=== PATIENT | female | born 1990 | race Caucasian/White ===

== ENCOUNTER 2018-08-16 23:05 | Emergency (ER) | payer SELFPAY ==
[~2018-08-16] VITALS: Ht 157.5 cm; Wt 68.0 kg
[~2018-08-16 23:05] MED LIST: PRENATAL 19 CH1 EACH PO
--- OUTSIDE RECORDS SUMMARY | 2018-08-17 01:32 | XMS | Clinical Summary ---
Demographics + + + | Address | [address] | | | [place] [address] | + + + | Home Phone | | + + + | Preferred Language | Unknown | + + + | Marital Status | Single | + + + | Amish Affiliation | Unknown | + + + | Race | Unknown | + + + | Ethnic Group | Unknown | + + + Author + + + | Author | [facility] | | | and [facility] | + + + | Organization | [facility] | | | and [facility] | + + + | Address | Unknown | + + + | Phone | Unavailable | + + + Care Team Providers + +------+ + | Care Metal Drill Press Operator Name | Role | Phone | + +------+ + PP | Unavailable | + +------+ + Allergies Not on File Current Medications Not on file Active Problems Not on file Social History + +-------+ +--------+------+ | Tobacco Use | Types | Packs/Day | Years | Date | | | | | Used | | + +-------+ +--------+------+ | Never Assessed | | | | | + +-------+ +--------+------+ + + + | Sex Assigned at | Date Recorded | | | | + + + | Not on file | | + + + Plan of Treatment + + + + + | Health Maintenance | Due Date | Last Done | Comments | + + + + + | Vaccine: | | | | | Dtap/Tdap/Td (1 - | 9 | | | | Tdap) | | | | + + + + + | Cervical Cancer | | | | | Screening (Pap) | 1 | | | + + + + + | Vaccine: Influenza | | | | | (#1) | 8 | | | + + + + + Results Not on filefrom Last 3 Months"
--- OUTSIDE RECORDS SUMMARY | 2018-08-17 01:32 | XMS | Clinical Summary ---
Demographics + + + | Address | [address] | | | [place] [address] | + + + | Home Phone | | + + + | Preferred Language | Unknown | + + + | Marital Status | | + + + | Restoration Affiliation | Unknown | + + + | Race | Unknown | + + + | Ethnic Group | Unknown | + + + Author + + + | Author | [facility] | + + + | Organization | [facility] | + + + | Address | Unknown | + + + | Phone | Unavailable | + + + Support + + +---------+ + | Name | Relationship | Address | Phone | + + +---------+ + | Uli Hernandez | ECON | Unknown | | + + +---------+ + Care Team Providers + +------+ + | Care It Application Support Analyst Name | Role | Phone | + +------+ + | Campbell Garcia | PP | | + +------+ + Allergies + + + + + + | Active Allergy | Reactions | Severity | Noted | Comments | | | | | Date | | + + + + + + | Latex | Swelling | Medium | 01/10/20 | | | | | | 14 | | + + + + + + | Sulfamethoxazole-Tri | Anaphylaxis | High | 01/10/20 | | | methoprim | | | 14 | | + + + + + + Current Medications + + +---------+---------+------+------+-------+ | Prescription | Sig. | Disp. | Refills | Star | End | Statu | | | | | | t | Date | s | | | | | | Date | | | + + +---------+---------+------+------+-------+ | | Take 15 mg by mouth. | | | | | Activ | | amphetamine-dextroam | | | | | | e | | phetamine (ADDERALL) | | | | | | | | 5 MG tablet | | | | | | | + + +---------+---------+------+------+-------+ | tamsulosin | Take 1 capsule by | 30 | 0 | 01/0 | | Activ | | (FLOMAX) 0.4 MG | mouth After dinner | capsule | | 9/20 | | e | | capsule | for 30 days. | | | 18 | | | | | Discontinue if feel | | | | | | | | dizziness or drop in | | | | | | | | Blood Pressure. | | | | | | + + +---------+---------+------+------+-------+ Active Problems + + + | Problem | Noted Date | + + + | Nephrolithiasis | 10/07/2017 | + + + | Flank pain | 10/07/2017 | + + + | Tobacco abuse | 10/07/2017 | + + + Family History + + +------+ + | Medical History | Relation | Name | Comments | + + +------+ + | Diabetes type II | Father | | | + + +------+ + | Kidney disease | Father | | | + + +------+ + | Malig hypertherm | Neg Hx | | | + + +------+ + + +------+--------+ + | Relation | Name | Status | Comments | + +------+--------+ + | Father | | | | + +------+--------+ + Social History + +-------+ +--------+------+ | Tobacco Use | Types | Packs/Day | Years | Date | | | | | Used | | + +-------+ +--------+------+ | Current Every Day | | 0.5 | 10 | | | Smoker | | | | | + +-------+ +--------+------+ + +---+---+---+ | Smokeless Tobacco: | | | | | Never Used | | | | + +---+---+---+ + + +---------+ + | Alcohol Use | Drinks/We | oz/Week | Comments | | | ek | | | + + +---------+ + | Yes | | | rarely | + + +---------+ + + + + | Sex Assigned at | Date Recorded | | | | + + + | Not on file | | + + + Last Filed Vital Signs + + + + | Vital Sign | Reading | Time Taken | + + + + | Blood Pressure | 118/64 | 11/25/2017 3:11 PM PST | + + + + | Pulse | 144 | 11/25/2017 3:11 PM PST | + + + + | Temperature | 36.8 C (98.3 F) | 10/19/2017 10:00 AM PST | + + + + | Respiratory Rate | 29 | 10/19/2017 9:15 AM PST | + + + + | Oxygen Saturation | 99% | 11/25/2017 3:11 PM PST | + + + + | Inhaled Oxygen | - | - | | Concentration | | | + + + + | Weight | 70.8 kg (156 lb) | 11/25/2017 3:11 PM PST | + + + + | Height | 157.5 cm (5' 2") | 11/25/2017 3:11 PM PST | + + + + | Body Mass Index | 28.53 | 11/25/2017 3:11 PM PST | + + + + Plan of Treatment + + + + + | Health Maintenance | Due Date | Last Done | Comments | + + + + + | Vaccine: | | | | | Dtap/Tdap/Td (1 - | 9 | | | | Tdap) | | | | + + + + + | Vaccine: | | | | | Pneumococcal 19-64 | 9 | | | | (PPSV23 only) Medium | | | | | Risk (1 of 1 - | | | | | PPSV23) | | | | + + + + + | Cervical Cancer | | | | | Screening (Pap) | 1 | | | + + + + + | Vaccine: Influenza | | | | | (#1) | 8 | | | + + + + + Results Not on filefrom Last 3 Months Insurance +---------+--------+ +------+-------+ + | Payer | Benefi | Subscriber | Type | Phone | Address | | | t Plan | ID | | | | | | / | | | | | | | Group | | | | | +---------+--------+ +------+-------+ + | PREMERA | PREMER | [id number] | | | [address] [address] | | | A BLUE | 6 | | | [place], [place] | | | CARD | | | | [phone] | +---------+--------+ +------+-------+ + + +--------+ +--------+ + + | Guarantor Name | Accoun | Relation to | Date | Phone | Billing Address | | | t Type | Patient | of | | | | | | | | | | + +--------+ +--------+ + + | KAREN HERNANDEZ | Person | Self | [birth year] | Home: | [place], | | | [place] | | 1989 | [phone] | [place] [address] | | | kimmy | | | [phone] | | + +--------+ +--------+ + +
--- OUTSIDE RECORDS SUMMARY | 2018-08-17 01:32 | XMS | Clinical Summary ---
Demographics + + + | Address | [address] | | | [place] [address] | + + + | Home Phone | | + + + | Preferred Language | Unknown | + + + | Marital Status | Single | + + + | Episcopal Affiliation | Unknown | + + + | Race | Unknown | + + + | Ethnic Group | Unknown | + + + Author + + + | Author | [facility] | | | and [facility] | + + + | Organization | [facility] | | | and [facility] | + + + | Address | Unknown | + + + | Phone | Unavailable | + + + Care Team Providers + +------+ + | Care Coo & Co Founder Name | Role | Phone | + [...]
--- OUTSIDE RECORDS SUMMARY | 2018-08-17 01:32 | XMS | Clinical Summary ---
Demographics + + + | Address | [address] | | | [place] [address] | + + + | Home Phone | | + + + | Preferred Language | Unknown | + + + | Marital Status | | + + + | Mu-Ism Affiliation | Unknown | + + + | Race | Unknown | + + + | Ethnic Group | Unknown | + + + Author + + + | Author | [facility] | + + + | Organization | [facility] | + + + | Address | Unknown | + + + | Phone | Unavailable | + + + Support + + +---------+ + | Name | Relationship | Address | Phone | + + +---------+ + | Uli Hernandez | ECON | Unknown | | + + +---------+ + Care Team Providers + +------+ + | Care Blocker And Cutter Contact Lens Name | Role | Phone | + [...] +------+-------+ + | PREMERA | PREMER | [id number] | | | [address] [address] | | | A BLUE | 6 | | | [place], [place] | | | CARD | | | | [phone] | +---------+--------+ +------+-------+ + + +--------+ +--------+ [...] | | al/[place] | | 1989 | [phone] | [place] [address] | | | kimmy | | | [phone] | | + +--------+ +--------+ + +
--- OUTSIDE RECORDS SUMMARY | 2018-08-17 01:33 | XMS ---
PreManage Notification: LULÚ HERNANDEZ Security Offset Printer Events No recent Security Events currently on file CRITERIA MET - [facility] - 2 Visits in 30 Days [facility] PHONE: Unknown Radha has no Care Guidelines for this patient. E.DDanny VISIT COUNT (12 MO.) 2 [facility] TOTAL 2 NOTE: Visits indicate total known visits. ED/UCC VISIT TRACKING (12 MO.) 08/16/2018 23:07 [facility] TYPE: Emergency COMPLAINT: - 7-8 WEEKS , BLEEDING 07/27/2018 12:42 [facility] [place] TYPE: Emergency COMPLAINT: - EXTREMITY INJURY DIAGNOSES: - Pain in right elbow INPATIENT VISIT TRACKING (12 MO.) No inpatient visits to display in this time frame [id number]
== END 2018-08-17 03:13 | disposition home or self-care (01) ==
LOC: ED 23:05
DX: O20.9 Hemorrhage in early pregnancy, unspecified (principal); O99.331 Smoking (tobacco) complicating pregnancy, first trimester; F17.200 Nicotine dependence, unspecified, uncomplicated; Z3A.01 Less than 8 weeks gestation of pregnancy; Z88.2 Allergy status to sulfonamides; Z88.1 Allergy status to other antibiotic agents; Z91.040 Latex allergy status
CPT/HCPCS: 76801; 76817; 84702; 85025; 99284

== ENCOUNTER 2018-12-20 12:48 | Emergency (ER) | payer OTHER ==
[~2018-12-20] VITALS: Ht 154.9 cm; Wt 71.2 kg
[~2018-12-20 12:48] MED LIST changes: +ADDERALL 15 MG15 MG PO; +CEPHALEXIN500 MG PO; +NORCO 5-325 TA1 EACH PO; +REGLAN10 MG PO; +WELLBUTRIN SR100 MG PO
--- OUTSIDE RECORDS SUMMARY | 2018-12-20 12:50 | XMS ---
PreManage Notification: LULÚ HERNANDEZ Security Senior Tax Manager Events No recent Security Events currently on file CRITERIA MET - PDM CARE PROVIDERS [facility] PHONE: Unknown Radha has no Care Guidelines for this patient. E.DDanny VISIT COUNT (12 MO.) 1 [facility] [place] 4 [facility] TOTAL 5 NOTE: Visits indicate total known visits. ED/UCC VISIT TRACKING (12 MO.) 12/20/2018 12:48 [facility] TYPE: Emergency COMPLAINT: - FINGER LAC/OJI 10/03/2018 13:00 [facility] TYPE: Emergency COMPLAINT: - ABD PAIN;POSS KIDNEY STONE DIAGNOSES: - Latex allergy status - Allergy status to other antibiotic agents status - Other watcher automat long goods (current) drug therapy - Allergy status to sulfonamides status - Nicotine dependence, unspecified, uncomplicated - Unspecified abdominal pain - Personal history of urinary calculi 08/23/2018 17:05 [facility] TYPE: Emergency DIAGNOSES: 92723. Abnormal lab results [id number]. Unspecified ectopic without intrauterine 08/16/2018 23:07 [facility] TYPE: Emergency COMPLAINT: - 7-8 WEEKS , BLEEDING DIAGNOSES: - Smoking (tobacco) complicating , first trimester - Less than 8 weeks gestation of - Allergy status to sulfonamides status - Hemorrhage in early , unspecified - Nicotine dependence, unspecified, uncomplicated - Latex allergy status - Hemorrhage in early , unspecified - Allergy status to other antibiotic agents status 07/27/2018 12:42 [facility] TYPE: Emergency COMPLAINT: - EXTREMITY INJURY DIAGNOSES: - Pain in right elbow INPATIENT VISIT TRACKING (12 MO.) 08/23/2018 17:05 [facility] TYPE: Obstetrics DIAGNOSES: 20674. Unspecified ectopic without intrauterine [email or web address]
[2018-12-20] MEDS ORDERED: AUGMENTIN 875-1 EACH PO (15:08)
[2018-12-20] MEDS ORDERED: NORCO 5-325 TA1 EACH PO (15:08)
== END 2018-12-20 13:54 | disposition home or self-care (01) ==
LOC: ED 12:48
DX: S61.210A Laceration without foreign body of right index finger without damage to nail, initial encounter (principal); W29.8XXA Contact with other powered hand tools and household machinery, initial encounter

== ENCOUNTER 2018-12-20 14:07 | Emergency (ER) | payer OTHER ==
[~2018-12-20] VITALS: Ht 157.5 cm; Wt 73.9 kg
--- OUTSIDE RECORDS SUMMARY | 2018-12-20 14:10 | XMS ---
PreManage Notification: LULÚ HERNANDEZ Security Geriatric Care Manager Events No recent Security Events currently on file CRITERIA MET - 6 ED Visits in 6 Months - [facility] - 2 Visits in 30 Days CARE PROVIDERS [facility] of Primary Care [place] PHONE: Unknown Radha has no Care Guidelines for this patient. E.D. VISIT COUNT (12 MO.) 1 [facility] and [address] TOTAL 6 NOTE: Visits indicate total known visits. ED/UCC VISIT TRACKING (12 MO.) 12/20/2018 14:07 [facility] TYPE: Emergency COMPLAINT: - FINGER LAC 12/20/2018 12:48 [facility] TYPE: Emergency COMPLAINT: - FINGER LAC/OJI 10/03/2018 13:00 [facility] [place] TYPE: Emergency COMPLAINT: - ABD PAIN;POSS KIDNEY STONE DIAGNOSES: - Latex allergy status - Allergy status to other antibiotic agents status - Other long-term (current) drug therapy - Allergy status to sulfonamides status - Nicotine dependence, unspecified, uncomplicated - Unspecified abdominal pain - Personal history of urinary calculi 08/23/2018 17:05 [facility] TYPE: Emergency DIAGNOSES: 23065. Abnormal lab results [id number]. Unspecified ectopic without intrauterine 08/16/2018 23:07 [facility] [place] TYPE: Emergency [...] other antibiotic agents status 07/27/2018 12:42 [facility] TYPE: Emergency COMPLAINT: - EXTREMITY INJURY DIAGNOSES: - Pain in right elbow INPATIENT VISIT TRACKING (12 MO.) 08/23/2018 17:05 [facility] TYPE: Obstetrics DIAGNOSES: 96626. Unspecified ectopic without intrauterine [email or web address]
[2018-12-20] MEDS ORDERED: AUGMENTIN 875-1 EACH PO (15:08)
[2018-12-20] MEDS ORDERED: NORCO 5-325 TA1 EACH PO (15:08)
== END 2018-12-20 15:23 | disposition home or self-care (01) ==
LOC: ED 14:07
DX: S61.231A Puncture wound without foreign body of left index finger without damage to nail, initial encounter (principal); Z87.442 Personal history of urinary calculi; F17.200 Nicotine dependence, unspecified, uncomplicated; Z91.040 Latex allergy status; Z88.2 Allergy status to sulfonamides; Z88.1 Allergy status to other antibiotic agents; Z79.899 Other long term (current) drug therapy; W31.0XXA Contact with mining and earth-drilling machinery, initial encounter
CPT/HCPCS: 73140; 99283

== ENCOUNTER 2018-12-23 09:57 | Emergency (ER) | payer OTHER ==
[~2018-12-23] VITALS: Ht 157.5 cm; Wt 70.3 kg
--- OUTSIDE RECORDS SUMMARY | ~2018-12-23 | XMS | Clinical Summary ---
Demographics + + + | Address | [address] | | | [place] [address] | + + + | Home Phone | | + + + | Preferred Language | Unknown | + + + | Marital Status | | + + + | Restorationist Affiliation | NOD | + + + [...] Phone | + + +---------+ + | KERRY ALVARADO | ECON | Unknown | | + + +---------+ + | DAMI ALVARADO | ECON | Unknown | | + + +---------+ + Care Team Providers + +------+ + | Care Dry Sand Molder Name | Role | Phone | + +------+ + | No Pcp Per Patient | PP | Unavailable | + +------+ + Source Comments SHERYL is fully live on both [facility] Allergies + + + + [...] + | Sulfamethoxazole-Tri | Hives | | 08/23/20 | | | methoprim | | | 18 | | + + + + + + Current Medications + + +---------+---------+------+------+-------+ | Prescription | Sig. | Disp. | Refills | Star | End | Statu | | | | | | t | Date | s | | | | | | Date | | | + + +---------+---------+------+------+-------+ | vitamins | Take 1 tablet by | | | | | Activ | | (with calcium) | mouth once daily. | | | | | e | | iron-folic acid 27 | | | | | | | | mg iron- 1 mg oral | | | | | | | | tablet | | | | | | | + + +---------+---------+------+------+-------+ | ascorbic acid | Take 250 mg by mouth | | | | | Activ | | (vitamin C) 250 mg | two times daily. | | | | | e | | oral tablet | | | | | | | + + +---------+---------+------+------+-------+ | | Take 1 tablet by | 168 | 0 | 11/1 | | Activ | | norgestimate-ethinyl | mouth once daily. | tablet | | 4/20 | | e | | estradiol 0.25-35 | | | | 18 | | | | mg-mcg oral tablet | | | | | | | + + +---------+---------+------+------+-------+ | ibuprofen 600 mg | Take 1 tablet by | 90 | 0 | 11/1 | | Activ | | oral tablet | mouth every six | tablet | | 4/20 | | e | | | hours as needed. | | | 18 | | | + + +---------+---------+------+------+-------+ | docusate sodium | Take 1 capsule by | 60 | 0 | 11/1 | | Activ | | (COLACE) 100 mg oral | mouth two times | capsule | | 4/20 | | e | | capsule | daily. 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 Referred to [facility] for | | management. Patient 8wks [...] | | + + +---------+ + | No [...] Pressure | 106/57 | 08/25/2018 4:09 AM PST | + + + + | Pulse | 91 | 08/25/2018 4:09 AM PST | + + + + | Temperature | 36.8 C (98.2 F) | 08/25/2018 4:09 AM PST | + + + + | Respiratory Rate | 14 | 08/25/2018 4:09 AM PST | + + + + | Oxygen Saturation | 96% | 08/25/2018 4:09 AM PST | + + + + | Inhaled Oxygen | - | - | | Concentration | | | + + + + | Weight | 70.8 kg (156 lb) | 08/23/2018 4:16 PM PST | + + + + | Height | 157.5 cm (5' 2") | 08/23/2018 4:16 PM PST | + + + + | Body Mass Index | 28.53 | 08/23/2018 4:16 PM PST | + + + + Plan of Treatment Not on file Results Not on filefrom Last 3 Months Insurance + +--------+ +--------+ + + | Payer | Benefi | Subscriber | Type | Phone | Address | | | t Plan | ID | | | | | | / | | | | | | | Group | | | | | + +--------+ +--------+ + + | [place] | OHP | xxxxxxxx | Medica | [phone] [address] [address] | | | PLUS | | id | [id number] | [place] [address] | | | OPEN | | | | | | | CARD | | | | | + +--------+ +--------+ + + + +--------+ +--------+ + + | Guarantor Name | Accoun | Relation to | Date | Phone | Billing Address | | | t Type | Patient | of | | | | | | | | | | + +--------+ +--------+ + + | KAREN MIRAMONTES | Person | Self | [birth year] | Home: | [address] [place] [address] | | | [place] | | 1989 | [phone] | [place] [address] | | | kimmy | | | [phone] | | + +--------+ +--------+ + +
--- OUTSIDE RECORDS SUMMARY | ~2018-12-23 | XMS | Clinical Summary ---
Demographics + + + | Address | [address] | | | [place] [address] | + + + | Home Phone | | + + + | Preferred Language | Unknown | + + + | Marital Status | | + + + | Restorationism Affiliation | NOD | + + + [...] Team Providers + +------+ + | Care Box Maker Wood Name | Role | Phone | + +------+ + | No Pcp Per Patient | PP | Unavailable | + +------+ + Source Comments SHERYL is fully live on both [facility] and [facility] Allergies + + + + + [...] diagnosed by | | Rolando BRADEN) at [facility]. Referred to [facility] for | | management. [...] | OHP | [phone] | Medica | [phone] | [address] [address] | | | PLUS | | id | [phone] | [place] [address] | | | OPEN | | | [...] | Self | [birth year] | Home: | [address] [place] [address] | | | al/[place] | | 1989 | [phone] | [place] [address] | | | kimmy | | | [phone] | | + +--------+ +--------+ + +
[~2018-12-23 09:57] MED LIST changes: +AUGMENTIN 875-1 EACH PO
--- OUTSIDE RECORDS SUMMARY | 2018-12-23 10:00 | XMS ---
PreManage Notification: LULÚ HERNANDEZ Security Weight Control Engineer Events No recent Security Events currently on file CRITERIA MET - 6 ED Visits in 6 Months - [facility] - 2 Visits in 30 Days [facility] [place] PHONE: Unknown Radha has no Care Guidelines for this patient. E.Erna. VISIT COUNT (12 MO.) 1 [facility] and [address] TOTAL 7 NOTE: Visits indicate total known visits. ED/UCC VISIT TRACKING (12 MO.) 12/23/2018 09:58 [facility] TYPE: Emergency COMPLAINT: - L ANKLE INJURY/WC 12/20/2018 14:07 [facility] TYPE: Emergency COMPLAINT: - FINGER LAC DIAGNOSES: - Contact with mining and earth-drilling machinery, initial encounter - Nicotine dependence, unspecified, uncomplicated - Allergy status to other antibiotic agents status - Allergy status to sulfonamides status - Latex allergy status - Laceration without foreign body of left index finger without damage to nail, initial encounter - Puncture wound without foreign body of left index finger without damage to nail, initial encounter - Other silver service waiter (current) drug therapy - Personal history of urinary calculi 12/20/2018 12:48 [facility] [place] TYPE: Emergency COMPLAINT: - FINGER LAC/OJI DIAGNOSES: - Laceration without foreign body of right index finger without damage to nail, initial encounter - Contact with powered woodworking and forming machines, initial encounter - Contact with other powered hand tools and household machinery, initial encounter 10/03/2018 13:00 [facility] TYPE: Emergency COMPLAINT: - ABD PAIN;POSS KIDNEY STONE DIAGNOSES: - Latex allergy status - Allergy status to other antibiotic agents status - Other silver service waiter (current) drug therapy - Allergy status to sulfonamides status - Nicotine dependence, unspecified, uncomplicated - Unspecified abdominal pain - Personal history of urinary calculi 08/23/2018 17:05 [facility] TYPE: Emergency DIAGNOSES: 03906. Abnormal lab results [id number]. Unspecified ectopic without intrauterine 08/16/2018 23:07 [facility] [...] INPATIENT VISIT TRACKING (12 MO.) 08/23/2018 17:05 [facility] TYPE: Obstetrics DIAGNOSES: 75328. Unspecified ectopic without intrauterine [id number]
== END 2018-12-23 10:15 | disposition home or self-care (01) ==
LOC: ED 09:57
DX: S99.912A Unspecified injury of left ankle, initial encounter (principal); X50.9XXA Other and unspecified overexertion or strenuous movements or postures, initial encounter

== ENCOUNTER 2019-07-03 09:19 | Emergency (ER) | payer OTHER ==
[~2019-07-03] VITALS: Ht 157.5 cm; Wt 67.1 kg
[~2019-07-03 09:19] MED LIST changes: +CYCLOBENZAPRINE10 MG PO; +DICLOFENAC SODI75 MG PO; +LORAZEPAM1 MG PO
--- OUTSIDE RECORDS SUMMARY | 2019-07-03 09:22 | XMS ---
PreManage Notification: LULÚ HERNANDEZ Security Bluing Oven Tender Events No recent Security Events currently on file CRITERIA MET - PDM CARE PROVIDERS ALE LENNON Physician Hot Wire Glass Tube Cutter 12/26/2018-Current PHONE: [phone] [facility] [place] PHONE: Unknown Radha has no Care Guidelines for this patient. E.Ruth VISIT COUNT (12 MO.) 1 [facility] and [facility] 8 [facility] TOTAL 9 NOTE: Visits indicate total known visits. ED/UCC VISIT TRACKING (12 MO.) 07/03/2019 09:20 [facility] TYPE: Emergency COMPLAINT: - CHEST PAIN, SOB 04/21/2019 22:36 [facility] TYPE: Emergency COMPLAINT: - NECK PAIN DIAGNOSES: - Cervicalgia - Latex allergy status - Personal history of urinary calculi - Other fdc (current) drug therapy - Allergy status to penicillin - Acquired absence of other specified parts of digestive tract - Allergy status to other antibiotic agents status - Allergy status to sulfonamides status - Nicotine dependence, unspecified, uncomplicated 12/23/2018 09:58 [facility] TYPE: Emergency COMPLAINT: - L ANKLE INJURY/WC DIAGNOSES: - Other and unspecified overexertion or strenuous movements or postures, initial encounter - Unspecified injury of left ankle, initial encounter 12/20/2018 14:07 [facility] [place] TYPE: Emergency [...] damage to nail, initial encounter - Other fdc (current) drug therapy - Personal history of [...] to other antibiotic agents status - Other remote computer terminal operator (current) drug therapy - Allergy status to sulfonamides status - Nicotine dependence, unspecified, uncomplicated - Unspecified abdominal pain - Personal history of urinary calculi 08/23/2018 17:05 [facility] TYPE: Emergency DIAGNOSES: 57830. Abnormal lab results 10611. Unspecified ectopic without intrauterine 08/16/2018 23:07 [facility] [...] to other antibiotic agents status 07/27/2018 12:42 [facility] [place] TYPE: Emergency COMPLAINT: - EXTREMITY INJURY DIAGNOSES: - Pain in right elbow INPATIENT VISIT TRACKING (12 MO.) 08/23/2018 17:05 [facility] TYPE: Obstetrics DIAGNOSES: 76885. Unspecified ectopic without intrauterine [email or web address]
--- NOTE | 2019-07-03 18:16 | EKG ---
[facility] [address] [facility] [place], [place] [address] Signed Sinus tachycardia Incomplete right bundle branch block Nonspecific ST and T wave abnormality Abnormal ECG No previous ECGs available Confirmed by BROOKLYNN ROMAN MD ([id number]) on 07/03/2019 6:16:39 PM Electronically Signed By: BROOKLYNN ROMAN MD 07/03/19 1816 PATIENT NAME: DAVIDLULÚKIMBERLY GUALLPA Electrocardiogram DATE OF : 89 PHYSICIAN: BROOKLYNN ROMAN MD REPORT #: [id number] REPORT IS CONFIDENTIAL AND NOT TO BE RELEASED WITHOUT AUTHORIZATION
== END 2019-07-03 10:45 | disposition home or self-care (01) ==
LOC: ED 09:19
DX: J98.01 Acute bronchospasm (principal); F17.200 Nicotine dependence, unspecified, uncomplicated; Z87.442 Personal history of urinary calculi; Z88.0 Allergy status to penicillin; Z88.1 Allergy status to other antibiotic agents; Z88.2 Allergy status to sulfonamides; Z91.040 Latex allergy status; Z79.899 Other long term (current) drug therapy
CPT/HCPCS: 71045; 93005; 93010; 94640; 94664; 99285-25

== ENCOUNTER 2019-07-17 20:48 | Emergency (ER) | payer OTHER ==
[~2019-07-17] VITALS: Ht 157.5 cm; Wt 67.1 kg
--- OUTSIDE RECORDS SUMMARY | ~2019-07-17 | XMS | Encounter Summary ---
Demographics + + + | Address | [address] | | | [place] [address] | + + + | Home Phone | | + + + | Preferred Language | Unknown | + + + | Marital Status | | + + + | Scientologist Affiliation | NOD | + + + | Race | White | + + + | Ethnic Group | Not or | + + + Author + + + | Author | [facility] | + + + | Organization | [facility] | + + + | Address | [...] Team Providers + +------+ + | Care Language Arts Teacher Name | Role | Phone | + [...] + + | 08/23/ | Emergency | [address] | Tommy Maier MD | | | 2018 - | | Aline Atkins | [address] | | | | | [facility] | [place], | | | 08/25/ | | [place], [place] | [place] [address] | | | 2018 | | [address] | [phone] | | | | | [phone] | | | | | | | Lavern Montana MD | | | | | | [address] | | | | | | [place], | | | | | | [place] [address] | | | | | | [phone] | | | | | | | [...] a 28 y.o. who was referred to [facility] for management of a cesa rean scar ectopic diagnosed at an outside facility. Her medical history was notab le for history of one prior CS and tobacco use. The patient was asymtomatic and hemodynamic ally stable with a benign exam upon presentation to [facility]. The patient was counseled [...] as surgical optimization given her distance from [facility] and complex case. On [...] To contact your provider, please call the [facility] Center [facility] clinic at [phone] during daytime hours. During evening or weekend hours, please call the [facility] paging crozer operator at [phone] and ask for the Pipeline Superintendent resident on-call. Reasons to call the doctor: [...] regular periods it can be heavier or childcare center director, longer or shorter than normal. This will [...] the procedure During regular business hours, call [phone] to speak to a nurse or physician. For emergencies after hours or on the weekend, call [phone] ([facility] crozer operator) and ask to speak to the physician bail bond agent for General Obstetrics and Gynecology. Patient Education Materials: oxycodone and ethinyl estradiol and norgestimate Additional Instructions: monitor for bleeding review of AVS, oxycodone and ethinyl estradio l and norgestimate Discharge Nurse: TAYLER CURIEL RN Date: 08/24/2018 Discharge Time: 9:37 PM AttachmentsThe following attachments cannot be sent through Care Everywhere.oxycodone (Engl priscila)ethinyl estradiol and norgestimate (Lao)documented in this encounter Medications at Time of [...] Resident Physician, Obstetrics and Gynecology, PGY4 Pager [phone] Agustina Faulkner MD - 08/24/2018 7:24 AM [...] on case scheduled in [facility]. Dr. English Pipeline Superintendent 1 aware and will be the attending [...] Agustina Raygoza MD Obstetrics and Gynecology PGY-1 [phone] Associated attestation - Dale English MD - [...] [facility] | [address] | [place], [place] | | | MARGARITA STEINER OF CARE | [address] | [address] | | | TESTS | | | [...] | curettage: Chorionic | | OF | Meg Sequeira | | | villi and decidua, [...] PathologistPathology, | | | | | | [facility] | | | | | | [place] My electronic | | | | | [...] specimen. | | | | | | Security Installer sections | | | | | | [...] | | | | | determined by [facility] | | | | [...] + + | Performing | Address | City/State/[facility] | Phone Number | | Organization | | | | + + + + + | [facility] | [address] | [place] [address] | | | PATHOLOGY | [address] | | | + + + + + DILATION AND CURETTAGE (08/24/2018 1:11 PM PST) + + + | Narrative | Performed At | + + + | Dale English MD 08/30/2018 3:03 PM OPERATIVE REPORT | | | Procedure Date: 08/24/2018 Surgeon: Dale English MD Fellow: Lavern | | | MD Rubén Culinary Instructor: YANNI GARCIA MD,MPH R4 Prior to the [...] Surgical team, anesthesia | | | team, orthodontic technician, circulating nurse. Preoperative Diagnosis: 1) | [...] by LMP who was admitted to the SCOURING MACHINE OPERATOR service | | | for management of a scar ectopic . Her medical | | | history was otherwise notable for tobacco use. She was stable and | | | asymptomatic on admission, and after extensive counseling on her | | | options including intra-sac methotrexate injection, balloon | | | tamponade, or dilation and curettage she elected for suction | | | D&C. A full PARQ was previously held with the patient and a | | | consent form was signed. She was also consented for blood | | | transfusion as well as hysterectomy in the setting of refractory | | | life-threatening bleeding. Procedure: The patient was met in | | | the preoperative area and the consent was reviewed. She was | | | taken to the operating room with the IV running. Anesthesia was | | | induced without difficulty. She was placed in lithotomy position | | | using Cy stirrups in what was felt to be a neurologically safe | | | position. She was prepped and draped in the usual sterile | | | fashion. Prior to the beginning of the procedure the team paused | | | to verify the patient's identity, as well as the procedure to be | | | performed and the correct side/site. All equipment required was | | | ready and available. Bimanual exam was performed and the uterus | | | was anteverted and 8 weeks size. The speculum was placed. The | | | cervix was grasped with a tenaculum placed on the anterior cervical | | | lip. A two-point paracervical block was placed using a solution of | | | dilute vasopressin (20u vasopressin in 60ml saline). Under | | | ultrasound guidance, the cervix was sequentially dilated to 21 mms | | | without difficulty. A 7 mm straight and flexible cannula was | | | used with electric suction to remove the products of conception from | | | the uterus until a gritty texture was appreciated. All | | | instruments were removed from the vagina and hemostasis ensured at | | | the tenaculum sites. Transabdominal ultrasound was used during | | | the procedure for guidance and to confirm a thin endometrial stripe | | | at the conclusion of the procedure The products of conception | | | were examined and the procedure was found to be complete. The | | | tissue retrieved was sent to pathology for evaluation. The | | | patient tolerated the procedure well and general anesthesia was | | | ended without complications. She was taken to the recovery room | | | awake and in stable condition. YANNI GARCIA MD,MPH | | [...] | Specimen | + + | Blood | + + + + + | Narrative | Performed At | + + + | HCG Reference ranges | [facility] | | Males: <2 mIU/mL Non- Females: <3 mIU/mL | LABORATORY | | Females: >5 mIU/mL HCG Ranges | SERVICES, CORE | | During Normal : Weeks Post Last Menstrual Period: | | | Approximate hCG Range, mIU/mL 3-4 | | | weeks 9 - | | | 130 4-5 | | | weeks 75 - | | | 2600 5-6 | | | weeks 850 - | | | 71759 6-7 | | | weeks 4000 - | | | 395366 7-12 | | | weeks 69664 - | | | 748704 12-16 | | | weeks 85637 - | | | 223858 16-29 | | | weeks 1400 - 70450 | | | 29-41 | | | weeks 940 - | | | 23280 This test has not been approved for use as a tumor | | | marker in males or females. | | + + + + + + + + | Performing | Address | City/State/Zipcode | Phone Number | | Organization | | | | + + + + + | [facility] | [address] | [place] [address] | | | SERVICES, HORACIO | ARASH [...] + + + + | PRODUCT | [id number] | | [facility] | | | UNIT [...] + + + + | EXPIRATION | [id number] | | [facility] | | | DATE [...] + + + + | BLOOD | [id number] | | [facility] | | | PRODUCT [...] [facility] | [address] | [place] [address] | | | SERVICES, | [address] [...] + + + + | PRODUCT | [id number] | | [facility] | | | UNIT [...] + + + + | EXPIRATION | [id number] | | [facility] | | | DATE [...] + + + + | BLOOD | [id number] | | [facility] | | | PRODUCT [...] [facility] | [address] | [place] [address] | | | SERVICES, | [address] [...] | Specimen | + + | Blood | + + + + + + + | Performing | Address | City/State/Zipcode | Phone Number | | Organization | | | | + + + + + | [facility] | [address] | [place] [address] | | | SERVICES, | [address] [...] | Specimen | + + | Blood | + + + + + + + | Performing | Address | City/State/Zipcode | Phone Number | | Organization | | | | + + + + + | [facility] | [address] | [place] [address] | | | SERVICES, | [address] | | | | TRANSFUSION MEDICINE | | | | + + + + + RAINBOW HOLD TUBE - RED TOP (08/23/2018 4:13 PM PST) + + | Specimen | + + | Blood | + + + + + + + | Performing | Address | City/State/Zipcode | Phone Number | | Organization | | | | + + + + + | [facility] | [address] | [place] [address] | | | SERVICES, CORE | [address] | | | + + + + + RAINBOW HOLD TUBE - PURPLE TOP (08/23/2018 4:13 PM PST) + + | Specimen | + + | Blood | + + + + + + + | Performing | Address | City/State/Zipcode | Phone Number | | Organization | | | | + + + + + | [facility] | [address] | [place] [address] | | | HORAC[address] | [address] | | | + + + + + RAINBOW HOLD TUBE - BLUE TOP (08/23/2018 4:13 PM PST) + + | Specimen | + + | Blood | + + + + + + + | Performing | Address | City/State/Zipcode | Phone Number | | Organization | | | | + + + + + | [facility] | [address] | [place] [address] | | | [address]AC[address] | [address] | | | + [...] | Specimen | + + | Blood | + + + + + + + | Performing | Address | City/State/Zipcode | Phone Number | | Organization | | | | + + + + + | [facility] | [address] | [place] [address] | | | SERVICES, | [address] [...] | Specimen | + + | Blood | + + + + + + + | Performing | Address | City/State/Zipcode | Phone Number | | Organization | | | | + + + + + | [facility] | [address] | [place] [address] | | | SERVICES, | [address] | | | | TRANSFUSION MEDICINE [...] | Specimen | + + | Blood | + + + + + | Narrative | Performed At | + + + | HCG Reference ranges | [facility] | | Males: <2 mIU/mL Non- Females: <3 mIU/mL | LABORATORY | | Females: >5 mIU/mL HCG Ranges | SERVICES, CORE | | During Normal : Weeks Post Last Menstrual Period: | | | Approximate hCG Range, mIU/mL 3-4 | | | weeks 9 - | | | 130 4-5 | | | weeks 75 - | | | 2600 5-6 | | | weeks 850 - | | | 85965 6-7 | | | weeks 4000 - | | | 096216 7-12 | | | weeks 75781 - | | | 529361 12-16 | | | weeks 45359 - | | | 412554 16-29 | | | weeks 1400 - 68061 | | | 29-41 | | | weeks 940 - | | | 86244 This test has not been approved for use as a tumor | | | marker in males or females. | | + + + + + + + + | Performing | Address | City/State/Zipcode | Phone Number | | Organization | | | | + + + + + | [facility] | [address] | [place] [address] | | | SERVICES, CORE | [address] [...] | Specimen | + + | Blood | + + + + + + + | Performing | Address | City/State/Zipcode | Phone Number | | Organization | | | | + + + + + | [facility] | [address] | [place] [address] | | | SERVICES, | [address] [...] | Specimen | + + | Blood | + + + + + + + | Performing | Address | City/State/Zipcode | Phone Number | | Organization | | | | + + + + + | [facility] | [address] | [place] [address] | | | SERVICES, | [address] [...] | Specimen | + + | Blood | + + + + + + + | Performing | Address | City/State/Zipcode | Phone Number | | Organization | | | | + + + + + | [facility] | [address] | [place] [address] | | | SERVICES, CORE | [address] [...] | | | LABORATORY | | | [place] | | | SERVICES, | | | [...] | Specimen | + + | Blood | + + + + + | [...] | Information: <60 mL/min/1.73 sq m Chronic | | | Kidney Disease <15 mL/min/1.73 sq m | | | Kidney Failure Estimated GFR greater that 60 mL/min/1.73 sq m is of | | | limited clinical value. The MDRD equation is not valid in the | | | following situations: - Patients under 18 years of age - Severe | | | malnutrition or obesity - Vegetarian diet - Rapidly changing kidney | | | function - Amputees, paraplegics, or other muscle-wasting diseses | | + + + + + + + + | Performing | Address | City/State/Zipcode | Phone Number | | Organization | | | | + + + + + | [facility] | [address] | [place] [address] | | | SERVICES, CORE | [address] [...] | acetaminophen (TYLENOL) tablet | Given | 08/25/20 | 650 mg | | | | [...] 5 %-lactated ringers | New Bag | 08/24/20 | 75 mL/hr | 75 [...] | | | | NEEDED, Starting 08/24/18 | | AM PST | | | [...] | | | | | 1543, Until 08/24/18 at 1900, | | | | | [...] PST | | | | | at 2015, Until Discontinued | | | | | [...] | | | | NEEDED, Starting Wed08/24/18 at | | | | | | [...]
--- OUTSIDE RECORDS SUMMARY | ~2019-07-17 | XMS | Encounter Summary ---
Demographics + + + | Address | [address] | | | [place] [address] | + + + | Home Phone | | + + + | Preferred Language | Unknown | + + + | Marital Status | | + + + | Mormon Affiliation | NOD | + + + | Race | White | + + + | Ethnic Group | Not or | + + + Author + + + | Author | [facility] | + + + | Organization | [facility] | + + + | Address | [...] Team Providers + +------+ + | Care Boss Miner Name | Role | Phone | + +------+ + | No Pcp Per Patient | PCP | Unavailable | + +------+ + Encounter Details +--------+ + + + + | Date | Type | Department | Care Team | Description | +--------+ + + + + | 08/24/ | Pharmacy | Outpatient Retail | | | | 2018 | Visit | [facility] | | | | | | [address] | | | | | | [place], | | | | | | [place] [address] | | | +--------+ + + + [...]
--- OUTSIDE RECORDS SUMMARY | ~2019-07-17 | XMS | Encounter Summary ---
Demographics + + + | Address | [address] | | | [place] [address] | + + + | Home Phone | | + + + | Preferred Language | Unknown | + + + | Marital Status | | + + + | Judaism Affiliation | NOD | + + + | Race | White | + + + | Ethnic Group | Not or | + + + Author + + + | Author | [facility] | + + + | Organization | [facility] | + + + | Address | [...] Team Providers + +------+ + | Care Energy Manager Name | Role | Phone | [...] 08/24/ | Surgery | 6A Intra Op [facility] | Dale English MD [address] | ULTRASOUND GUIDED | | 2017 | | [facility] | [address] | DILATION AND | | | | Admitting Desk | [facility] [place] | [address] | | | | Located on the | [address] | | | | | floor [address] | [phone] | | | | | [address] | | | | | | [place], [place] | | | | | | [address] | | | +--------+---------+ + + + [...] documented in this encounter Discharge Summaries Yanni Rivera MD,MPH - 08/23/2018 10:09 PM PST INPATIENT PHYSICIAN DISCHARGE SUMMARY Author: YANNI RIVERA MD,MPH Attending Physician: Dale English MD PCP: No Pcp Per PATIENT Admission Date: 08/23/2018 Discharge Date: 08/25/2018 Principal Final Diagnoses: scar ectopic Additional Diagnoses: History of one prior Tobacco use Principal Procedure: (08/24): Dilation and curettage Hospital Course: Karen Miramontes is a 28 y.o. who was referred to [facility] for management of a cesa rean scar ectopic diagnosed at an outside facility. Her medical history was notab le for history of one prior CS and tobacco use. The patient was asymtomatic and hemodynamic ally stable with a benign exam upon presentation to [facility]. The patient was counseled on aurea gement [...] as surgical optimization given her distance from [facility] and complex case. On 08/23/2018, she underwent [...] To contact your provider, please call the [facility] clinic at [phone] during daytime hours. During evening or weekend hours, please call the [facility] paging mechanical press operator at [phone] and ask for the Tile Mechanic Helper resident on-call. Reasons to call the doctor: [...] in this encounter Discharge Instructions Instructions Tayler Valentino RN - 08/23/2018AFTERCARE INSTRUCTIONS 1. It is [...] regular periods it can be heavier or assistant women's rowing coach, longer or shorter than normal. This will [...] the procedure During regular business hours, call [phone] to speak to a nurse or physician. For emergencies after hours or on the weekend, call [phone] ([facility] mechanical press operator) and ask to speak to the physician urban design consultant for General Obstetrics and Gynecology. Patient Education Materials: oxycodone and ethinyl estradiol and norgestimate Additional Instructions: monitor for bleeding review of AVS, oxycodone and ethinyl estradio l and norgestimate Discharge Nurse: TAYLER VALENTINO RN Date: 08/24/2018 Discharge Time: 9:37 PM AttachmentsThe following attachments cannot be sent through Care Everywhere.oxycodone ([facility])ethinyl estradiol and norgestimate (Polish)documented in this encounter Medications at Time of [...] Resident Physician, Obstetrics and Gynecology, PGY4 Pager [phone] gustina Raygoza MD - 08/24/2018 7:24 AM [...] O2 Delivery Device: None (room air) (08/23/18 5869) 24 Hour Vital Min/Max: Systolic (24hrs), Av [...] on case scheduled in [facility]. Dr. English Tile Mechanic Helper 1 aware and will be the attending [...] Agustina Raygoza MD Obstetrics and Gynecology PGY-1 [id number] Associated attestation - Dale English MD - [...] [facility] | [address] | [place], [place] | | | MARGARITA STEINER OF [address] | [address] | [address] | | | TESTS | | | [...] | | 1:22 PM | | | by:yMron Zamora MD | | | | | | | | | | | | Pathology | | | | | | Naty Claudio | | | | | | - | | | | | | PathologistPathology, | | | | | | [facility] | | | | | | [facility] electronic | | | | | | [...] specimen. | | | | | | School Admissions Representative sections | | | | | | [...] + + | Performing | Address | City/State/Unm Hospitalcode | Phone Number | | Organization | | | | + + + + + | [facility] | [address] | [place] [address] | | | PATHOLOGY | [address] | | | + + + + + DILATION AND CURETTAGE (08/24/2018 1:11 PM PST) + + + | Narrative | Performed At | + + + | Dale English MD 08/30/2018 3:03 PM OPERATIVE REPORT | | | Procedure Date: 08/24/2018 Surgeon: Dale English MD Fellow: Lavern | | | MD Rubén Rotary Veneer Machine Operator: YANNI RIVERA MD,MPH R4 Prior to the | | [...] by LMP who was admitted to the MANAGER MUSIC service | | | for management of [...] | awake and in stable condition. YANNI RIVERA MD,MPH | | + + + HCG [...] | weeks 850 - | | | 13365 6-7 | | | weeks 4000 - | | | 269533 7-12 | | | weeks 95715 - | | | 154082 12-16 | | | weeks 26749 - | | | 891869 16-29 | | | weeks 1400 - 84588 | | | 29-41 | | | weeks 940 - | | | 92730 This test has not been approved for use as a tumor | | | marker in males or females. | | + + + + + + + + | Performing | Address | City/State/Zipcode | Phone Number | | Organization | | | | + + + + + | [facility] | [address] | [place] [address] | | | SERVICES, CORE | [address] [...] + + + + | PRODUCT | [id number] | | [facility] | | | UNIT [...] + + + + | EXPIRATION | [id number] | | [facility] | | | DATE [...] + + + + | BLOOD | [id number] | | [facility] | | | PRODUCT [...] [facility] | [address] | [place] [address] | | | SERVICES, | [address] [...] + + + + | PRODUCT | [id number] | | [facility] | | | UNIT [...] + + + + | EXPIRATION | [id number] | | [facility] | | | DATE [...] + + + + | BLOOD | [id number] | | [facility] | | | PRODUCT [...] [facility] | [address] | [place] [address] | | | SERVICES, | [address] [...] [facility] | [address] | [place] [address] | | | SERVICES, | [address] [...] | + + + + + | [facility] | [address] | [place] [address] | | | SERVICES, | [address] [...] | + + + + + | [facility] | [address] | [place] [address] | | | SERVICES, CORE | ARASH [...] | + + + + + | [facility] | [address] | [place] [address] | | | HORACIO ESTRADA | ARASH [...] | + + + + + | [facility] | [address] | [place] [address] | | | HORACIO ESTRADA | ARASH [...] [facility] | [address] | [place] [address] | | | SERVICES, | [address] [...] | + + + + + | [facility] | [address] | [place] [address] | | | SERVICES, | [address] [...] | weeks 850 - | | | 72805 6-7 | | | weeks 4000 - | | | 088313 7-12 | | | weeks 34112 - | | | 429534 12-16 | | | weeks 60267 - | | | 019672 16-29 | | | weeks 1400 - 47743 | | | 29-41 | | | weeks 940 - | | | 23457 This test has not been approved for use as a tumor | | | marker in males or females. | | + + + + + + + + | Performing | Address | City/State/Zipcode | Phone Number | | Organization | | | | + + + + + | [facility] | [address] | [place] [address] | | | HORAC[address] ESTR[address] | [address] [...] [facility] | [address] | [place] [address] | | | SERVICES, | [address] [...] | + + + + + | [facility] | [address] | [place] [address] | | | SERVICES, | [address] [...] [facility] | [address] | [place] [address] | | | SERVICES, CORE | [address] [...] | | | LABORATORY | | | [facility] | | | SERVICES, | | | [...] | + + + + + | [facility] | [address] | [place] [address] | | | SERVICES, [facility] | [address] | | | + [...] | | | | | 1607, Until [facility] 08/25/18 at 1313, | | | | [...]
--- OUTSIDE RECORDS SUMMARY | ~2019-07-17 | XMS | Encounter Summary ---
Demographics + + + | Address | [address] | | | [place] [address] | + + + | Home Phone [...] + + + | Author | [facility] | + + + | Organization | [facility] | + + + | Address [...] Team Providers + +------+ + | Care Certified Medical Aide Name | Role | Phone | + [...] 08/24/ | Anesthesia | 6A Intra Op [facility] | Karishma Murguia | | | 2018 | Event | [facility] | MD Jeremy [address] | | | | | Admitting Desk | [address] | | | | | Located on the | [place], [place] | | | | | [place] [address] [facility] | [address] | | | | | [address] | [phone] | | | | | [place], [place] | | | | | | [address] | | | +--------+ + + + [...]
--- OUTSIDE RECORDS SUMMARY | ~2019-07-17 | XMS | Encounter Summary ---
Demographics + + + | Address | [address] | | | [place] [address] | + + + | Home Phone | | + + + | Preferred Language | Unknown | + + + | Marital Status | | + + + | Voodoo Affiliation | NOD | + + + | Race | White | + + + | Ethnic Group | Not or | + + + Author + + + | Author | [facility] | + + + | Organization | [facility] | + + + | Address [...] Team Providers + +------+ + | Care Metallic Yarn Slitting Machine Operator Name | Role | Phone | + +------+ + | No Pcp Per Patient | PCP | Unavailable | + +------+ + Encounter Details +--------+ + + + + | Date | Type | Department | Care Team | Description | +--------+ + + + + | 08/24/ | Procedure | 6A Intra Op [facility] | | | | 2018 | Pass | [facility] | | | | | | Admitting Desk | | | | | | Located on the 9th | | | | | | floor [address] | | | | | | [address] | | | | | | [place], [place] | | | | | | [address] | | | +--------+ + + + [...]
--- OUTSIDE RECORDS SUMMARY | ~2019-07-17 | XMS | Encounter Summary ---
Demographics + + + | Address | [address] | | | [place] [address] | + + + | Home Phone | | + + + | Preferred Language | Unknown | + + + | Marital Status | | + + + | Baptism Affiliation | NOD | + + + [...] Team Providers + +------+ + | Care Food Counter Attendant Name | Role | Phone [...] | | | | | [place], | | | | | | [place] [address] | | | +--------+ + + + [...]
--- OUTSIDE RECORDS SUMMARY | ~2019-07-17 | XMS | Clinical Summary ---
Demographics + + + | Address | [address] | | | [place] [address] | + + + | Home Phone | | + + + | Preferred Language | Unknown | + + + | Marital Status | | + + + | Yarsani Affiliation | NOD | + + + [...] Team Providers + +------+ + | Care Gear Grinder Name | Role | Phone | + +------+ + | No Pcp Per Patient | PCP | Unavailable | + +------+ + Source Comments SHERYL is fully live on both [facility] Amb[facility] and [facility] InPatient.[facility] Allergies + + + + + [...] [facility]. Referred to [facility] for | | management. Patient 8wks by [...] [place] | [facility] | xxxxxxxx | | [phone] | [address] | | | PLUS | | [address] | [address] | [phone] | id | | | OPEN | | esent | | [place], [place] | | | | CARD | | | | [address] | | + +--------+ +--------+ + +--------+ + +--------+ +--------+ + + | Guarantor Name | Accoun | Relation to | Date | Phone | Billing Address | | | t Type | Patient | of | | | | | | | | | | + +--------+ +--------+ + + | Karen Miramontes | Person | Self | [birth year] | [address] | | | al/Fam | | 1990 | [phone] | [place] [address] | | | kimmy | | | [...]
--- OUTSIDE RECORDS SUMMARY | ~2019-07-17 | XMS | Encounter Summary ---
Demographics + + + | Address | [address] | | | [place] [address] | + + + | Home Phone [...] | Author | [facility] | + + + | Organization | [facility] | + + + | Address | [...] Team Providers + +------+ + | Care Upholsterer Inside Name | Role | Phone | + [...] | | | 2018 | Event | [facility] | MD Jeremy [address] | | | | | Admitting Desk | [address] | | | | | Located on the | [place], [place] | | | | | [place] [id number] [facility] | [address] | | | | | [address] | [phone] | | | | | [place], [place] | | | | | | [address] | | | +--------+ + + + [...]
--- OUTSIDE RECORDS SUMMARY | ~2019-07-17 | XMS | Encounter Summary ---
Demographics + + + | Address | [address] | | | [place] [address] | + + + | Home Phone | | + + + | Preferred Language | Unknown | + + + | Marital Status | | + + + | Sikhism Affiliation | NOD | + + + | Race | White | + + + | Ethnic Group | Not or | + + + Author + + + | Author | [facility] | + + + | Organization | [facility] | + + + | Address [...] Team Providers + +------+ + | Care Branch Examiner Name | Role | Phone | + [...] | | | | | [place], | | | | | | [place] [address] | | | +--------+ + + + [...]
--- OUTSIDE RECORDS SUMMARY | ~2019-07-17 | XMS | Encounter Summary ---
Demographics + + + | Address | [address] | | | [place] [address] | + + + | Home Phone | | + + + | Preferred Language | Unknown | + + + | Marital Status | | + + + | Spiritism Affiliation | NOD | + + + [...] Team Providers + +------+ + | Care Vest Presser Name | Role | Phone | + +------+ + | No Pcp Per Patient | PCP | Unavailable | + +------+ + Encounter Details +--------+ + + + + | Date | Type | Department | Care Team | Description | +--------+ + + + + | 08/24/ | Procedure | 6A Intra Op [facility] | | | | 2018 | Pass | [facility] | | | | | | Admitting Desk | | | | | | Located on the 9th | | | | | | floor [address] | | | | | | [address] | | | | | | [place], [place] | | | | | | [address] | | | +--------+ + + + [...]
--- OUTSIDE RECORDS SUMMARY | ~2019-07-17 | XMS | Clinical Summary ---
Demographics + + + | Address | [address] | | | [place] [address] | + + + | Home Phone | | + + + | Preferred Language | Unknown | + + + | Marital Status | | + + + | Baptist Affiliation | NOD | + + + [...] Team Providers + +------+ + | Care Heating Element Winder Name | Role | Phone | + +------+ + | No Pcp Per Patient | PCP | Unavailable | + +------+ + Source Comments SHERYL is fully live on both [facility] Amb[facility] and [facility] InPatient.[facility] & [facility] Allergies + + + + + [...] [facility] | | [facility]. Referred to [facility] for | | management. Patient 8wks by [...] [place] | [facility] | xxxxxxxx | | [phone] | [address] | [address] | | | PLUS | | [address] | [phone] | id | | | OPEN | | esent | | [place], [place] | | | | CARD | | | | [address] | | + +--------+ +--------+ + +--------+ + +--------+ +--------+ + + | Guarantor Name | Accoun | Relation to | Date | Phone | Billing Address | | | t Type | Patient | of | | | | | | | | | | + +--------+ +--------+ + + | Karen Miramontes | Person | Self | [birth year] | [address] | | | al/Fam | | 1990 | [phone] | [place] [address] | | | kimmy | | | [...]
--- OUTSIDE RECORDS SUMMARY | ~2019-07-17 | XMS | Encounter Summary ---
Demographics + + + | Address | [address] | | | [place] [address] | + + + | Home Phone | | + + + | Preferred Language | Unknown | + + + | Marital Status | | + + + | Oriental Orthodox Affiliation | NOD | + + [...] Team Providers + +------+ + | Care Roadway Technician Name | Role | Phone | [...] ULTRASOUND GUIDED | | 2017 | | [facility] | [address] | DILATION AND | | | | Admitting Desk | [facility] [place] | [address] | | | | Located on the | [address] | | | | | floor [address] | [phone] | | | | | [address] | | | | | | [place], [place] | | | | | | [address] | | | +--------+---------+ + + + [...] a 28 y.o. who was referred to 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 Her medical history was notab le for history of one prior CS and tobacco use. The patient was asymtomatic and hemodynamic ally stable with a benign exam upon presentation to [facility]. The patient was counseled on aurea gement [...] as surgical optimization given her distance from [facility] and complex case. On 08/23/2018, she underwent [...] To contact your provider, please call the [facility] clinic at [phone] during daytime hours. During evening or weekend hours, please call the [facility] paging tablet machine operator at [phone] and ask for the Rn Admit resident on-call. Reasons to call the doctor: [...] regular periods it can be heavier or chemical plant operator supervisor, longer or shorter than normal. This will [...] the procedure During regular business hours, call [phone] to speak to a nurse or physician. For emergencies after hours or on the weekend, call [phone] ([facility] tablet machine operator) and ask to speak to the physician ceiling insulation blower for General Obstetrics and Gynecology. Patient Education Materials: oxycodone and ethinyl estradiol and norgestimate Additional Instructions: monitor for bleeding review of AVS, oxycodone and ethinyl estradio l and norgestimate Discharge Nurse: TAYLER VALENTINO RN Date: 08/24/2018 Discharge Time: 9:37 PM AttachmentsThe following attachments cannot be sent through Care Everywhere.oxycodone ([facility])ethinyl estradiol and norgestimate ([place])documented in this [...] Resident Physician, Obstetrics and Gynecology, PGY4 Pager [phone] gustina Raygoza MD - 08/24/2018 7:24 AM [...] O2 Delivery Device: None (room air) (08/23/18 9719) 24 Hour Vital Min/Max: Systolic (24hrs), Av [...] on case scheduled in [facility]. Dr. English Rn Admit 1 aware and will be the attending [...] Agustina Raygoza MD Obstetrics and Gynecology PGY-1 [id number] Associated attestation - Dale English MD - [...] [facility] | [address] | [place], [place] | | | MARGARITA STEINER OF [address] | [address] | [address] | | | TESTS | | | [...] | | | | | [facility] | | | | | | [facility] electronic | | | | | | [...] specimen. | | | | | | Log Peeler sections | | | | | | [...] + + + + + | [facility] | [address] | [place] [address] | | | PATHOLOGY | [address] | | | + + + + + DILATION AND CURETTAGE (08/24/2018 1:11 PM PST) + + + | Narrative | Performed At | + + + | Dale English MD 08/30/2018 3:03 PM OPERATIVE REPORT | | | Procedure Date: 08/24/2018 Surgeon: Dale English MD Fellow: Lavern | | | MD Rubén Debone Processing Supervisor: YANNI RIVERA MD,MPH R4 Prior to the [...] Surgical team, anesthesia | | | team, nursing techn, circulating nurse. Preoperative Diagnosis: 1) | | [...] by LMP who was admitted to the [facility] service | | | for management of [...] | weeks 850 - | | | 70282 6-7 | | | weeks 4000 - | | | 216132 7-12 | | | weeks 90912 - | | | 775890 12-16 | | | weeks 80964 - | | | 138106 16-29 | | | weeks 1400 - 07196 | | | 29-41 | | | weeks 940 - | | | 24726 This test has not been approved for use as a tumor | | | marker in males or females. | | + + + + + + + + | Performing | Address | City/State/Zipcode | Phone Number | | Organization | | | | + + + + + | [facility] | [address] | [place] [address] | | | SERVICES, CORE | [address] [...] + + + + | PRODUCT | [id number] | | [facility] | | | UNIT [...] + + + + | EXPIRATION | [id number] | | [facility] | | | DATE [...] + + + + | BLOOD | [id number] | | [facility] | | | PRODUCT [...] [facility] | [address] | [place] [address] | | | SERVICES, | [address] [...] + + + + | PRODUCT | [id number] | | [facility] | | | UNIT [...] + + + + | EXPIRATION | [id number] | | [facility] | | | DATE [...] + + + + | BLOOD | [id number] | | [facility] | | | PRODUCT [...] + | [facility] | [address] | [place] [address] | | | SERVICES, | [address] [...] [facility] | [address] | [place] [address] | | | SERVICES, | [address] [...] | + + + + + | [facility] | [address] | [place] [address] | | | SERVICES, | [address] [...] | + + + + + | [facility] | [address] | [place] [address] | | | SERVICES, CORE | [address] [...] | + + + + + | [facility] | [address] | [place] [address] | | | HORACIO ESTR[address] | [address] [...] | + + + + + | [facility] | [address] | [place] [address] | | | HORACIO ESTRADA | [address] [...] [facility] | [address] | [place] [address] | | | SERVICES, | [address] [...] | + + + + + | [facility] | [address] | [place] [address] | | | SERVICES, | [address] [...] | weeks 850 - | | | 37756 6-7 | | | weeks 4000 - | | | 093105 7-12 | | | weeks 30762 - | | | 676443 12-16 | | | weeks 94057 - | | | 159060 16-29 | | | weeks 1400 - 53167 | | | 29-41 | | | weeks 940 - | | | 48108 This test has not been approved for use as a tumor | | | marker in males or females. | | + + + + + + + + | Performing | Address | City/State/Zipcode | Phone Number | | Organization | | | | + + + + + | [facility] | [address] | [place] [address] | | | [address] | [address] [...] [facility] | [address] | [place] [address] | | | SERVICES, | [address] [...] | + + + + + | [facility] | [address] | [place] [address] | | | SERVICES, | [address] [...] [facility] | [address] | [place] [address] | | | SERVICES, CORE | [address] [...] | | | LABORATORY | | | [address] | | | SERVICES, | | | [...] | + + + + + | [facility] | [address] | [place] [address] | | | SERVICES, [facility] | [address] | | | + [...] | | | | | 1607, Until [facility] 08/25/18 at 1313, | | | [...]
--- OUTSIDE RECORDS SUMMARY | ~2019-07-17 | XMS | Encounter Summary ---
Demographics + + + | Address | [address] | | | [place] [address] | + + + | Home Phone | | + + + | Preferred Language | Unknown | + + + | Marital Status | | + + + | Hinduism Affiliation | NOD | + + + | Race | White | + + + | Ethnic Group | Not or | + + + Author + + + | Author | [facility] | + + + | Organization | [facility] | + + + | [...] Team Providers + +------+ + | Care Manager Software Name | Role | Phone | + [...] + + | 08/23/ | Emergency | [address] | Tommy Maier MD | | | 2018 - | | Aline Atkins | [address] | | | | | [facility] | Arash Owen [place], | | | 08/25/ | | [place], [place] | [place] [address] | | | 2018 | | [address] | [phone] | | | | | [phone] | | | | | | | Lavern Montana MD | | | | | | [address] | | | | | | Arash Owen [place], | | | | | | [place] [address] | | | | | | [phone] | | | | | | | [...] a 28 y.o. 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 Her medical history was notab le for history of one prior CS and tobacco use. The patient was asymtomatic and hemodynamic ally stable with a benign exam upon presentation to [facility]. The patient was counseled on aurea gement [...] as surgical optimization given her distance from [facility] and complex case. On 08/23/2018, she underwent [...] To contact your provider, please call the [facility] clinic at [phone] during daytime hours. During evening or weekend hours, please call the [facility] paging getter operator at [phone] and ask for the Email Producer resident on-call. Reasons to call the doctor: [...] regular periods it can be heavier or justowriter operator, longer or shorter than normal. This will [...] the procedure During regular business hours, call [phone] to speak to a nurse or physician. For emergencies after hours or on the weekend, call [phone] ([facility] getter operator) and ask to speak to the physician demolition hammer operator for General Obstetrics and Gynecology. Patient Education Materials: oxycodone and ethinyl estradiol and norgestimate Additional Instructions: monitor for bleeding review of AVS, oxycodone and ethinyl estradio l and norgestimate Discharge Nurse: TAYLER CURIEL RN Date: 08/24/2018 Discharge Time: 9:37 PM AttachmentsThe following attachments cannot be sent through Care Everywhere.oxycodone (Engl priscila)ethinyl estradiol and norgestimate (Austrian)documented in this encounter Medications at Time of [...] Resident Physician, Obstetrics and Gynecology, PGY4 Pager [phone] Agustina Faulkner MD - 08/24/2018 7:24 AM [...] on case scheduled in SOR. Dr. English Email Producer 1 aware and will be the attending [...] Agustina Raygoza MD Obstetrics and Gynecology PGY-1 [id number] Associated attestation - Dale English MD - [...] [facility] | [address] | [place], [place] | | | [facility]ARE | [address] | [address] | | | TESTS | | | [...] | | | | [facility] | | | | | | [place] My electronic | | | | | [...] specimen. | | | | | | Tooth Polisher sections | | | | | | [...] | | | | | determined by [facility] | | | | | | laboratories. [...] + + | Performing | Address | City/State/[facility] | Phone Number | | Organization | | | | + + + + + | [facility] | [address] | [place] [address] | | | PATHOLOGY | [address] | | | + + + + + DILATION AND CURETTAGE (08/24/2018 1:11 PM PST) + + + | Narrative | Performed At | + + + | Dale English MD 08/30/2018 3:03 PM OPERATIVE REPORT | | | Procedure Date: 08/24/2018 Surgeon: Dale English MD Fellow: Lavern | | | MD Rubén Wind Energy Project Manager: YANNI GARCIA MD,MPH R4 Prior to the [...] Surgical team, anesthesia | | | team, surgical scrub tech, circulating nurse. Preoperative Diagnosis: 1) | | [...] by LMP who was admitted to the PLACER MINER service | | | for management of [...] | weeks 850 - | | | 80352 6-7 | | | weeks 4000 - | | | 492459 7-12 | | | weeks 88084 - | | | 751600 12-16 | | | weeks 78749 - | | | 123833 16-29 | | | weeks 1400 - 79249 | | | 29-41 | | | weeks 940 - | | | 03341 This test has not been approved for use as a tumor | | | marker in males or females. | | + + + + + + + + | Performing | Address | City/State/Zipcode | Phone Number | | Organization | | | | + + + + + | [facility] | [address] | [place] [address] | | | SERVICES, HORACIO | ARASH [...] + + + + | PRODUCT | [id number] | | [facility] | | | UNIT [...] + + + + | EXPIRATION | [id number] | | [facility] | | | DATE [...] + + + + | BLOOD | [id number] | | [facility] | | | PRODUCT [...] [facility] | [address] | [place] [address] | | | SERVICES, | [address] [...] + + + + | PRODUCT | [id number] | | [facility] | | | UNIT [...] + + + + | EXPIRATION | [id number] | | [facility] | | | DATE [...] + + + + | BLOOD | [id number] | | [facility] | | | PRODUCT [...] [facility] | [address] | [place] [address] | | | SERVICES, | [address] [...] [facility] | [address] | [place] [address] | | | SERVICES, | [address] [...] [facility] | [address] | [place] [address] | | | SERVICES, | [address] [...] | + + + + + | [facility] | [address] | [place] [address] | | | SERVICES, CORE | ARASH [...] | + + + + + | [facility] | [address] | [place] [address] | | | HORACIO ESTRADA | ARASH [...] | + + + + + | [facility] | [address] | [place] [address] | | | HORACIO ESTRADA | ARASH [...] [facility] | [address] | [place] [address] | | | SERVICES, | [address] [...] | + + + + + | [facility] | [address] | [place] [address] | | | SERVICES, | [address] [...] | weeks 850 - | | | 29400 6-7 | | | weeks 4000 - | | | 508845 7-12 | | | weeks 56936 - | | | 232151 12-16 | | | weeks 76295 - | | | 596360 16-29 | | | weeks 1400 - 01541 | | | 29-41 | | | weeks 940 - | | | 48097 This test has not been approved for use as a tumor | | | marker in males or females. | | + + + + + + + + | Performing | Address | City/State/Zipcode | Phone Number | | Organization | | | | + + + + + | [facility] | [address] | [place] [address] | | | SERVICES, CORE | ARASH [...] [facility] | [address] | [place] [address] | | | SERVICES, | [address] [...] | + + + + + | [facility] | [address] | [place] [address] | | | SERVICES, | [address] [...] [facility] | [address] | [place] [address] | | | SERVICES, CORE | [address] [...] | | | LABORATORY | | | [facility] | | | SERVICES, | | | [...] | + + + + + | [facility] | [address] | [place] [address] | | | SERVICES, CORE | ARASH [...]
--- OUTSIDE RECORDS SUMMARY | ~2019-07-17 | XMS | Encounter Summary ---
Demographics + + + | Address | [address] | | | [place] [address] | + + + | Home Phone | | + + + | Preferred Language | Unknown | + + + | Marital Status | | + + + | Quaker Affiliation | NOD | + + + | Race | White | + + + | Ethnic Group | Not or | + + + Author + + + | Author | [facility] | + + + | Organization | [facility] | + + + | Address | Unknown | + + + | Phone | Unavailable | + + + Support + + +---------+ + | Name | Relationship | Address | Phone | + + +---------+ + | Hakeem Bergeron | ECON | Unknown | | + + +---------+ + | Iyv Bergeron | ECON | Unknown | | + + +---------+ + Care Team Providers + +------+ + | Care Edi Consultant Name | Role | Phone | [...] | | | | | [place], | | | | | | [place] [address] | | | +--------+ + + + [...]
[~2019-07-17 20:48] MED LIST changes: +VENTOLIN HFA18 GM INH
--- OUTSIDE RECORDS SUMMARY | 2019-07-17 20:52 | XMS ---
PreManage Notification: LULÚ HERNANDEZ Security Roofing Laborer Events No recent Security Events currently on file CRITERIA MET - [facility] - [facility] - 2 Visits in 30 Days CARE PROVIDERS ALE LENNON Physician Printing Press Machine Operator 12/26/2018-Current PHONE: [phone] [facility] PHONE: Unknown Radha has no Care Guidelines for this patient. E.DDanny VISIT COUNT (12 MO.) 1 [facility] [address] TOTAL 10 NOTE: Visits indicate total known visits. ED/UCC VISIT TRACKING (12 MO.) 07/17/2019 20:49 [facility] [place] TYPE: Emergency COMPLAINT: - POST OP D C,FEVER,JESSICA CRAMPING,BLEEDING 07/03/2019 09:20 [facility] [place] TYPE: Emergency COMPLAINT: - CHEST PAIN, SOB DIAGNOSES: - Personal history of urinary calculi - Other chest pain - Latex allergy status - Acute bronchospasm - Allergy status to penicillin - Other half-way (current) drug therapy - Allergy status to sulfonamides status - Allergy status to other antibiotic agents status - Nicotine dependence, unspecified, uncomplicated 04/21/2019 22:36 [facility] [place] TYPE: Emergency COMPLAINT: - NECK PAIN DIAGNOSES: - Cervicalgia - Latex allergy status - Personal history of urinary calculi - Other half-way (current) drug therapy - Allergy status to [...] damage to nail, initial encounter - Other half-way (current) drug therapy - Personal history of urinary calculi 12/20/2018 12:48 [facility] TYPE: Emergency COMPLAINT: - FINGER LAC/OJI DIAGNOSES: - Laceration without foreign body of right index finger without damage to nail, initial encounter - Contact with powered woodworking and forming machines, initial encounter - Contact with other powered hand tools and household machinery, initial encounter 10/03/2018 13:00 [facility] TYPE: Emergency COMPLAINT: - ABD PAIN;POSS KIDNEY STONE DIAGNOSES: - Latex allergy status - Allergy status to other antibiotic agents status - Other half-way (current) drug therapy - Allergy status to sulfonamides status - Nicotine dependence, unspecified, uncomplicated - Unspecified abdominal pain - Personal history of urinary calculi 08/23/2018 17:05 [facility] TYPE: Emergency DIAGNOSES: 55339. Abnormal lab results 43689. Unspecified ectopic without intrauterine 08/16/2018 23:07 [facility] [...] INPATIENT VISIT TRACKING (12 MO.) 08/23/2018 17:05 [facility] TYPE: Obstetrics DIAGNOSES: 09228. Unspecified ectopic without intrauterine [id number]
== END 2019-07-17 23:45 | disposition home or self-care (01) ==
LOC: ED 20:48
DX: N99.820 Postprocedural hemorrhage of a genitourinary system organ or structure following a genitourinary system procedure (principal); N93.9 Abnormal uterine and vaginal bleeding, unspecified; Z87.442 Personal history of urinary calculi; F17.200 Nicotine dependence, unspecified, uncomplicated; Z88.2 Allergy status to sulfonamides; Z88.0 Allergy status to penicillin; Z88.1 Allergy status to other antibiotic agents; Z91.040 Latex allergy status; Z79.899 Other long term (current) drug therapy
CPT/HCPCS: 76830; 76856; 80053; 81001; 83605; 84702; 84703; 85025; 87210; 96374; 96375; 99284-25; J1885; J2270; J2405; J7030

== ENCOUNTER 2019-10-18 05:28 | Emergency (ER) | payer OTHER ==
[~2019-10-18] VITALS: Ht 157.5 cm; Wt 62.6 kg
--- OUTSIDE RECORDS SUMMARY | ~2019-10-18 | XMS | Encounter Summary ---
Demographics + + + | Address | [address] | | | [place] [address] | + + + | Home Phone | | + + + | Preferred Language | Unknown | + + + | Marital Status | | + + + | Episcopal Affiliation | NOD | + + + [...] Team Providers + +------+ + | Care Traffic Engineer Name | Role | Phone | + +------+ + | No Pcp Per Patient | PCP | Unavailable | + +------+ + Encounter Details +--------+ + + + + | Date | Type | Department | Care Team | Description | +--------+ + + + + | 08/24/ | Procedure | 6A Intra Op [address] | | | | 2018 | Pass | [address] | | | | | | [facility] | | | | | | Hospital Admitting | | | | | | Desk Located on the | | | | | | 9th floor | | | | | | [place], [place] | | | | | | [address] | | | +--------+ + + + [...]
--- OUTSIDE RECORDS SUMMARY | ~2019-10-18 | XMS | Clinical Summary ---
Demographics + + + | Address | [address] | | | [place] [address] | + + + | Home Phone | | + + + | Preferred Language | Unknown | + + + | Marital Status | | + + + | Congregation Affiliation | NOD | + + + [...] Team Providers + +------+ + | Care Director Of Cardiac Rehabilitation Name | Role | Phone | + +------+ + | No Pcp Per Patient | PCP | Unavailable | + +------+ + Source Comments SHERYL is fully live on both [facility] and [facility] InPatient.[facility] Allergies + + + + + [...] [facility] | [facility] Referred to [facility] for | | management. Patient 8wks by [...] [place] | [facility] | xxxxxxxx | | [phone] | [address] | [address] | | | PLUS | | [phone] | [phone] | id | | | OPEN | | esent | | [place], [place] | | | | CARD | | | | [phone] | | + +--------+ +--------+ + +--------+ [...] | | al/Fam | | 1990 | [phone] | [place] [address] | | | kimmy | | | [...]
--- OUTSIDE RECORDS SUMMARY | ~2019-10-18 | XMS | Encounter Summary ---
Demographics + + + | Address | [address] | | | [place] [address] | + + + | Home Phone | | + + + | Preferred Language | Unknown | + + + | Marital Status | | + + + | Confucianism Affiliation | NOD | + + + | Race | White | + + + | Ethnic Group | Not or | + + + Author + + + | Author | [facility] | + + + | Organization | [facility] | + + + | [...] Team Providers + +------+ + | Care Flume Worker Name | Role | Phone | + [...] + + | 08/23/ | Emergency | [address] | Tommy Maier MD | | | 2018 - | | Aline Atkins | [address] | | | | | [facility] | Arash Luis [place], | | | 08/25/ | | [place], [place] | [place] [address] | | | 2018 | | [address] | [phone] | | | | | [phone] | | | | | | | Lavern Montana MD | | | | | | [address] | | | | | | Arash Luis [place], | | | | | | [place] [address] | | | | | | [phone] | | | | | | | [...] a 28 y.o. 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 Her medical history was notab le for history of one prior CS and tobacco use. The patient was asymtomatic and hemodynamic ally stable with a benign exam upon presentation to [facility]. The patient was counseled on aurea gement [...] as surgical optimization given her distance from [facility] and complex case. On 08/23/2018, she underwent [...] To contact your provider, please call the [facility] clinic at [phone] during daytime hours. During evening or weekend hours, please call the [facility] paging drivematic machine operator at [phone] and ask for the Barrel Cap Setter resident on-call. Reasons to call the doctor: [...] regular periods it can be heavier or rigging up man, longer or shorter than normal. This will [...] the procedure During regular business hours, call [phone] to speak to a nurse or physician. For emergencies after hours or on the weekend, call [phone] ([facility] drivematic machine operator) and ask to speak to the physician environmental monitoring technician for General Obstetrics and Gynecology. Patient Education Materials: oxycodone and ethinyl estradiol and norgestimate Additional Instructions: monitor for bleeding review of AVS, oxycodone and ethinyl estradio l and norgestimate Discharge Nurse: TAYLER CURIEL RN Date: 08/24/2018 Discharge Time: 9:37 PM AttachmentsThe following attachments cannot be sent through Care Everywhere.oxycodone (Engl priscila)ethinyl estradiol and norgestimate (Tajik)documented in this encounter Medications at Time of [...] Resident Physician, Obstetrics and Gynecology, PGY4 Pager [phone] Agustina Faulkner MD - 08/24/2018 7:24 AM [...] on case scheduled in SOR. Dr. English Barrel Cap Setter 1 aware and will be the attending [...] Agustina Raygoza MD Obstetrics and Gynecology PGY-1 [id number] Associated attestation - Dale English MD - [...] [facility] | [address] | [place], [place] | | | MARG[facility]ITA STE[facility]ER [facility] CARE | [address] | [address] | | | TESTS | | | [...] PathologistPathology, | | | | | | [facility] | | | | | | [place] My electronic | | | | | [...] specimen. | | | | | | Financial Reporting Specialist sections | | | | | | [...] | | | | | determined by [facility] | | | | | | laboratories. [...] + + | Performing | Address | City/State/[facility] Services[facility] | Phone Number | | Organization | | | | + + + + + | [facility] | [address] | [place] [address] | | | PATHOLOGY | [address] | | | + + + + + DILATION AND CURETTAGE (08/24/2018 1:11 PM PST) + + + | Narrative | Performed At | + + + | Dale English MD 08/30/2018 3:03 PM OPERATIVE REPORT | | | Procedure Date: 08/24/2018 Surgeon: Dale English MD Fellow: Lavern | | | MD Rubén Production Support Specialist: YANNI GARCIA MD,MPH R4 Prior to the [...] Surgical team, anesthesia | | | team, helicopter technician, circulating nurse. Preoperative Diagnosis: 1) | [...] by LMP who was admitted to the FUEL HOUSE ATTENDANT service | | | for management of [...] 5-6 weeks | | | 850 - 05650 6-7 weeks | | | 4000 - 072905 7-12 weeks | | | 34212 - 488998 12-16 weeks | | | 34473 - 431939 16-29 | | | weeks 1400 - 73430 | | | 29-41 weeks 940 - 50628 | | | This test has not been approved for use as a tumor marker in | | | males or females. | | + + + + + + + + | Performing | Address | City/State/Zipcode | Phone Number | | Organization | | | | + + + + + | [facility] | [address] | [place] [address] | | | SERVICES, CORE | ARASH [...] + + + + | PRODUCT | [id number] | | [facility] | | | UNIT [...] + + + + | EXPIRATION | [id number] | | [facility] | | | DATE [...] + + + + | BLOOD | [id number] | | [facility] | | | PRODUCT [...] [facility] | [address] | [place] [address] | | | SERVICES, | [address] [...] + + + + | PRODUCT | [id number] | | [facility] | | | UNIT [...] + + + + | EXPIRATION | [id number] | | [facility] | | | DATE [...] + + + + | BLOOD | [id number] | | [facility] | | | PRODUCT [...] [facility] | [address] | [place] [address] | | | SERVICES, | [address] [...] + + | [facility] | [address] | [place] [address] | | | SERVICES, | [address] [...] [facility] | [address] | [place] [address] | | | SERVICES, | [address] [...] | + + + + + | [facility] | [address] | [place] [address] | | | SERVICES, HORACIO | ARASH [...] | + + + + + | [facility] | [address] | [place] [address] | | | SERVICES, CORE | ARASH [...] | + + + + + | [facility] | [address] | [place] [address] | | | SERVICES, CORE | [address] [...] | + + + + + | [facility] | [address] | [place] [address] | | | SERVICES, | [address] [...] [facility] | [address] | [place] [address] | | | SERVICES, | [address] [...] 5-6 weeks | | | 850 - 13216 6-7 weeks | | | 4000 - 082608 7-12 weeks | | | 75391 - 074439 12-16 weeks | | | 11741 - 786406 16-29 | | | weeks 1400 - 73822 | | | 29-41 weeks 940 - 21351 | | | This test has not been approved for use as a tumor marker in | | | males or females. | | + + + + + + + + | Performing | Address | City/State/Zipcode | Phone Number | | Organization | | | | + + + + + | [facility] | [address] | [place] [address] | | | SERVICES, CORE | [address] [...] [facility] | [address] | [place] [address] | | | SERVICES, | [address] [...] [facility] | [address] | [place] [address] | | | SERVICES, | [address] [...] | + + + + + | [facility] | [address] | [place] [address] | | | SERVICES, HORACIO | ARASH [...] | | | LABORATORY | | | [facility] | | | SERVICES, | | | [...] | + + + + + | [facility] | [address] | [place] [address] | | | SERVICES, CORE | ARASH [...] 7:17 | | | | | dose, 08/24/18 at 1815 | | PM PST | [...] | | | | | dose, Starting Wed08/24/18 at | | PM PST | | [...] | | | | | 1607, Until Wed08/25/18 at 1313, | | | | | [...]
--- OUTSIDE RECORDS SUMMARY | ~2019-10-18 | XMS | Encounter Summary ---
Demographics + + + | Address | [address] | | | [place] [address] | + + + | Home Phone | | + + + | Preferred Language | Unknown | + + + | Marital Status | | + + + | Mandaen Affiliation | NOD | + + + | Race | White | + + + | Ethnic Group | Not or | + + + Author + + + | Author | [facility] | + + + | Organization | [facility] | + + + | Address [...] Team Providers + +------+ + | Care Business Analyst Manager Name | Role | Phone | + [...] + + | 08/23/ | Emergency | [address] | Tommy Maier MD | | | 2018 - | | Aline Atkins | [address] | | | | [facility] | Arash Luis [place], | | | 08/25/ | | [place], [place] | [place] [address] | | | 2018 | | [address] | [phone] | | | | | [phone] | | | | | | | Lavern Montana MD | | | | | | [address] | | | | | | Arash [place], | | | | | | [place] [address] | | | | | | [phone] | | | | | | | [...] 28 y.o. 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 Her medical history was notab le for history of one prior CS and tobacco use. The patient was asymtomatic and hemodynamic ally stable with a benign exam upon presentation to [facility]. The patient was counseled on aurea [...] surgical optimization given her distance from [facility] and complex case. On 08/23/2018, she [...] contact your provider, please call the [facility] clinic at [phone] during daytime hours. During evening or weekend hours, please call the [facility] paging tub operator at [phone] and ask for the Geriatric Assistant resident on-call. Reasons to call the doctor: [...] regular periods it can be heavier or director educational radio, longer or shorter than normal. This will [...] the procedure During regular business hours, call [phone] to speak to a nurse or physician. For emergencies after hours or on the weekend, call [phone] ([facility] tub operator) and ask to speak to the physician saxophone teacher for General Obstetrics and Gynecology. Patient Education Materials: oxycodone and ethinyl estradiol and norgestimate Additional Instructions: monitor for bleeding review of AVS, oxycodone and ethinyl estradio l and norgestimate Discharge Nurse: TAYLER CURIEL RN Date: 08/24/2018 Discharge Time: 9:37 PM AttachmentsThe following attachments cannot be sent through Care Everywhere.oxycodone (Engl priscila)ethinyl estradiol and norgestimate (Togolese)documented in this encounter Medications at Time of [...] Resident Physician, Obstetrics and Gynecology, PGY4 Pager [phone] Agustina Faulkner MD - 08/24/2018 7:24 AM [...] on case scheduled in SOR. Dr. English Geriatric Assistant 1 aware and will be the attending [...] Agustina Raygoza MD Obstetrics and Gynecology PGY-1 [id number] Associated attestation - Dale English MD - [...] [facility] | [address] | [place], [place] | | | MARGARITA STEINER OF CARE | [address] | [address] | | | TESTS | | | [...] PathologistPathology, | | | | | | [facility] | | | | | | [place] My electronic | | | | | [...] specimen. | | | | | | Fiber Machine Tender sections | | | | | | [...] | | | | determined by [facility] | | | | | | [...] | + + + + + | [facility] | [address] | [place] [address] | | | PATHOLOGY | [address] | | | + + + + + DILATION AND CURETTAGE (08/24/2018 1:11 PM PST) + + + | Narrative | Performed At | + + + | Dale English MD 08/30/2018 3:03 PM OPERATIVE REPORT | | | Procedure Date: 08/24/2018 Surgeon: Dale English MD Fellow: Lavern | | | MD Rubén Air Chipper: YANNI GARCIA MD,MPH R4 Prior to the [...] Surgical team, anesthesia | | | team, automation technician, circulating nurse. Preoperative Diagnosis: 1) | [...] by LMP who was admitted to the [facility] HAND service | | | for management of [...] 5-6 weeks | | | 850 - 21362 6-7 weeks | | | 4000 - 041154 7-12 weeks | | | 03269 - 280891 12-16 weeks | | | 99131 - 832846 16-29 | | | weeks 1400 - 72867 | | | 29-41 weeks 940 - 96585 | | | This test has not been approved for use as a tumor marker in | | | males or females. | | + + + + + + + + | Performing | Address | City/State/Zipcode | Phone Number | | Organization | | | | + + + + + | [facility] | [address] | [place] [address] | | | SERVICES, CORE | ARASH [...] + + + + | PRODUCT | [id number] | | [facility] | | | UNIT [...] + + + + | EXPIRATION | [id number] | | [facility] | | | DATE [...] + + + + | BLOOD | [id number] | | [facility] | | | PRODUCT [...] [facility] | [address] | [place] [address] | | | SERVICES, | [address] [...] + + + + | PRODUCT | [id number] | | [facility] | | | UNIT [...] + + + + | EXPIRATION | [id number] | | [facility] | | | DATE [...] + + + + | BLOOD | [id number] | | [facility] | | | PRODUCT [...] [facility] | [address] | [place] [address] | | | SERVICES, | [address] [...] + + | [facility] | [address] | [place] [address] | | | SERVICES, | [address] [...] [facility] | [address] | [place] [address] | | | SERVICES, | [address] [...] + + + + + | [facility] | [address] | [place] [address] | | | SERVICES, HORACIO | ARASH [...] + + + + + | [facility] | [address] | [place] [address] | | | SERVICES, CORE | ARASH [...] + + + + + | [facility] | [address] | [place] [address] | | | SERVICES, CORE | [address] [...] | + + + + + | [facility] | [address] | [place] [address] | | | SERVICES, | [address] [...] [facility] | [address] | [place] [address] | | | SERVICES, | [address] [...] 5-6 weeks | | | 850 - 49907 6-7 weeks | | | 4000 - 952076 7-12 weeks | | | 84138 - 205967 12-16 weeks | | | 95452 - 656977 16-29 | | | weeks 1400 - 84040 | | | 29-41 weeks 940 - 86450 | | | This test has not been approved for use as a tumor marker in | | | males or females. | | + + + + + + + + | Performing | Address | City/State/Zipcode | Phone Number | | Organization | | | | + + + + + | [facility] | [address] | [place] [address] | | | SERVICES, CORE | [address] [...] [facility] | [address] | [place] [address] | | | SERVICES, | [address] [...] [facility] | [address] | [place] [address] | | | SERVICES, | [address] [...] + + + + + | [facility] | [address] | [place] [address] | | | SERVICES, HORACIO | ARASH [...] | | | LABORATORY | | | [facility] | | | SERVICES, | | | [...] [facility] | [address] | [place] [address] | | | SERVICES, CORE | [address]ASH [...]
--- OUTSIDE RECORDS SUMMARY | ~2019-10-18 | XMS | Encounter Summary ---
Demographics + + + | Address | [address] | | | [place] [address] | + + + | Home Phone [...] Team Providers + +------+ + | Care Pyrotechnician Name | Role | Phone | + [...] Pharmacy | | | | | | [address] | | | | | | [place], [place] | | | | | | [address] | | | | | | [phone] | | | +--------+ + + + [...]
--- OUTSIDE RECORDS SUMMARY | ~2019-10-18 | XMS | Encounter Summary ---
Demographics + + + | Address | [address] | | | [place] [address] | + + + | Home Phone | | + + + | Preferred Language | Unknown | + + + | Marital Status | | + + + | Christian Affiliation | NOD | + + + | Race | White | + + + | Ethnic Group | Not or | + + + Author + + + | Author | [facility] | + + + | Organization | [facility] | + + + | Address [...] Team Providers + +------+ + | Care Clothes Ironer Name | Role | Phone | + [...] | | | Toby Lyman | [place], [place] | [place] | | | | Hospital Admitting | [address] | | | | | Desk Located on the | [phone] | | | | | 9th floor | | | | | | [place], [place] | | | | | | [address] | | | +--------+---------+ + + + [...] y.o. 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 Her medical history was notab le for history of one prior CS and tobacco use. The patient was asymtomatic and hemodynamic ally stable with a benign exam upon presentation to [facility]. The patient was counseled on aurea gement [...] optimization given her distance from [facility] and complex case. On 08/23/2018, she underwent [...] your provider, please call the [facility] Center for Women's [facility] clinic at [phone] during daytime hours. During evening or weekend hours, please call the [facility] paging moulder operator at [phone] and ask for the Content Strategy Lead resident on-call. Reasons to call the doctor: [...] regular periods it can be heavier or lead python developer, longer or shorter than normal. This will [...] the procedure During regular business hours, call [phone] to speak to a nurse or physician. For emergencies after hours or on the weekend, call [phone] ([facility] moulder operator) and ask to speak to the physician family and consumer education teacher for General Obstetrics and Gynecology. Patient Education Materials: oxycodone and ethinyl estradiol and norgestimate Additional Instructions: monitor for bleeding review of AVS, oxycodone and ethinyl estradio l and norgestimate Discharge Nurse: TAYLER CURIEL RN Date: 08/24/2018 Discharge Time: 9:37 PM AttachmentsThe following attachments cannot be sent through Care Everywhere.oxycodone ([facility])ethinyl estradiol and norgestimate ([place])documented in this encounter Medications at Time of [...] Resident Physician, Obstetrics and Gynecology, PGY4 Pager [phone] gustina Raygoza MD - 08/24/2018 7:24 AM [...] O2 Delivery Device: None (room air) (08/23/18 1529) 24 Hour Vital Min/Max: Systolic (24hrs), Av [...] on case scheduled in SOR. Dr. English Content Strategy Lead 1 aware and will be the attending [...] Agustina Raygoza MD Obstetrics and Gynecology PGY-1 [id number] Associated attestation - Dale English MD - [...] SUKHWINDER | [address] | [place], [place] | | | MARGARITA STEINER OF [place] | [address] | [address] | | | TESTS | | | [...] | | | | | | [facility] | | | | | | [facility] electronic | | | | | | [...] specimen. | | | | | | Fleet Driver sections | | | | | | [...] + + | Performing | Address | City/State/[facility] Hospitalcode | Phone Number | | Organization | | | | + + + + + | [facility] | [address] [facility] | [place] [address] | | | PATHOLOGY | [address] | | | + + + + + DILATION AND CURETTAGE (08/24/2018 1:11 PM PST) + + + | Narrative | Performed At | + + + | Dale English MD 08/30/2018 3:03 PM OPERATIVE REPORT | | | Procedure Date: 08/24/2018 Surgeon: Dale English MD Fellow: Lavern | | | MD Rubén Foundry Laborer Coreroom: YANNI GARCIA MD,MPH R4 Prior to the [...] Surgical team, anesthesia | | | team, truck engine technician, circulating nurse. Preoperative Diagnosis: 1) | [...] by LMP who was admitted to the SOCIAL MEDIA MARKETER service | | | for management of [...] 5-6 weeks | | | 850 - 00830 6-7 weeks | | | 4000 - 325595 7-12 weeks | | | 19351 - 237562 12-16 weeks | | | 04641 - 639145 16-29 | | | weeks 1400 - 16637 | | | 29-41 weeks 940 - 50390 | | | This test has not been approved for use as a tumor marker in | | | males or females. | | + + + + + + + + | Performing | Address | City/State/Zipcode | Phone Number | | Organization | | | | + + + + + | [facility] | [address] | [place] [address] | | | NATALIE, [place] | [address]EN | | | + [...] + + + + | PRODUCT | [id number] | | [facility] | | | UNIT [...] + + + + | EXPIRATION | [id number] | | [facility] | | | DATE [...] + + + + | BLOOD | [id number] | | [facility] | | | PRODUCT [...] [facility] | [address] | [place] [address] | | | SERVICES, | [address] [...] + + + + | PRODUCT | [id number] | | [facility] | | | UNIT [...] + + + + | EXPIRATION | [id number] | | [facility] | | | DATE [...] + + + + | BLOOD | [id number] | | [facility] | | | PRODUCT [...] [facility] | [address] | [place] [address] | | | SERVICES, | [address] [...] [facility] | [address] | [place] [address] | | | SERVICES, | [address] [...] [facility] | [address] | [place] [address] | | | SERVICES, | [address] [...] | + + + + + | [facility] | [address] | [place] [address] | | | SERVICES, CORE | ARASH [...] | + + + + + | [facility] | [address] | [place] [address] | | | SERVICES, CORE | [address] [...] [facility] | [address] | [place] [address] | | | SERVICES, CORE | ARASH [...] | + + + + + | [facility] | [address] | [place] [address] | | | SERVICES, | [address] [...] [facility] | [address] | [place] [address] | | | SERVICES, | [address] [...] 5-6 weeks | | | 850 - 26463 6-7 weeks | | | 4000 - 000911 7-12 weeks | | | 89421 - 850219 12-16 weeks | | | 39381 - 143812 16-29 | | | weeks 1400 - 52314 | | | 29-41 weeks 940 - 16518 | | | This test has not been approved for use as a tumor marker in | | | males or females. | | + + + + + + + + | Performing | Address | City/State/Zipcode | Phone Number | | Organization | | | | + + + + + | [facility] | [address] | [place] [address] | | | SERVICES, CORE | ARASH [...] | + + + + + | [facility] | [address] | [place] [address] | | | SERVICES, | [address] [...] [facility] | [address] | [place] [address] | | | SERVICES, | [address] [...] | + + + + + | [facility] | [address] | [place] [address] | | | SERVICES, CORE | ARASH [...] | | | LABORATORY | | | ZAMBIAN | | | SERVICES, | | | [...] | + + + + + | [facility] | [address] | [place] [address] | | | SERVICES, CORE | ARASH [...] PST | | | | | Starting 08/24/18 at 1543, | | | | | [...]
--- OUTSIDE RECORDS SUMMARY | ~2019-10-18 | XMS | Clinical Summary ---
Demographics + + + | Address | [address] | | | [place] [address] | + + + | Home Phone [...] Team Providers + +------+ + | Care Bowling Alley Floors Installer Name | Role | Phone | + +------+ + | No Pcp Per Patient | PCP | Unavailable | + +------+ + Source Comments SHERYL is fully live on both [facility] Amb[facility] and [facility] InPatient.[facility] Allergies + + + + [...] [facility] | [facility]. Referred to [facility] for | | management. Patient 8wks [...] [place] | [facility] | xxxxxxxx | | [phone] | [address] | [address] | | | PLUS | | [address] | 6 | [phone] | id | | | OPEN | | esent | | [place], [place] | | | | CARD | | | | [address] | | + +--------+ +--------+ + +--------+ [...] | | al/Fam | | 1990 | [phone] | [place] [address] | | | kimmy | | | [...]
--- OUTSIDE RECORDS SUMMARY | ~2019-10-18 | XMS | Encounter Summary ---
Demographics + + + | Address | [address] | | | [place] [address] | + + + | Home Phone | | + + + | Preferred Language | Unknown | + + + | Marital Status | | + + + | Gnosticism Affiliation | NOD | + + + | Race | White | + + + | Ethnic Group | Not or | + + + Author + + + | Author | [facility] | + + + | Organization | [facility] | + + + | Address [...] Team Providers + +------+ + | Care Chemical Weigher Name | Role | Phone | + [...] Pharmacy | | | | | | [address] | | | | | | [place], [place] | | | | | | [address] | | | | | | [phone] | | | +--------+ + + + [...]
--- OUTSIDE RECORDS SUMMARY | ~2019-10-18 | XMS | Encounter Summary ---
Demographics + + + | Address | [address] | | | [place] [address] | + + + | Home Phone [...] + + + | Author | [facility] | + + + | Organization | [facility] | + + + [...] Team Providers + +------+ + | Care Portfolio Analyst Name | Role | Phone | [...] Pharmacy | | | | | | [address] | | | | | | [address] [place], [place] | | | | | | [address] | | | | | | [phone] | | | +--------+ + + + [...]
--- OUTSIDE RECORDS SUMMARY | ~2019-10-18 | XMS | Encounter Summary ---
Demographics + + + | Address | [address] | | | [place] [address] | + + + | Home Phone | | + + + | Preferred Language | Unknown | + + + | Marital Status | | + + + | Muslim Affiliation | NOD | + + + | Race | White | + + + | Ethnic Group | Not or | + + + Author + + + | Author | [facility] | + + + | Organization | [facility] | + + + | Address | [...] Team Providers + +------+ + | Care Client Experience Administrator Name | Role | Phone | + [...] [address] | | | | | [address] [facility] | [facility] | | | | | Hospital Admitting | [place], [place] | | | | | Desk Located on the | [address] | | | | | 9th floor | [phone] | | | | | [place], [place] | | | | | | [address] | | | +--------+ + + + [...]
--- OUTSIDE RECORDS SUMMARY | ~2019-10-18 | XMS | Encounter Summary ---
Demographics + + + | Address | [address] | | | [place] [address] | + + + | Home Phone | | + + + | Preferred Language | Unknown | + + + | Marital Status | | + + + | Anabaptist Affiliation | NOD | + + + | Race | White | + + + | Ethnic Group | Not or | + + + Author + + + | Author | [facility] | + + + | Organization | [facility] | + + + | Address [...] Team Providers + +------+ + | Care Occupational Therapy Technician Name | Role | Phone | [...] [address] | | | | | [address] [facility] | [facility] | | | | | Hospital Admitting | [place], [place] | | | | | Desk Located on the | [address] | | | | | 9th floor | [phone] | | | | | [place], [place] | | | | | | [address] | | | +--------+ + + + [...]
--- OUTSIDE RECORDS SUMMARY | ~2019-10-18 | XMS | Encounter Summary ---
Demographics + + + | Address | [address] | | | [place] [address] | + + + | Home Phone | | + + + | Preferred Language | Unknown | + + + | Marital Status | | + + + | Adventism Affiliation | NOD | + + + | Race | White | + + + | Ethnic Group | Not or | + + + Author + + + | Author | [facility] | + + + | Organization | [facility] | + + + | [...] Team Providers + +------+ + | Care Chaplain Resident Name | Role | Phone | + [...] Pharmacy | | | | | | [address] | | | | | | [place], [place] | | | | | | [address] | | | | | | [phone] | | | +--------+ + + + [...]
--- OUTSIDE RECORDS SUMMARY | ~2019-10-18 | XMS | Encounter Summary ---
Demographics + + + | Address | [address] | | | [place] [address] | + + + | Home Phone [...] Team Providers + +------+ + | Care Stone Setter Name | Role | Phone | + [...] | | | Toby Lyman | [place], [place] | [place] | | | | Hospital Admitting | [address] | | | | | Desk Located on the | [phone] | | | | | 9th floor | | | | | | [place], [place] | | | | | | [address] | | | +--------+---------+ + + + [...] a 28 y.o. 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 Her medical history was notab le for history of one prior CS and tobacco use. The patient was asymtomatic and hemodynamic ally stable with a benign exam upon presentation to [facility]. The patient was counseled [...] as surgical optimization given her distance from [facility] and complex case. On [...] To contact your provider, please call the [facility] Center for Women's Health clinic at [phone] during daytime hours. During evening or weekend hours, please call the [facility] paging dishtank operator at [phone] and ask for the Front Desk Officer resident on-call. Reasons to call the doctor: [...] regular periods it can be heavier or ballistician, longer or shorter than normal. This will [...] the procedure During regular business hours, call [phone] to speak to a nurse or physician. For emergencies after hours or on the weekend, call [phone] ([facility] dishtank operator) and ask to speak to the physician production cell leader for General Obstetrics and Gynecology. Patient Education Materials: oxycodone and ethinyl estradiol and norgestimate Additional Instructions: monitor for bleeding review of AVS, oxycodone and ethinyl estradio l and norgestimate Discharge Nurse: TAYLER CURIEL RN Date: 08/24/2018 Discharge Time: 9:37 PM AttachmentsThe following attachments cannot be sent through Care Everywhere.oxycodone ([facility])ethinyl estradiol and norgestimate ([place])documented in this encounter Medications at Time of [...] Resident Physician, Obstetrics and Gynecology, PGY4 Pager [phone] gustina Raygoza MD - 08/24/2018 7:24 AM [...] O2 Delivery Device: None (room air) (08/23/18 5739) 24 Hour Vital Min/Max: Systolic (24hrs), Av [...] on case scheduled in SOR. Dr. English Front Desk Officer 1 aware and will be the attending [...] patient was seen and discussed with Dr. Engilsh who agrees with the assessment and plan. Agustina Raygoza MD Obstetrics and Gynecology PGY-1 [id number] Associated attestation - Dale English MD - [...] SUKHWINDER | [address] | [place], [place] | | | MARGARITA STEINER OF [place] | [address] | [address] | | | TESTS | | | [...] PathologistPathology, | | | | | | Replaced By [facility] | | | | | | [facility] electronic | | | | [...] specimen. | | | | | | Veterinary Meat Inspector sections | | | | | | [...] [facility] | [address] [facility] | [place] [address] | | | PATHOLOGY | [address] | | | + + + + + DILATION AND CURETTAGE (08/24/2018 1:11 PM PST) + + + | Narrative | Performed At | + + + | Dale English MD 08/30/2018 3:03 PM OPERATIVE REPORT | | | Procedure Date: 08/24/2018 Surgeon: Dale English MD Fellow: Lavern | | | MD Rubén Training Developer: YANNI GARCIA MD,MPH R4 Prior to the [...] Surgical team, anesthesia | | | team, news gathering technician, circulating nurse. Preoperative Diagnosis: 1) | [...] by LMP who was admitted to the CELERY WRAPPER service | | | for management of [...] 5-6 weeks | | | 850 - 86523 6-7 weeks | | | 4000 - 294723 7-12 weeks | | | 46245 - 600114 12-16 weeks | | | 67145 - 433039 16-29 | | | weeks 1400 - 68280 | | | 29-41 weeks 940 - 43863 | | | This test has not been approved for use as a tumor marker in | | | males or females. | | + + + + + + + + | Performing | Address | City/State/Zipcode | Phone Number | | Organization | | | | + + + + + | [facility] | [address] | [place] [address] | | | NATALIE, HORACIO | ARASH [...] + + + + | PRODUCT | [id number] | | [facility] | | | UNIT [...] + + + + | EXPIRATION | [id number] | | [facility] | | | DATE [...] + + + + | BLOOD | [id number] | | [facility] | | | PRODUCT [...] [facility] | [address] | [place] [address] | | | SERVICES, | [address] [...] + + + + | PRODUCT | [id number] | | [facility] | | | UNIT [...] + + + + | EXPIRATION | [id number] | | [facility] | | | DATE [...] + + + + | BLOOD | [id number] | | [facility] | | | PRODUCT [...] [facility] | [address] | [place] [address] | | | SERVICES, | [address] [...] [facility] | [address] | [place] [address] | | | SERVICES, | [address] [...] [facility] | [address] | [place] [address] | | | SERVICES, | [address] [...] + + + + + | [facility] | [address] | [place] [address] | | | SERVICES, CORE | ARASH [...] + + + + + | [facility] | [address] | [place] [address] | | | SERVICES, CORE | [address] [...] [facility] | [address] | [place] [address] | | | SERVICES, CORE | ARASH [...] | + + + + + | [facility] | [address] | [place] [address] | | | SERVICES, | [address] [...] [facility] | [address] | [place] [address] | | | SERVICES, | [address] [...] 5-6 weeks | | | 850 - 57699 6-7 weeks | | | 4000 - 421273 7-12 weeks | | | 08481 - 547011 12-16 weeks | | | 72714 - 069610 16-29 | | | weeks 1400 - 02485 | | | 29-41 weeks 940 - 84078 | | | This test has not been approved for use as a tumor marker in | | | males or females. | | + + + + + + + + | Performing | Address | City/State/Zipcode | Phone Number | | Organization | | | | + + + + + | [facility] | [address] | [place] [address] | | | SERVICES, CORE | ARASH [...] + + + + + | [facility] | [address] | [place] [address] | | | SERVICES, | [address] [...] [facility] | [address] | [place] [address] | | | SERVICES, | [address] [...] + + + + + | [facility] | [address] | [place] [address] | | | SERVICES, CORE | ARASH [...] | | | LABORATORY | | | [place] | | | SERVICES, | | | [...] + + + + + | [facility] | [address] | [place] [address] | | | SERVICES, CORE | ARASH [...]
--- OUTSIDE RECORDS SUMMARY | ~2019-10-18 | XMS | Encounter Summary ---
Demographics + + + | Address | [address] | | | [place] [address] | + + + | Home Phone [...] Team Providers + +------+ + | Care Airplane Pilot Chief Name | Role | Phone | + [...] | | | | | | [facility] | | | | | | Hospital Admitting | | | | | | Desk Located on the | | | | | | 9th floor | | | | | | [place], [place] | | | | | | [address] | | | +--------+ + + + [...]
== END 2019-10-18 07:10 | disposition home or self-care (01) ==
LOC: ED 05:28
DX: O20.0 Threatened abortion (principal); Z3A.01 Less than 8 weeks gestation of pregnancy; F17.200 Nicotine dependence, unspecified, uncomplicated; Z88.1 Allergy status to other antibiotic agents; Z91.040 Latex allergy status; Z88.2 Allergy status to sulfonamides; Z79.899 Other long term (current) drug therapy
CPT/HCPCS: 80053; 81001; 84703; 85025; 96360; 99284-25; J7030

== ENCOUNTER 2019-10-30 15:28 | Emergency (ER) | payer OTHER ==
[~2019-10-30] VITALS: Ht 157.5 cm; Wt 62.6 kg
--- OUTSIDE RECORDS SUMMARY | 2019-10-30 15:30 | XMS ---
PreManage Notification: LULÚ HERNANDEZ Security Merchandise Examiner Events No recent Security Events currently on file CRITERIA MET - [facility] - 2 Visits in 30 Days CARE PROVIDERS ALE LENNON Physician Operations Vice President 12/26/2018-Current PHONE: [phone] [facility] Primary Care Amy Flores PHONE: Unknown Radha has no Care Guidelines for this patient. E.Ruth VISIT COUNT (12 MO.) [address] [place] [address] TOTAL 8 NOTE: Visits indicate total known visits. ED/UCC VISIT TRACKING (12 MO.) 10/30/2019 15:29 [facility] [place] TYPE: Emergency COMPLAINT: - R SHOULDER PAIN 10/18/2019 05:29 [facility] [place] TYPE: Emergency COMPLAINT: - VISION ISSUES DIAGNOSES: - Allergy status to other antibiotic agents status - 1 Less than 8 weeks gestation of - Other senior care (current) drug therapy - Nicotine dependence, unspecified, uncomplicated - Allergy status to sulfonamides status - Threatened - Latex allergy status 07/17/2019 20:49 [facility] [place] TYPE: Emergency COMPLAINT: - POST OP D C,FEVER,ABD CRAMPING,BLEEDING DIAGNOSES: - Personal history of urinary calculi - Postproc hemor of a sys org following a sys procedure - Latex allergy status - Allergy status to penicillin - Pelvic and perineal pain - Nicotine dependence, unspecified, uncomplicated - Allergy status to other antibiotic agents status - Allergy status to sulfonamides status - Abnormal uterine and vaginal bleeding, unspecified - Other senior care (current) drug therapy 07/03/2019 09:20 [facility] [place] TYPE: Emergency COMPLAINT: - CHEST PAIN, SOB DIAGNOSES: - Personal history of urinary calculi - Other chest pain - Latex allergy status - Acute bronchospasm - Allergy status to penicillin - Other senior care (current) drug therapy - Allergy status to sulfonamides status - Allergy status to other antibiotic agents status - Nicotine dependence, unspecified, uncomplicated 04/21/2019 22:36 [facility] [place] TYPE: Emergency COMPLAINT: - NECK PAIN DIAGNOSES: - Cervicalgia - Latex allergy status - Personal history of urinary calculi - Other fuse cup expander (current) drug therapy - Allergy status to penicillin - Acquired absence of other specified parts of digestive tract - Allergy status to other antibiotic agents status - Allergy status to sulfonamides status - Nicotine dependence, unspecified, uncomplicated 12/23/2018 09:58 [facility] [place] TYPE: Emergency COMPLAINT: - L ANKLE INJURY/WC DIAGNOSES: - Other and unspecified ovrexrtn or strnous move/pstr, init - Unspecified injury of left ankle, initial encounter 12/20/2018 14:07 [facility] [place] TYPE: Emergency COMPLAINT: - FINGER LAC DIAGNOSES: - Contact w mining and earth-drilling machinery, init encntr - Nicotine dependence, unspecified, uncomplicated - Allergy status to other antibiotic agents status - Allergy status to sulfonamides status - Latex allergy status - Laceration w/o fb of l idx fngr w/o damage to nail, init - Pnctr w/o fb of l idx fngr w/o damage to nail, init - Other fuse cup expander (current) drug therapy - Personal history of urinary calculi 12/20/2018 12:48 [facility] [place] TYPE: Emergency COMPLAINT: - FINGER LAC/OJI DIAGNOSES: - Laceration w/o fb of r idx fngr w/o damage to nail, init - Contact w powered woodworking and forming machines, init - Cntct with other powered hand tools and household mach, init INPATIENT VISIT TRACKING (12 MO.) No inpatient visits to display in this time frame [email or web address]
[2019-11-01] MEDS ORDERED: PRENATAL FORMU1 EAC3 PO (11:08)
[2019-11-01] MEDS ORDERED: K-TAB ER20 MEQ PO (11:08)
[2019-11-01] MEDS ORDERED: BUSPIRONE HCL7.5 MG PO (11:08)
[2019-11-01] MEDS ORDERED: NICOTINE PATCH1 EAC4 TD (11:09)
[2019-11-01] MEDS ORDERED: MOTRIN IB200 MG PO (15:10)
[2019-11-01] MEDS ORDERED: NORCO 5-325 TA1 EACH PO (15:10)
== END 2019-10-30 19:17 | disposition home or self-care (01) ==
LOC: ED 15:28
DX: O99.89 Other specified diseases and conditions complicating pregnancy, childbirth and the puerperium (principal); M25.511 Pain in right shoulder; Z91.040 Latex allergy status; Z88.2 Allergy status to sulfonamides; Z88.1 Allergy status to other antibiotic agents; Z88.0 Allergy status to penicillin; Z79.899 Other long term (current) drug therapy
CPT/HCPCS: 76801; 76817; 84702; 99284-25

== ENCOUNTER 2019-12-08 09:05 | Day surgery (SDC) | payer OTHER ==
[~2019-12-08] VITALS: Ht 154.9 cm; Wt 61.2 kg
[~2019-12-08 09:05] MED LIST changes: +BUSPIRONE HCL7.5 MG PO; +K-TAB ER20 MEQ PO; +MOTRIN IB200 MG PO; +NICOTINE PATCH1 EAC4 TD; +PRENATAL FORMU1 EAC3 PO
[2019-12-08] MEDS ORDERED: HYDROCODON-ACE1 EA10 PO (10:34)
--- NOTE | 2019-12-08 10:43 | NUR ---
12/08/19 [facility] Isabela Tellez 1032- PT ARRIVES TO PACU EASILY AROUSABLE TO VOICE, INSTANTLY FALLS TO SLEEP WHEN NOT BEING TALKED TO. RESP EVEN AND UNLABORED. OXYGEN SAT HIGH 90'S TO 100% ON 6L VIA MASK.
--- NOTE | 2019-12-11 07:14 | OR ---
[facility] [address], [place] [address] Signed DATE OF OPERATION: 12/08/2019 SURGEON: Ketan Rodriguez MD PREOPERATIVE DIAGNOSIS: Right carpal tunnel syndrome. POSTOPERATIVE DIAGNOSIS: Right carpal tunnel syndrome. PROCEDURE PERFORMED: Right carpal tunnel release. FLAT LOCK OPERATOR: None. ANESTHESIA: [place] block. TOURNIQUET TIME: 20 minutes. BRIEF HISTORY: Karen is a 29-year-old female who suffers from pain and numbness in her hand. She had nerve conduction studies consistent with significant carpal tunnel. Risks and benefits of operative treatment were discussed with her once nonoperative treatment was unsuccessful. DESCRIPTION OF PROCEDURE: Once consent was obtained, she was taken to the operating room. After adequate anesthesia, she was placed on operating room table. All downside pressure points well padded. The right wrist was prepped and draped in a standard sterile fashion. A 1.5 cm incision was made in the wrist crease, carried through skin and subcutaneous tissue. Palmaris longus was not identified. The transverse carpal ligament was dissected free of overlying soft tissue. Under loupe magnification, it was released approximately a centimeter distally to the distal extent. This was again done under direct visualization. The carpal tunnel was then palpated using the [place] elevator, found to be completely released. The wound was copiously irrigated, closed with 3-0 nylon and injected with 4 mL of 0.25% plain Marcaine. The wound was then dressed with Adaptic, ABD, and Carlos wrap. She tolerated the procedure well. All sponge, needle, and Electronically Signed By: KETAN RODRIGUEZ MD 12/11/19 0714 PATIENT NAME: KAREN HERNANDEZ OPERATIVE REPORT DATE OF : [birth year] REPORT #: [id number] PHYSICIAN: KETAN RODRIGUEZ MD PCP: ALE LENNON PA-C REPORT IS CONFIDENTIAL AND NOT TO BE RELEASED WITHOUT AUTHORIZATION [address], [place] [address] Signed instrument counts were correct. Ketan Rodriguez MD BA/CHARISL /[id number] Copies: ~ Electronically Signed By: KETAN RODRIGUEZ MD 12/11/19 0714 PATIENT NAME: KAREN HERNANDEZ OPERATIVE REPORT DATE OF : [birth year] REPORT #: [id number] PHYSICIAN: KETAN RODRIGUEZ MD PCP: ALE LENNON PA-C REPORT IS CONFIDENTIAL AND NOT TO BE RELEASED WITHOUT AUTHORIZATION
== END 2019-12-08 11:32 | disposition home or self-care (01) ==
LOC: OPS 09:05 → DS 09:05 → OPS 10:30 → DS 12-15 06:45 → OPS 12-15 06:45 → DS 12-15 12:00
PROVIDERS: Specialist
PROC: 01N50ZZ Release Median Nerve, Open Approach (ICD-10-PCS; principal; 2019-12-08 10:30)
DX: G56.01 Carpal tunnel syndrome, right upper limb (principal); Z79.899 Other long term (current) drug therapy
CPT/HCPCS: 01810; J0690; J1100; J1885; J2250; J2405; J2765; J3010; J7121

== ENCOUNTER 2020-03-13 22:16 | Emergency (ER) | payer OTHER ==
[~2020-03-13] VITALS: Ht 154.9 cm; Wt 61.2 kg
--- OUTSIDE RECORDS SUMMARY | ~2020-03-13 | XMS | Encounter Summary ---
Demographics + + + | Address | [address] | | | [place] [address] | + + + | Home Phone | | + + + | Preferred Language | Unknown | + + + | Marital Status | Single | + + + | Worship Affiliation | Unknown | + + + | Race | Unknown | + + + | Ethnic Group | Unknown | + + + Author + + + | Author | [facility] | | | and [place] | + + + | Organization | [facility] | | | and [place] | + + + | Address | Unknown | + + + | Phone | Unavailable | + + + Care Team Providers + +------+ + | Care Senior Linux Systems Engineer Name | Role | Phone | + +------+ + | Brandy Barreto PCP | | + +------+ + Encounter Details +--------+ + + + + | Date | Type | Department | Care Team | Description | +--------+ + + + + | 03/08/ | Imaging | [facility] | Provider, | | | 2020 | Exam | [facility] | MD [address] | | | | | IMAGING [address] | | | | | [address] | [place] [address] | | | | | [place] [address] | | | | | | [phone] | | | +--------+ + + + + Social History + +-------+ +--------+------+ | Tobacco Use | Types | Packs/Day | Years | Date | | | | | Used | | + +-------+ +--------+------+ | Current Every Day | | 0.5 | | | | Smoker | | | | | + +-------+ +--------+------+ + + + | Sex Assigned at | Date Recorded | | | | + + + | Not on file | | + + + + + + + | Job Start Date | Occupation | Industry | + + + + | Not on file | Not on file | Not on file | + + + + + + + + | Travel History | Travel Start | Travel End | + + + + + + | No recent travel history available. | + + documented as of this encounter Plan of Treatment Not on filedocumented as of this encounter Procedures + +--------+ + + + | Procedure Name | Priori | Date/Time | Associated Diagnosis | Comments | | | ty | | | | + +--------+ + + + | XR LUMBAR SPINE 2 OR | Routin | 01/31/2020 | | Results for this | | 3 VW | e | 12:00 AM | | procedure are in the | | | | PDT | | results section. | + +--------+ + + + documented in this encounter Results XR Lumbar Spine 2 or 3 Vw (01/31/2020 12:00 AM PDT) + + | Specimen | + + | | + + + + + | Narrative | Performed At | + + + | External films for comparison only | [facility] | | | | | No results will be in the chart. | | + + + + +---------+ + + | Performing | Address | City/State/Zipcode | Phone Number | | Organization | | | | + +---------+ + + | [facility] | | | | + +---------+ + + documented in this encounter Visit Diagnoses Not on filedocumented in this encounter"
--- OUTSIDE RECORDS SUMMARY | ~2020-03-13 | XMS | Encounter Summary ---
Demographics + + + | Address | [address] | | | [place] [address] | + + + | Home Phone | | + + + | Preferred Language | Unknown | + + + | Marital Status | | + + + | Voodoo Affiliation | NOD | + + + | Race | White | + + + | Ethnic Group | Not or | + + + Author + + + | Author | [facility] | + + + | Organization | [facility] | + + + | Address | [...] Team Providers + +------+ + | Care Special Event Assistant Name | Role | Phone | + +------+ + | No Pcp Per Patient | PCP | Unavailable | + +------+ + Encounter Details +--------+ + + + + | Date | Type | Department | Care Team | Description | +--------+ + + + + | 08/24/ | Pharmacy | [facility]patient [facility] | | | | 2017 | Visit | [facility] | | | | | | [address] | | | | | | [address] [place], [place] | | | | | | [address] | | | | | | [phone] | | | +--------+ + + + [...]
--- OUTSIDE RECORDS SUMMARY | ~2020-03-13 | XMS | Encounter Summary ---
Demographics + + + | Address | [address] | | | [place] [address] | + + + | Home Phone | | + + + | Preferred Language | Unknown | + + + | Marital Status | | + + + | Mormonism Affiliation | NOD | + + + | Race | White | + + + | Ethnic Group | Not or | + + + Author + + + | Author | [facility] | + + + | Organization | [facility] | + + + | Address [...] Team Providers + +------+ + | Care Clothespin Drier Operator Name | Role | Phone | + +------+ + | No Pcp Per Patient | PCP | Unavailable | + +------+ + Reason for Visit + + + | Reason | Comments | + + + | Referral To | "cesearean " | | Obstetrics & | | | Gynecology | | + + + AUTH/CERT +--------+--------+ + + + + | Status | Reason | Specialty | Diagnoses / | Referred By | Referred To | | | | | Procedures | Contact | Contact | +--------+--------+ + + + + | | | | | | | +--------+--------+ + + + + Encounter Details +--------+ + + + + | Date | Type | Department | Care Team | Description | +--------+ + + + + | 08/23/ | Emergency | [address] | Tommy Maier MD | | | 2018 - | | [facility] | [address] | | | | | [facility] | [place], | | | 08/25/ | | [place], [place] | [place] [address] | | | 2018 | | [address] | [phone] | | | | | [phone] | | | | | | | Lavern Montana MD | | | | | | [address] | | | | | | Arash [place], | | | | | | [place] [address] | | | | | | [phone] | | | | | | | [...] + + documented as of this encounter Last Filed Vital Signs + + + [...] | | + + + + + documented in this encounter Discharge Summaries Yanni Garcia MD,MPH - 08/23/2018 10:09 PM PST INPATIENT PHYSICIAN DISCHARGE SUMMARY Author: YANNI GARCIA MD,MPH Attending Physician: Dale English MD PCP: No Pcp Per PATIENT Admission Date: 08/23/2018 Discharge Date: 08/25/2018 Principal Final Diagnoses: scar ectopic Additional Diagnoses: History of one prior Tobacco use Principal Procedure: (08/24): Dilation and curettage Hospital Course: Karen Miramontes is a 28 y.o. who was referred to [facility] for management of a cesa rean scar ectopic diagnosed at an outside facility. Her medical history was notab le for history of one prior CS and tobacco use. The patient was asymtomatic and hemodynamic ally stable with a benign exam upon presentation to [facility]. The patient was counseled on aurea gement options including systemic or intra-gestational sac methotrexate, D&C, or balloon com pression; after full discussion on each of these strategies the patient elected to undergo a D&C. PARQ was held and consents signed prior to the procedure. She was added on to the OR schedule and kept in house overnight for close monitoring as well as surgical optimization given her distance from [facility] and complex case. On 08/23/2018, she underwent an uncomplicated D&C, with EBL ~20ml. See operative note for full details. Following the surgery, the patient did well and stayed overnight for pain man agement. By postoperative day 1, she was meeting post-operative milestones. The patient was discharged to home in stable condition. Although this was a planned and desired , the patient was counseled to avoid for 6 months and plans to use OCPs for contrace ption. Pathology was pending at the time of discharge. Medications: Medication List START taking these medications docusate sodium 100 mg Cap Commonly known as: COLACE Take 1 capsule by mouth two times daily. ibuprofen 600 mg Tab Commonly known as: MOTRIN Take 1 tablet by mouth every six hours as needed. Mononessa 0.25-35 mg-mcg Tab Generic drug: norgestimate-ethinyl estradiol Take 1 tablet by mouth once daily. CONTINUE taking these medications ascorbic acid (vitamin C) 250 mg Tab Take 250 mg by mouth two times daily. vitamins (with calcium) iron-folic acid 27 mg iron- 1 mg Tab Commonly known as: PLUS Take 1 tablet by mouth once daily. Outstanding labs/studies: Pathology from surgery (products of conception) Diet: regular, no restrictions Activity: 1. Walking and going up and down stairs is ok. No strenuous physical activity for 24 hours 2. No driving for the next 2 weeks and/or as long as you are on narcotics like oxycodone Follow Up: To contact your provider, please call the [facility] clinic at [phone] during daytime hours. During evening or weekend hours, please call the [facility] paging extruder operator multiple at [phone] and ask for the Dynamite Shooter resident on-call. Reasons to call the doctor: 1. Difficulty breathing or unusual shortness of breath 2. Redness around or drainage from the incision site(s) 3. Temperature above 100.4 F 4. Increasing abdominal pain that is not relieved by pain medications 5. Persistent nausea or vomiting 6. Vaginal bleeding requiring > 1 pad per hour Associated attestation - Dale English MD - 08/29/2018 8:48 AM PSTI saw and evaluated the pelon ent on 08/25/18. I agree with the findings and the plan of care as documented in the residen t s note. Dale English M.D. documented in this encounter Discharge Instructions Instructions Tayler Curiel RN - 08/23/2018AFTERCARE INSTRUCTIONS 1. It is best to rest for the first 24 hours. Avoid heavy lifting (>20 lbs) and strenuous e xercise. 2. Do not drive if you are using narcotic pain medications. 3. Resume normal activity (including bathing and sex) when you are ready. Using maxi pads m akes it easier to tell how much you are bleeding. You can use tampons when the heavy bleedin g lets up. We recommend preventing for at least 6 months. Bleeding It is normal to have bleeding after your procedure. The bleeding may be light and last only a few days, or it may be somewhat heavy (like a heavy menstrual period) and last up to 2-3 weeks. Some women also pass blood clots. Some women will continue to have light bleeding for 4-8 weeks until your next menstrual period. You may notice heavier bleeding if you exercise or have a lot of activity; this is not dangerous. Please call us if your bleeding is so hea vy that you soak through more than 2 maxi pads per hour. Cramping Most women experience cramping after the procedure, but the intensity and duration depend o n the individual. Measures that can help include using a heating pad or hot water bottle on your abdomen, taking pain medicine (ibuprofen, acetaminophen/Tylenol, prescription pain medi cine), or uterine massage. Ibuprofen (Motrin/Advil) and heating pad usually help the most wi th cramping. If you are table to take ibuprofen, suggested options include (take with food/m ilk): Ibuprofen 600mg tablet or three 200mg tabs every 6 hours as needed for pain. Do not take more than four doses (2400 mg total) in 24 hours. Ibuprofen 800mg tablet or four 200mg tabs every 8 hours as needed for pain. Do not take more than three doses (2400 mg total) in 24 hours. If you cannot take ibuprofen, you can take acetaminophen (Tylenol): Acetaminophen 650-1000mg every 8 hours as needed for pain. Do not exceed 3250mg of aceta minophen from all products in a 24 hour time period. However, if your cramping does not get better after trying these measures please call us. Preventing Infection Take the antibiotic medication that you were given, according to the instructions. Menstrual Period If you do not start control right away, your next menstrual period should come within 4-8 weeks after your procedure. Sometimes the first period is not like your regular periods it can be heavier or threading machine tender, longer or shorter than normal. This will regulate itself within a month or two. You can get at any time if you are not using control, even if you aren t having regular periods. Start your control as instructed by your doctor. Breast Changes Breast tenderness should go away in a few days. You may leak a milky discharge. Wearing a s upportive bra and using ice packs can help. This should stop within 1 to 2 days. Call us if you experience any of the following symptoms: 1. You have fever higher than 100.4 F (38.0 C) 2. You bleed or soak through 2 maxi pads per hour 3. You pass two or more blood clots larger than the size of an egg, accompanied by strong cramping or heavy bleeding. 4. Severe cramping or persistent abdominal pain that is not controlled with pain medicatio n (prescription pain medication you were given, ibuprofen or Tylenol) 5. You have yellow, green or bad smelling vaginal discharge 6. Your symptoms do not go away within 7 days (e.g. nausea, breast tenderness, e tc) 7. You are experiencing significant emotional distress, or you have any other concerns or questions regarding the procedure During regular business hours, call [phone] to speak to a nurse or physician. For emergencies after hours or on the weekend, call [phone] ([facility] extruder operator multiple) and ask to speak to the physician chemical radiation technician for General Obstetrics and Gynecology. Patient Education Materials: oxycodone and ethinyl estradiol and norgestimate Additional Instructions: monitor for bleeding review of AVS, oxycodone and ethinyl estradio l and norgestimate Discharge Nurse: TAYLER CURIEL RN Date: 08/24/2018 Discharge Time: 9:37 PM AttachmentsThe following attachments cannot be sent through Care Everywhere.oxycodone (Engl priscila)ethinyl estradiol and norgestimate (Samoan)documented in this encounter Medications at Time of Discharge + + + +---------+ + + | Medication | Sig | Dispensed | Refills | Start | End Date | | | | | | Date | | + + + +---------+ + + | ascorbic acid | Take 250 mg by mouth | | 0 | | | | (vitamin C) 250 mg | two times daily. | | | | | | oral tablet | | | | | | + + + +---------+ + + | docusate sodium | Take 1 capsule by | 60 | 0 | 08/24/20 | | | (COLACE) 100 mg oral | mouth two times | capsule | | 18 | | | capsule | daily. | | | | | + + + +---------+ + + | ibuprofen 600 mg | Take 1 tablet by | 90 | 0 | 08/24/20 | | | oral tablet | mouth every six | tablet | | 18 | | | | hours as needed. | | | | | + + + +---------+ + + | | Take 1 tablet by | 168 | 0 | 08/24/20 | | | norgestimate-ethinyl | mouth once daily. | tablet | | 18 | | | estradiol 0.25-35 | | | | | | | mg-mcg oral tablet | | | | | | + + + +---------+ + + | vitamins | Take 1 tablet by | | 0 | | | | (with calcium) | mouth once daily. | | | | | | iron-folic acid 27 | | | | | | | mg iron- 1 mg oral | | | | | | | tablet | | | | | | + + + +---------+ + + documented as of this encounter Progress Notes Corinne Alexander MD - 08/24/2018 8:13 PM PSTPt staying overnight for pain management. Corinne Alexander MD Resident Physician, Obstetrics and Gynecology, PGY4 Pager [phone] Agustina Faulkner MD - 08/24/2018 7:24 AM PST GYNECOLOGY INPATIENT PROGRESS NOTE Hospital Day: 1 ID: Karen Miramontes is a 28 yo at 8w1d by LMP who presents with a sc ar ectopic . Interval Hx: - No events overnight, HDS - On add-on schedule for D&C today in [facility] Subjective: - No cramping or VB overnight - Remains NPO Objective Physical Exam: Last Vitals: BP 114/60 | Pulse 77 | Temp 36.5 C (97.7 F) | RR 18 | Ht 1.575 m (5' 2") | Wt 70.8 kg (156 lb) | SpO2 99% | BMI 28.53 kg/(m^2) O2 Delivery Device: None (room air) (08/23/18 2259) 24 Hour Vital Min/Max: Systolic (24hrs), Av , Min:110 , Max:127 Diastolic (24hrs), Av, Min:54, Max:66 Pulse Av.7 Min: 77 Max: 92 Temp Av.7 C (98.1 F) Min: 36.5 C (97.7 F) Max: 36.9 C (98.4 F) Resp Av.7 Min: 18 Max: 20 SpO2 Av.7 % Min: 99 % Max: 100 % on RA Intake/Output Summary (Last 24 hours) at 08/24/18 0724 Last data filed at 08/23/18 2300 Gross per 24 hour Intake 1205 ml Output 0 ml Net 1205 ml General Appearance: Well appearing, NAD Chest: non labored breathing Abdomen: soft, non distended, nontender Extremities: Warm and well perfused, no LE edema Neurologic: Grossly intact, moving all extremities well, conversant, and responds appropria tely to commands Labs Recent Labs 08/23/18 1613 WBC 8.16 HB 14.1 HCT 41.5 PLT 296 Recent Labs 08/23/18 1613 NA 139 K 3.9 CL 109* BICARB 23 BUN 7 EGFRAFRICAN >60 CR 0.50* GLU 85 CA 8.4* [facility] (08/23) --> 10,975 (08/24) Assessment 28 y.o. with scar ectopic , confirmed by MFM today, a t approximately 5 weeks gestation. Patient currently hemodynamically stable. Plan: # scar ectopic: -Consent for D&C, including possible hysterectomy, signed. OHP hysterectomy consent signed. -Add on case scheduled in [facility]. Dr. English Dynamite Shooter 1 aware and will be the attending for this case. Formal US guidance ordered for intra-procedure imaging. -T&C for 2 units for surgery. -NPO -IR to be made aware of patient/case when case time known. -Social work consult ordered to review eligibility for OHP and provide additional resources . Dispo: Continue inpatient management, plan for D&C as add on case today The patient was seen and discussed with Dr. English who agrees with the assessment and plan. Agustina Raygoza MD Obstetrics and Gynecology PGY-1 [id number] Associated attestation - Dale English MD - 08/24/2018 7:34 AM PSTI saw and evaluated the pelon ent on 08/24/2018. I agree with the findings and the plan of care as documented in the resid ent s note. Plan D&C today as a add. Extensively counseled on other options: balloon tamp onade, intrasac injection. Prefers D&C and understands risks of bleeding/hysterectomy/trans fusion. Dale English M.D. documented in this encounter Plan of Treatment Not on filedocumented as of this encounter Procedures + +--------+ + + + | Procedure Name | Priori | Date/Time | Associated Diagnosis | Comments | | | ty | | | | + +--------+ + + + | CAPILLARY BLOOD | Routin | 08/24/2018 | Ectopic , | Results for this | | GLUCOSE (NO CHG), | e | 4:04 PM | unspecified | procedure are in the | | POC | | PST | location, | results section. | | | | | unspecified whether | | | | | | intrauterine | | | | | | present | | + +--------+ + + + | SURG PATH - PRODUCTS | Urgent | 08/24/2018 | | Results for this | | OF CONCEPTION | | 3:31 PM | | procedure are in the | | | | PST | | results section. | + +--------+ + + + | DILATION AND | Electi | 08/24/2018 | SCAR | | | CURRETAGE | ve | 3:02 PM | ECTOPIC | | | | Surgic | PST | | | | | al | | | | + +--------+ + + + +---+--------+ | | | | | Specia | | | l | | | Needs | | | | | | ADMITT | | | ING | | | 08/23; | | | PLAN | | | IS TO | | | DISCHA | | | RGE | | | POST-P | | | ROCEDU | | | RE | +---+--------+ + +--------+ +---+ + | DILATION AND | Routin | 08/24/2018 | | Results for this | | CURETTAGE | e | 1:11 PM | | procedure are in the | | | | PST | | results section. | + +--------+ +---+ + | HCG BETA QUANT, | Urgent | 08/24/2018 | | Results for this | | PLASMA | | 6:32 AM | | procedure are in the | | | | PST | | results section. | + +--------+ +---+ + | PRODUCT - RED CELLS | Routin | 08/23/2018 | | Results for this | | LEUKOREDUCED | e | 7:25 PM | | procedure are in the | | | | PST | | results section. | + +--------+ +---+ + | PRODUCT - RED CELLS | Urgent | 08/23/2018 | | Results for this | | LEUKOREDUCED | | 7:25 PM | | procedure are in the | | | | PST | | results section. | + +--------+ +---+ + | ANTIBODY SCREEN | Urgent | 08/23/2018 | | Results for this | | | | 5:06 PM | | procedure are in the | | | | PST | | results section. | + +--------+ +---+ + | TYPE AND SCREEN | Urgent | 08/23/2018 | | Results for this | | | | 5:06 PM | | procedure are in the | | | | PST | | results section. | + +--------+ +---+ + | ABO & RH TYPE | Urgent | 08/23/2018 | | Results for this | | | | 5:06 PM | | procedure are in the | | | | PST | | results section. | + +--------+ +---+ + | RAINBOW HOLD TUBE - | Urgent | 08/23/2018 | | | | RED TOP | | 4:13 PM | | | | | | PST | | | + +--------+ +---+ + | RAINBOW HOLD TUBE - | Urgent | 08/23/2018 | | | | PURPLE TOP | | 4:13 PM | | | | | | PST | | | + +--------+ +---+ + | RAINBOW HOLD TUBE - | Urgent | 08/23/2018 | | | | BLUE TOP | | 4:13 PM | | | | | | PST | | | + +--------+ +---+ + | RAINBOW HOLD, CORE | Urgent | 08/23/2018 | | Results for this | | PANEL | | 4:13 PM | | procedure are in the | | | | PST | | results section. | + +--------+ +---+ + | RH IMMUNE GLOBULIN | Urgent | 08/23/2018 | | Results for this | | WORKUP | | 4:13 PM | | procedure are in the | | | | PST | | results section. | + +--------+ +---+ + | BLOOD BANK HOLD TUBE | Urgent | 08/23/2018 | | Results for this | | - DON | | 4:13 PM | | procedure are in the | | | | PST | | results section. | | T PROCESS | | | | | + +--------+ +---+ + | CBC (HEMOGRAM) ONLY | Urgent | 08/23/2018 | | Results for this | | | | 4:13 PM | | procedure are in the | | | | PST | | results section. | + +--------+ +---+ + | BASIC METABOLIC SET | Urgent | 08/23/2018 | | Results for this | | (NA, K, CL, TCO2, | | 4:13 PM | | procedure are in the | | BUN, CR, GLU, CA) | | PST | | results section. | + +--------+ +---+ + | CBC ONLY | Urgent | 08/23/2018 | | Results for this | | | | 4:13 PM | | procedure are in the | | | | PST | | results section. | + +--------+ +---+ + | ANTIBODY SCREEN | Routin | 08/23/2018 | | Results for this | | | e | 4:13 PM | | procedure are in the | | | | PST | | results section. | + +--------+ +---+ + | ABO & RH TYPE | Routin | 08/23/2018 | | Results for this | | | e | 4:13 PM | | procedure are in the | | | | PST | | results section. | + +--------+ +---+ + | HCG BETA QUANT, | Urgent | 08/23/2018 | | Results for this | | PLASMA | | 4:13 PM | | procedure are in the | | | | PST | | results section. | + +--------+ +---+ + documented in this encounter Results CAPILLARY BLOOD GLUCOSE (NO CHG), POC (08/24/2018 4:04 PM PST) + +-------+ + + + | Component | Value | Ref Range | Performed | Pathologist | | | | | At | Signature | + +-------+ + + + | BLOOD | 81 | 60 - 99 mg/dL | [facility] - | | | GLUCOSE, | | | [facility] | | | POC | | | [facility] | | | | | | OF CARE | | | | | | TESTS | | + +-------+ + + + + + | Specimen | + + | | + + + + + + + | Performing | Address | City/State/Zipcode | Phone Number | | Organization | | | | + + + + + | [facility] | [address] | [place], [place] | | | [facility] | [address] | [address] | | | TESTS | | | | + + + + + SURG PATH - PRODUCTS OF CONCEPTION (08/24/2018 3:31 PM PST) + + + + + + | Component | Value | Ref Range | Performed | Pathologist | | | | | At | Signature | + + + + + + | Clinical | Cesarian Scar Ectopic | | [facility] | | | History | | | DEPARTMENT | | | | | | OF | | | | | | PATHOLOGY | | + + + + + + | Final | Products of conception, | | [facility] | Electronically | | Pathologic | dilation and | | DEPARTMENT | signed by | | Diagnosis | curettage: Chorionic | | OF | eMg Sequeira | | | villi and decidua, | | PATHOLOGY | MD González on | | | compatible with products | | | 08/26/2018 at | | | of conceptionCase seen | | | 1:22 PM | | | by:Myron Zamora MD | | | | | | | | | | | | Pathology | | | | | | Naty Claudio, | | | | | | - | | | | | | PathologistPathology, | | | | | | [facility] | | | | | | [place] My electronic | | | | | | signature indicates | | | | | | that I have personally | | | | | | reviewed all diagnostic | | | | | | slides, the gross and/or | | | | | | microscopic portion of | | | | | | this report and | | | | | | formulated the final | | | | | | diagnosis. | | | | + + + + + + | Gross | Received fresh is a | | [facility] | | | Description | single specimen labeled | | DEPARTMENT | | | | with the patient's first | | OF | | | | last name and MRN.A. | | PATHOLOGY | | | | Products of | | | | | | conceptionReceived are | | | | | | multiple red pink soft | | | | | | tissue fragments with an | | | | | | aggregate measurement | | | | | | of 2.5 x 2 x 0.8 cm. | | | | | | Chorionic villi and | | | | | | decidua are identified | | | | | | within the specimen. | | | | | | Slope Hoist Operator sections | | | | | | are submitted into | | | | | | cassette A1.(SH) | | | | + + + + + + | Ancillary | Analyte specific | | [facility] | | | Information | reagents are used in | | DEPARTMENT | | | | many laboratory tests | | OF | | | | necessary for standard | | PATHOLOGY | | | | medical care. This test | | | | | | was developed and its | | | | | | performance | | | | | | characteristics | | | | | | determined by [facility] | | | | | | laboratories. It has | | | | | | not been cleared or | | | | | | approved by the US Food | | | | | | and Drug Administration | | | | | | (FDA). FDA does not | | | | | | require this test to go | | | | | | through premarket FDA | | | | | | review. This test is | | | | | | used for clinical | | | | | | purposes. It should not | | | | | | be regarded as | | | | | | investigational or for | | | | | | research. This | | | | | | laboratory is certified | | | | | | under the Clinical | | | | | | Laboratory Improvement | | | | | | Amendments (CLIA) as | | | | | | qualified to perform | | | | | | high complexity clinical | | | | | | laboratory testing. | | | | + + + + + + + + | Specimen | + + | Products of | | Conception - | | Products of | | Conception | + + + + + + + | Performing | Address | City/State/[facility] | Phone Number | | Organization | | | | + + + + + | [facility] | [address] | [place] [address] | | | PATHOLOGY | [address] | | | + + + + + DILATION AND CURETTAGE (08/24/2018 1:11 PM PST) + + + | Narrative | Performed At | + + + | Dale English MD 08/30/2018 3:03 PM OPERATIVE REPORT | | | Procedure Date: 08/24/2018 Surgeon: Dale English MD Fellow: Lavern | | | MD Rubén Consumer Loan Processor: YANNI GARCIA MD,MPH R4 Prior to the | | | beginning of the procedure the team paused to verify the patient's | | | identity, as well as the procedure to be performed and the correct | | | side/site. All equipment required was ready and available. The | | | patient was positioned appropriately. The following team members | | | were present during the team pause: Surgical team, anesthesia | | | team, model technician, circulating nurse. Preoperative Diagnosis: 1) | | | scar ectopic 2) Tobacco use Postoperative | | | Diagnosis: 1) Same Procedure Performed: 1) Suction Dilation | | | and Evacuation 2) Ultrasound guidance Anesthesia: General | | | anesthesia Estimated Blood Loss: <20 mL Urine Output: Straight | | | cath for ~200ml urine at completion of procedure Fluids: 600 mL | | | crystalloid Drains: none Findings: 1) Normal external | | | genitalia. Uterus anteverted, consistent with 8 weeks gestational | | | age. No palpable adnexal masses. 2) Ultrasound findings: | | | scar ectopic sac well-visualized in the lower uterine | | | segment. No evidence of uterine injury or perforation. Thin | | | endometrial stripe at end of procedure. Specimens: 1) Products | | | of conception to pathology Antibiotic Prophylaxis: Azithromycin | | | 500mg DVT Prophylaxis: SCDs Complications: None Disposition: | | | Stable to PACU Indication: Karen Miramontes is a 28 y.o. | | | female at 8w1d by LMP who was admitted to the [facility] service | | | for management of a scar ectopic . Her medical | | | history was otherwise notable for tobacco use. She was stable and | | | asymptomatic on admission, and after extensive counseling on her | | | options including intra-sac methotrexate injection, balloon | | | tamponade, or dilation and curettage she elected for suction D&C. | | | A full PARQ was previously held with the patient and a consent | | | form was signed. She was also consented for blood transfusion as | | | well as hysterectomy in the setting of refractory life-threatening | | | bleeding. Procedure: The patient was met in the preoperative | | | area and the consent was reviewed. She was taken to the operating | | | room with the IV running. Anesthesia was induced without difficulty. | | | She was placed in lithotomy position using Cy stirrups in what | | | was felt to be a neurologically safe position. She was prepped and | | | draped in the usual sterile fashion. Prior to the beginning of | | | the procedure the team paused to verify the patient's identity, as | | | well as the procedure to be performed and the correct side/site. All | | | equipment required was ready and available. Bimanual exam was | | | performed and the uterus was anteverted and 8 weeks size. The | | | speculum was placed. The cervix was grasped with a tenaculum | | | placed on the anterior cervical lip. A two-point paracervical | | | block was placed using a solution of dilute vasopressin (20u | | | vasopressin in 60ml saline). Under ultrasound guidance, the cervix | | | was sequentially dilated to 21 mms without difficulty. A 7 mm | | | straight and flexible cannula was used with electric suction to | | | remove the products of conception from the uterus until a gritty | | | texture was appreciated. All instruments were removed from the | | | vagina and hemostasis ensured at the tenaculum sites. | | | Transabdominal ultrasound was used during the procedure for guidance | | | and to confirm a thin endometrial stripe at the conclusion of the | | | procedure The products of conception were examined and the | | | procedure was found to be complete. The tissue retrieved was sent | | | to pathology for evaluation. The patient tolerated the | | | procedure well and general anesthesia was ended without | | | complications. She was taken to the recovery room awake and in | | | stable condition. YANNI GARCIA MD,MPH | | + + + HCG BETA QUANT, PLASMA (08/24/2018 6:32 AM PST) + + + + + + | Component | Value | Ref Range | Performed | Pathologist | | | | | At | Signature | + + + + + + | HCG BETA, | 10,975 (H) | <3 mIU/mL | [facility] | | | PLASMA | | | LABORATORY | | | | | | SERVICES, | | | | | | CORE | | + + + + + + + + | Specimen | + + | Blood - Blood | | (substance) | + + + + + | Narrative | Performed At | + + + | HCG Reference ranges Males: <2 | [facility] | | mIU/mL Non- Females: <3 mIU/mL | LABORATORY | | Females: >5 mIU/mL HCG Ranges During Normal | SERVICES, CORE | | : Weeks Post Last Menstrual Period: Approximate hCG | | | Range, mIU/mL 3-4 weeks | | | 9 - 130 4-5 weeks | | | 75 - 2600 5-6 weeks | | | 850 - 75070 6-7 weeks | | | 4000 - 193321 7-12 weeks | | | 77933 - 709869 12-16 weeks | | | 09858 - 361954 16-29 | | | weeks 1400 - 39831 | | | 29-41 weeks 940 - 46792 | | | This test has not been approved for use as a tumor marker in | | | males or females. | | + + + + + + + + | Performing | Address | City/State/Zipcode | Phone Number | | Organization | | | | + + + + + | [facility] | [address] | [place] [address] | | | SERVICES, [facility] | [address] | | | + + + + + PRODUCT - RED CELLS LEUKOREDUCED (08/23/2018 7:25 PM PST) + + + + + + | Component | Value | Ref Range | Performed | Pathologist | | | | | At | Signature | + + + + + + | PRODUCT | -1 RED BLOOD CELL | | [facility] | | | DESCRIPTION | ADENINE-SALINE ADDED | | LABORATORY | | | | LEUKOCYTE | | SERVICES, | | | | | | TRANSFUSION | | | | | | MEDICINE | | + + + + + + | PRODUCT | [id number] | | [facility] | | | UNIT # | | | LABORATORY | | | | | | SERVICES, | | | | | | TRANSFUSION | | | | | | MEDICINE | | + + + + + + | UNIT ABO | A | | [facility] | | | | | | LABORATORY | | | | | | SERVICES, | | | | | | TRANSFUSION | | | | | | MEDICINE | | + + + + + + | UNIT RH | POS | | [facility] | | | | | | LABORATORY | | | | | | SERVICES, | | | | | | TRANSFUSION | | | | | | MEDICINE | | + + + + + + | STATUS OF | Returned to Blood Bank | | [facility] | | | UNIT | | | LABORATORY | | | | | | SERVICES, | | | | | | TRANSFUSION | | | | | | MEDICINE | | + + + + + + | EXPIRATION | [id number] | | [facility] | | | DATE | | | LABORATORY | | | | | | SERVICES, | | | | | | TRANSFUSION | | | | | | MEDICINE | | + + + + + + | BLOOD TYPE | [id number] | | [facility] | | | BARCODE | | | LABORATORY | | | | | | SERVICES, | | | | | | TRANSFUSION | | | | | | MEDICINE | | + + + + + + | BLOOD | [id number] | | [facility] | | | PRODUCT | | | LABORATORY | | | CODE | | | SERVICES, | | | | | | TRANSFUSION | | | | | | MEDICINE | | + + + + + + + + | Specimen | + + | | + + + + + + + | Performing | Address | City/State/Zipcode | Phone Number | | Organization | | | | + + + + + | [facility] | [address] | [place] [address] | | | SERVICES, | [address] | | | | TRANSFUSION MEDICINE | | | | + + + + + PRODUCT - RED CELLS LEUKOREDUCED (08/23/2018 7:25 PM PST) + + + + + + | Component | Value | Ref Range | Performed | Pathologist | | | | | At | Signature | + + + + + + | PRODUCT | -1 RED BLOOD CELL | | [facility] | | | DESCRIPTION | ADENINE-SALINE ADDED | | LABORATORY | | | | LEUKOCYTE | | SERVICES, | | | | | | TRANSFUSION | | | | | | MEDICINE | | + + + + + + | PRODUCT | [id number] | | [facility] | | | UNIT # | | | LABORATORY | | | | | | SERVICES, | | | | | | TRANSFUSION | | | | | | MEDICINE | | + + + + + + | UNIT ABO | A | | [facility] | | | | | | LABORATORY | | | | | | SERVICES, | | | | | | TRANSFUSION | | | | | | MEDICINE | | + + + + + + | UNIT RH | POS | | [facility] | | | | | | LABORATORY | | | | | | SERVICES, | | | | | | TRANSFUSION | | | | | | MEDICINE | | + + + + + + | STATUS OF | Returned to Blood Bank | | [facility] | | | UNIT | | | LABORATORY | | | | | | SERVICES, | | | | | | TRANSFUSION | | | | | | MEDICINE | | + + + + + + | EXPIRATION | [id number] | | [facility] | | | DATE | | | LABORATORY | | | | | | SERVICES, | | | | | | TRANSFUSION | | | | | | MEDICINE | | + + + + + + | BLOOD TYPE | 6200 | | [facility] | | | BARCODE | | | LABORATORY | | | | | | SERVICES, | | | | | | TRANSFUSION | | | | | | MEDICINE | | + + + + + + | BLOOD | [id number] | | [facility] | | | PRODUCT | | | LABORATORY | | | CODE | | | SERVICES, | | | | | | TRANSFUSION | | | | | | MEDICINE | | + + + + + + + + | Specimen | + + | | + + + + + + + | Performing | Address | City/State/Zipcode | Phone Number | | Organization | | | | + + + + + | [facility] | [address] | [place] [address] | | | SERVICES, | [address] | | | | TRANSFUSION MEDICINE | | | | + + + + + ANTIBODY SCREEN (08/23/2018 5:06 PM PST) + + + + + + | Component | Value | Ref Range | Performed | Pathologist | | | | | At | Signature | + + + + + + | Antibody | Negative | | [facility] | | | Screen | | | LABORATORY | | | | | | SERVICES, | | | | | | TRANSFUSION | | | | | | MEDICINE | | + + + + + + + + | Specimen | + + | Blood - Blood | | (substance) | + + + + + + + | Performing | Address | City/State/Zipcode | Phone Number | | Organization | | | | + + + + + | [facility] | [address] | [place] [address] | | | SERVICES, | [address] | | | | TRANSFUSION MEDICINE | | | | + + + + + ABO & RH TYPE (08/23/2018 5:06 PM PST) + + + + + + | Component | Value | Ref Range | Performed | Pathologist | | | | | At | Signature | + + + + + + | ABO Group | A | | [facility] | | | | | | LABORATORY | | | | | | SERVICES, | | | | | | TRANSFUSION | | | | | | MEDICINE | | + + + + + + | Rh Type | Positive | | [facility] | | | | | | LABORATORY | | | | | | SERVICES, | | | | | | TRANSFUSION | | | | | | MEDICINE | | + + + + + + + + | Specimen | + + | Blood - Blood | | (substance) | + + + + + + + | Performing | Address | City/State/Zipcode | Phone Number | | Organization | | | | + + + + + | [facility] | [address] | [place] [address] | | | SERVICES, | [address] | | | | TRANSFUSION MEDICINE | | | | + + + + + RAINBOW HOLD TUBE - RED TOP (08/23/2018 4:13 PM PST) + + | Specimen | + + | Blood - Blood | | (substance) | + + + + + + + | Performing | Address | City/State/Zipcode | Phone Number | | Organization | | | | + + + + + | [facility] | [address] | [place] [address] | | | SERVICES, CORE | [address] | | | + + + + + RAINBOW HOLD TUBE - PURPLE TOP (08/23/2018 4:13 PM PST) + + | Specimen | + + | Blood - Blood | | (substance) | + + + + + + + | Performing | Address | City/State/Zipcode | Phone Number | | Organization | | | | + + + + + | [facility] | [address] | [place] [address] | | | SERVICES, CORE | [address] | | | + + + + + RAINBOW HOLD TUBE - BLUE TOP (08/23/2018 4:13 PM PST) + + | Specimen | + + | Blood - Blood | | (substance) | + + + + + + + | Performing | Address | City/State/Zipcode | Phone Number | | Organization | | | | + + + + + | [facility] | [address] | [place] [address] | | | SERVICES, CORE | [address] | | | + + + + + BLOOD BANK HOLD TUBE - DON T PROCESS (08/23/2018 4:13 PM PST) + + + + + + | Component | Value | Ref Range | Performed | Pathologist | | | | | At | Signature | + + + + + + | SPECIMEN | Sample received with | | [facility] | | | COLLECTED, | adeq label/volume to | | LABORATORY | | | HELD | process | | SERVICES, | | | | | | TRANSFUSION | | | | | | MEDICINE | | + + + + + + + + | Specimen | + + | Blood - Blood | | (substance) | + + + + + + + | Performing | Address | City/State/Zipcode | Phone Number | | Organization | | | | + + + + + | [facility] | [address] | [place] [address] | | | SERVICES, | [address] | | | | TRANSFUSION MEDICINE | | | | + + + + + RH IMMUNE GLOBULIN WORKUP (08/23/2018 4:13 PM PST) + + + + + + | Component | Value | Ref Range | Performed | Pathologist | | | | | At | Signature | + + + + + + | RH IMMUNE | Patient is not a | | [facility] | | | GLOBULIN | candidate for [facility] | | LABORATORY | | | WORKUP | | | SERVICES, | | | | | | TRANSFUSION | | | | | | MEDICINE | | + + + + + + + + | Specimen | + + | Blood - Blood | | (substance) | + + + + + + + | Performing | Address | City/State/Zipcode | Phone Number | | Organization | | | | + + + + + | [facility] | [address] | [place] [address] | | | SERVICES, | [address] | | | | TRANSFUSION MEDICINE | | | | + + + + + HCG BETA QUANT, PLASMA (08/23/2018 4:13 PM PST) + + + + + + | Component | Value | Ref Range | Performed | Pathologist | | | | | At | Signature | + + + + + + | HCG BETA, | 13,012 (H) | <3 mIU/mL | [facility] | | | PLASMA | | | LABORATORY | | | | | | SERVICES, | | | | | | CORE | | + + + + + + + + | Specimen | + + | Blood - Blood | | (substance) | + + + + + | Narrative | Performed At | + + + | HCG Reference ranges Males: <2 | [facility] | | mIU/mL Non- Females: <3 mIU/mL | LABORATORY | | Females: >5 mIU/mL HCG Ranges During Normal | SERVICES, CORE | | : Weeks Post Last Menstrual Period: Approximate hCG | | | Range, mIU/mL 3-4 weeks | | | 9 - 130 4-5 weeks | | | 75 - 2600 5-6 weeks | | | 850 - 34189 6-7 weeks | | | 4000 - 649983 7-12 weeks | | | 64865 - 483551 12-16 weeks | | | 20019 - 394095 16-29 | | | weeks 1400 - 58406 | | | 29-41 weeks 940 - 85209 | | | This test has not been approved for use as a tumor marker in | | | males or females. | | + + + + + + + + | Performing | Address | City/State/Zipcode | Phone Number | | Organization | | | | + + + + + | [facility] | [address] | [place] [address] | | | SERVICES, CORE | [address] | | | + + + + + ABO & RH TYPE (08/23/2018 4:13 PM PST) + + + + + + | Component | Value | Ref Range | Performed | Pathologist | | | | | At | Signature | + + + + + + | ABO Group | A | | [facility] | | | | | | LABORATORY | | | | | | SERVICES, | | | | | | TRANSFUSION | | | | | | MEDICINE | | + + + + + + | Rh Type | Positive | | [facility] | | | | | | LABORATORY | | | | | | SERVICES, | | | | | | TRANSFUSION | | | | | | MEDICINE | | + + + + + + + + | Specimen | + + | Blood - Blood | | (substance) | + + + + + + + | Performing | Address | City/State/Zipcode | Phone Number | | Organization | | | | + + + + + | [facility] | [address] | [place] [address] | | | SERVICES, | [address] | | | | TRANSFUSION MEDICINE | | | | + + + + + ANTIBODY SCREEN (08/23/2018 4:13 PM PST) + + + + + + | Component | Value | Ref Range | Performed | Pathologist | | | | | At | Signature | + + + + + + | Antibody | Negative | | [facility] | | | Screen | | | LABORATORY | | | | | | SERVICES, | | | | | | TRANSFUSION | | | | | | MEDICINE | | + + + + + + + + | Specimen | + + | Blood - Blood | | (substance) | + + + + + + + | Performing | Address | City/State/Zipcode | Phone Number | | Organization | | | | + + + + + | [facility] | [address] | [place] [address] | | | SERVICES, | [address] | | | | TRANSFUSION MEDICINE | | | | + + + + + CBC (HEMOGRAM) ONLY (08/23/2018 4:13 PM PST) + +-------+ + + + | Component | Value | Ref Range | Performed | Pathologist | | | | | At | Signature | + +-------+ + + + | WHITE CELL | 8.16 | 3.50 - 10.80 | [facility] | | | COUNT | | K/cu mm | LABORATORY | | | | | | SERVICES, | | | | | | CORE | | + +-------+ + + + | RED CELL | 4.45 | 4.00 - 5.20 | [facility] | | | COUNT | | M/cu mm | LABORATORY | | | | | | SERVICES, | | | | | | CORE | | + +-------+ + + + | HEMOGLOBIN | 14.1 | 12.0 - 16.0 | [facility] | | | | | g/dL | LABORATORY | | | | | | SERVICES, | | | | | | CORE | | + +-------+ + + + | HEMATOCRIT | 41.5 | 36.0 - 46.0 % | [facility] | | | | | | LABORATORY | | | | | | SERVICES, | | | | | | CORE | | + +-------+ + + + | MCV | 93.3 | 80.0 - 100.0 fL | [facility] | | | | | | LABORATORY | | | | | | SERVICES, | | | | | | CORE | | + +-------+ + + + | MCHC | 34.0 | 32.0 - 36.0 | [facility] | | | | | g/dL | LABORATORY | | | | | | SERVICES, | | | | | | CORE | | + +-------+ + + + | RDW SD | 40.6 | 35.1 - 46.3 fL | [facility] | | | | | | LABORATORY | | | | | | SERVICES, | | | | | | CORE | | + +-------+ + + + | PLATELET | 296 | 150 - 400 K/cu | [facility] | | | COUNT | | mm | LABORATORY | | | | | | SERVICES, | | | | | | CORE | | + +-------+ + + + | MPV | 10.2 | 9.7 - 12.3 fL | [facility] | | | | | | LABORATORY | | | | | | SERVICES, | | | | | | CORE | | + +-------+ + + + | NRBC% | 0.0 | 0.0 - 0.3 % | [facility] | | | | | | LABORATORY | | | | | | SERVICES, | | | | | | CORE | | + +-------+ + + + | NRBC# | 0.00 | 0.00 - 0.02 | [facility] | | | | | K/cu mm | LABORATORY | | | | | | SERVICES, | | | | | | CORE | | + +-------+ + + + + + | Specimen | + + | Blood - Blood | | (substance) | + + + + + + + | Performing | Address | City/State/Zipcode | Phone Number | | Organization | | | | + + + + + | [facility] | [address] | [place] [address] | | | SERVICES, CORE | [address] | | | + + + + + BASIC METABOLIC SET (NA, K, CL, TCO2, BUN, CR, GLU, CA) (08/23/2018 4:13 PM PST) + + + + + + | Component | Value | Ref Range | Performed | Pathologist | | | | | At | Signature | + + + + + + | GLUCOSE, | 85 | 70 - 99 mg/dL | [facility] | | | PLASMA | | | LABORATORY | | | (LAB) | | | SERVICES, | | | | | | CORE | | + + + + + + | BUN, PLASMA | 7 | 6 - 20 mg/dL | [facility] | | | (LAB) | | | LABORATORY | | | | | | SERVICES, | | | | | | CORE | | + + + + + + | CREATININE | 0.50 (L) | 0.60 - 1.10 | [facility] | | | PLASMA | | mg/dL | LABORATORY | | | (LAB) | | | SERVICES, | | | | | | CORE | | + + + + + + | EGFR | >60 | >60 mL/min | [facility] | | | - | | | LABORATORY | | | URUGUAYAN | | | SERVICES, | | | | | | CORE | | + + + + + + | EGFR NON | >60 | >60 mL/min | [facility] | | | -DAMI | | | LABORATORY | | | RICAN | | | SERVICES, | | | | | | CORE | | + + + + + + | SODIUM, | 139 | 136 - 145 | [facility] | | | PLASMA | | mmol/L | LABORATORY | | | (LAB) | | | SERVICES, | | | | | | CORE | | + + + + + + | POTASSIUM, | 3.9 | 3.4 - 5.0 | [facility] | | | PLASMA | | mmol/L | LABORATORY | | | (LAB) | | | SERVICES, | | | | | | CORE | | + + + + + + | CHLORIDE, | 109 (H) | 97 - 108 mmol/L | [facility] | | | PLASMA | | | LABORATORY | | | (LAB) | | | SERVICES, | | | | | | CORE | | + + + + + + | TOTAL CO2, | 23 | 21 - 32 mmol/L | [facility] | | | PLASMA | | | LABORATORY | | | (LAB) | | | SERVICES, | | | | | | CORE | | + + + + + + | CALCIUM, | 8.4 (L) | 8.6 - 10.2 | [facility] | | | PLASMA | | mg/dL | LABORATORY | | | (LAB) | | | SERVICES, | | | | | | CORE | | + + + + + + | ANION GAP | 7 | 4 - 11 mmol/L | [facility] | | | | | | LABORATORY | | | | | | SERVICES, | | | | | | CORE | | + + + + + + | POTASSIUM | Sl Hemo | | [facility] | | | CMNT | | | LABORATORY | | | | | | SERVICES, | | | | | | CORE | | + + + + + + + + | Specimen | + + | Blood - Blood | | (substance) | + + + + + | Narrative | Performed At | + + + | Sample hemolyzed. Results for K, Total Bili, Direct Bili, AST, | [facility] | | LDH, or HDL may be inaccurate. Refer to comment under test result. | LABORATORY | | GFR is estimated using the MDRD equation recommended by the National | SERVICES, CORE | | Kidney Disease Education Program. Estimated GFR Interpretive | | | Information: <60 mL/min/1.73 sq m Chronic Kidney | | | Disease <15 mL/min/1.73 sq m Kidney Failure | | | Estimated GFR greater that 60 mL/min/1.73 sq m is of limited clinical | | | value. The MDRD equation is not valid in the following situations: | | | - Patients under 18 years of age - Severe malnutrition or obesity | | | - Vegetarian diet - Rapidly changing kidney function - Amputees, | | | paraplegics, or other muscle-wasting diseses | | + + + + + + + + | Performing | Address | City/State/Zipcode | Phone Number | | Organization | | | | + + + + + | [facility] | [address] | [place] [address] | | | SERVICES, HORACIO | [address] | | | + + + + + documented in this encounter Visit Diagnoses + + | Diagnosis | + + | Ectopic , unspecified location, unspecified whether intrauterine | | present - Primary | + + documented in this encounter Administered Medications + +--------+ +--------+------+------+ | Medication Order | MAR | Action | Dose | Rate | Site | | | Action | Date | | | | + +--------+ +--------+------+------+ | acetaminophen (TYLENOL) tablet | Given | 08/25/ | 650 mg | | | | 650 mg 650 mg, oral, EVERY 6 | | 18 7:04 | | | | | HOURS NEEDED, Starting Wed | | AM PST | | | | | 08/24/18 at 1832, Until Rosa | | | | | | | 08/25/18 at 1313, mild pain | | | | | | + +--------+ +--------+------+------+ +---+---+ | | | +---+---+ + +-------+ +--------+---+---+ | azithromycin (ZITHROMAX) tablet | Given | 08/24/20 | 500 mg | | | | 500 mg 500 mg, oral, ONCE, 1 | | 18 7:17 | | | | | dose, Wed08/24/18 at 1815 | | PM PST | | | | + +-------+ +--------+---+---+ +---+---+ | | | +---+---+ + +---------+ + + +---+ | dextrose 5 %-lactated ringers | New Bag | 11/14/20 | 75 mL/hr | 75 mL/hr | | | IV infusion 75 mL/hr, | | 18 12:54 | | | | | intravenous, CONTINUOUS, Starting | | PM PST | | | | | 08/24/18 at 0000, Until Wed | | | | | | | 08/24/18 at 1808 | | | | | | + +---------+ + + +---+ + + + + +---+ | Rate/Dose Verify | 08/24/20 | 75 mL/hr | 75 mL/hr | | | | 18 7:15 | | | | | | AM PST | | | | + + + + +---+ | Rate/Dose Verify | 08/24/20 | 75 mL/hr | 75 mL/hr | | | | 18 4:00 | | | | | | AM PST | | | | + + + + +---+ +---+---+ | | | +---+---+ + +-------+ +--------+---+---+ | fentaNYL (SUBLIMAZE) injection | Given | 08/24/20 | 25 mcg | | | | 25 mcg 25 mcg, intravenous, | | 18 4:30 | | | | | POSTPROCEDURE PRN, 8 doses, | | PM PST | | | | | Starting Wed08/24/18 at 1543, | | | | | | | Until Wed08/24/18 at 1746, | | | | | | | severe pain while in Phase I | | | | | | | Recovery | | | | | | + +-------+ +--------+---+---+ +-------+ +--------+---+---+ | Given | 08/24/20 | 25 mcg | | | | | 18 4:26 | | | | | | PM PST | | | | +-------+ +--------+---+---+ | Given | 08/24/20 | 25 mcg | | | | | 18 4:20 | | | | | | PM PST | | | | +-------+ +--------+---+---+ +---+---+ | | | +---+---+ + +-------+ +--------+---+---+ | HYDROmorphone (DILAUDID) | Given | 08/24/20 | 0.5 mg | | | | injection 0.2-0.5 mg 0.2-0.5 mg, | | 18 5:04 | | | | | intravenous, POSTPROCEDURE PRN, | | PM PST | | | | | Starting Wed08/24/18 at 1543, | | | | | | | Until Wed08/24/18 at 1746, | | | | | | | moderate pain while in Phase I | | | | | | | Recovery | | | | | | + +-------+ +--------+---+---+ +-------+ +--------+---+---+ | Given | 08/24/20 | 0.3 mg | | | | | 18 4:54 | | | | | | PM PST | | | | +-------+ +--------+---+---+ | Given | 08/24/20 | 0.2 mg | | | | | 18 4:44 | | | | | | PM PST | | | | +-------+ +--------+---+---+ +---+---+ | | | +---+---+ + +-------+ +--------+---+---+ | ibuprofen (MOTRIN) tablet 600 | Given | 08/25/20 | 600 mg | | | | mg 600 mg, oral, EVERY 6 HOURS | | 18 7:04 | | | | | NEEDED, Starting Wed08/24/18 | | AM PST | | | | | at 1832, Until Rosa 08/25/18 at | | | | | | | 1313, moderate pain, multimodal | | | | | | | pain control | | | | | | + +-------+ +--------+---+---+ +-------+ +--------+---+---+ | Given | 08/24/20 | 600 mg | | | | | 18 10:50 | | | | | | PM PST | | | | +-------+ +--------+---+---+ +---+---+ | | | +---+---+ + +---------+ +--------+---+---+ | lactated Ringers IV 500 mL, | New Bag | 08/24/20 | 500 mL | | | | intravenous, POSTPROCEDURE PRN, 1 | | 18 4:30 | | | | | dose, Starting 08/24/18 at | | PM PST | | | | | 1543, Until Wed08/24/18 at 1900, | | | | | | | nausea/vomiting due to | | | | | | | dehydration | | | | | | + +---------+ +--------+---+---+ +---+---+ | | | +---+---+ + + + +---------+---+--------+ | nicotine (NICOTROL) 7 mg/24 hr | Applied | 08/24/20 | 1 patch | | Right | | 1 patch 1 patch, transdermal, | Patch | 18 9:18 | | | Arm | | DAILY, First dose on Wed08/23/18 | | AM PST | | | | | at 2014, Until Discontinued | | | | | | + + + +---------+---+--------+ + + +---------+---+ + | Applied Patch | 08/23/20 | 1 patch | | Left | | | 18 9:00 | | | Shoulder | | | PM PST | | | | + + +---------+---+ + +---+---+ | | | +---+---+ + +-------+ +------+---+---+ | oxyCODONE (immediate release) | Given | 08/24/20 | 5 mg | | | | (ROXICODONE) tablet 5-10 mg 5-10 | | 18 10:51 | | | | | mg, oral, EVERY 4 HOURS | | PM PST | | | | | NEEDED, Starting 08/24/18 at | | | | | | | 1607, Until Rosa 08/25/18 at 1313, | | | | | | | severe pain | | | | | | + +-------+ +------+---+---+ +-------+ +------+---+---+ | Given | 08/24/20 | 5 mg | | | | | 18 7:16 | | | | | | PM PST | | | | +-------+ +------+---+---+ +---+---+ | | | +---+---+ + +-------+ +---------+---+---+ | promethazine (PHENERGAN) | Given | 08/24/20 | 6.25 mg | | | | injection 6.25-12.5 mg 6.25-12.5 | | 18 4:33 | | | | | mg, intravenous, POSTPROCEDURE | | PM PST | | | | | PRN, 1 dose, Starting Wed | | | | | | | 08/24/18 at 1543, Until Wed | | | | | | | 08/24/18 at 1633, | | | | | | | nausea/vomiting, 1st line | | | | | | + +-------+ +---------+---+---+ +---+---+ | | | +---+---+ documented in this encounter
--- OUTSIDE RECORDS SUMMARY | ~2020-03-13 | XMS | Encounter Summary ---
Demographics + + + | Address | [address] | | | [place] [address] | + + + | Home Phone | | + + + | Preferred Language | Unknown | + + + | Marital Status | Single | + + + | Cheondoism Affiliation | Unknown | + + + | Race | Unknown | + + + | Ethnic Group | Unknown | + + + Author + + + | Author | [facility] | | | and [place] | + + + | Organization | [facility] | | | and [place] | + + + | Address | Unknown | + + + | Phone | Unavailable | + + + Care Team Providers + +------+ + | Care Respiratory Director Name | Role | Phone | + +------+ + | Brandy Barreto PCP | | + +------+ + Encounter Details +--------+ + + + + | Date | Type | Department | Care Team | Description | +--------+ + + + + | 10/19/ | Orders Only | [facility] | Roni Gomez, | | | 2017 | | UROLOGY [address] | DO [address] | | | | | [address] | [place] [address] | | | | | [place], [place] | [phone] | | | | | [address] | | | | | | [phone] | | | +--------+ + + + [...]
--- OUTSIDE RECORDS SUMMARY | ~2020-03-13 | XMS | Clinical Summary ---
Demographics + + + | Address | [address] | | | [place] [address] | + + + | Home Phone | | + + + | Preferred Language | Unknown | + + + | Marital Status | | + + + | Protestant Affiliation | NOD | + + + [...] Team Providers + +------+ + | Care Rv Body Mechanic Name | Role | Phone | + +------+ + | No Pcp Per Patient | PCP | Unavailable | + +------+ + Source Comments SHERYL is fully live on both [facility] and [facility] Allergies + + + + [...] [facility]. Referred to [facility] for | | management. Patient 8wks [...] [place] | [facility] | [phone] | | [phone] | [address] | | | PL[address] | | [phone] | id | | | OPEN | | esent | | [place], [place] | | | | CARD | | | | [phone] | | + +--------+ +--------+ + +--------+ [...] | | al/Fam | | 1990 | [phone] | [place] [address] | | | kimmy | | | [...]
--- OUTSIDE RECORDS SUMMARY | ~2020-03-13 | XMS | Clinical Summary ---
Demographics + + + | Address | [address] | | | [place] [address] | + + + | Home Phone | | + + + | Preferred Language | Unknown | + + + | Marital Status | | + + + | Sabianist Affiliation | NOD | + + + [...] Team Providers + +------+ + | Care Bottle Blower Name | Role | Phone | + +------+ + | No Pcp Per Patient | PCP | Unavailable | + +------+ + Source Comments SHERYL is fully live on both [facility] and [facility] In[facility] Allergies + + + + + [...] scar ectopic diagnosed [facility] | | [facility] Referred to [facility] for | | management. Patient 8wks [...] [place] | [facility] | xxxxxxxx | | [phone] | [address] | Medica | | | PLUS | | [phone] | [phone] | [phone] | id | | | OPEN | | esent | | [place], [place] | | | | CARD | | | | [address] | | + +--------+ +--------+ + +--------+ [...] | | al/Fam | | 1990 | [phone] | [place] [address] | | | kimmy | | | [...]
--- OUTSIDE RECORDS SUMMARY | ~2020-03-13 | XMS | Encounter Summary ---
Demographics + + + | Address | [address] | | | [place] [address] | + + + | Home Phone | | + + + | Preferred Language | Unknown | + + + | Marital Status | | + + + | Voodoo Affiliation | NOD | + + + | Race | White | + + + | Ethnic Group | Not or | + + + Author + + + | Author | [facility] | + + + | Organization | [facility] | + + + | Address | [...] Team Providers + +------+ + | Care Drill Instructor Name | Role | Phone | + [...] Pharmacy | | | | | | [address] | | | | | | [place], [place] | | | | | | [address] | | | | | | [phone] | | | +--------+ + + + [...]
--- OUTSIDE RECORDS SUMMARY | ~2020-03-13 | XMS | Encounter Summary ---
Demographics + + + | Address | [address] | | | [place] [address] | + + + | Home Phone | | + + + | Preferred Language | Unknown | + + + | Marital Status | Single | + + + | Spiritism Affiliation | Unknown | + + + | Race | Unknown | + + + | Ethnic Group | Unknown | + + + Author + + + | Author | [facility] | | | and [place]uf[place] | + + + | Organization | [facility] | | | and [place] | + + + | Address | Unknown | + + + | Phone | Unavailable | + + + Care Team Providers + +------+ + | Care Market Research Intern Name | Role | Phone | + +------+ + | Brandy Barreto PCP | | + +------+ + Encounter Details +--------+ + + + + | Date | Type | Department | Care Team | Description | +--------+ + + + + | 10/19/ | Orders Only | [facility] | Roni Gomez, | | | 2017 | | UROLOGY [address] | DO [address] | | | | | [address] | [place] [address] | | | | | [place], [place] | [phone] | | | | | [address] | | | | | | [phone] | | | +--------+ + + + [...]
--- OUTSIDE RECORDS SUMMARY | ~2020-03-13 | XMS | Encounter Summary ---
Demographics + + + | Address | [address] | | | [place] [address] | + + + | Home Phone | | + + + | Preferred Language | Unknown | + + + | Marital Status | | + + + | Pentecostal Affiliation | NOD | + + + [...] | + + +---------+ + | Ivy Bergeorn | ECON | Unknown | | + + +---------+ + Care Team Providers + +------+ + | Care Rail Grinder Name | Role | Phone | + +------+ + | No Pcp Per Patient | PCP | Unavailable | + +------+ + Encounter Details +--------+ + + + + | Date | Type | Department | Care Team | Description | +--------+ + + + + | 08/25/ | Pharmacy | Outpatient Retail | | | | 2017 | Visit | [facility] | | | | | | [address] | | | | | | [address] [place], [place] | | | | | | [address] | | | | | | [phone] | | | +--------+ + + + [...]
--- OUTSIDE RECORDS SUMMARY | ~2020-03-13 | XMS | Encounter Summary ---
Demographics + + + | Address | [address] | | | [place] [address] | + + + | Home Phone | | + + + | Preferred Language | Unknown | + + + | Marital Status | Single | + + + | Orthodoxy Affiliation | Unknown | + + + | Race | Unknown | + + + | Ethnic Group | Unknown | + + + Author + + + | Author | [facility] | | | and [place]ufino[place] | + + + | Organization | [facility] | | | and [place]uf[place] | + + + | Address | Unknown | + + + | Phone | Unavailable | + + + Care Team Providers + +------+ + | Care Pantry Chef Name | Role | Phone | + +------+ + PCP | Unavailable | + +------+ + Encounter Details +--------+ + + + + | Date | Type | Department | Care Team | Description | +--------+ + + + + | 06/02/ | Orders Only | [facility] | Conversion | | | 2016 | | [address] | Transaction, | | | | | [address] | Provider Unknown | | | | | [address] | [phone] | | | | | [phone] | | | +--------+ + + + [...] | + +--------+ + + + | URINALYSIS | Routin | 06/02/2016 | | Results for this | | | e | 12:00 AM | | procedure are in the | | | | PDT | | results section. | + +--------+ + + + documented in this encounter Results Urinalysis (06/02/2016 12:00 AM PDT) + +-------+ + + + | Component | Value | Ref Range | Performed | Pathologist | | | | | At | Signature | + +-------+ + + + | Blood, | TRACE | | EXTERNAL | | | Urine | | | LAB | | + +-------+ + + + | Glucose, | NEG | | EXTERNAL | | | Urine | | | LAB | | + +-------+ + + + | Leukocyte | NEG | | EXTERNAL | | | Esterase, | | | LAB | | | Urine | | | | | + +-------+ + + + | Nitrite, | NEG | | EXTERNAL | | | Urine | | | LAB | | + +-------+ + + + | pH, Urine | 5.0 | | EXTERNAL | | | | | | LAB | | + +-------+ + + + | Protein, | NEG | | EXTERNAL | | | Urine | | | LAB | | + +-------+ + + + + + | Specimen | + + | | + + + +---------+ + + | Performing | Address | City/State/Zipcode | Phone Number | | Organization | | | | + +---------+ + + | EXTERNAL LAB | | | | + +---------+ + + documented in this encounter Visit Diagnoses Not on filedocumented in this encounter"
--- OUTSIDE RECORDS SUMMARY | ~2020-03-13 | XMS | Encounter Summary ---
Demographics + + + | Address | [address] | | | [place] [address] | + + + | Home Phone | | + + + | Preferred Language | Unknown | + + + | Marital Status | Single | + + + | Restorationist Affiliation | Unknown | + + + | Race | Unknown | + + + | Ethnic Group | Unknown | + + + Author + + + | Author | [facility] | | | and [place]ufino[place] | + + + | Organization | [facility] | | | and [place] | + + + | Address | Unknown | + + + | Phone | Unavailable | + + + Care Team Providers + +------+ + | Care Diesel Retrofit Designer Name | Role | Phone | + +------+ + | Brandy Barreto PCP | | + +------+ + Encounter Details +--------+ + + + + | Date | Type | Department | Care Team | Description | +--------+ + + + + | 10/07/ | Orders Only | [facility] | Conversion | | | 2016 | | CONVERSION [address] | Transaction, | | | | | [address] | Provider Unknown | | | | | [place], [place] | [phone] | | | | | [address] | | | | | | [phone] | | | +--------+ + + + [...]
--- OUTSIDE RECORDS SUMMARY | ~2020-03-13 | XMS | Encounter Summary ---
Demographics + + + | Address | [address] | | | [place] [address] | + + + | Home Phone | | + + + | Preferred Language | Unknown | + + + | Marital Status | Single | + + + | Mormon Affiliation | Unknown | + + + | Race | Unknown | + + + | Ethnic Group | Unknown | + + + Author + + + | Author | [facility] | | | and [place]ufino[place] | + + + | Organization | [facility] | | | and Ruf[place] | + + + | Address | Unknown | + + + | Phone | Unavailable | + + + Care Team Providers + +------+ + | Care Mobile Developer Name | Role | Phone | + +------+ + PCP | Unavailable | + +------+ + Encounter Details +--------+ + + + + | Date | Type | Department | Care Team | Description | +--------+ + + + + | 10/07/ | Hospital | [facility] | Conversion | Nephrolithiasis | | 2017 | Encounter | [facility] | Transaction, | | | | | [address] | Provider Unknown | | | | | [address] [place], [place] | [phone] | | | | | [address] | | | | | | [phone] | Roni Gomez, | | | | | | [address] | | | | | | [place] [address] | | | | | | [phone] | | | | | | | [...] amphetamine-dextroam | | | | 17 | | | phetamine (ADDERALL) | | | [...] Note | + + | Hunter Hernández - 05/25/2019 10:54 AM PDT KAREN LOMAXS1990XR ABDOMEN | | 1 VIEW10/07/2017 9:13 AM [...]
--- OUTSIDE RECORDS SUMMARY | ~2020-03-13 | XMS | Encounter Summary ---
Demographics + + + | Address | [address] | | | [place] [address] | + + + | Home Phone | | + + + | Preferred Language | Unknown | + + + | Marital Status | Single | + + + | Yazidism Affiliation | Unknown | + + + | Race | Unknown | + + + | Ethnic Group | Unknown | + + + Author + + + | Author | [facility] | | | and [place] | + + + | Organization | [facility] | | | and [place] | + + + | Address | Unknown | + + + | Phone | Unavailable | + + + Care Team Providers + +------+ + | Care Salad Counter Attendant Name | Role | Phone | + +------+ + PCP | Unavailable | + +------+ + Encounter Details +--------+ + + + + | Date | Type | Department | Care Team | Description | +--------+ + + + + | 11/15/ | Hospital | [facility] | Josh, | Mild or unspecified | | 2010 - | Encounter | [facility] | Abdelrahman Sequeira MD [address] | pre-eclampsia, with | | | | AND DELIVERY [address] | [facility], | delivery | | 11/23/ | | [address] | [place] [address] | | | 2010 | | [place], [place] | [phone] | | | | | [address] | | | | | | [phone] | | | +--------+ + + + [...] + +--------+ + + + | US OB LIMITED 1 OR | Routin | 11/15/2010 | | Results for this | | MORE FETUS | e | 3:34 PM | | procedure are in the | | | | PST | | results section. | + +--------+ + + + documented in this encounter Results US OB Limited 1 or More Fetus (11/15/2010 3:34 PM PST) + + | Specimen | + + | | + + + + + | Narrative | Performed At | + + + | [facility] [address] Ph: | | | Patient Name: KAREN ALVARADO Date of : | | | 1990 Medical Record: [id number] Account: [id number] | | | Exam Date/Time: 11/15/2010 13:55 Ordering | | | Physician: ABDELRAHMAN GUTIERREZ Order Detail: [id number] Exam | | | Description: US OBSTETRICAL LIMITED | | | OB | | | ULTRASOUND INDICATION: Estimated weight assessment. Twin | | | gestation. COMPARISON STUDY: None currently available. | | | TECHNIQUE: Transabdominal pelvic ultrasound performed for global | | | evaluation. Transvaginal pelvic ultrasound performed for detailed | | | evaluation. Multiple realtime scans were performed with | | | direct marketing representative static images obtained. FINDINGS: Twin gestation | | | is seen. Twin A/fetus A: Vertex presentation. Anterior placenta | | | to maternal. No previa. Amniotic fluid volume: Normal in | | | appearance. Single largest pocket 8.7 cm. Qualitatively fluid volume | | | appears normal. heart rate: 127 beats per minute. | | | measurements: BPD corresponds to 32 weeks, 4 day. Head | | | circumference: 31 weeks, 3 day. Abdominal circumference: 34 weeks, 1 | | | day. Femur length: 33 weeks, 0 days. Estimated weight: 2181 | | | grams + / - 327 grams. Estimated gestational age based on today's | | | measurements: 32 weeks, 6 days. Twin B/fetus B: Transverse lie | | | with head to maternal left. Placenta: Anterior with no | | | previa. Amniotic fluid volume: Single largest pocket 5.8 cm in | | | depth. Qualitatively normal. heart rate: 134 beats per | | | minute. measurements: Biparietal diameter: 31 weeks, 5 | | | days. Head circumference: 34 weeks, 4 days. Abdominal circumference: | | | 33 weeks, 2 days. Femur length: 32 weeks, 1 day. Estimated | | | weight based on these measurements: 2089 grams + / - 313 grams. | | | Estimated age based on today's measurements: 33 weeks, 0 days with | | | corresponding 01/03/2011 due date. Free fluid in maternal pelvis: | | | None seen. IMPRESSION: 1. Twin gestation ultrasound assessment | | | for weight. No prior study currently available for comparison. | | | 2. Twin A measures at 32 weeks, 6 days compared to predicted 34 | | | weeks, 2 days, based on LMP. Estimated weight 2181 grams + / - | | | 327 grams. head was difficult to acquire due to vertex | | | presentation and low lying position of head. This may account for the | | | slightly small head circumference measurement of 31 weeks, 3 days | | | compared to abdominal circumference measurements predicting 34 weeks, | | | 1 day. 3. Twin B estimated weight, 2089 grams + / - 313 grams. | | | Estimated age 33 weeks, 0 days compared to predicted 34 weeks, 2 day | | | age based on LMP. 4. Anterior placenta with no previa. Overall | | | amniotic fluid volume for both twin A and twin B appears normal. | | | Read by Taz Grace MD on 11/15/2010 1631 Electronically | | | signed by Taz Grace MD on 11/21/2010 5:31 PM | | + + + + + | Procedure Note | + + | Hunter Hernández Conversion - 06/03/2019 5:06 PM PDT | | [facility] | | [facility] [address] | | | | | | Patient Name: KAREN ALVARADO | | Date of : 1990 | | Medical Record: [id number] | | Account: [id number] | | | | | | Exam Date/Time: 11/15/2010 13:55 | | Ordering Physician: ABDELRAHMAN GUTIERREZ | | Order Detail: [id number] | | Exam Description: US OBSTETRICAL LIMITED | | | | OB ULTRASOUND | | | | INDICATION: Estimated weight assessment. Twin gestation. | | | | COMPARISON STUDY: None currently available. | | | | TECHNIQUE: Transabdominal pelvic ultrasound performed for global | | evaluation. Transvaginal pelvic ultrasound performed for detailed | | evaluation. Multiple realtime scans were performed with direct marketing representative | | static images obtained. | | | | FINDINGS: Twin gestation is seen. | | | | Twin A/fetus A: Vertex presentation. Anterior placenta to maternal. No | | previa. | | | | Amniotic fluid volume: Normal in appearance. Single largest pocket 8.7 cm. | | Qualitatively fluid volume appears normal. | | | | heart rate: 127 beats per minute. | | | | measurements: | | BPD corresponds to 32 weeks, 4 day. | | Head circumference: 31 weeks, 3 day. | | Abdominal circumference: 34 weeks, 1 day. | | Femur length: 33 weeks, 0 days. | | Estimated weight: 2181 grams + / - 327 grams. | | Estimated gestational age based on today's measurements: 32 weeks, 6 days. | | | | Twin B/fetus B: Transverse lie with head to maternal left. | | | | Placenta: Anterior with no previa. | | | | Amniotic fluid volume: Single largest pocket 5.8 cm in depth. Qualitatively | | normal. | | | | heart rate: 134 beats per minute. | | | | measurements: | | Biparietal diameter: 31 weeks, 5 days. | | Head circumference: 34 weeks, 4 days. | | Abdominal circumference: 33 weeks, 2 days. | | Femur length: 32 weeks, 1 day. | | Estimated weight based on these measurements: 2089 grams + / - 313 | | grams. Estimated age based on today's measurements: 33 weeks, 0 days with | | corresponding 01/03/2011 due date. | | | | Free fluid in maternal pelvis: None seen. | | | | IMPRESSION: | | 1. Twin gestation ultrasound assessment for weight. No prior study | | currently available for comparison. | | 2. Twin A measures at 32 weeks, 6 days compared to predicted 34 weeks, 2 | | days, based on LMP. Estimated weight 2181 grams + / - 327 grams. | | head was difficult to acquire due to vertex presentation and low lying | | position of head. This may account for the slightly small head | | circumference measurement of 31 weeks, 3 days compared to abdominal | | circumference measurements predicting 34 weeks, 1 day. | | 3. Twin B estimated weight, 2089 grams + / - 313 grams. Estimated age | | 33 weeks, 0 days compared to predicted 34 weeks, 2 day age based on LMP. | | 4. Anterior placenta with no previa. Overall amniotic fluid volume for both | | twin A and twin B appears normal. | | | | Read by Taz Grace MD on 11/15/2010 1631 | | | | | + + documented in this encounter Visit Diagnoses + + | Diagnosis | + + | Mild or unspecified pre-eclampsia, with delivery | + + documented in this encounter"
--- OUTSIDE RECORDS SUMMARY | ~2020-03-13 | XMS | Encounter Summary ---
Demographics + + + | Address | [address] | | | [place] [address] | + + + | Home Phone | | + + + | Preferred Language | Unknown | + + + | Marital Status | Single | + + + | Mandaen Affiliation | Unknown | + + + | Race | Unknown | + + + | Ethnic Group | Unknown | + + + Author + + + | Author | [facility] | | | and [place]ufino[place] | + + + | Organization | [facility] | | | and [place] | + + + | Address | Unknown | + + + | Phone | Unavailable | + + + Care Team Providers + +------+ + | Care Keno Writer/Runner Name | Role | Phone | + +------+ + PCP | Unavailable | + +------+ + Encounter Details +--------+ + + + + | Date | Type | Department | Care Team | Description | +--------+ + + + + | 10/13/ | Hospital | [facility] | Conversion | | | 2018 | Encounter | [facility] | Transaction, | | | | | CLINIC [address] | Provider Unknown | | | | | [address] [place], [place] | [phone] | | | | | [address] | | | | | | [phone] | | | +--------+ + + + [...] + + + | Blood Pressure | 127/65 | 10/13/2017 6:04 PM | | | | | PST | | + + + + + | Pulse | 117 | 10/13/2017 6:04 PM | | | | | PST | | + + + + + | Temperature | - | - | | + + + + + | Respiratory Rate | - | - | | + + + + + | Oxygen Saturation | - | - | | + + + + + | Inhaled Oxygen | - | - | | | Concentration | | | | + + + + + | Weight | 73 kg (160 lb 15 oz) | 10/13/2017 6:04 PM | | | | | PST | | + + + + + | Height | 157.5 cm (5' 2") | 10/13/2017 6:04 PM | | | | | PST | | + + + + + | Body Mass Index | 29.44 | 10/13/2017 6:04 PM | | | | | PST | | + + + + + documented in this encounter Medications at Time of [...]
--- OUTSIDE RECORDS SUMMARY | ~2020-03-13 | XMS | Encounter Summary ---
Demographics + + + | Address | [address] | | | [place] [address] | + + + | Home Phone | | + + + | Preferred Language | Unknown | + + + | Marital Status | Single | + + + | Zoroastrianism Affiliation | Unknown | + + + | Race | Unknown | + + + | Ethnic Group | Unknown | + + + Author + + + | Author | [facility] | | | and [place]uf[place] | + + + | Organization | [facility] | | | and [place] | + + + | Address | Unknown | + + + | Phone | Unavailable | + + + Care Team Providers + +------+ + | Care Hothouse Worker Name | Role | Phone | [...] Provider Unknown | | | | | [place], [place] | [phone] | | | | | [address] | | | | | | [phone] | | | +--------+ + + + [...]
--- OUTSIDE RECORDS SUMMARY | ~2020-03-13 | XMS | Encounter Summary ---
Demographics + + + | Address | [address] | | | [place] [address] | + + + | Home Phone | | + + + | Preferred Language | Unknown | + + + | Marital Status | Single | + + + | Uatsdin Affiliation | Unknown | + + + | Race | Unknown | + + + | Ethnic Group | Unknown | + + + Author + + + | Author | [facility] | | | and [place]ufino[place] | + + + | Organization | [facility] | | | and [place] | + + + | Address | Unknown | + + + | Phone | Unavailable | + + + Care Team Providers + +------+ + | Care Software Validation Engineer Name | Role | Phone | + +------+ + PCP | Unavailable | + +------+ + Encounter Details +--------+ + + + + | Date | Type | Department | Care Team | Description | +--------+ + + + + | 10/06/ | Hospital | [facility] | Conversion | Hydronephrosis, | | 2016 | Encounter | [facility] | Transaction, | unspecified | | | | ULTRASOUND [address] | Provider Unknown | hydronephrosis type | | | | [address] | [phone] | | | | | [place], [place] | | | | | | [address] | Campbell Garcia | | | | | [phone] | ERICK Benjamin [address] | | | | | | [facility] | | | | | | [place] [address] | | | | | | [phone] | | | | | | | [...] Conversion - 05/25/2019 10:54 AM PDT KAREN Sanchez DAVID1990US KIDNEYS | | AND [id number]/06/2017 4:20 PM HISTORY: Right flank pain COMPARISON: [...]
--- OUTSIDE RECORDS SUMMARY | ~2020-03-13 | XMS | Encounter Summary ---
Demographics + + + | Address | [address] | | | [place] [address] | + + + | Home Phone | | + + + | Preferred Language | Unknown | + + + | Marital Status | | + + + | Yazidi Affiliation | NOD | + + + [...] Team Providers + +------+ + | Care Payroll Accounting Specialist Name | Role | Phone | + [...] | [address] | MD Jeremy [address] | | | | | [address] [facility] | [facility] | | | | | Hospital Admitting | [place], [place] | | | | | Desk Located on the | [address] | | | | | 9th floor | [phone] | | | | | [place], [place] | | | | | | [address] | | | +--------+ + + + [...]
--- OUTSIDE RECORDS SUMMARY | ~2020-03-13 | XMS | Encounter Summary ---
Demographics + + + | Address | [address] | | | [place] [address] | + + + | Home Phone [...] Team Providers + +------+ + | Care Industrial Automation Engineer Name | Role | Phone | [...] | | | | | | [facility] | | | | | | Hospital Admitting | | | | | | Desk Located on the | | | | | | 9th floor | | | | | | [place], [place] | | | | | | [address] | | | +--------+ + + + [...]
--- OUTSIDE RECORDS SUMMARY | ~2020-03-13 | XMS | Encounter Summary ---
Demographics + + + | Address | [address] | | | [place] [address] | + + + | Home Phone | | + + + | Preferred Language | Unknown | + + + | Marital Status | Single | + + + | Episcopalian Affiliation | Unknown | + + + | Race | Unknown | + + + | Ethnic Group | Unknown | + + + Author + + + | Author | [facility] | | | and Rufinoana | + + + | Organization | [facility] | | | and [place] | + + + | Address | Unknown | + + + | Phone | Unavailable | + + + Care Team Providers + +------+ + | Care Conveyor Attendant Name | Role | Phone | + +------+ + PCP | Unavailable | + +------+ + Encounter Details +--------+ + + + + | Date | Type | Department | Care Team | Description | +--------+ + + + + | 10/07/ | Hospital | [facility] | Conversion | Nephrolithiasis | | 2017 | Encounter | [facility] | Transaction, | | | | | [address] | Provider Unknown | | | | | [address] [place], [place] | [phone] | | | | | [address] | | | | | | [phone] | Roni Gomez, | | | | | | [address] | | | | | | [place] [address] | | | | | | [phone] | | | | | | | [...] phleboliths versus uroliths. Electronically signed by Robert aPdilla MD on | | 10/07/2017 9:23 AM [...]
--- OUTSIDE RECORDS SUMMARY | ~2020-03-13 | XMS | Encounter Summary ---
Demographics + + + | Address | [address] | | | [place] [address] | + + + | Home Phone | | + + + | Preferred Language | Unknown | + + + | Marital Status | | + + + | Lutheran Affiliation | NOD | + + + [...] Team Providers + +------+ + | Care De Icer Finisher Name | Role | Phone | + [...] [phone] | | | | | [address] [facility] | [facility] | | | | | Hospital Admitting | [place], [place] | | | | | Desk Located on the | [address] | | | | | 9th floor | [phone] | | | | | [place], [place] | | | | | | [address] | | | +--------+ + + + [...]
--- OUTSIDE RECORDS SUMMARY | ~2020-03-13 | XMS | Encounter Summary ---
Demographics + + + | Address | [address] | | | [place] [address] | + + + | Home Phone | | + + + | Preferred Language | Unknown | + + + | Marital Status | Single | + + + | Yazdanism Affiliation | Unknown | + + + | Race | Unknown | + + + | Ethnic Group | Unknown | + + + Author + + + | Author | [facility] | | | and [place] | + + + | Organization | [facility] | | | and [place] | + + + | Address | Unknown | + + + | Phone | Unavailable | + + + Care Team Providers + +------+ + | Care Arrow Point Attacher Name | Role | Phone | + [...] Provider Unknown | | | | | [address] | [phone] | | | | | [phone] | | | +--------+ + + + [...]
--- OUTSIDE RECORDS SUMMARY | ~2020-03-13 | XMS | Encounter Summary ---
Demographics + + + | Address | [address] | | | [place] [address] [...] Author + + + | Author | [facility] | + + + | Organization | [facility] | + + + | Address [...] Team Providers + +------+ + | Care Dressage Judge Name | Role | Phone | + [...] Pharmacy | | | | | | [address] | | | | | | [place], [place] | | | | | | [address] | | | | | | [phone] | | | +--------+ + + + [...]
--- OUTSIDE RECORDS SUMMARY | ~2020-03-13 | XMS | Encounter Summary ---
Demographics + + + | Address | [address] | | | [place] [address] | + + + | Home Phone | | + + + | Preferred Language | Unknown | + + + | Marital Status | | + + + | Sikh Affiliation | NOD | + + + [...] Providers + +------+ + | Care Manager Of Distribution Name | Role | Phone | + [...] | | | | | | [facility] | | | | | | Hospital Admitting | | | | | | Desk Located on the | | | | | | 9th floor | | | | | | [place], [place] | | | | | | [address] | | | +--------+ + + + [...]
--- OUTSIDE RECORDS SUMMARY | ~2020-03-13 | XMS | Encounter Summary ---
Demographics + + + | Address | [address] | | | [place] [address] | + + + | Home Phone [...] Team Providers + +------+ + | Care Institution Librarian Name | Role | Phone | + [...] + + | 08/23/ | Emergency | [address] | Tommy Maier MD | | | 2018 - | | Aline Atkins | [address] | | | | | [facility] | [place], | | | 08/25/ | | [place], [place] | [place] [address] | | | 2018 | | [address] | [phone] | | | | | [phone] | | | | | | | Lavern [place] MD | | | | | | [address] | | | | | | [place], | | | | | | [place] [address] | | | | | | [phone] | | | | | | | [...] a 28 y.o. 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 Her medical history was notab le for history of one prior CS and tobacco use. The patient was asymtomatic and hemodynamic ally stable with a benign exam upon presentation to [facility]. The patient was counseled on aurea [...] as surgical optimization given her distance from [facility] and complex case. On 08/23/2018, she [...] To contact your provider, please call the [facility] clinic at [phone] during daytime hours. During evening or weekend hours, please call the [facility] paging telephone plant power operator at [phone] and ask for the Advisor Advocate Angel Co Founder resident on-call. Reasons to call the doctor: [...] regular periods it can be heavier or hired help, longer or shorter than normal. This will [...] the procedure During regular business hours, call [phone] to speak to a nurse or physician. For emergencies after hours or on the weekend, call [phone] ([facility] telephone plant power operator) and ask to speak to the physician industrial economics professor for General Obstetrics and Gynecology. Patient Education Materials: oxycodone and ethinyl estradiol and norgestimate Additional Instructions: monitor for bleeding review of AVS, oxycodone and ethinyl estradio l and norgestimate Discharge Nurse: TAYLER CURIEL RN Date: 08/24/2018 Discharge Time: 9:37 PM AttachmentsThe following attachments cannot be sent through Care Everywhere.oxycodone (Engl priscila)ethinyl estradiol and norgestimate (Montserratian)documented in this encounter Medications at Time of [...] Resident Physician, Obstetrics and Gynecology, PGY4 Pager [phone] Agustina Faulkner MD - 08/24/2018 7:24 AM [...] on case scheduled in [facility]. Dr. English Advisor Advocate Angel Co Founder 1 aware and will be the attending [...] Agustina Raygoza MD Obstetrics and Gynecology PGY-1 [id number] Associated attestation - Dale English MD - [...] [facility] | [address] | [place], [place] | | | MARGARITA STEINER OF CARE | [address] | [address] | | | TESTS | | | [...] PathologistPathology, | | | | | | [facility] | | | | | | [place] [facility] electronic | | | | | [...] specimen. | | | | | | Stock Holder sections | | | | | | [...] | | | | | determined by [facility] | | | | | | [...] | + + + + + | [facility] | [address] | [place] [address] | | | PATHOLOGY | [address] | | | + + + + + DILATION AND CURETTAGE (08/24/2018 1:11 PM PST) + + + | Narrative | Performed At | + + + | Dale English MD 08/30/2018 3:03 PM OPERATIVE REPORT | | | Procedure Date: 08/24/2018 Surgeon: Dale English MD Fellow: Lavern | | | MD Rubén Catalogue And Special Products Manager: YANNI GARCIA MD,MPH R4 Prior to [...] Surgical team, anesthesia | | | team, marine electronics technician, circulating nurse. Preoperative Diagnosis: 1) | [...] by LMP who was admitted to the SOFTWARE TEST ENGINEER service | | | for management of [...] 5-6 weeks | | | 850 - 87133 6-7 weeks | | | 4000 - 119209 7-12 weeks | | | 81206 - 336099 12-16 weeks | | | 12786 - 934468 16-29 | | | weeks 1400 - 98691 | | | 29-41 weeks 940 - 51686 | | | This test has not been approved for use as a tumor marker in | | | males or females. | | + + + + + + + + | Performing | Address | City/State/Zipcode | Phone Number | | Organization | | | | + + + + + | [facility] | [address] | [place] [address] | | | SERVICES, [facility] | [address] | | | + [...] + + + + | PRODUCT | [id number] | | [facility] | | | UNIT [...] + + + + | EXPIRATION | [id number] | | [facility] | | | DATE [...] + + + + | BLOOD | [id number] | | [facility] | | | PRODUCT [...] + + | [facility] | [address] | [place] [address] | | | SERVICES, | [address] [...] + + + + | PRODUCT | [id number] | | [facility] | | | UNIT [...] + + + + | EXPIRATION | [id number] | | [facility] | | | DATE [...] + + + + | BLOOD | [id number] | | [facility] | | | PRODUCT [...] [facility] | [address] | [place] [address] | | | SERVICES, | [address] [...] | + + + + + | [facility] | [address] | [place] [address] | | | SERVICES, | [address] [...] [facility] | [address] | [place] [address] | | | SERVICES, | [address] [...] | + + + + + | [facility] | [address] | [place] [address] | | | SERVICES, CORE | [address] [...] | + + + + + | [facility] | [address] | [place] [address] | | | SERVICES, CORE | [address] [...] [facility] | [address] | [place] [address] | | | SERVICES, CORE | ARASH [...] | + + + + + | [facility] | [address] | [place] [address] | | | SERVICES, | [address] [...] [facility] | [address] | [place] [address] | | | SERVICES, | [address] [...] 5-6 weeks | | | 850 - 11815 6-7 weeks | | | 4000 - 267871 7-12 weeks | | | 32485 - 095096 12-16 weeks | | | 37388 - 152534 16-29 | | | weeks 1400 - 48844 | | | 29-41 weeks 940 - 37351 | | | This test has not been approved for use as a tumor marker in | | | males or females. | | + + + + + + + + | Performing | Address | City/State/Zipcode | Phone Number | | Organization | | | | + + + + + | [facility] | [address] | [place] [address] | | | SERVICES, CORE | [address] [...] [facility] | [address] | [place] [address] | | | SERVICES, | [address] [...] [facility] | [address] | [place] [address] | | | SERVICES, | [address] [...] [facility] | [address] | [place] [address] | | | SERVICES, CORE | ARASH [...] | | | LABORATORY | | | CHINESE | | | SERVICES, | | | [...] | + + + + + | [facility] | [address] | [place] [address] | | | SERVICES, HORACIO | [address] [...] | | | | at 1832, Until Rsoa 08/25/18 at | | | | | [...]
--- OUTSIDE RECORDS SUMMARY | ~2020-03-13 | XMS | Clinical Summary ---
Demographics + + + | Address | [address] | | | [place] [address] | + + + | Home Phone | | + + + | Preferred Language | Unknown | + + + | Marital Status | Single | + + + | Shinto Affiliation | Unknown | + + + | Race | Unknown | + + + | Ethnic Group | Unknown | + + + Author + + + | Author | [facility] | | | and [place] | + + + | Organization | [facility] | | | and [place] | + + + | Address | Unknown | + + + | Phone | Unavailable | + + + Care Team Providers + +------+ + | Care Millinery Department Manager Name | Role | Phone | + +------+ + | Brandy Barreto PCP | | + +------+ + Allergies + + + + + + | Active Allergy | Reactions | Severity | Noted | Comments | | | | | Date | | + + + + + + | Latex | Swelling | Medium | 01/10/20 | Swelling | | | | | 14 | [...] + + + +---------+------+------+-------+ | | Take 15 mg by mouth. | | 0 | 09/11 | | Activ | | amphetamine-dextroam | | | | 05/30 | | e | | phetamine (ADDERALL) | | | | 17 | | | | 5 mg tablet [...] + + | 03/08/ | Imaging | Radiology | Provider, | | | 2020 | Exam | | Historical, | | +--------+ + + + + from Last 3 Months Family History + + +------+ + | Medical History | Relation | Name | Comments | + + +------+ + | Diabetes, NIDDM | Father | | | + + +------+ + | Kidney disease | Father | | | + + +------+ + | Elmo hypertherm | Neg Hx | | | + + +------+ + + +------+--------+ + | Relation | Name | Status | Comments | + +------+--------+ + | Father | | | | + +------+--------+ + | Father | [...] | | | Dtap/Tdap/Td (1 - | 1 | | | | Tdap) | | | | + + + + + | Cervical Cancer | | | | | Screening (Pap) | 0 | | | + + + + + | Vaccine: Influenza | Completed | 08/09/2019 | | + + + + + Procedures + +--------+ + + + | [...] section. | + +--------+ + + + from Last 3 Months Results XR Lumbar Spine 2 or 3 [...] | | | + +---------+ + + from Last 3 Months Insurance + +--------+ +--------+ [...] | [employer] | [employer] | [id number] | | [phone] | | [employer] | | MEDICAID HMO [...] | Self | [birth year] | [address] | | | al/Fam | | 1990 | [phone] | [place] [address] | | | kimmy | | | 6 (Home) | | + +--------+ +--------+ + + Advance Directives + + + + + | Type | Date Recorded | Patient | Explanation | | | | Billet Shearer | | + + + + + | Power of | | | | | Social Psychologist | | | | + + + + + | Advance | | | | | Directive | | | | + + + + +
--- OUTSIDE RECORDS SUMMARY | ~2020-03-13 | XMS | Encounter Summary ---
Demographics + + + | Address | [address] | | | [place] [address] | + + + | Home Phone | | + + + | Preferred Language | Unknown | + + + | Marital Status | Single | + + + | Anglican Affiliation | Unknown | + + + | Race | Unknown | + + + | Ethnic Group | Unknown | + + + Author + + + | Author | [facility] | | | and [place] | + + + | Organization | [facility] | | | and [place] | + + + | Address | Unknown | + + + | Phone | Unavailable | + + + Care Team Providers + +------+ + | Care Irrigation Supervisor Name | Role | Phone | + +------+ + | Campbell Garcia PCP | | + +------+ + Encounter Details +--------+ + + + + | Date | Type | Department | Care Team | Description | +--------+ + + + + | 11/20/ | Orders Only | [facility] | Josh, | | | 2010 | | [facility] | Abdelrahman Sequeira MD [address] | | | | | CLINICAL LABORATORY | [facility], | | | | | [address] | [place] [address] | | | | | [place], [place] | [phone] | | | | | [address] | | | | | | [phone] | | | +--------+ + + + [...] | + +--------+ + + + | STREP B SCREEN | Routin | 11/20/2010 | | Results for this | | | e | 1:51 AM | | procedure are in the | | | | PST | | results section. | + +--------+ + + + documented in this encounter Results Strep B screen (11/20/2010 1:51 AM PST) + + | Specimen | + + | | + + + + + | Narrative | Performed At | + + + | Specimen Description VAGINAL SPECIMEN | EXTERNAL LAB | | Testing performed at | | | [facility];[address];[place] [address] CULTURE | | | NO GROUP B STREP ISOLATED | | | Testing performed at [facility], [address] [place] [address] | | | [place] [address] REPORT STATUS | | | 11/23/2010 FINAL | | + + + + +---------+ + + | Performing | Address | City/State/Zipcode | Phone Number | | Organization | | | | + +---------+ + + | EXTERNAL LAB | | | | + +---------+ + + documented in this encounter Visit Diagnoses Not on filedocumented in this encounter"
--- OUTSIDE RECORDS SUMMARY | ~2020-03-13 | XMS | Encounter Summary ---
Demographics + + + | Address | [address] | | | [place] [address] | + + + | Home Phone | | + + + | Preferred Language | Unknown | + + + | Marital Status | Single | + + + | Taoism Affiliation | Unknown | + + + | Race | Unknown | + + + | Ethnic Group | Unknown | + + + Author + + + | Author | [facility] | | | and [place] | + + + | Organization | [facility] | | | and [place] | + + + | Address | Unknown | + + + | Phone | Unavailable | + + + Care Team Providers + +------+ + | Care Insole Toe Snipping Machine Operator Name | Role | Phone | + +------+ + PCP | Unavailable | + +------+ + Encounter Details +--------+ + + + + | Date | Type | Department | Care Team | Description | +--------+ + + + + | 10/19/ | Hospital | [facility] | Roni Gomez, | Nephrolithiasis; | | 2018 | Encounter | [facility] | DO [address] | Flank pain; | | | | [address] | [place] [address] | Tobacco abuse | | | | [place], [place] | [phone] | | | | | [address] | | | | | | [phone] | | | +--------+ + + + [...] documented as of this encounter Progress Notes Krista Anguiano, Provider Unknown - 10/19/2017 10:00 AM PSTFormatting of this note m ight be different from the original. Nurse Progress Note by Ana Lilia Whitney RN at 10/19/17 1000 Author: Ana Lilia Whitney RN Service: General Surgery Author Type: Registered Nurse Filed: 10/19/17 1011 Date of Service: 10/19/17 1000 Status: Signed College Recruiter: Ana Lilia Whitney RN (Registered Nurse) Discharge [...] RN 10/19/17 docume nted in this encounter Plan of Treatment Not on filedocumented as of this encounter Visit Diagnoses + + | Diagnosis | + + | Nephrolithiasis Calculus of kidney | + + | Flank pain Abdominal pain, unspecified site | + + | Tobacco abuse Tobacco use disorder | + + documented in this encounter"
--- OUTSIDE RECORDS SUMMARY | ~2020-03-13 | XMS | Encounter Summary ---
Demographics + + + | Address | [address] | | | [place] [address] | + + + | Home Phone | | + + + | Preferred Language | Unknown | + + + | Marital Status | Single | + + + | Christian Affiliation | Unknown | + + + | Race | Unknown | + + + | Ethnic Group | Unknown | + + + Author + + + | Author | [facility] | | | and [place] | + + + | Organization | [facility] | | | and [place] | + + + | Address | Unknown | + + + | Phone | Unavailable | + + + Care Team Providers + +------+ + | Care Frozen Food Selector Name | Role | Phone | + [...] | | | [address] | [place] [address] | | | | | [place] [address] | | | | | | [phone] | | | +--------+ + + + [...]
--- OUTSIDE RECORDS SUMMARY | ~2020-03-13 | XMS | Encounter Summary ---
Demographics + + + | Address | [address] | | | [place] [address] | + + + | Home Phone | | + + + | Preferred Language | Unknown | + + + | Marital Status | Single | + + + | Jew Affiliation | Unknown | + + + | Race | Unknown | + + + | Ethnic Group | Unknown | + + + Author + + + | Author | [facility] | | | and [place] | + + + | Organization | [facility] | | | and [place] | + + + | Address | Unknown | + + + | Phone | Unavailable | + + + Care Team Providers + +------+ + | Care Salesperson Parts Name | Role | Phone | + +------+ + PCP | Unavailable | + +------+ + Encounter Details +--------+ + + + + | Date | Type | Department | Care Team | Description | +--------+ + + + + | 10/19/ | Hospital | [facility] | Roni Gomez, | Nephrolithiasis; | | 2018 | Encounter | [facility] | DO [address] | Flank pain; | | | | [address] | [place] [address] | Tobacco abuse | | | | [place], [place] | [phone] | | | | | [address] | | | | | | [phone] | | | +--------+ + + + [...] Date of Service: 10/19/17 1000 Status: Signed Well Logging Operator Mud Analysis: Ana Lilia Whitney RN (Registered Nurse) Discharge [...]
--- OUTSIDE RECORDS SUMMARY | ~2020-03-13 | XMS | Encounter Summary ---
Demographics + + + | Address | [address] | | | [place] [address] | + + + | Home Phone [...] Providers + +------+ + | Care Solar Energy Consultant And Designer Name | Role | Phone | [...] | | | Toby Lyman | Toby [place], [place] | [place] | | | | Hospital Admitting | [address] | | | | | Desk Located on the | [phone] | | | | | 9th floor | | | | | | [place], [place] | | | | | | [address] | | | +--------+---------+ + + + [...] a 28 y.o. 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 Her medical history was notab le for history of one prior CS and tobacco use. The patient was asymtomatic and hemodynamic ally stable with a benign exam upon presentation to [facility]. The patient was counseled on aurea gement [...] as surgical optimization given her distance from [facility] and complex case. On 08/23/2018, she underwent [...] To contact your provider, please call the [facility] clinic at [phone] during daytime hours. During evening or weekend hours, please call the [facility] paging dispenser operator at [phone] and ask for the Sales Service Assistant resident on-call. Reasons to call the [...] regular periods it can be heavier or hide washer, longer or shorter than normal. This will [...] the procedure During regular business hours, call [phone] to speak to a nurse or physician. For emergencies after hours or on the weekend, call [phone] ([facility] dispenser operator) and ask to speak to the physician chuck wagon cook for General Obstetrics and Gynecology. Patient Education Materials: oxycodone and ethinyl estradiol and norgestimate Additional Instructions: monitor for bleeding review of AVS, oxycodone and ethinyl estradio l and norgestimate Discharge Nurse: TAYLER CURIEL RN Date: 08/24/2018 Discharge Time: 9:37 PM AttachmentsThe following attachments cannot be sent through Care Everywhere.oxycodone ([facility])ethinyl estradiol and norgestimate (Bulgarian)documented in this encounter Medications at Time of [...] Resident Physician, Obstetrics and Gynecology, PGY4 Pager [phone] gustina Raygoza MD - 08/24/2018 7:24 AM [...] O2 Delivery Device: None (room air) (08/23/18 6349) 24 Hour Vital Min/Max: Systolic (24hrs), Av [...] on case scheduled in SOR. Dr. English Sales Service Assistant 1 aware and will be the [...] Agustina Raygoza MD Obstetrics and Gynecology PGY-1 [id number] Associated attestation - Dale English MD - 08/24/2018 7:34 AM PSTI saw and evaluated the peoln ent on 08/24/2018. I agree with the [...] [facility] | [address] | [place], [place] | | | MARGARITA STEINER OF J CARLOS | [address] | [address] | | | TESTS | | | [...] | | | | | [facility] | | | | | | [facility] electronic | | | [...] specimen. | | | | | | Commercial Kitchen Service Technician sections | | | | | | [...] + | Performing | Address | City/State/[facility] Centercode | Phone Number | | Organization | | | | + + + + + | [facility] | [address] | [place] [address] | | | PATHOLOGY | [address] | | | + + + + + DILATION AND CURETTAGE (08/24/2018 1:11 PM PST) + + + | Narrative | Performed At | + + + | Dale English MD 08/30/2018 3:03 PM OPERATIVE REPORT | | | Procedure Date: 08/24/2018 Surgeon: Dale English MD Fellow: Lavern | | | MD Rubén Plater Barrel: YANNI GARCIA MD,MPH R4 Prior to the [...] Surgical team, anesthesia | | | team, counter intelligence technician, circulating nurse. Preoperative Diagnosis: 1) | [...] by LMP who was admitted to the [facility] CARE SPECIALIST service | | | for management of [...] 5-6 weeks | | | 850 - 69248 6-7 weeks | | | 4000 - 762667 7-12 weeks | | | 81929 - 045913 12-16 weeks | | | 24310 - 089792 16-29 | | | weeks 1400 - 51125 | | | 29-41 weeks 940 - 43046 | | | This test has not been approved for use as a tumor marker in | | | males or females. | | + + + + + + + + | Performing | Address | City/State/Zipcode | Phone Number | | Organization | | | | + + + + + | [employer] | [address] | [place] [address] | | | H[address]ACIO [address]STR[address] | ARASH [...] + + + + | PRODUCT | [id number] | | [facility] | | | UNIT [...] + + + + | EXPIRATION | [id number] | | [facility] | | | DATE [...] + + + + | BLOOD | [id number] | | [facility] | | | PRODUCT [...] [facility] | [address] | [place] [address] | | | SERVICES, | [address] [...] + + + + | PRODUCT | [id number] | | [facility] | | | UNIT [...] + + + + | EXPIRATION | [id number] | | [facility] | | | DATE [...] + + + + | BLOOD | [id number] | | [facility] | | | PRODUCT [...] + | [facility] | [address] | [place] [address] | | | SERVICES, | [address] [...] [facility] | [address] | [place] [address] | | | SERVICES, | [address] [...] [facility] | [address] | [place] [address] | | | SERVICES, | [address] [...] | + + + + + | [facility] | [address] | [place] [address] | | | SERVICES, CORE | ARASH [...] | + + + + + | [facility] | [address] | [place] [address] | | | SERVICES, CORE | ARASH [...] LABORATORY | [address] | [place] [address] | | | SERVICES, CORE | PARK [...] | + + + + + | [facility] | [address] | [place] [address] | | | SERVICES, | [address] [...] [facility] | [address] | [place] [address] | | | SERVICES, | [address] [...] 5-6 weeks | | | 850 - 07184 6-7 weeks | | | 4000 - 296318 7-12 weeks | | | 84904 - 247431 12-16 weeks | | | 58395 - 239924 16-29 | | | weeks 1400 - 50260 | | | 29-41 weeks 940 - 93917 | | | This test has not been approved for use as a tumor marker in | | | males or females. | | + + + + + + + + | Performing | Address | City/State/Zipcode | Phone Number | | Organization | | | | + + + + + | [facility] | [address] | [place] [address] | | | SERVICES, CORE | [address] [...] [facility] | [address] | [place] [address] | | | SERVICES, | [address] [...] [facility] | [address] | [place] [address] | | | SERVICES, | [address] [...] | + + + + + | [facility] | [address] | [place] [address] | | | SERVICES, CORE | P[address] [...] | | | LABORATORY | | | [place] | | | SERVICES, | | | [...] | + + + + + | [facility] | [address] | [place] [address] | | | SERVICES, HORACIO | ARASH [...]
--- OUTSIDE RECORDS SUMMARY | ~2020-03-13 | XMS | Encounter Summary ---
Demographics + + + | Address | [address] | | | [place] [address] | + + + | Home Phone | | + + + | Preferred Language | Unknown | + + + | Marital Status | Single | + + + | Protestant Affiliation | Unknown | + + + | Race | Unknown | + + + | Ethnic Group | Unknown | + + + Author + + + | Author | [facility] | | | and [place]uf[place] | + + + | Organization | [facility] | | | and Rufino[place] | + + + | Address | Unknown | + + + | Phone | Unavailable | + + + Care Team Providers + +------+ + | Care Director Biology Name | Role | Phone | + +------+ + PCP | Unavailable | + +------+ + Encounter Details +--------+ + + + + | Date | Type | Department | Care Team | Description | +--------+ + + + + | 11/15/ | Hospital | [facility] | Josh, | Mild or unspecified | | 2010 - | Encounter | [facility] | Abdelrahman Sequeira MD [address] | pre-eclampsia, with | | | | AND DELIVERY [address] | [facility], | delivery | | 11/23/ | | [address] | [place] [address] | | | 2010 | | [place], [place] | [phone] | | | | | [address] | | | | | | [phone] | | | +--------+ + + + [...] Performed At | + + + | [facility] [address] Ph: | | | Patient Name: KAREN ALVARADO Date of : | | | 1990 Medical Record: [id number] Account: [id number] | | | Exam Date/Time: 11/15/2010 13:55 [...] scans were performed with | | | outside sales account representative static images obtained. FINDINGS: Twin gestation [...] - 06/03/2019 5:06 PM PDT | | [facility] | | [facility] [address] | | | | | | Patient Name: KAREN ALVARADO | | Date of : 1990 | | Medical Record: [id number] | | Account: [id number] | | | | | | Exam [...] evaluation. Multiple realtime scans were performed with outside sales account representative | | static images obtained. | [...]
--- OUTSIDE RECORDS SUMMARY | ~2020-03-13 | XMS | Encounter Summary ---
Demographics + + + | Address | [address] | | | [place] [address] | + + + | Home Phone | | + + + | Preferred Language | Unknown | + + + | Marital Status | Single | + + + | Rastafari Affiliation | Unknown | + + + | Race | Unknown | + + + | Ethnic Group | Unknown | + + + Author + + + | Author | [facility] | | | and [place]uf[place] | + + + | Organization | [facility] | | | and [place] | + + + | Address | Unknown | + + + | Phone | Unavailable | + + + Care Team Providers + +------+ + | Care Health Plan Specialist Name | Role | Phone | + +------+ + PCP | Unavailable | + +------+ + Encounter Details +--------+ + + + + | Date | Type | Department | Care Team | Description | +--------+ + + + + | 10/06/ | Hospital | [facility] | Conversion | Hydronephrosis, | | 2016 | Encounter | [facility] | Transaction, | unspecified | | | | ULTRASOUND [address] | Provider Unknown | hydronephrosis type | | | | [address] | [phone] | | | | | [place], [place] | | | | | | [address] | Campbell Garcia | | | | | [phone] | ERICK Benjamin [address] | | | | | | [facility] | | | | | | [place] [address] | | | | | | [phone] | | | | | | | [...] KAREN Sanchez DAVID1990US KIDNEYS | | AND XJLDCDE2110/06/2017 4:20 PM HISTORY: Right flank pain COMPARISON: [...]
--- OUTSIDE RECORDS SUMMARY | ~2020-03-13 | XMS | Clinical Summary ---
Demographics + + + | Address | [address] | | | [place] [address] | + + + | Home Phone | | + + + | Preferred Language | Unknown | + + + | Marital Status | Single | + + + | Taoist Affiliation | Unknown | + + + | Race | Unknown | + + + | Ethnic Group | Unknown | + + + Author + + + | Author | [facility] | | | and [place]uf[place] | + + + | Organization | [facility] | | | and [place] | + + + | Address | Unknown | + + + | Phone | Unavailable | + + + Care Team Providers + +------+ + | Care Quantitative Strategy Analyst Name | Role | Phone | [...] | [employer] | [employer] | [id number] | | [phone] | | Med[employer] | | MEDICAID HMO [...] | 1990 | [phone] | [place] [address] | | | kimmy | | | 6 (Home) | | + +--------+ +--------+ + + Advance Directives + + + + + | Type | Date Recorded | Patient | Explanation | | | | Audit Tech | | + + + + + | Power of | | | | | Tile Inspector | | | | + + + + + | Advance | | | | | Directive | | | | + + + + +
--- OUTSIDE RECORDS SUMMARY | ~2020-03-13 | XMS | Encounter Summary ---
Demographics + + + | Address | [address] | | | [place] [address] | + + + | Home Phone | | + + + | Preferred Language | Unknown | + + + | Marital Status | Single | + + + | Caodaism Affiliation | Unknown | + + + | Race | Unknown | + + + | Ethnic Group | Unknown | + + + Author + + + | Author | [facility] | | | and [place] | + + + | Organization | [facility] | | | and [place] | + + + | Address | Unknown | + + + | Phone | Unavailable | + + + Care Team Providers + +------+ + | Care Retail Banker Name | Role | Phone | + +------+ + PCP | Unavailable | + +------+ + Encounter Details +--------+ + + + + | Date | Type | Department | Care Team | Description | +--------+ + + + + | 10/13/ | Hospital | [facility] | Conversion | | | 2018 | Encounter | [facility] | Transaction, | | | | | CLINIC [address] | Provider Unknown | | | | | [address] [place], [place] | [phone] | | | | | [address] | | | | | | [phone] | | | +--------+ + + + [...]
--- OUTSIDE RECORDS SUMMARY | ~2020-03-13 | XMS | Encounter Summary ---
Demographics + + + | Address | [address] | | | [place] [address] | + + + | Home Phone [...] + + + | Author | [facility] | + + + | Organization | [facility] | + + + | [...] Team Providers + +------+ + | Care Appeals Reviewer Veteran Name | Role | Phone | + [...] | | | Toby Lyman | Toby [place], [place] | [place] | | | | Hospital Admitting | [address] | | | | | Desk Located on the | [phone] | | | | | 9th floor | | | | | | [place], [place] | | | | | | [address] | | | +--------+---------+ + + + [...] a 28 y.o. 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 Her medical history was notab le for history of one prior CS and tobacco use. The patient was asymtomatic and hemodynamic ally stable with a benign exam upon presentation to [facility]. The patient was counseled on [...] as surgical optimization given her distance from [facility] and complex case. On 08/23/2018, [...] To contact your provider, please call the [facility] clinic at [phone] during daytime hours. During evening or weekend hours, please call the [facility] paging brim stretching machine operator at [phone] and ask for the Head Shipper resident on-call. Reasons to call the doctor: [...] regular periods it can be heavier or facilities technician, longer or shorter than normal. This will [...] the procedure During regular business hours, call [phone] to speak to a nurse or physician. For emergencies after hours or on the weekend, call [phone] ([facility] brim stretching machine operator) and ask to speak to the physician client relation specialist for General Obstetrics and Gynecology. Patient Education Materials: oxycodone and ethinyl estradiol and norgestimate Additional Instructions: monitor for bleeding review of AVS, oxycodone and ethinyl estradio l and norgestimate Discharge Nurse: TAYLER CURIEL RN Date: 08/24/2018 Discharge Time: 9:37 PM AttachmentsThe following attachments cannot be sent through Care Everywhere.oxycodone ([facility])ethinyl estradiol and norgestimate (Indonesian)documented in this encounter Medications at Time of [...] Resident Physician, Obstetrics and Gynecology, PGY4 Pager [phone] gustina Raygoza MD - 08/24/2018 7:24 AM [...] O2 Delivery Device: None (room air) (08/23/18 8019) 24 Hour Vital Min/Max: Systolic (24hrs), Av [...] on case scheduled in SOR. Dr. English Head Shipper 1 aware and will be the attending [...] Agustina Raygoza MD Obstetrics and Gynecology PGY-1 [id number] Associated attestation - Dale English MD - [...] [facility] | [address] | [place], [place] | | | MARGARITA STEINER OF [address]OS | [address] | [address] | | | TESTS | | | [...] PathologistPathology, | | | | | | [facility] [place] [facility] | | | | | | [facility] electronic | | | | | | [...] | | | | | | Special Needs Tutor sections | | | | | | [...] + + | Performing | Address | City/State/[facility] Cent[facility]ode | Phone Number | | Organization | | | | + + + + + | [facility] | [address] | [place] [address] | | | PATHOLOGY | [address] | | | + + + + + DILATION AND CURETTAGE (08/24/2018 1:11 PM PST) + + + | Narrative | Performed At | + + + | Dale English MD 08/30/2018 3:03 PM OPERATIVE REPORT | | | Procedure Date: 08/24/2018 Surgeon: Dale English MD Fellow: Lavern | | | MD Rubén Seam Checker: YANNI GARCIA MD,MPH R4 Prior to the [...] Surgical team, anesthesia | | | team, mechatronics technician, circulating nurse. Preoperative Diagnosis: 1) | [...] by LMP who was admitted to the ENVIRONMENTAL HEALTH NURSE service | | | for management of [...] 5-6 weeks | | | 850 - 43467 6-7 weeks | | | 4000 - 887707 7-12 weeks | | | 01367 - 998111 12-16 weeks | | | 99219 - 540926 16-29 | | | weeks 1400 - 80726 | | | 29-41 weeks 940 - 07565 | | | This test has not been approved for use as a tumor marker in | | | males or females. | | + + + + + + + + | Performing | Address | City/State/Zipcode | Phone Number | | Organization | | | | + + + + + | [employer] | [address] | [place] [address] | | | [address]AC[address] | ARASH [...] + + + + | PRODUCT | [id number] | | [facility] | | | UNIT [...] + + + + | EXPIRATION | [id number] | | [facility] | | | DATE [...] + + + + | BLOOD | [id number] | | [facility] | | | PRODUCT [...] [facility] | [address] | [place] [address] | | | SERVICES, | [address] [...] + + + + | PRODUCT | [id number] | | [facility] | | | UNIT [...] + + + + | EXPIRATION | [id number] | | [facility] | | | DATE [...] + + + + | BLOOD | [id number] | | [facility] | | | PRODUCT [...] [facility] | [address] | [place] [address] | | | SERVICES, | [address] [...] [facility] | [address] | [place] [address] | | | SERVICES, | [address] [...] [facility] | [address] | [place] [address] | | | SERVICES, | [address] [...] | + + + + + | [facility] | [address] | [place] [address] | | | SERVICES, CORE | ARASH [...] | + + + + + | [facility] | [address] | [place] [address] | | | SERVICES, CORE | ARASH [...] LABORATORY | [address] | [place] [address] | | | SERVICES, CORE | PARK [...] | + + + + + | [facility] [employer] | [address] | [place] [address] | | | SERVICES, | [address] [...] [facility] | [address] | [place] [address] | | | SERVICES, | [address] [...] 5-6 weeks | | | 850 - 21209 6-7 weeks | | | 4000 - 202222 7-12 weeks | | | 49082 - 791139 12-16 weeks | | | 22511 - 336201 16-29 | | | weeks 1400 - 09608 | | | 29-41 weeks 940 - 01627 | | | This test has not been approved for use as a tumor marker in | | | males or females. | | + + + + + + + + | Performing | Address | City/State/Zipcode | Phone Number | | Organization | | | | + + + + + | [facility] | [address] | [place] [address] | | | SERVICES, CORE | [address] [...] [facility] | [address] | [place] [address] | | | SERVICES, | [address] [...] [facility] | [address] | [place] [address] | | | SERVICES, | [address] [...] | + + + + + | [facility] | [address] | [place] [address] | | | SERVICES, CORE | PARK [...] | | | LABORATORY | | | SRI LANKAN | | | SERVICES, | | | [...] | + + + + + | [facility] | [address] | [place] [address] | | | SERVICES, HORACIO | ARASH [...]
--- OUTSIDE RECORDS SUMMARY | ~2020-03-13 | XMS | Encounter Summary ---
Demographics + + + | Address | [address] | | | [place] [address] | + + + | Home Phone | | + + + | Preferred Language | Unknown | + + + | Marital Status | Single | + + + | Hinduism Affiliation | Unknown | + + + | Race | Unknown | + + + | Ethnic Group | Unknown | + + + Author + + + | Author | [facility] | | | and [place] | + + + | Organization | [facility] | | | and [place] | + + + | Address | Unknown | + + + | Phone | Unavailable | + + + Care Team Providers + +------+ + | Care Digital Circuit Designer Name | Role | Phone | + +------+ + | Campbell Garcia PCP | | + +------+ + Encounter Details +--------+ + + + + | Date | Type | Department | Care Team | Description | +--------+ + + + + | 11/20/ | Orders Only | [facility] | Josh, | | | 2010 | | [facility] | Abdelrahman Sequeira MD [address] | | | | | CLINICAL LABORATORY | [facility], | | | | | [address] | [place] [address] | | | | | [place], [place] | [phone] | | | | | [address] | | | | | | [phone] | | | +--------+ + + + [...] | Testing performed at | | | [facility];[address];[place] [address] CULTURE | | | NO GROUP B STREP ISOLATED | | | Testing performed at [facility], [address] [place] [address] | | | [place] [address] REPORT STATUS | | | 11/23/2010 FINAL [...]
[~2020-03-13 22:16] MED LIST changes: +HYDROCODON-ACE1 EA10 PO
--- OUTSIDE RECORDS SUMMARY | 2020-03-13 22:18 | XMS ---
PreManage Notification: LULÚ HERNANDEZ Security Analyst Programmer Events No recent Security Events currently on file CRITERIA MET - [facility] PROVIDERS ALE LENNON Physician Nurse Anesthetist 12/26/2018-Current PHONE: [phone] KIMBERLY HALEYpractor 10/31/2019-Current PHONE: [phone] Radha has no Care Guidelines for this patient. Deann VISIT COUNT (12 MO.) Bethanie Silva TOTAL 6 NOTE: Visits indicate total known visits. ED/UCC VISIT TRACKING (12 MO.) 03/13/2020 22:16 [facility] [place] TYPE: Emergency COMPLAINT: - DIZZINESS/HEADACHE 10/30/2019 15:29 [facility] [place] TYPE: Emergency COMPLAINT: - R SHOULDER PAIN DIAGNOSES: - Other assisted (current) drug therapy - Allergy status to penicillin - Allergy status to other antibiotic agents status - Other specified diseases and conditions complicating pregnanc - Pain in right shoulder - Latex allergy status - Allergy status to sulfonamides status 10/18/2019 05:29 [facility] [place] TYPE: Emergency COMPLAINT: - VISION ISSUES DIAGNOSES: - Allergy status to other antibiotic agents status - Less than 8 weeks gestation of - Other exterminator helper (current) drug therapy - Nicotine dependence, unspecified, uncomplicated - Allergy status to sulfonamides status - Threatened - Latex allergy status 07/17/2019 20:49 [facility] [place] TYPE: Emergency COMPLAINT: - POST OP D C,FEVER,ABD CRAMPING,BLEEDING DIAGNOSES: - Personal history of urinary calculi - Postprocedural hemorrhage of a genitourinary system organ or - Latex allergy status - Allergy status to penicillin - Pelvic and perineal pain - Nicotine dependence, unspecified, uncomplicated - Allergy status to other antibiotic agents status - Allergy status to sulfonamides status - Abnormal uterine and vaginal bleeding, unspecified - Other exterminator helper (current) drug therapy 07/03/2019 09:[address] [facility] [place] TYPE: Emergency COMPLAINT: - CHEST PAIN, SOB DIAGNOSES: - Personal history of urinary calculi - Other chest pain - Latex allergy status - Acute bronchospasm - Allergy status to penicillin - Other exterminator helper (current) drug therapy - Allergy status to sulfonamides status - Allergy status to other antibiotic agents status - Nicotine dependence, unspecified, uncomplicated 04/21/2019 22:[address] [facility] [place] TYPE: Emergency COMPLAINT: - NECK PAIN DIAGNOSES: - Cervicalgia - Latex allergy status - Personal history of urinary calculi - Other exterminator helper (current) drug therapy - Allergy status to penicillin - Acquired absence of other specified parts of digestive tract - Allergy status to other antibiotic agents status - Allergy status to sulfonamides status - Nicotine dependence, unspecified, uncomplicated INPATIENT VISIT TRACKING (12 MO.) No inpatient visits to display in this time frame [id number]
[2020-03-13] MEDS ORDERED: CYCLOBENZAPRINE10 MG PO (22:26)
== END 2020-03-14 00:11 | disposition home or self-care (01) ==
LOC: ED 22:16
DX: O99.89 Other specified diseases and conditions complicating pregnancy, childbirth and the puerperium (principal); R51 Headache; O99.331 Smoking (tobacco) complicating pregnancy, first trimester; F17.200 Nicotine dependence, unspecified, uncomplicated; Z91.040 Latex allergy status; Z88.2 Allergy status to sulfonamides; Z88.0 Allergy status to penicillin; Z88.6 Allergy status to analgesic agent; Z79.899 Other long term (current) drug therapy; Z3A.01 Less than 8 weeks gestation of pregnancy
CPT/HCPCS: 96374; 96375; 99283-25; J1200; J2765; J7030

== ENCOUNTER 2020-03-26 21:28 | Emergency (ER) | payer OTHER ==
[~2020-03-26] VITALS: Ht 154.9 cm; Wt 61.2 kg
--- OUTSIDE RECORDS SUMMARY | 2020-03-26 21:30 | XMS ---
PreManage Notification: LULÚ HERNANDEZ Security Rotor Blade Installer Events No recent Security Events currently on file CRITERIA MET - MEGAN - [facility] - 2 Visits in 30 Days CARE PROVIDERS ALE LENNON Physician Telecommunications Repairer 12/26/2018-Current PHONE: [phone] KIMBERLY HALEYpractor 10/31/2019-Current PHONE: [phone] Radha has no Care Guidelines for this patient. Deann VISIT COUNT (12 MO.) [address] [place] [address] TOTAL 7 NOTE: Visits indicate total known visits. ED/UCC VISIT TRACKING (12 MO.) 03/26/2020 21:29 [place] [place] TYPE: Emergency COMPLAINT: - VAGINAL BLEEDING 03/13/2020 22:16 [facility] [place] TYPE: Emergency COMPLAINT: - DIZZINESS/HEADACHE DIAGNOSES: - Headache - Allergy status to penicillin - Other specified diseases and conditions complicating pregnanc - Other terminal supervisor (current) drug therapy - Nicotine dependence, unspecified, uncomplicated - Latex allergy status - Allergy status to analgesic agent status - Less than 8 weeks gestation of - Allergy status to sulfonamides status - Smoking (tobacco) complicating , first trimester 10/30/2019 15:29 [facility] [place] TYPE: Emergency COMPLAINT: - R SHOULDER PAIN DIAGNOSES: - Other senior living (current) drug therapy - Allergy status to [...] 8 weeks gestation of - Other senior living (current) drug therapy - Nicotine dependence, unspecified, [...] and vaginal bleeding, unspecified - Other senior living (current) drug therapy 07/03/2019 09:20 [facility] [place] TYPE: Emergency COMPLAINT: - CHEST PAIN, SOB DIAGNOSES: - Personal history of urinary calculi - Other chest pain - Latex allergy status - Acute bronchospasm - Allergy status to penicillin - Other senior living (current) drug therapy - Allergy status to sulfonamides status - Allergy status to other antibiotic agents status - Nicotine dependence, unspecified, uncomplicated 04/21/2019 22:36 [facility] [place] TYPE: Emergency COMPLAINT: - NECK PAIN DIAGNOSES: - Cervicalgia - Latex allergy status - Personal history of urinary calculi - Other terminal supervisor (current) drug therapy - Allergy status to penicillin - Acquired absence of other specified parts of digestive tract - Allergy status to other antibiotic agents status - Allergy status to sulfonamides status - Nicotine dependence, unspecified, uncomplicated INPATIENT VISIT TRACKING (12 MO.) No inpatient visits to display in this time frame [email or web address]
[2020-03-26] MEDS ORDERED: AMOXICILLIN500 MG PO (21:43)
[2020-03-26] MEDS ORDERED: PROMETHAZINE12.5 M1 PO (21:44)
== END 2020-03-27 00:48 | disposition home or self-care (01) ==
LOC: ED 21:28
DX: O20.0 Threatened abortion (principal); O99.331 Smoking (tobacco) complicating pregnancy, first trimester; F17.200 Nicotine dependence, unspecified, uncomplicated; Z91.040 Latex allergy status; Z88.2 Allergy status to sulfonamides; Z88.1 Allergy status to other antibiotic agents
CPT/HCPCS: 36415; 76801; 76817; 84702; 85025; 99284

== ENCOUNTER 2020-04-19 16:29 | Emergency (ER) | payer OTHER ==
[~2020-04-19] VITALS: Ht 154.9 cm; Wt 61.2 kg
--- OUTSIDE RECORDS SUMMARY | ~2020-04-19 | XMS | Encounter Summary ---
Demographics + + + | Address | [address] | | | [place] [address] | + + + | Home Phone | | + + + | Preferred Language | Unknown | + + + | Marital Status | Unknown | + + + | Advent Affiliation | Unknown | + + + | Race | Unknown | + + + | Ethnic Group | Unknown | + + + Author + + + | Author | [facility] | | | and Rufinoana | + + + | Organization | [facility] | | | and Rufinoana | + + + | Address | Unknown | + + + | Phone | Unavailable | + + + Support + + + + + | Name | Relationship | Address | Phone | + + + + + | Taz Guillen | ECON | [address] | | | | | [place] | | | | | [address] | | + + + + + Care Team Providers + +------+ + | Care Pharmaceutical Salesperson Name | Role | Phone | + +------+ + PCP | Unavailable | + +------+ + Encounter Details +--------+ + + + + | Date | Type | Department | Care Team | Description | +--------+ + + + + | 10/07/ | Hospital | [facility] | Conversion | Nephrolithiasis | | 2016 | Encounter | [facility] | Transaction, | | | | | [address] | Provider Unknown | | | | | [address] [place], [place] | [phone] | | | | | [address] | | | | | | [phone] | Roni Gomez, | | | | | | [address] | | | | | | [place] [address] | | | | | | [phone] | | | | | | | | +--------+ + + + [...] on file | | + + + documented as of this encounter Medications at Time of Discharge + + + +---------+ + + | Medication | Sig | Dispensed | Refills | Start | End Date | | | | | | Date | | + + + +---------+ + + | | Take 15 mg by mouth. | | 0 | 10/07/20 | | | amphetamine-dextroam | | | | 17 | 0 | | phetamine (ADDERALL) | | | | | | | 5 mg tablet | | | | | | + + + +---------+ + + documented as of this encounter Plan of Treatment Not on filedocumented as of this encounter Procedures + +--------+ + + + | Procedure Name | Priori | Date/Time | Associated Diagnosis | Comments | | | ty | | | | + +--------+ + + + | XR ABDOMEN AP | Routin | 10/07/2017 | | Results for this | | | e | 9:13 AM | | procedure are in the | | | | PST | | results section. | + +--------+ + + + documented in this encounter Results XR Abdomen AP (10/07/2017 9:13 AM PST) + + | Specimen | + + | | + + + + + | Impressions | Performed At | + + + | 1. There are 2 potential nonobstructing urinary stones overlying | | | the midpole of the kidneys bilaterally. 2. There are scattered | | | calcifications along the left pelvis which could reflect phleboliths | | | versus uroliths. Electronically signed by Robert Padilla MD on | | | 10/07/2017 9:23 AM | | + + + + + + | Narrative | Performed At | + + + | [facility] 1990 XR ABDOMEN 1 VIEW 10/07/2017 9:13 | | | AM INDICATION: Follow-up of nephrolithiasis COMPARISON: None | | | TECHNIQUE: Abdominal series, 1 view, single AP view of the abdomen | | | FINDINGS: There is a punctate calcification overlying the | | | midpole of the left kidney measuring 2 mm. There appears to be a | | | calcification overlying the midpole of the right kidney measuring 3 | | | mm. In the pelvis, scattered calcifications are seen along the | | | left pelvis which are equivocal for urinary stones versus phleboliths. | | | There is a intrauterine device in place. There is no definitive | | | calculus seen along the course of the ureters. There is no free | | | air. There are no air fluid levels. There are no dilated loops of | | | bowel. There is no organomegaly. Bony structures are within normal | | | limits. | | + + + + + | Procedure Note | + + | Hunter Hernández Conversion - 05/25/2019 10:54 AM AMANDA MIRAMONTES1990XR ABDOMEN | | 1 VIEW10/07/2017 9:13 AM INDICATION: Follow-up of nephrolithiasis COMPARISON: None | | TECHNIQUE: Abdominal series, 1 view, single AP view of the abdomen FINDINGS: There is a | | punctate calcification overlying the midpole of the left kidney measuring 2 mm. There | | appears to be a calcification overlying the midpole of the right kidney measuring 3 mm. | | In the pelvis, scattered calcifications are seen along the left pelvis which are | | equivocal for urinary stones versus phleboliths. There is a intrauterine device in | | place. There is no definitive calculus seen along the course of the ureters. There is | | no free air. There are no air fluid levels. There are no dilated loops of bowel. There | | is no organomegaly. Bony structures are within normal limits. IMPRESSION: 1. There are | | 2 potential nonobstructing urinary stones overlying the midpole of the kidneys | | bilaterally.2. There are scattered calcifications along the left pelvis which could | | reflect phleboliths versus uroliths. Electronically signed by Robert Padilla MD on | | 10/07/2017 9:23 AM | |the course of the ureters. There is no | |free air. There are no air fluid levels. There are no dilated loops of bowel. There is no o rganomegaly. Bony structures are within normal limits. | | | |IMPRESSION: | |1. There are 2 potential nonobstructing urinary stones overlying the midpole of the kidney s bilaterally. | |2. There are scattered calcifications along the left pelvis which could reflect phlebolith s versus uroliths. | | | | | + + documented in this encounter Visit Diagnoses + + | Diagnosis | + + | Nephrolithiasis Calculus of kidney | + + documented in this encounter"
--- OUTSIDE RECORDS SUMMARY | ~2020-04-19 | XMS | Encounter Summary ---
Demographics + + + | Address | [address] | | | [place] [address] | + + + | Home Phone | | + + + | Preferred Language | Unknown | + + + | Marital Status | | + + + | Evangelical Affiliation | NOD | + + + | Race | White | + + + | Ethnic Group | Not or | + + + Author + + + | Author | [facility] | + + + | Organization | [facility] | + + + | Address [...] Team Providers + +------+ + | Care Classroom Technology Technician Name | Role | Phone | + [...] Pharmacy | | | | | | [address] | | | | | | [address] [place], [place] | | | | | | [address] | | | | | | [phone] | | | +--------+ + + + [...]
--- OUTSIDE RECORDS SUMMARY | ~2020-04-19 | XMS | Encounter Summary ---
Demographics + + + | Address | [address] | | | [place] [address] | + + + | Home Phone | | + + + | Preferred Language | Unknown | + + + | Marital Status | | + + + | Orthodox Affiliation | NOD | + + + | Race | White | + + + | Ethnic Group | Not or | + + + Author + + + | Author | [facility] | + + + | Organization | [facility] | + + + | Address [...] Team Providers + +------+ + | Care Benefits Representative Name | Role | Phone | + +------+ + | No Pcp Per Patient | PCP | Unavailable | + +------+ + Reason for Visit AUTH/CERT +--------+--------+ + + + + | [...] + + + + | 08/24/ | Anesthesia | 6A Intra Op 3181 | Karishma Murguia | | | 2018 | Event | [address] | MD Jeremy [address] | | | | | [address] [facility] | [facility] | | | | | Hospital Admitting | [place], [place] | | | | | Desk Located on the | [address] | | | | | 9th floor | [phone] | | | | | [place], [place] | | | | | | [address] | | | +--------+ + + + + Anesthesia Record + + + + + | Procedure Name | Responsible | Anesthesia Start | Anesthesia Stop Time | | | Anesthesiologist | Time | | + + + + + | ULTRASOUND GUIDED | Karishma Murguia, | 08/24/18 1456 | 08/24/18 1602 | | DILATION AND | MD | | | | CURRETAGE (N/A ) | | | | + + + + + +----+---+ + + | Da | T | Event | Comment | | te | i | | | | | m | | | | | e | | | +----+---+ + + | 11 | 1 | Eq Check | Anesthesia machine checked Equipment verified | | /1 | 4 | | | | 4/ | 4 | | | | 20 | 1 | | | | 18 | | | | +----+---+ + + | | 1 | Pt. Check | Prior to anesthesia start, pt. Identified, examined, chart | | | 4 | | reviewed, PARQ held, anesthetic plan made or approved by | | | 5 | | attending anesthesiologist. NPO status confirmed as appropriate | | | 6 | | for procedure Preoperative evaluation: unchanged | +----+---+ + + | | 1 | An Start | | | | 4 | | | | | 5 | | | | | 6 | | | +----+---+ + + | | 1 | An Start | | | | 4 | Data | | | | 5 | | | | | 9 | | | +----+---+ + + | | 1 | Vitals | Monitors applied Vital signs checked Patient ready for anesthesia | | | 5 | Checked | | | | 0 | | | | | 3 | | | +----+---+ + + | | 1 | ETT | | | | 5 | | | | | 0 | | | | | 6 | | | +----+---+ + + | | 1 | Ready | | | | 5 | | | | | 1 | | | | | 1 | | | +----+---+ + + | | 1 | Abx held | Contraindicated, or not indicated for this procedure, or already | | | 5 | Medical or | receiving antibiotics | | | 1 | Surgical | | | | 1 | Reason | | +----+---+ + + | | 1 | Incision | | | | 5 | | | | | 3 | | | | | 1 | | | +----+---+ + + | | 1 | Surgery end | | | | 5 | | | | | 4 | | | | | 8 | | | +----+---+ + + | | 1 | an stop | | | | 5 | data | | | | 5 | | | | | 4 | | | +----+---+ + + | | 1 | PACU Rpt | | | | 6 | Given | | | | 0 | | | | | 2 | | | +----+---+ + + | | 1 | Anesthesia | | | | 6 | End | | | | 0 | | | | | 2 | | | +----+---+ + + +------+ | Meds | +------+ + +---------+ | Name | Total | + +---------+ | midazolam | 2 mg | + +---------+ | lidocaine 2% | 80 mg | + +---------+ | fentaNYL | 150 mcg | + +---------+ | propofol (DIPRIVAN) 200 mg | 140 mg | + +---------+ | succinylcholine | 100 mg | + +---------+ | PHENYLephrine | 200 mcg | + +---------+ | ondansetron | 4 mg | + +---------+ | dexamethasone | 4 mg | + +---------+ | LR | 600 mL | + +---------+ + + | Name | + + | O2 FR Avance (Total Liters) | + + | Air FR Avance (l/min) | + + | Insp Solitario | + + | Et Solitario | + + | Insp Sevo | + + | Et Sevo | + + | EtN2O % | + + | Insp N2O % | + + + + | No blood administrations on file. | + + +--------+ + + + | Type | Details | Placement | Removal | +--------+ + + + | Periph | 08/23/18; 1638; Right; | 08/23/18 1638 by | 08/24/18 183 by | | eral | Antecubital; 20 g; 08/24/18; | Nicole Salazar RN | Kelle Alex RN | | IV | 1830; Per patient/family request | | | +--------+ + + + | Periph | 08/23/18; 1999; Bettina Ray RN VAT; | 08/23/181999 by | 08/24/182343 by | | eral | Left; Hand; 22 g; None; No; | Marya Ray RN | Vane Curiel RN | | IV | Positive; 08/24/18; 2344; | | | | | Occluded | | | +--------+ + + + | ETT | 08/24/18; 1545 (created via | 08/24/18 1545 by | 08/25/18 1313 by | | | procedure documentation); | Karishma Murguia, | Discontinued After | | | Endotracheal Tube; 7; 08/25/18; | MD | Discharge | | | 1313 | | | +--------+ + + + documented in this encounter Social History + +-------+ +--------+------+ | Tobacco [...] | + +--------+ + + + | ANE ETT | Routin | 08/24/2018 | | | | | e | 3:45 PM | | | | | | PST | | | + +--------+ + + + +---+--------+ | | | | | Proced | | | ure | | | Note - | | | | | | Blade, | | | Karishma | | | | | | Marie | | | e, MD | | | - | | | 11/14/ | | | 2018 | | | 3:45 | | | PM PST | | | | | | Proced | | | ure | | | Reason | | | for | | | Intuba | | | tion: | | | For | | | surgic | | | al | | | proced | | | ure, | | | Locati | | | on | | | Perfor | | | med: | | | [place] , | | | Patien | | | t was | | | preoxy | | | genate | | | dMask | | | Ventil | | | ationG | | | rade 1 | | | - | | | Ventil | | | ated | | | by | | | mask | | | Intuba | | | tionBl | | | geno | | | type: | | | Irwin | | | , | | | Blade | | | size: | | | 2, | | | Atraum | | | atic | | | laryng | | | oscopy | | | : | | | Atraum | | | atic | | | Laryng | | | oscopy | | | , | | | Intuba | | | tion | | | adjunc | | | ts: | | | N/A , | | | Laryng | | | oscopi | | | c | | | view: | | | Grade | | | I, | | | Fibero | | | ptics | | | used: | | | N/A , | | | Number | | | of | | | Attemp | | | ts: 1, | | | | | | Positi | | | ve for | | | | | | EtCO2: | | | Yes, | | | Breath | | | | | | sounds | | | : | | | Bilate | | | ral | | | and | | | equal | | | ETTETT | | | Size: | | | 7 | | | ETT | | | secure | | | d | | | with: | | | adhesi | | | ve | | | tape | | | Depth | | | at | | | Lip: | | | 21 Cm | | | | | | Airway | | | leak: | | | No | | | Narrat | | | iveAtt | | | ending | | | | | | physic | | | ally | | | presen | | | t | | | Attend | | | ing: | | | BLADE, | | | KARISHMA | | | | | | MARIE | | | E | +---+--------+ documented in this encounter Visit Diagnoses Not on filedocumented in this encounter Administered Medications + +--------+ +------+------+------+ | Medication Order | MAR | Action | Dose | Rate | Site | | | Action | Date | | | | + +--------+ +------+------+------+ | dexamethasone (DECADRON) | Given | 08/24/20 | 4 mg | | | | injection INTRAPROCEDURE PRN, | | 18 3:35 | | | | | Starting Wed08/24/18 at 1535, | | PM PST | | | | | Until Wed08/24/18 at 1603 | | | | | | + +--------+ +------+------+------+ +---+---+ | | | +---+---+ + +-------+ +--------+---+---+ | fentaNYL (SUBLIMAZE) injection | Given | 08/24/20 | 50 mcg | | | | INTRAPROCEDURE PRN, Starting Wed | | 18 3:41 | | | | | 08/24/18 at 1505, Until Wed | | PM PST | | | | | 08/24/18 at 1603 | | | | | | + +-------+ +--------+---+---+ +-------+ +--------+---+---+ | Given | 08/24/20 | 50 mcg | | | | | 18 3:29 | | | | | | PM PST | | | | +-------+ +--------+---+---+ | Given | 08/24/20 | 50 mcg | | | | | 18 3:05 | | | | | | PM PST | | | | +-------+ +--------+---+---+ +---+---+ | | | +---+---+ + + + +---+---+---+ | lactated Ringers IV | given by | 08/24/20 | | | | | INTRAPROCEDURE CONTINUOUS PRN, | | 18 4:03 | | | | | Starting 08/24/18 at 1441, | anesthes | PM PST | | | | | Until Wed08/24/18 at 1603 | iology | | | | | + + + +---+---+---+ +---------+ +---+---+---+ | New Bag | 08/24/20 | | | | | | 18 2:41 | | | | | | PM PST | | | | +---------+ +---+---+---+ +---+---+ | | | +---+---+ + +-------+ +-------+---+---+ | lidocaine PF (XYLOCAINE MPF) 20 | Given | 08/24/20 | 80 mg | | | | mg/mL (2 %) injection | | 18 3:05 | | | | | INTRAPROCEDURE PRN, Starting Wed | | PM PST | | | | | 08/24/18 at 1505, Until Wed | | | | | | | 08/24/18 at 1603 | | | | | | + +-------+ +-------+---+---+ +---+---+ | | | +---+---+ + +-------+ +------+---+---+ | midazolam (PF) (VERSED) | Given | 08/24/20 | 2 mg | | | | injection INTRAPROCEDURE PRN, | | 18 2:56 | | | | | Starting Wed08/24/18 at 1456, | | PM PST | | | | | Until Wed08/24/18 at 1603 | | | | | | + +-------+ +------+---+---+ +---+---+ | | | +---+---+ + +-------+ +------+---+---+ | ondansetron (ZOFRAN) injection | Given | 08/24/20 | 4 mg | | | | INTRAPROCEDURE PRN, Starting Wed | | 18 3:41 | | | | | 08/24/18 at 1541, Until Wed | | PM PST | | | | | 08/24/18 at 1603 | | | | | | + +-------+ +------+---+---+ +---+---+ | | | +---+---+ + +-------+ +---------+---+---+ | PHENYLEPHrine 100 mcg/mL | Given | 08/24/20 | 100 mcg | | | | injection (OR syringe) | | 18 3:25 | | | | | intravenous, INTRAPROCEDURE PRN, | | PM PST | | | | | Starting Wed08/24/18 at 1519, | | | | | | | Until Wed08/24/18 at 1603 | | | | | | + +-------+ +---------+---+---+ +-------+ +---------+---+---+ | Given | 08/24/20 | 100 mcg | | | | | 18 3:19 | | | | | | PM PST | | | | +-------+ +---------+---+---+ +---+---+ | | | +---+---+ + +---------+ +--------+---+---+ | propofol (DIPRIVAN) 200 mg | New Bag | 08/24/20 | 140 mg | | | | INTRAPROCEDURE CONTINUOUS PRN, | | 18 3:08 | | | | | Starting Wed08/24/18 at 1508, | | PM PST | | | | | Until Wed08/24/18 at 1603 | | | | | | + +---------+ +--------+---+---+ +---+---+ | | | +---+---+ + +-------+ +--------+---+---+ | succinylcholine (ANECTINE) | Given | 08/24/20 | 100 mg | | | | injection INTRAPROCEDURE PRN, | | 18 3:08 | | | | | Starting Wed08/24/18 at 1508, | | PM PST | | | | | Until Wed08/24/18 at 1603 | | | | | | + +-------+ +--------+---+---+ +---+---+ | | | +---+---+ documented in this encounter"
--- OUTSIDE RECORDS SUMMARY | ~2020-04-19 | XMS | Encounter Summary ---
Demographics + + + | Address | [address] | | | [place] [address] | + + + | Home Phone | | + + + | Preferred Language | Unknown | + + + | Marital Status | Unknown | + + + | Yarsanism Affiliation | Unknown | + + + | Race | Unknown | + + + | Ethnic Group | Unknown | + + + Author + + + | Author | [facility] | | | and Rufinoana | + + + | Organization | [facility] | | | and Rufinoana | [...] [place] | | | | | [address] | | + + + + + Care Team Providers + +------+ + | Care Car Top Bolter Name | Role | Phone | + +------+ + | Brandy Barreto | PCP | | + +------+ + Encounter Details +--------+ + + + + | Date | Type | Department | Care Team | Description | +--------+ + + + + | 10/19/ | Orders Only | [facility] | Roni Gomez, | | | 2018 | | UROLOGY [address] | DO [address] | | | | | [address] | [place] [address] | | | | | [place], [place] | [phone] | | | | | [address] | | | | | | [phone] | | | +--------+ + + + [...]
--- OUTSIDE RECORDS SUMMARY | ~2020-04-19 | XMS | Encounter Summary ---
Demographics + + + | Address | [address] | | | [place] [address] | + + + | Home Phone | | + + + | Preferred Language | Unknown | + + + | Marital Status | | + + + | Shinto Affiliation | NOD | + + + | Race | White | + + + | Ethnic Group | Not or | + + + Author + + + | Author | [facility] | + + + | Organization | [facility] | + + + | [...] + +------+ + | Care Director Of Academic Name | Role | Phone | + [...] +--------+--------+ + + + + Encounter Details +--------+---------+ + + + | Date | Type | Department | Care Team | Description | +--------+---------+ + + + | 08/24/ | Surgery | 6A Intra Op [id number] | Dale English MD 3181 | ULTRASOUND GUIDED | | 2018 | | [facility] [address] | ANGE Mireles Guanaco Arash | DILATION AND | | | | Toby Lyman | [place]y [place], [place] | [place] | | | | Hospital Admitting | [address] | | | | | Desk Located on the | [phone] | | | | | 9th floor | | | | | | [place], [place] | | | | | | [address] | | | +--------+---------+ + + + Social History + +-------+ [...] a 28 y.o. 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 Her medical history was notab le for history of one prior CS and tobacco use. The patient was asymtomatic and hemodynamic ally stable with a benign exam upon presentation to [facility]. The patient was counseled on aurea [...] as surgical optimization given her distance from [facility] and complex case. On 08/23/2018, she [...] To contact your provider, please call the [facility] Center for Women's Health clinic at [phone] during daytime hours. During evening or weekend hours, please call the [facility] paging cement crusher operator at [phone] and ask for the Student Records Coordinator resident on-call. Reasons to call the doctor: [...] regular periods it can be heavier or billing clerk, longer or shorter than normal. This will [...] the procedure During regular business hours, call [phone] to speak to a nurse or physician. For emergencies after hours or on the weekend, call [phone] ([facility] cement crusher operator) and ask to speak to the physician registration coordinator for General Obstetrics and Gynecology. Patient Education Materials: oxycodone and ethinyl estradiol and norgestimate Additional Instructions: monitor for bleeding review of AVS, oxycodone and ethinyl estradio l and norgestimate Discharge Nurse: TAYLER CURIEL RN Date: 08/24/2018 Discharge Time: 9:37 PM AttachmentsThe following attachments cannot be sent through Care Everywhere.oxycodone ([facility])ethinyl estradiol and norgestimate ([place])documented in this encounter [...] Resident Physician, Obstetrics and Gynecology, PGY4 Pager [phone] gustina Raygoza MD - 08/24/2018 7:24 AM PST GYNECOLOGY [...] O2 Delivery Device: None (room air) (08/23/18 1689) 24 Hour Vital Min/Max: Systolic (24hrs), Av [...] on case scheduled in SOR. Dr. English Student Records Coordinator 1 aware and will be the attending [...] Agustina Raygoza MD Obstetrics and Gynecology PGY-1 [id number] Associated attestation - Dale English MD - [...] + + + + + | [facility] | [address] | [place], [place] | | | MARGARITA STEINER OF [address] CAR[address] | [address] | [address] | | | TESTS | | | [...] | curettage: Chorionic | | OF | [employer] | | | villi and decidua, | | PATHOLOGY | MD González on | | | compatible with products | | | 08/26/2018 at | | | of conceptionCase seen | | | 1:22 PM | | | by:Myron Zamora MD | | | | | | | | | | | | Pathology | | | | | | Naty Claudio | | | | | | - | | | | | | PathologistPathology, | | | | | | [facility] | | | | | | [facility] electronic | | | | | | [...] specimen. | | | | | | Special Education Inclusion Teacher sections | | | | | | are submitted into | | | | | | cassette A1.() | | | | + + + [...] | | | | | determined by [facility] | | | | | | laboratories. [...] + + | Performing | Address | City/State/[facility] | Phone Number | | Organization | | | | + + + + + | [facility] | [address] [facility] | [place] [address] | | | PATHOLOGY | [address] | | | + + + + + DILATION AND CURETTAGE (08/24/2018 1:11 PM PST) + + + | Narrative | Performed At | + + + | Dale English MD 08/30/2018 3:03 PM OPERATIVE REPORT | | | Procedure Date: 08/24/2018 Surgeon: Dale English MD Fellow: Lavern | | | MD Rubén Reclamation Kettle Tender: YANNI GARCIA MD,MPH R4 Prior to the [...] Surgical team, anesthesia | | | team, educational technologist, circulating nurse. Preoperative Diagnosis: 1) | | [...] by LMP who was admitted to the ELECT EQUIP MAINT ENG service | | | for management of [...] 5-6 weeks | | | 850 - 06252 6-7 weeks | | | 4000 - 678443 7-12 weeks | | | 54975 - 184995 12-16 weeks | | | 56541 - 283969 16-29 | | | weeks 1400 - 64638 | | | 29-41 weeks 940 - 17592 | | | This test has not been approved for use as a tumor marker in | | | males or females. | | + + + + + + + + | Performing | Address | City/State/Zipcode | Phone Number | | Organization | | | | + + + + + | [facility] | [address] | [place] [address] | | | [address]ORAC[address] E[address] | ARASH [...] + + + + | PRODUCT | [id number] | | [facility] | | | UNIT [...] + + + + | EXPIRATION | [id number] | | [facility] | | | DATE [...] + + + + | BLOOD | [id number] | | [facility] | | | PRODUCT [...] + | [facility] | [address] | [place] [address] | | | SERVICES, | [address] [...] + + + + | PRODUCT | [id number] | | [facility] | | | UNIT [...] + + + + | EXPIRATION | [id number] | | [facility] | | | DATE [...] + + + + | BLOOD | [id number] | | [facility] | | | PRODUCT [...] + | [facility] | [address] | [place] [address] | | | SERVICES, | [address] [...] + | [facility] | [address] | [place] [address] | | | SERVICES, | [address] [...] + | [facility] | [address] | [place] [address] | | | SERVICES, | [address] [...] | + + + + + | [facility] | [address] [facility] | [place] [address] | | | SERVICES, CORE | ARASH [...] | + + + + + | [facility] | [address] | [place] [address] | | | SERVICES, CORE | ARASH [...] | + + + + + | [facility] | [address] | [place] [address] | | | SERVICES, CORE | P[address] [...] | + + + + + | [facility] | [address] | [place] [address] | | | SERVICES, | [address] [...] + | [facility] | [address] | [place] [address] | | | SERVICES, | [address] [...] 5-6 weeks | | | 850 - 42331 6-7 weeks | | | 4000 - 346269 7-12 weeks | | | 61284 - 926115 12-16 weeks | | | 92389 - 359368 16-29 | | | weeks 1400 - 07622 | | | 29-41 weeks 940 - 19858 | | | This test has not been approved for use as a tumor marker in | | | males or females. | | + + + + + + + + | Performing | Address | City/State/Zipcode | Phone Number | | Organization | | | | + + + + + | [facility] | [address] | [place] [address] | | | SERVICES, CORE | [address] [...] + | [facility] | [address] | [place] [address] | | | SERVICES, | [address] [...] + | [facility] | [address] | [place] [address] | | | SERVICES, | [address] [...] | + + + + + | [facility] | [address] | [place] [address] | | | SERVICES, CORE | [address] [...] | | | LABORATORY | | | [place] | | | SERVICES, | | | [...] | + + + + + | [facility] | [address] [facility] | [place] [address] | | | SERVICES, HORACIO | [address] [...] +---------+---+---+ +---+---+ | | | +---+---+ + +-------+ +-------+---+ + | vasopresin-NS injection | Given | 08/24/20 | 20 mL | | Surgical | | INTRAPROCEDURE PRN, Starting Wed | | 18 3:32 | | | Site | | 08/24/18 at 1532, Until Wed | | PM PST | | | | | 08/24/18 at 1600 | | | | | | + +-------+ +-------+---+ + +---+---+ | | | +---+---+ documented in this encounter
--- OUTSIDE RECORDS SUMMARY | ~2020-04-19 | XMS | Encounter Summary ---
Demographics + + + | Address | [address] | | | [place] [address] | + + + | Home Phone | | + + + | Preferred Language | Unknown | + + + | Marital Status | | + + + | Pentecostal Affiliation | NOD | + + + | Race | White | + + + | Ethnic Group | Not or | + + + Author + + + | Author | [facility] | + + + | Organization | [facility] | + + + | [...] Team Providers + +------+ + | Care Concrete Products Machine Operator Name | Role | Phone | [...] Pharmacy | | | | | | [address] | | | | | | [place], [place] | | | | | | [address] | | | | | | [phone] | | | +--------+ + + + [...]
--- OUTSIDE RECORDS SUMMARY | ~2020-04-19 | XMS | Encounter Summary ---
Demographics + + + | Address | [address] | | | [place] [address] | + + + | Home Phone | | + + + | Preferred Language | Unknown | + + + | Marital Status | Unknown | + + + | Uatsdin Affiliation | Unknown | + + + | Race | Unknown | + + + | Ethnic Group | Unknown | + + + Author + + + | Author | [facility] | | | and [place] | + + + | Organization | [facility] | | | and [place] | + + + | Address | Unknown | + + + | Phone | Unavailable | + + + Support + + + + + | Name | Relationship | Address | Phone | + + + + + | Taz Guillen | ECON | [address] | | | | | [place] | | | | | [address] | | + + + + + Care Team Providers + +------+ + | Care Mental Health Consultant Name | Role | Phone | + +------+ + | Brandy Barreto PCP | | + +------+ + Reason for Visit + + + | Reason | Comments | + + + | Pain Management | inital encounter | + + + Encounter Details +--------+ + + + + | Date | Type | Department | Care Team | Description | +--------+ + + + + | 04/02/ | Documentati | [facility] | Feliciano Mcmullen, | Pain Management | | 2020 | on | NEUROSURGERY [address] | PA-C [address] | (inital encounter) | | | | [address] | [address] | | | | | [place], [place] | [place] [address] | | | | | [address] | [phone] | | | | | [phone] | | | +--------+ + + + [...] + documented as of this encounter Progress Nadine Membreno CMA - 04/02/2020 7:26 AM PDT The following information was obtained from https://[employer].ky.gov/myAccess/saw/select .do on 04/02/20. [facility] RETAIL [employer] PRO was checked on 04/02/20 and no pain medications have been dispens ed in the last 3 months. documented in this e ncounter Plan of Treatment Not on filedocumented as of this encounter Visit Diagnoses Not on filedocumented in this encounter"
--- OUTSIDE RECORDS SUMMARY | ~2020-04-19 | XMS | Encounter Summary ---
Demographics + + + | Address | [address] | | | [place] [address] | + + + | Home Phone | | + + + | Preferred Language | Unknown | + + + | Marital Status | | + + + | Moravian Affiliation | NOD | + + + | Race | White | + + + | Ethnic Group | Not or | + + + Author + + + | Author | [facility] | + + + | Organization | [facility] | + + + | [...] Team Providers + +------+ + | Care Tailoring Teacher Name | Role | Phone | [...] Pharmacy | | | | | | [address] | | | | | | [place], [place] | | | | | | [address] | | | | | | [phone] | | | +--------+ + + + [...]
--- OUTSIDE RECORDS SUMMARY | ~2020-04-19 | XMS | Encounter Summary ---
Demographics + + + | Address | [address] | | | [place] [address] | + + + | Home Phone | | + + + | Preferred Language | Unknown | + + + | Marital Status | | + + + | Rastafarian Affiliation | NOD | + + + | Race | White | + + + | Ethnic Group | Not or | + + + Author + + + | Author | [facility] | + + + | Organization | [facility] | + + + | Address [...] Team Providers + +------+ + | Care Infrastructure Analyst Name | Role | Phone | [...] + + | 08/23/ | Emergency | [address] | Tommy Maier MD | | | 2018 - | | [address] [facility] | [address] | | | | | [facility] | [address] [place], | | | 08/25/ | | [place], [place] | [place] [address] | | | 2018 | | [address] | [phone] | | | | | [phone] | | | | | | | Lavern Montana MD | | | | | | [address] | | | | | | [place] [address] [place], | | | | | | [place] [address] | | | | | | [phone] | | | | | | | [...] a 28 y.o. 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 Her medical history was notab le for history of one prior CS and tobacco use. The patient was asymtomatic and hemodynamic ally stable with a benign exam upon presentation to [facility]. The patient was counseled on aurea gement [...] as surgical optimization given her distance from [facility] and complex case. On 08/23/2018, she underwent [...] To contact your provider, please call the [facility] Center for Women's Health clinic at [phone] during daytime hours. During evening or weekend hours, please call the [facility] paging fastener sewing machine operator at [phone] and ask for the Energy Professional resident on-call. Reasons to call the doctor: [...] regular periods it can be heavier or medical office rep, longer or shorter than normal. This will [...] the procedure During regular business hours, call [phone] to speak to a nurse or physician. For emergencies after hours or on the weekend, call [phone] ([facility] fastener sewing machine operator) and ask to speak to the physician salesperson flowers for General Obstetrics and Gynecology. Patient Education Materials: oxycodone and ethinyl estradiol and norgestimate Additional Instructions: monitor for bleeding review of AVS, oxycodone and ethinyl estradio l and norgestimate Discharge Nurse: TAYLER CURIEL RN Date: 08/24/2018 Discharge Time: 9:37 PM AttachmentsThe following attachments cannot be sent through Care Everywhere.oxycodone (Engl priscila)ethinyl estradiol and norgestimate (Serbian)documented in this encounter Medications at Time of [...] Resident Physician, Obstetrics and Gynecology, PGY4 Pager [phone] Agustina Faulkner MD - 08/24/2018 7:24 AM [...] on case scheduled in SOR. Dr. English Energy Professional 1 aware and will be the attending [...] Agustina Raygoza MD Obstetrics and Gynecology PGY-1 [id number] Associated attestation - Dale English MD - [...] [facility] | [address] | [place], [place] | | | MARGARITA STEINER OF CARE | [address] | [address] | | | TESTS | | | [...] PathologistPathology, | | | | | | [facility] | | | | | | [place] My electronic | | | | | [...] specimen. | | | | | | Substance Abuse Nurse sections | | | | | | [...] | | | | | determined by [facility] | | | | | | laboratories. [...] + + | Performing | Address | City/State[facility] | Phone Number | | Organization | | | | + + + + + | [facility] | [address] | [place] [address] | | | PATHOLOGY | [address] | | | + + + + + DILATION AND CURETTAGE (08/24/2018 1:11 PM PST) + + + | Narrative | Performed At | + + + | Dale English MD 08/30/2018 3:03 PM OPERATIVE REPORT | | | Procedure Date: 08/24/2018 Surgeon: Dale English MD Fellow: Lavern | | | MD Rubén Pharmacogeneticist: YANNI GARCIA MD,MPH R4 Prior to the [...] Surgical team, anesthesia | | | team, furniture repair technician, circulating nurse. Preoperative Diagnosis: 1) | [...] by LMP who was admitted to the RUG INSPECTOR service | | | for management of [...] 5-6 weeks | | | 850 - 78270 6-7 weeks | | | 4000 - 628101 7-12 weeks | | | 91977 - 158390 12-16 weeks | | | 98758 - 733492 16-29 | | | weeks 1400 - 49213 | | | 29-41 weeks 940 - 03217 | | | This test has not been approved for use as a tumor marker in | | | males or females. | | + + + + + + + + | Performing | Address | City/State/Zipcode | Phone Number | | Organization | | | | + + + + + | [facility] | [address] [facility] | [place] [address] | | | SERVICES, [facility] | [address] | | | + [...] + + + + | PRODUCT | [id number] | | [facility] | | | UNIT [...] + + + + | EXPIRATION | [id number] | | [facility] | | | DATE [...] + + + + | BLOOD | [id number] | | [facility] | | | PRODUCT [...] + + | [facility] | [address] [facility] [address] | [place] [address] | | | SERVICES, | [address] [...] + + + + | PRODUCT | [id number] | | [facility] | | | UNIT [...] + + + + | EXPIRATION | [id number] | | [facility] | | | DATE [...] + + + + | BLOOD | [id number] | | [facility] | | | PRODUCT [...] [facility] | [address] | [place] [address] | | | SERVICES, | [address] [...] | + + + + + | [facility] | [address] | [place] [address] | | | SERVICES, | [address] [...] [facility] | [address] | [place] [address] | | | SERVICES, | [address] [...] | + + + + + | [facility] | [address] [facility] | [place] [address] | | | SERVICES, CORE | ARASH [...] | + + + + + | [facility] | [address] [facility] [address] | [place] [address] | | | SERVICES, CORE | ARASH [...] [facility] | [address] | [place] [address] | | | SERVICES, CORE | ARASH [...] | + + + + + | [facility] | [address] | [place] [address] | | | SERVICES, | [address] [...] [facility] | [address] | [place] [address] | | | SERVICES, | [address] [...] 5-6 weeks | | | 850 - 00400 6-7 weeks | | | 4000 - 706623 7-12 weeks | | | 00840 - 200355 12-16 weeks | | | 77047 - 712707 16-29 | | | weeks 1400 - 77985 | | | 29-41 weeks 940 - 99053 | | | This test has not been approved for use as a tumor marker in | | | males or females. | | + + + + + + + + | Performing | Address | City/State/Zipcode | Phone Number | | Organization | | | | + + + + + | [facility] | [address] | [place] [address] | | | SERVICES, CORE | [address] [...] [facility] | [address] | [place] [address] | | | SERVICES, | [address] [...] [facility] | [address] | [place] [address] | | | SERVICES, | [address] [...] [facility] | [address] | [place] [address] | | | SERVICES, CORE | ARASH [...] | | | LABORATORY | | | GAMBIAN | | | SERVICES, | | | [...] | + + + + + | [facility] | [address] [facility] [address] | [place] [address] | | | SERVICES, HORACIO | [address] [...]
--- OUTSIDE RECORDS SUMMARY | ~2020-04-19 | XMS | Encounter Summary ---
Demographics + + + | Address | [address] | | | [place] [address] | + + + | Home Phone | | + + + | Preferred Language | Unknown | + + + | Marital Status | Unknown | + + + | Judaism Affiliation | Unknown | + + + | Race | Unknown | + + + | Ethnic Group | Unknown | + + + Author + + + | Author | [facility] | | | and Rufinoana | + + + | Organization | [facility] | | | and Rufinoana [...] [place] | | | | | [address] | | + + + + + Care Team Providers + +------+ + | Care Clerk Supervisor Name | Role | Phone | + +------+ + PCP | Unavailable | + +------+ + Encounter Details +--------+ + + + + | Date | Type | Department | Care Team | Description | +--------+ + + + + | 10/19/ | Hospital | [facility] | Roni Gomez, | Nephrolithiasis; | | 2018 | Encounter | [facility] | DO [address] | Flank pain; | | | | [address] | [place] [address] | Tobacco abuse | | | | [place], [place] | [phone] | | | | | [address] | | | | | | [phone] | | | +--------+ + + + [...] + + + +---------+ + + | tamsulosin | Take 1 capsule by | 30 | 0 | 10/19/19 | | | (FLOMAX) 0.4 mg CAPS | mouth After dinner | capsule | | 18 | 8 | | | for 30 days. | | | | | | | Discontinue if feel | | | | | | | dizziness or drop in | | | | | | | Blood Pressure. | | | | | + + + +---------+ + + documented as of this encounter Progress Notes Conversion Transaction, Provider Unknown - 10/19/2017 10:00 AM PSTFormatting of this note m ight be different from the original. Nurse Progress Note by Ana Lilia Whitney RN at 10/19/17 1000 Author: Ana Lilia Whitney RN Service: General Surgery Author Type: Registered Nurse Filed: 10/19/17 1011 Date of Service: 10/19/17 1000 Status: Signed Brine Maker: Ana Lilia Whitney RN (Registered Nurse) Discharge instructions including prescriptions were reviewed with the patient and spouse. A ll questions were answered. Discharge criteria has been met; patient was able to void, patie nt reports no nausea, continues to rate pain 6/10 but states that she would like to be disch arged home. Patient discharged home via wheelchair with spouse. Ana Lilia Whitney RN 10/19/17 docume nted in this encounter H&P Notes Roni Gomez DO - 10/19/2017 7:19 AM PSTFormatting of this note might be different fr om the original. Interval H&P Note by Roni Gomez DO at 10/19/17718 Author: Roni Gomez DO Service: Urology Author Type: Physician Filed: 10/19/17718 Date of Service: 10/19/17718 Status: Signed Brine Maker: Roni Gomez DO (Physician) [facility] Service: Urology Pre-Operative History & Physical Interval Update There have been no significant clinical changes since the completion of the above H&P. Tod ays physical assessment showed HP update PE: Normal appearance, alert and oriented X3 and r espiratory effort normal Roni Gomez DO 10/19/2017 *CORE MEASURES REMINDER: If the patient has a known or suspected infection prior to surger y, please add diagnosis to the problem list (consider: Infection 136.9). Source Note Author: Roni Gomez DO Service: (none) Author Type: Physician Filed: 10/07/17 1222 Date of Service: 10/07/1715 Status: Signed Brine Maker: Roni Gomez DO (Physician) [facility] Primary Care Provider: SHERRI BRIZUELA History Obtained From: patient CHIEF COMPLAINT: Chief Complaint Patient presents with Establish Care HISTORY OF PRESENT ILLNESS INTERVAL: The patient is a 27 y.o. female with significant past medical history of cholelithiasis and tobacco abuse to presents for kidney stones. She reports flank pain, worse on the right. She reports several episodes of flank pain, na usea. This is intermittent. Episodes are severe and prevent working. She reports family Hx of stones in her father. She is a smoker. She denies previous stone passage or surgery for stones in the past. History: History reviewed. No pertinent past medical history. Past Surgical History Procedure Laterality Date CHOLECYSTECTOMY Family History Problem Relation Age of Onset Diabetes type II Father Kidney disease Father Social History Social History Marital status: Spouse name: N/A Number of children: N/A Years of education: N/A Social History Main Topics Smoking status: Current Every Day Smoker Smokeless tobacco: Never Used Alcohol use Yes Drug use: No Sexual activity: Not Asked Other Topics Concern None Social History Narrative None Allergies: Allergies Allergen Reactions Sulfamethoxazole-Trimethoprim Anaphylaxis Latex Swelling Medications: Current Outpatient Prescriptions Medication Sig Dispense Refill amphetamine-dextroamphetamine (ADDERALL) 5 MG tablet Take 15 mg by mouth. No current facility-administered medications for this visit. REVIEW OF SYSTEMS Review of Systems Constitutional: Negative for fever and weight loss. Eyes: Negative for blurred vision. Respiratory: Negative for shortness of breath. Cardiovascular: Negative for chest pain. Gastrointestinal: Negative for nausea and vomiting. Genitourinary: Negative for dysuria, flank pain, frequency, hematuria and urgency. Musculoskeletal: Negative for myalgias. Skin: Negative for rash. Neurological: Negative for dizziness and focal weakness. Endo/Heme/Allergies: Does not bruise/bleed easily. Psychiatric/Behavioral: Negative for depression. PHYSICAL EXAM Vital Signs: Pulse 100 | Ht 1.575 m (5' 2") | Wt 72.1 kg (159 lb) | SpO2 99% | BMI 29.08 kg/m Physical Exam Constitutional: She is oriented to person, place, and time. She appears well-developed and well-nourished. HENT: Head: Normocephalic and atraumatic. Eyes: Conjunctivae are normal. Neck: Normal range of motion. Cardiovascular: Normal rate. Pulmonary/Chest: Effort normal. Abdomina/Gl: Soft. Genitourinary: Genitourinary Comments: Mild right CVA tenderness Musculoskeletal: Normal range of motion. Neurological: She is alert and oriented to person, place, and time. Skin: Skin is warm and dry. Psychiatric: She has a normal mood and affect. Her behavior is normal. DATA IMAGING US kidneys and bladder [[id number]] 10/06/17 Status: Final result Study Result KAREN MIRAMONTES 1990 US KIDNEYS AND BLADDER 10/06/2017 4:20 PM HISTORY: Right flank pain COMPARISON: None. TECHNIQUE: Transabdominal ultrasound of the kidneys and bladder, grayscale and color flow e valuation. FINDINGS: The right kidney demonstrates a normal reniform contour. Normal cortical thicknes s and echogenicity is noted measuring 10.1 x 4.3 x 5.3 cm. There is no hydronephrosis. The left kidney measures 10.6 x 5.4 x 5.9 cm. Normal vascularity is noted with no hydroneph rosis present. The bladder measures 11.4 x 7.0 x 9.9 cm with a prevoid volume of 416 mL. Bilateral uretera l jets are documented. There is complete evacuation of the bladder. IMPRESSION: 1. No sonographic evidence of hydronephrosis. X-ray abdomen 1 View (KUB) [[id number]] Status: Final result Study Result KAREN Sanchez MIRAMONTES 1990 XR ABDOMEN 1 VIEW 10/07/2017 9:13 AM INDICATION: Follow-up of nephrolithiasis COMPARISON: None TECHNIQUE: Abdominal series, 1 view, single AP view of the abdomen FINDINGS: There is a punctate calcification overlying the midpole of the left kidney measu ring 2 mm. There appears to be a calcification overlying the midpole of the right kidney magdalena suring 3 mm. In the pelvis, scattered calcifications are seen along the left pelvis which are equivocal for urinary stones versus phleboliths. There is a intrauterine device in place. There is no definitive calculus seen along the course of the ureters. There is no free air. There are n o air fluid levels. There are no dilated loops of bowel. There is no organomegaly. Bony stru ctures are within normal limits. IMPRESSION: 1. There are 2 potential nonobstructing urinary stones overlying the midpole of the kidney s bilaterally. 2. There are scattered calcifications along the left pelvis which could reflect phlebolith s versus uroliths. ASSESSMENT & PLAN ICD-10-CM 1. Nephrolithiasis N20.0 X-ray abdomen 1 View (KUB) X-ray abdomen 1 View (KUB) 2. Flank pain R10.9 3. Tobacco abuse Z72.0 The patient and I had a long discussion about her presenting symptoms, risks, and underlyin g causes. Management options typically include both short and terminal operator strategies. The short term options are directed at relieving current stone related symptoms and protect ing the kidney from permanent damage. These options may include Trial of Passage with Medica l Expulsive Therapy, Ureteroscopy with stone removal, Shock-wave lithotripsy or Percutaneous stone removal. We discussed that some options may be more suitable than others and that the different options may have different chances for stone free rates depending on the size, lo cation, and number of the stones. We also discussed potential infective complications. The patient will plan to observe for any of these. She understands the emergent nature of urinary tract infections with the prese nce of an obstructing stone. If these complications should arise, she will seek immediate c are. After a thorough discussion, the patient has elected to pursue right ESWL for the treatment of her stones at this time. Given the small size of these, she is aware that these may not be the source of her pain. If her pain does not improve with treatment, she may need to se ek workup for other conditions. The risks, benefits and alternatives to this procedure were discussed at length, questions were answered and informed consent was obtained. The risks include, but are not limited to: , heart attack, stroke, pneumonia, bleeding (including the possible need for transfusio n), infection and injury to surrounding structures with the need for subsequent repair/remov al. The patient and I also had a very long discussion about tobacco abuse. She understands the increased risk of various malignancies, especially bladder, ureteral, urethral, and kidney cancers. She also understands the plethora of other health problems associated with tobacco abuse including wound healing and postoperative infection risks. We discussed the need for tobacco cessation including various options for this. At this point, the patient will proceed with attempts to minimize tobacco exposure. (amita salas 3-10 minutes spent counseling the patient regarding tobacco avoidance). PLAN: 1: Proceed with right ESWL on 10/19/16. 2: Informed Consent was obtained. 3: KUB 4 weeks postop 4: smoking cessation Primary Care Physician: SHERRI BRIZUELA Thank you for allowing me to participate in the care of this patient. Roni Gomez DO 10/07/2017 Roni David D O - 10/07/2017 8:15 AM PST H&P (View-Only) by Roni Gomez DO at 10/07/17814 Author: Roni Gomez DO Service: (none) Author Type: Physician Filed: 10/07/17 1222 Date of Service: 10/07/17814 Status: Signed Brine Maker: Roni Gomez DO (Physician) [facility] Primary Care Provider: SHERRI BRIZUELA History Obtained From: patient CHIEF COMPLAINT: Chief Complaint Patient presents with Establish Care HISTORY OF PRESENT ILLNESS INTERVAL: The patient is a 27 y.o. female with significant past medical history of cholelithiasis and tobacco abuse to presents for kidney stones. She reports flank pain, worse on the right. She reports several episodes of flank pain, na usea. This is intermittent. Episodes are severe and prevent working. She reports family Hx of stones in her father. She is a smoker. She denies previous stone passage or surgery for stones in the past. History: History reviewed. No pertinent past medical history. Past Surgical History Procedure Laterality Date CHOLECYSTECTOMY Family History Problem Relation Age of Onset Diabetes type II Father Kidney disease Father Social History Social History Marital status: Spouse name: N/A Number of children: N/A Years of education: N/A Social History Main Topics Smoking status: Current Every Day Smoker Smokeless tobacco: Never Used Alcohol use Yes Drug use: No Sexual activity: Not Asked Other Topics Concern None Social History Narrative None Allergies: Allergies Allergen Reactions Sulfamethoxazole-Trimethoprim Anaphylaxis Latex Swelling Medications: Current Outpatient Prescriptions Medication Sig Dispense Refill amphetamine-dextroamphetamine (ADDERALL) 5 MG tablet Take 15 mg by mouth. No current facility-administered medications for this visit. REVIEW OF SYSTEMS Review of Systems Constitutional: Negative for fever and weight loss. Eyes: Negative for blurred vision. Respiratory: Negative for shortness of breath. Cardiovascular: Negative for chest pain. Gastrointestinal: Negative for nausea and vomiting. Genitourinary: Negative for dysuria, flank pain, frequency, hematuria and urgency. Musculoskeletal: Negative for myalgias. Skin: Negative for rash. Neurological: Negative for dizziness and focal weakness. Endo/Heme/Allergies: Does not bruise/bleed easily. Psychiatric/Behavioral: Negative for depression. PHYSICAL EXAM Vital Signs: Pulse 100 | Ht 1.575 m (5' 2") | Wt 72.1 kg (159 lb) | SpO2 99% | BMI 29.08 kg/m Physical Exam Constitutional: She is oriented to person, place, and time. She appears well-developed and well-nourished. HENT: Head: Normocephalic and atraumatic. Eyes: Conjunctivae are normal. Neck: Normal range of motion. Cardiovascular: Normal rate. Pulmonary/Chest: Effort normal. Abdomina/Gl: Soft. Genitourinary: Genitourinary Comments: Mild right CVA tenderness Musculoskeletal: Normal range of motion. Neurological: She is alert and oriented to person, place, and time. Skin: Skin is warm and dry. Psychiatric: She has a normal mood and affect. Her behavior is normal. DATA IMAGING US kidneys and bladder [[id number]] 10/06/17 Status: Final result Study Result KAREN MIRAMONTES 1990 US KIDNEYS AND BLADDER 10/06/2017 4:20 PM HISTORY: Right flank pain COMPARISON: None. TECHNIQUE: Transabdominal ultrasound of the kidneys and bladder, grayscale and color flow e valuation. FINDINGS: The right kidney demonstrates a normal reniform contour. Normal cortical thicknes s and echogenicity is noted measuring 10.1 x 4.3 x 5.3 cm. There is no hydronephrosis. The left kidney measures 10.6 x 5.4 x 5.9 cm. Normal vascularity is noted with no hydroneph rosis present. The bladder measures 11.4 x 7.0 x 9.9 cm with a prevoid volume of 416 mL. Bilateral uretera l jets are documented. There is complete evacuation of the bladder. IMPRESSION: 1. No sonographic evidence of hydronephrosis. X-ray abdomen 1 View (KUB) [[id number]] Status: Final result Study Result KAREN MIRAMONTES 1990 XR ABDOMEN 1 VIEW 10/07/2017 9:13 AM INDICATION: Follow-up of nephrolithiasis COMPARISON: None TECHNIQUE: Abdominal series, 1 view, single AP view of the abdomen FINDINGS: There is a punctate calcification overlying the midpole of the left kidney measu ring 2 mm. There appears to be a calcification overlying the midpole of the right kidney magdalena suring 3 mm. In the pelvis, scattered calcifications are seen along the left pelvis which are equivocal for urinary stones versus phleboliths. There is a intrauterine device in place. There is no definitive calculus seen along the course of the ureters. There is no free air. There are n o air fluid levels. There are no dilated loops of bowel. There is no organomegaly. Bony stru ctures are within normal limits. IMPRESSION: 1. There are 2 potential nonobstructing urinary stones overlying the midpole of the kidney s bilaterally. 2. There are scattered calcifications along the left pelvis which could reflect phlebolith s versus uroliths. ASSESSMENT & PLAN ICD-10-CM 1. Nephrolithiasis N20.0 X-ray abdomen 1 View (KUB) X-ray abdomen 1 View (KUB) 2. Flank pain R10.9 3. Tobacco abuse Z72.0 The patient and I had a long discussion about her presenting symptoms, risks, and underlyin g causes. Management options typically include both short and penitentiary strategies. The short term options are directed at relieving current stone related symptoms and protect ing the kidney from permanent damage. These options may include Trial of Passage with Medica l Expulsive Therapy, Ureteroscopy with stone removal, Shock-wave lithotripsy or Percutaneous stone removal. We discussed that some options may be more suitable than others and that the different options may have different chances for stone free rates depending on the size, lo cation, and number of the stones. We also discussed potential infective complications. The patient will plan to observe for any of these. She understands the emergent nature of urinary tract infections with the prese nce of an obstructing stone. If these complications should arise, she will seek immediate c are. After a thorough discussion, the patient has elected to pursue right ESWL for the treatment of her stones at this time. Given the small size of these, she is aware that these may not be the source of her pain. If her pain does not improve with treatment, she may need to se ek workup for other conditions. The risks, benefits and alternatives to this procedure were discussed at length, questions were answered and informed consent was obtained. The risks include, but are not limited to: , heart attack, stroke, pneumonia, bleeding (including the possible need for transfusio n), infection and injury to surrounding structures with the need for subsequent repair/remov al. The patient and I also had a very long discussion about tobacco abuse. She understands the increased risk of various malignancies, especially bladder, ureteral, urethral, and kidney cancers. She also understands the plethora of other health problems associated with tobacco abuse including wound healing and postoperative infection risks. We discussed the need for tobacco cessation including various options for this. At this point, the patient will proceed with attempts to minimize tobacco exposure. (amita salas 3-10 minutes spent counseling the patient regarding tobacco avoidance). PLAN: 1: Proceed with right ESWL on 10/19/16. 2: Informed Consent was obtained. 3: KUB 4 weeks postop 4: smoking cessation Primary Care Physician: SHERRI BRIZUELA Thank you for allowing me to participate in the care of this patient. Roni Gomez DO 10/07/2017 documented in this encounter Miscellaneous Notes Op Note - Roni Gomez DO - 10/19/2017 8:34 AM PSTFormatting of this note might be di fferent from the original. Op Note by Roni Gomez DO at 10/19/17833 Author: Roni Gomez DO Service: Urology Author Type: Physician Filed: 10/19/1735 Date of Service: 10/19/17833 Status: Signed Brine Maker: Roni Gomez DO (Physician) [facility] Service: Urology Operative Note Pre-operative Diagnosis: nephrolithiasis Post-operative Diagnosis: Same Procedure(s): Right ESWL Surgeon: Roni Gomez DO Service Line Layer(s): TIARA Anesthesia: General LMA Estimated Blood Loss: 0 Other: Not applicable Indications: See pre-operative history and physical. Findings: Good fragmentation with 2000 impulses Complications: none Description of Procedure: After informed consent was obtain, the patient was taken to the operating room. The patient s identification, proposed surgery, laterality of the proposed surgery, allergies, and an tibiotic administration were confirmed by the surgeon, anesthesia, and the nursing staff in the operating room prior to starting the procedure. An anesthetic was administered by Anesth esia, as noted above, and the patient was appropriately positioned, and prepped in the usual fashion. After adequate analgesia and anesthesia was obtained, using the lithotriptor mach ine and fluoroscopy, the calculus was localized. Once it was localized, decision was made t o proceed forward with the shock wave lithotripsy. Shock wave lithotripsy was continued at a level one, and was gradually increased in intensity to level 7, and the renal unit was ritesh cked with the number of impulses noted above. Disposition as above. Condition: Stable Roni Gomez DO 10/19/2017 documented in this encounter Plan of Treatment Not on filedocumented as of this encounter Visit Diagnoses + + | Diagnosis | + + | Nephrolithiasis Calculus of kidney | + + | Flank pain Abdominal pain, unspecified site | + + | Tobacco abuse Tobacco use disorder | + + documented in this encounter
--- OUTSIDE RECORDS SUMMARY | ~2020-04-19 | XMS | Clinical Summary ---
Demographics + + + | Address | [address] | | | [place] [address] | + + + | Home Phone | | + + + | Preferred Language | Unknown | + + + | Marital Status | | + + + | Christianity Affiliation | NOD | + + + [...] Team Providers + +------+ + | Care Crime Scene Investigator Name | Role | Phone | + +------+ + | No Pcp Per Patient | PCP | Unavailable | + +------+ + Source Comments SHERYL is fully live on both [facility] and [facility] Allergies + + + + + [...] [facility] | | [facility]. Referred to [facility] for | | management. [...] [place] | [facility] | [phone] | | [phone] | [address] | [address] | | | PLUS | | [phone] | id | | | OPEN | | esent | | [place], [place] | | | | CARD | | | | [phone] | | + +--------+ +--------+ + +--------+ [...] | | al/Fam | | 1990 | [phone] | [place] [address] | | | kimmy | | | [...]
--- OUTSIDE RECORDS SUMMARY | ~2020-04-19 | XMS | Encounter Summary ---
Demographics + + + | Address | [address] | | | [place] [address] | + + + | Home Phone | | + + + | Preferred Language | Unknown | + + + | Marital Status | Unknown | + + + | Spiritism Affiliation | Unknown | + + + | Race | Unknown | + + + | Ethnic Group | Unknown | + + + Author + + + | Author | [facility] | | | and [place]uf[place] | + + + | Organization | [facility] | | | and [place] | + + + | Address | Unknown | + + + | Phone | Unavailable | + + + Support + + + + + | Name | Relationship | Address | Phone | + + + + + | Taz Guillen | ECON | [address] | | | | | [place], [place] | | | | | [address] | | + + + + + Care Team Providers + +------+ + | Care Crisis Intervention Specialist Name | Role | Phone | [...] | [facility] | [address] | | | | | [facility] [address] | | | | | [address] [place] | [place] [address] | | | | | [place] [address] | | | | | | [phone] | | | +--------+ + + + [...]
--- OUTSIDE RECORDS SUMMARY | ~2020-04-19 | XMS | Encounter Summary ---
Demographics + + + | Address | [address] | | | [place] [address] | + + + | Home Phone | | + + + | Preferred Language | Unknown | + + + | Marital Status | Unknown | + + + | Samaritan Affiliation | Unknown | + + + | Race | Unknown | + + + | Ethnic Group | Unknown | + + + Author + + + | Author | [facility] | | | and [place] | + + + | Organization | [facility] | | | and [place] | + + + | Address | Unknown | + + + | Phone | Unavailable | + + + Support + + + + + | Name | Relationship | Address | Phone | + + + + + | aTz Guillen | ECON | [address] | | | | | [place] | | | | | [address] | | + + + + + Care Team Providers + +------+ + | Care Radial Router Operator Name | Role | Phone | [...] Dx) | | | | [address] | [address] [place] | | | | | [place], [place] | [place] [address] | | | | | [address] | [phone] | | | | | [phone] | | | +--------+ + + + [...]
--- OUTSIDE RECORDS SUMMARY | ~2020-04-19 | XMS | Encounter Summary ---
Demographics + + + | Address | [address] | | | [place] [address] | + + + | Home Phone | | + + + | Preferred Language | Unknown | + + + | Marital Status | | + + + | Tenriism Affiliation | NOD | + + + | Race | White | + + + | Ethnic Group | Not or | + + + Author + + + | Author | [facility] | + + + | Organization | [facility] | + + + | Address | [...] Team Providers + +------+ + | Care Marine Firer Name | Role | Phone | + [...] | | | | | | [facility] | | | | | | Hospital Admitting | | | | | | Desk Located on the | | | | | | 9th floor | | | | | | [place], [place] | | | | | | [address] | | | +--------+ + + + [...]
--- OUTSIDE RECORDS SUMMARY | ~2020-04-19 | XMS | Encounter Summary ---
Demographics + + + | Address | [address] | | | [place] [address] | + + + | Home Phone | | + + + | Preferred Language | Unknown | + + + | Marital Status | | + + + | Yazidism Affiliation | NOD | + + + | Race | White | + + + | Ethnic Group | Not or | + + + Author + + + | Author | [facility] | + + + | Organization | [facility] | + + + | [...] Team Providers + +------+ + | Care Paratransit Operator Name | Role | Phone | [...] | | | Toby [facility] | [place], [place] | [place] | | | | Hospital Admitting | [address] | | | | | Desk Located on the | [phone] | | | | | 9th floor | | | | | | [place], [place] | | | | | | [address] | | | +--------+---------+ + + + [...] a 28 y.o. 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 Her medical history was notab le for history of one prior CS and tobacco use. The patient was asymtomatic and hemodynamic ally stable with a benign exam upon presentation to [facility]. The patient was counseled on aurea [...] as surgical optimization given her distance from [facility] and complex case. On 08/23/2018, she [...] To contact your provider, please call the [facility] clinic at [phone] during daytime hours. During evening or weekend hours, please call the [facility] paging label operator at [phone] and ask for the Stringing Machine Tender resident on-call. Reasons to call the doctor: [...] regular periods it can be heavier or manager infrastructure, longer or shorter than normal. This will [...] the procedure During regular business hours, call [phone] to speak to a nurse or physician. For emergencies after hours or on the weekend, call [phone] ([facility] label operator) and ask to speak to the physician integrated logistics operations manager for General Obstetrics and Gynecology. Patient Education Materials: oxycodone and ethinyl estradiol and norgestimate Additional Instructions: monitor for bleeding review of AVS, oxycodone and ethinyl estradio l and norgestimate Discharge Nurse: TAYLER CURIEL RN Date: 08/24/2018 Discharge Time: 9:37 PM AttachmentsThe following attachments cannot be sent through Care Everywhere.oxycodone ([facility])ethinyl estradiol and norgestimate ([facility])documented in this encounter Medications at Time of [...] Resident Physician, Obstetrics and Gynecology, PGY4 Pager [phone] gustina Raygoza MD - 08/24/2018 7:24 AM [...] O2 Delivery Device: None (room air) (08/23/18 6319) 24 Hour Vital Min/Max: Systolic (24hrs), Av [...] on case scheduled in [facility]. Dr. English Stringing Machine Tender 1 aware and will be the attending [...] Agustina Raygoza MD Obstetrics and Gynecology PGY-1 [id number] Associated attestation - Dale English MD - [...] [facility] | [address] | [place], [place] | | | MARGARITA STEINER OF J CARLOS | [address] | [address] | | | TESTS | | | [...] PathologistPathology, | | | | | | [facility] | | | | | | [facility] electronic | | | | | | [...] specimen. | | | | | | Plumber Maintenance sections | | | | | | [...] + + | Performing | Address | City/State/[facility] Centercode | Phone Number | | Organization | | | | + + + + + | [facility] | [address] | [place] [address] | | | PATHOLOGY | [address] | | | + + + + + DILATION AND CURETTAGE (08/24/2018 1:11 PM PST) + + + | Narrative | Performed At | + + + | Dale English MD 08/30/2018 3:03 PM OPERATIVE REPORT | | | Procedure Date: 08/24/2018 Surgeon: Dale English MD Fellow: Lavern | | | MD Rubén Heavy Forging Machine Operator: YANNI GARCIA MD,MPH R4 Prior to the [...] Surgical team, anesthesia | | | team, histology technologist, circulating nurse. Preoperative Diagnosis: 1) | [...] by LMP who was admitted to the CRAFT CENTER DIRECTOR service | | | for management of [...] 5-6 weeks | | | 850 - 14866 6-7 weeks | | | 4000 - 707410 7-12 weeks | | | 99362 - 984699 12-16 weeks | | | 11815 - 495022 16-29 | | | weeks 1400 - 72150 | | | 29-41 weeks 940 - 25818 | | | This test has not been approved for use as a tumor marker in | | | males or females. | | + + + + + + + + | Performing | Address | City/State/Zipcode | Phone Number | | Organization | | | | + + + + + | [employer] | [address] | [place] [address] | | | HORACIO ESTRADA | ARASH [...] + + + + | PRODUCT | [id number] | | [facility] | | | UNIT [...] + + + + | EXPIRATION | [id number] | | [facility] | | | DATE [...] + + + + | BLOOD | [id number] | | [facility] | | | PRODUCT [...] [facility] | [address] | [place] [address] | | | SERVICES, | [address] [...] + + + + | PRODUCT | [id number] | | [facility] | | | UNIT [...] + + + + | EXPIRATION | [id number] | | [facility] | | | DATE [...] + + + + | BLOOD | [id number] | | [facility] | | | PRODUCT [...] [facility] | [address] | [place] [address] | | | SERVICES, | [address] [...] [facility] | [address] | [place] [address] | | | SERVICES, | [address] [...] [facility] | [address] | [place] [address] | | | SERVICES, | [address] [...] + + + + + | [facility] | [address] | [place] [address] | | | SERVICES, CORE | ARASH [...] + + + + + | [facility] | [address] | [place] [address] | | | SERVICES, CORE | ARASH [...] LABORATORY | [address] | [place] [address] | | | SERVICES, CORE | P[address] [...] | + + + + + | [facility] | [address] | [place] [address] | | | SERVICES, | [address] [...] [facility] | [address] | [place] [address] | | | SERVICES, | [address] [...] 5-6 weeks | | | 850 - 69584 6-7 weeks | | | 4000 - 544694 7-12 weeks | | | 83180 - 518942 12-16 weeks | | | 93433 - 515762 16-29 | | | weeks 1400 - 75802 | | | 29-41 weeks 940 - 96993 | | | This test has not been approved for use as a tumor marker in | | | males or females. | | + + + + + + + + | Performing | Address | City/State/Zipcode | Phone Number | | Organization | | | | + + + + + | [facility] | [address] | [place] [address] | | | SERVICES, CORE | [address] [...] [facility] | [address] | [place] [address] | | | SERVICES, | [address] [...] [facility] | [address] | [place] [address] | | | SERVICES, | [address] [...] | + + + + + | [facility] | [address] | [place] [address] | | | SERVICES, CORE | [address] [...] | | | LABORATORY | | | [place] | | | SERVICES, | | | [...] + + + + + | [facility] | [address] | [place] [address] | | | SERVICES, HORACIO | ARASH [...]
--- OUTSIDE RECORDS SUMMARY | ~2020-04-19 | XMS | Encounter Summary ---
Demographics + + + | Address | [address] | | | [place] [address] | + + + | Home Phone | | + + + | Preferred Language | Unknown | + + + | Marital Status | | + + + | Islam Affiliation | NOD | + + + | Race | White | + + + | Ethnic Group | Not or | + + + Author + + + | Author | [facility] | + + + | Organization | [facility] | + + + | Address [...] Team Providers + +------+ + | Care Social Research Assistant Name | Role | Phone | [...] | [address] | MD Jeremy [address] | | | | | [address] [facility] | [facility] | | | | | Hospital Admitting | [place], [place] | | | | | Desk Located on the | [address] | | | | | 9th floor | [phone] | | | | | [place], [place] | | | | | | [address] | | | +--------+ + + + [...]
--- OUTSIDE RECORDS SUMMARY | ~2020-04-19 | XMS | Clinical Summary ---
Demographics + + + | Address | [address] | | | [place] [address] | + + + | Home Phone [...] Phone | + + +---------+ + | aHkeem Bergeron | ECON | Unknown | | + + +---------+ + | Ivy Bergeron | ECON | Unknown | | + + +---------+ + Care Team Providers + +------+ + | Care Hiv Cts Specialist Name | Role | Phone | + +------+ + | No Pcp Per Patient | PCP | Unavailable | + +------+ + Source Comments SHERYL is fully live on both [facility] Ambulatory and [facility] InPatient.[facility] Allergies + + + + + [...] [facility] | [facility]. Referred to [facility] for | | management. Patient 8wks [...] [place] | [facility] | [phone] | | [phone] | [address] | Medica | | | PLUS | | [phone] | [phone] | id | | | OPEN | | esent | | [place], [place] | | | | CARD | | | | [address] | | + +--------+ +--------+ + +--------+ [...] | | al/Fam | | 1990 | [phone] | [place] [address] | | | kimmy | | | [...]
--- OUTSIDE RECORDS SUMMARY | ~2020-04-19 | XMS | Encounter Summary ---
Demographics + + + | Address | [address] | | | [place] [address] | + + + | Home Phone | | + + + | Preferred Language | Unknown | + + + | Marital Status | Unknown | + + + | Druze Affiliation | Unknown | + + + | Race | Unknown | + + + | Ethnic Group | Unknown | + + + Author + + + | Author | [facility] | | | and [place]uf[place] | + + + | Organization | [facility] | | | and Rufinoana [...] [place], [place] | | | | | [address] | | + + + + + Care Team Providers + +------+ + | Care Lipcoat Sprayer Name | Role | Phone | + +------+ + | Brandy Barreto | PCP | | + +------+ + Encounter Details +--------+ + + + + | Date | Type | Department | Care Team | Description | +--------+ + + + + | 03/20/ | Abstract | [facility] | Provider, | | | 2020 | | NEUROSURGERY [address] | MD Wally Turner1 | | | | | [address] | Brandie CASSIDY | | | | | [place] | [place] [address] | | | | | [address] | | | | | | [phone] | | | +--------+ + + + [...]
--- OUTSIDE RECORDS SUMMARY | ~2020-04-19 | XMS | Encounter Summary ---
Demographics + + + | Address | [address] | | | [place] [address] | + + + | Home Phone | | + + + | Preferred Language | Unknown | + + + | Marital Status | Unknown | + + + | Jew Affiliation | Unknown | + + + | Race | Unknown | + + + | Ethnic Group | Unknown | + + + Author + + + | Author | [facility] | | | and Rufinoana | + + + | Organization | [facility] | | | and Rufinoana [...] [place] | | | | | [address] | | + + + + + Care Team Providers + +------+ + | Care Saloon Keeper Name | Role | Phone | + +------+ + | Brandy Barreto | PCP | | + +------+ + Encounter Details +--------+ + + + + | Date | Type | Department | Care Team | Description | +--------+ + + + + | 10/07/ | Orders Only | [facility] | Conversion | | | 2017 | | CONVERSION DEP [address] | Transaction, | | | | | [address] | Provider Unknown | | | | | [place] | [phone] | | | | | [address] | | | | | | [phone] | | | +--------+ + + + [...]
--- OUTSIDE RECORDS SUMMARY | ~2020-04-19 | XMS | Encounter Summary ---
Demographics + + + | Address | [address] | | | [place] [address] | + + + | Home Phone [...] Team Providers + +------+ + | Care Electric Scoop Operator Name | Role | Phone | [...] + + | 08/23/ | Emergency | [address] | Tommy Maier MD | | | 2018 - | | Aline Atkins | [address] | | | | | [facility] | [place]ash [place], | | | 08/25/ | | [place], [place] | [place] [address] | | | 2018 | | [address] | [phone] | | | | | [phone] | | | | | | | Lavern Montana MD | | | | | | [address] | | | | | | Arash Luis [place], | | | | | | [place] [address] | | | | | | [phone] | | | | | | | [...] HOSPITAL [facility] clinic at [phone] during daytime hours. During evening or weekend hours, please call the [facility] paging inserting press operator at [phone] and ask for the Military Cook resident on-call. Reasons to call the doctor: [...] regular periods it can be heavier or waste management engineer, longer or shorter than normal. This will [...] the procedure During regular business hours, call [phone] to speak to a nurse or physician. For emergencies after hours or on the weekend, call [phone] ([facility] inserting press operator) and ask to speak to the physician electric gas appliances demonstrator for General Obstetrics and Gynecology. Patient Education [...] Resident Physician, Obstetrics and Gynecology, PGY4 Pager [phone] Agustina Faulkner MD - 08/24/2018 7:24 AM [...] on case scheduled in SOR. Dr. English Military Cook 1 aware and will be the attending [...] Agustina Raygoza MD Obstetrics and Gynecology PGY-1 [id number] Associated attestation - Dale English MD - [...] [facility] | [address] | [place], [place] | | | MARGARITA STEINER OF CARE | [address] | [address] | | | TESTS | | | [...] PathologistPathology, | | | | | | [facility] | | | | | | [place] [facility] electronic | | | | | [...] specimen. | | | | | | Mixing Engineer sections | | | | | | [...] | | | | | determined by [facility] | | | | | | [...] + | Performing | Address | City/State/Unm [facility] Hospitalcode | Phone Number | | Organization | | | | + + + + + | [facility] | [address] | [place] [address] | | | PATHOLOGY | [address] | | | + + + + + DILATION AND CURETTAGE (08/24/2018 1:11 PM PST) + + + | Narrative | Performed At | + + + | Dale English MD 08/30/2018 3:03 PM OPERATIVE REPORT | | | Procedure Date: 08/24/2018 Surgeon: Dale English MD Fellow: Lavern | | | MD Rubén Geotechnician: YANNI GARCIA MD,MPH R4 Prior to the [...] Surgical team, anesthesia | | | team, civil drafting technician, circulating nurse. Preoperative Diagnosis: 1) | [...] by LMP who was admitted to the FUR FEEDER service | | | for management of [...] 5-6 weeks | | | 850 - 80526 6-7 weeks | | | 4000 - 990361 7-12 weeks | | | 17486 - 860549 12-16 weeks | | | 95057 - 666174 16-29 | | | weeks 1400 - 48476 | | | 29-41 weeks 940 - 84695 | | | This test has not been approved for use as a tumor marker in | | | males or females. | | + + + + + + + + | Performing | Address | City/State/Zipcode | Phone Number | | Organization | | | | + + + + + | [facility] | [address] | [place] [address] | | | SERVICES, [facility] | [address] | | | + [...] + + + + | PRODUCT | [id number] | | [facility] | | | UNIT [...] + + + + | EXPIRATION | [id number] | | [facility] | | | DATE [...] + + + + | BLOOD | [id number] | | [facility] | | | PRODUCT [...] + | [facility] | [address] | [place] [address] | | | SERVICES, | [address] [...] + + + + | PRODUCT | [id number] | | [facility] | | | UNIT [...] + + + + | EXPIRATION | [id number] | | [facility] | | | DATE [...] + + + + | BLOOD | [id number] | | [facility] | | | PRODUCT [...] [facility] | [address] | [place] [address] | | | SERVICES, | [address] [...] | + + + + + | [facility] | [address] | [place] [address] | | | SERVICES, | [address] [...] [facility] | [address] | [place] [address] | | | SERVICES, | [address] [...] | + + + + + | [facility] | [address] | [place] [address] | | | SERVICES, CORE | ARASH [...] | + + + + + | [facility] | [address] | [place] [address] | | | SERVICES, CORE | ARASH [...] [facility] | [address] | [place] [address] | | | SERVICES, CORE | ARASH [...] | + + + + + | [facility] | [address] | [place] [address] | | | SERVICES, | [address] [...] [facility] | [address] | [place] [address] | | | SERVICES, | [address] [...] 5-6 weeks | | | 850 - 52262 6-7 weeks | | | 4000 - 031413 7-12 weeks | | | 18382 - 307976 12-16 weeks | | | 48423 - 161051 16-29 | | | weeks 1400 - 28153 | | | 29-41 weeks 940 - 12121 | | | This test has not been approved for use as a tumor marker in | | | males or females. | | + + + + + + + + | Performing | Address | City/State/Zipcode | Phone Number | | Organization | | | | + + + + + | [facility] | [address] | [place] [address] | | | SERVICES, CORE | [address] [...] [facility] | [address] | [place] [address] | | | SERVICES, | [address] [...] [facility] | [address] | [place] [address] | | | SERVICES, | [address] [...] [facility] | [address] | [place] [address] | | | SERVICES, CORE | ARASH [...] | | | LABORATORY | | | LEB[place] | | | SERVICES, | | | [...] | + + + + + | [facility] | [address] | [place] [address] | | | SERVICES, HORACIO | [address] [...]
--- OUTSIDE RECORDS SUMMARY | ~2020-04-19 | XMS | Encounter Summary ---
Demographics + + + | Address | [address] | | | [place] [address] | + + + | Home Phone [...] + + + | Author | [facility] | + + + | Organization | [facility] | + + + | [...] Team Providers + +------+ + | Care Wind Turbine Erector Name | Role | Phone | + [...] Pharmacy | | | | | | [address] | | | | | | [place], [place] | | | | | | [address] | | | | | | [phone] | | | +--------+ + + + [...]
--- OUTSIDE RECORDS SUMMARY | ~2020-04-19 | XMS | Encounter Summary ---
Demographics + + + | Address | [address] | | | [place] [address] | + + + | Home Phone | | + + + | Preferred Language | Unknown | + + + | Marital Status | Unknown | + + + | Baptist Affiliation | Unknown | + + + | Race | Unknown | + + + | Ethnic Group | Unknown | + + + Author + + + | Author | [facility] | | | and [place]ufinoana | + + + | Organization | [facility] | | | and [place]uf[place] | + + + | Address | Unknown | + + + | Phone | Unavailable | + + + Support + + + + + | Name | Relationship | Address | Phone | + + + + + | Taz Guillen | ECON | [address] | | | | | [place] | | | | | [address] | | + + + + + Care Team Providers + +------+ + | Care Emt B Name | Role | Phone | + +------+ + | Campbell Garcia | PCP | | + +------+ + Encounter Details +--------+ + + + + | Date | Type | Department | Care Team | Description | +--------+ + + + + | 11/20/ | Orders Only | [facility] | Josh, | | | 2010 | | [facility] | Abdelrahman Sequeira MD [address] | | | | | CLINICAL LABORATORY | Alexandrea Andrade, | | | | | [address] | [place] [address] | | | | | [place], [place] | [phone] | | | | | [address] | | | | | | [phone] | | | +--------+ + + + [...] | Testing performed at | | | [facility];[place] [address] CULTURE | | | NO GROUP B STREP ISOLATED | | | Testing performed at [facility], [address] | | | [place] [address] REPORT STATUS | | | 11/23/2010 FINAL [...]
--- OUTSIDE RECORDS SUMMARY | ~2020-04-19 | XMS | Encounter Summary ---
Demographics + + + | Address | [address] | | | [place] [address] | + + + | Home Phone | | + + + | Preferred Language | Unknown | + + + | Marital Status | Unknown | + + + | Bahai Affiliation | Unknown | + + + | Race | Unknown | + + + | Ethnic Group | Unknown | + + + Author + + + | Author | [facility] | | | and Rufinoana | + + + | Organization | [facility] | | | and [place] | + + + | Address | Unknown | + + + | Phone | Unavailable | + + + Support + + + + + | Name | Relationship | Address | Phone | + + + + + | Taz Guillen | ECON | [address] | | | | | [facility] [place] | | | | | [address] | | + + + + + Care Team Providers + +------+ + | Care Break Out Man Name | Role | Phone | + +------+ + PCP | Unavailable | + +------+ + Encounter Details +--------+ + + + + | Date | Type | Department | Care Team | Description | +--------+ + + + + | 10/13/ | Hospital | [facility] | Conversion | | | 2018 | Encounter | [facility] | Transaction, | | | | | CLINIC [address] | Provider Unknown | | | | | [place], [place] | | | | | | [address] | (Fax) | | | | | [phone] | | | +--------+ + + + [...]
--- OUTSIDE RECORDS SUMMARY | ~2020-04-19 | XMS | Clinical Summary ---
Demographics + + + | Address | [address] | | | [place] [address] | + + + | Home Phone | | + + + | Preferred Language | Unknown | + + + | Marital Status | Unknown | + + + | Jain Affiliation | Unknown | + + + | Race | Unknown | + + + | Ethnic Group | Unknown | + + + Author + + + | Author | [facility] | | | and Rufinoana | + + + | Organization | [facility] | | | and Rufinoana [...] [place] | | | | | [address] | | + + + + + Care Team Providers + +------+ + | Care Reweaver Name | Role | Phone | + [...] Management | | 2020 | on | | PA-C | (inital encounter) | +--------+ + + + + | 03/20/ | Abstract | Neurosurgery | Brenda, | | | 2019 | | | MD Yue | | +--------+ + + + + | 03/18/ | Orders Only | Neurosurgery | Feliciano Mcmullen, | Lumbar spondylosis | | 2019 | | | PA-C | (Primary Dx) | +--------+ + + + + | 03/08/ | Imaging | Radiology | Brenda, | | | 2019 | Exam | | MD Yue | | +--------+ [...] | [employer] | [facility] | [id number] | | [phone] | | [facility]ica | [...] | Self | [birth year] | [address] | | [address] | al/Fam | | 1990 | [phone] | [place] [address] | | | kimmy | | | 6 (Home) | | + +--------+ +--------+ + + Advance Directives + + + + + | Type | Date Recorded | Patient | Explanation | | | | Natural Sciences Professor | | + + + + + | Power of | | | | | Senior Quality Control Technician | | | | + + + + + | Advance | | | | | Directive | | | | + + + + +
--- OUTSIDE RECORDS SUMMARY | ~2020-04-19 | XMS | Encounter Summary ---
Demographics + + + | Address | [address] | | | [place] [address] | + + + | Home Phone | | + + + | Preferred Language | Unknown | + + + | Marital Status | Unknown | + + + | Catholic Affiliation | Unknown | + + + | Race | Unknown | + + + | Ethnic Group | Unknown | + + + Author + + + | Author | [facility] | | | and Rufinoana | + + + | Organization | [facility] | | | and Rufinoana | + + + | Address | Unknown | + + + | Phone | Unavailable | + + + Support + + + + + | Name | Relationship | Address | Phone | + + + + + | Taz Guillen | ECON | [address] | | | | | [facility], [place] | | | | | [address] | | + + + + + Care Team Providers + +------+ + | Care Acquisition Advisor Name | Role | Phone | + +------+ + PCP | Unavailable | + +------+ + Encounter Details +--------+ + + + + | Date | Type | Department | Care Team | Description | +--------+ + + + + | 11/15/ | Hospital | [facility] | Josh, | Mild or unspecified | | 2010 - | Encounter | [facility] | Yao Sequeira MD 5908 | pre-eclampsia, with | | | | AND DELIVERY [address] | [facility], | delivery | | 11/23/ | | [address] | [place] [address] | | | 2010 | | [place], [place] | [phone] | | | | | [address] | | | | | | [phone] | | | +--------+ + + + [...] Performed At | + + + | [facility] [address] Ph: | | | Patient Name: KAREN ALVARADO Date of : | | | 1990 Medical Record: [id number] Account: [id number] | | | Exam Date/Time: 11/15/2010 13:55 Ordering | | | Physician: YAO GUTIERREZ Order Detail: [id number] Exam | | [...] scans were performed with | | | banking representative static images obtained. FINDINGS: Twin gestation [...] | + + | Hunter Hernández - 06/03/2019 5:06 PM PDT | | [facility] | | [facility] [address] | | | | | | Patient Name: KAREN ALVARADO | | Date of : 1990 | | Medical Record: [id number] | | Account: [id number] | | | | | | Exam Date/Time: 11/15/2010 13:55 | | Ordering Physician: YAO GUTIERREZ | | Order Detail: [id number] | [...] evaluation. Multiple realtime scans were performed with banking representative | | static images obtained. | [...]
--- OUTSIDE RECORDS SUMMARY | ~2020-04-19 | XMS | Encounter Summary ---
Demographics + + + | Address | [address] | | | [place] [address] | + + + | Home Phone [...] + + + | Author | [facility] | | | and Rufinoana | + + + | Organization | [facility] | | | and Rufinoana [...] [place] | | | | | [address] | | + + + + + Care Team Providers + +------+ + | Care Oil Field Equipment Mechanic Supervisor Name | Role | Phone | [...] Provider Unknown | | | | | [address] | [phone] | | | | | [phone] | | | +--------+ + + + [...]
--- OUTSIDE RECORDS SUMMARY | ~2020-04-19 | XMS | Encounter Summary ---
Demographics + + + | Address | [address] | | | [place] [address] | + + + | Home Phone | | + + + | Preferred Language | Unknown | + + + | Marital Status | | + + + | Episcopalian Affiliation | NOD | + + + [...] Team Providers + +------+ + | Care Cigarette Making Examiner Name | Role | Phone | [...] | | | | | | [facility] | | | | | | Hospital Admitting | | | | | | Desk Located on the | | | | | | 9th floor | | | | | | [place], [place] | | | | | | [address] | | | +--------+ + + + [...]
--- OUTSIDE RECORDS SUMMARY | ~2020-04-19 | XMS | Encounter Summary ---
Demographics + + + | Address | [address] | | | [place] [address] | + + + | Home Phone | | + + + | Preferred Language | Unknown | + + + | Marital Status | Unknown | + + + | Christian Affiliation | Unknown | + + + | Race | Unknown | + + + | Ethnic Group | Unknown | + + + Author + + + | Author | [facility] | | | and Rufinoana | + + + | Organization | [facility] | | | and [...] [place] | | | | | [address] | | + + + + + Care Team Providers + +------+ + | Care Parts Control Clerk Name | Role | Phone | + +------+ + PCP | Unavailable | + +------+ + Encounter Details +--------+ + + + + | Date | Type | Department | Care Team | Description | +--------+ + + + + | 10/06/ | Hospital | [facility] | Conversion | Hydronephrosis, | | 2016 | Encounter | [facility] | Transaction, | unspecified | | | | [address] | Provider Unknown | hydronephrosis type | | | | [address] | [phone] | | | | | [place], [place] | | | | | | [address] | Campbell Garcia | | | | | [phone] | ERICK Benjamin [address] | | | | | | [facility] | | | | | | [place] [address] | | | | | | [phone] | | | | | | | [...] Hunter Hernández Conversion - 05/25/2019 10:54 AM PDT KAREN MIRAMONTES1990US KIDNEYS | | AND NNTEURX8910/06/2017 4:20 PM HISTORY: Right flank pain COMPARISON: [...]
[~2020-04-19 16:29] MED LIST changes: +AMOXICILLIN500 MG PO; +PROMETHAZINE12.5 M1 PO
--- OUTSIDE RECORDS SUMMARY | 2020-04-19 16:32 | XMS ---
PreManage Notification: LULÚ HERNANDEZ Security Manager Of Transportation Events No recent Security Events currently on file CRITERIA MET - [facility] - [facility] - 2 Visits in 30 Days CARE PROVIDERS ALE LENNON Physician Manager Therapy 12/26/2018-Current PHONE: [phone] KIMBERLY HALEY Chiropractor 10/31/2019-Current PHONE: [phone] Radha has no Care Guidelines for this patient. Care History Medical/Surgical 03/27/2020 [facility] PATIENT HAS AN APT WITH DR MELODY LEBLANC- 04/01/2020 [facility] VISIT COUNT (12 MO.) 8 [facility] TOTAL 8 NOTE: Visits indicate total known visits. ED/UCC VISIT TRACKING (12 MO.) 04/19/2020 16:30 [facility] [place] TYPE: Emergency COMPLAINT: - CHEST PAIN 03/26/2020 21:29 [facility] [place] TYPE: Emergency COMPLAINT: - VAGINAL BLEEDING DIAGNOSES: - Smoking (tobacco) complicating , first trimester - Allergy status to other antibiotic agents status - Nicotine dependence, unspecified, uncomplicated - Hemorrhage in early , unspecified - Threatened - Latex allergy status - Allergy status to sulfonamides status 03/13/2020 22:16 [facility] [place] TYPE: Emergency COMPLAINT: - DIZZINESS/HEADACHE DIAGNOSES: - Headache - Allergy status to penicillin - Other specified diseases and conditions complicating pregnanc - [facility] [place] [facility] drug therapy - Nicotine dependence, unspecified, uncomplicated - Latex allergy status - Allergy status to analgesic agent status - Less than 8 weeks gestation of - Allergy status to sulfonamides status - Smoking (tobacco) complicating , first trimester 10/30/2019 15:29 [facility] [place] TYPE: Emergency COMPLAINT: - R SHOULDER PAIN DIAGNOSES: - Other [place] [facility] ([facility] drug therapy - Allergy status to [...] than 8 weeks gestation of - Other terminologist (current) drug therapy - Nicotine dependence, unspecified, [...] uterine and vaginal bleeding, unspecified - Other [place] [facility] drug therapy 07/03/2019 09:20 [facility] [place] TYPE: Emergency COMPLAINT: - CHEST PAIN, SOB DIAGNOSES: - Personal history of urinary calculi - Other chest pain - Latex allergy status - Acute bronchospasm - Allergy status to penicillin - Other [place] [facility] drug therapy - Allergy status to sulfonamides status - Allergy status to other antibiotic agents status - Nicotine dependence, unspecified, uncomplicated 04/21/2019 22:36 [facility] [place] TYPE: Emergency COMPLAINT: - NECK PAIN DIAGNOSES: - Cervicalgia - Latex allergy status - Personal history of urinary calculi - Other terminologist (current) drug therapy - Allergy status to penicillin - Acquired absence of other specified parts of digestive tract - Allergy status to other antibiotic agents status - Allergy status to sulfonamides status - Nicotine dependence, unspecified, uncomplicated INPATIENT VISIT TRACKING (12 MO.) No inpatient visits to display in this time frame [email or web address]
--- NOTE | 2020-04-20 09:14 | EKG ---
[facility] [address] [facility] [place] [address] Signed Normal sinus rhythm with sinus arrhythmia RSR' or QR pattern in V1 suggests right ventricular conduction delay Nonspecific ST abnormality Abnormal ECG When compared with ECG of 03-JUL-2019 09:24, No significant change was found Confirmed by BROOKLYNN ROMAN MD ([id number]) on 04/20/2020 9:13:51 AM Electronically Signed By: BROOKLYNN ROMAN MD 04/20/20 0914 PATIENT NAME: DAVIDLULÚKIMBERLY GUALLPA Electrocardiogram DATE OF : [birth year] PHYSICIAN: BROOKLYNN ROMAN MD REPORT #: [id number] REPORT IS CONFIDENTIAL AND NOT TO BE RELEASED WITHOUT AUTHORIZATION
== END 2020-04-19 20:55 | disposition home or self-care (01) ==
LOC: ED 16:29
DX: O99.89 Other specified diseases and conditions complicating pregnancy, childbirth and the puerperium (principal); R10.13 Epigastric pain; Z3A.11 11 weeks gestation of pregnancy; O99.331 Smoking (tobacco) complicating pregnancy, first trimester; F17.200 Nicotine dependence, unspecified, uncomplicated; Z91.040 Latex allergy status; Z88.1 Allergy status to other antibiotic agents; Z88.8 Allergy status to other drugs, medicaments and biological substances; Z79.899 Other long term (current) drug therapy
CPT/HCPCS: 76801; 80053; 81001; 83690; 85025; 93005; 93010; 99285-25

== ENCOUNTER 2020-05-27 03:25 | Emergency (ER) | payer OTHER ==
[~2020-05-27] VITALS: Ht 154.9 cm; Wt 65.8 kg
--- OUTSIDE RECORDS SUMMARY | ~2020-05-27 | XMS | Clinical Summary ---
Demographics + + + | Address | [address] | | | [place] [address] | + + + | Home Phone | | + + + | Preferred Language | Unknown | + + + | Marital Status | | + + + | Roman Catholic Affiliation | NOD | + + + | Race | White | + + + | Ethnic Group | Not or | + + + Author + + + | Author | [facility] | + + + | Organization | [facility] | + + + | Address | Unknown | + + + | Phone | Unavailable | + + + Support + + +---------+ + | Name | Relationship | Address | Phone | + + +---------+ + | Hakeem Bergeron | ECON | Unknown | | + + +---------+ + | Ivy Bergeron | ECON | Unknown | | + + +---------+ + Care Team Providers + +------+ + | Care Cash Checker Name | Role | Phone | + +------+ + | No Pcp Per Patient | PCP | Unavailable | + +------+ + Source Comments SHERYL is fully live on both [facility] and [facility] Allergies + + + + + + | Active Allergy | Reactions | Severity | Noted | Comments | | | | | Date | | + + + + + + | Latex | Throat Swelling / | | 08/23/20 | | | | Closing | | 18 | | + + + + + + | Sulfamethoxazole-Tri | Hives | | 11/13/20 | | | methoprim | | | 18 | | + + + + + + Medications + + + +---------+------+------+-------+ | Medication | Sig | Dispensed | Refills | Star | End | Statu | | | | | | t | Date | s | | | | | | Date | | | + + + +---------+------+------+-------+ | vitamins | Take 1 tablet by | | 0 | | | Activ | | (with calcium) | mouth once daily. | | | | | e | | iron-folic acid 27 | | | | | | | | mg iron- 1 mg oral | | | | | | | | tablet | | | | | | | + + + +---------+------+------+-------+ | ascorbic acid | Take 250 mg by mouth | | 0 | | | Activ | | (vitamin C) 250 mg | two times daily. | | | | | e | | oral tablet | | | | | | | + + + +---------+------+------+-------+ | | Take 1 tablet by | 168 | 0 | 11/1 | | Activ | | norgestimate-ethinyl | mouth once daily. | tablet | | 4/20 | | e | | estradiol 0.25-35 | | | | 18 | | | | mg-mcg oral tablet | | | | | | | + + + +---------+------+------+-------+ | ibuprofen 600 mg | Take 1 tablet by | 90 | 0 | 11/1 | | Activ | | oral tablet | mouth every six | tablet | | 4/20 | | e | | | hours as needed. | | | 18 | | | + + + +---------+------+------+-------+ | docusate sodium | Take 1 capsule by | 60 | 0 | 11/1 | | Activ | | (COLACE) 100 mg oral | mouth two times | capsule | | 4/20 | | e | | capsule | daily. | | | 18 | | | + + + +---------+------+------+-------+ Active Problems + + + | Problem | Noted Date | + + + | Ectopic | 08/23/2018 | + + + + + | Overview: 08/23/18 scar ectopic [facility] | | [facility] to [facility] for | | management. Patient 8wks by LMP but only small gs with no | | pole noted. | + + + + + | Ectopic , unspecified location, unspecified whether | 08/23/2018 | | intrauterine present | | + + + Social History + +-------+ +--------+------+ | Tobacco Use | Types | Packs/Day | Years | Date | | | | | Used | | + +-------+ +--------+------+ | Current Every Day | | | | | | Smoker | | | | | + +-------+ +--------+------+ + +---+---+---+ | Smokeless Tobacco: | | | | | Never Used | | | | + +---+---+---+ + + +---------+ + | Alcohol Use | Drinks/Week | oz/Week | Comments | + + +---------+ + | No | | | | + + +---------+ + + + [...] recent travel history available. | + + Last Filed Vital Signs + + + + + | Vital Sign | Reading | Time Taken | Comments | + + + + + | Blood Pressure | 106/57 | 08/25/2018 4:09 AM | | | | | PST | | + + + + + | Pulse | 91 | 08/25/2018 4:09 AM | | | | | PST | | + + + + + | Temperature | 36.8 C (98.2 F) | 08/25/2018 4:09 AM | | | | | PST | | + + + + + | Respiratory Rate | 14 | 08/25/2018 4:09 AM | | | | | PST | | + + + + + | Oxygen Saturation | 96% | 08/25/2018 4:09 AM | | | | | PST | | + + + + + | Inhaled Oxygen | - | - | | | Concentration | | | | + + + + + | Weight | 70.8 kg (156 lb) | 08/23/2018 4:16 PM | | | | | PST | | + + + + + | Height | 157.5 cm (5' 2") | 08/23/2018 4:16 PM | | | | | PST | | + + + + + | Body Mass Index | 28.53 | 08/23/2018 4:16 PM | | | | | PST | | + + + + + Plan of Treatment + + + + + | Health Maintenance | Due Date | Last Done | Comments | + + + + + | Pneumococcal | | | | | vaccination (1 of 1 | 6 | | | | - PPSV23) | | | | + + + + + | Influenza (Flu) | | | | | vaccination (#1) | 9 | | | + + + + + Results Not on filefrom Last 3 Months Insurance + +--------+ +--------+ + +--------+ | Payer | Benefi | Subscriber | Effect | Phone | Address | Type | | | t Plan | ID | radha | | | | | | / | | Dates | | | | | | Group | | | | | | + +--------+ +--------+ + +--------+ | [place] | OHP | xxxxxxxx | | [phone] | [address] | [address] | | | PLUS | | [phone] | id | | | OPEN | | esent | | [place], [place] | | | | CARD | | | | [phone] | | + +--------+ +--------+ + +--------+ + +--------+ +--------+ + + | Guarantor Name | Accoun | Relation to | Date | Phone | Billing Address | | | t Type | Patient | of | | | | | | | | | | + +--------+ +--------+ + + | MiramontesKaren vargas | Person | Self [birth year] | [address] | | | al/Fam | | 1990 | [phone] | [place] [address] | | | kimmy | | | 6 (Home) | | + +--------+ +--------+ + + Advance Directives + + + + + | Code Status | Date | Date | Comments | | | Activated | Inactivated | | + + + + + | Full Code | 08/24/2018 | 08/25/2018 | | | | 6:15 PM | 1:13 PM | | + + + + + + + + +---+ | | | | | + + + +---+ | Full Code | 08/23/2018 | 08/24/2018 | | | | 7:24 PM | 6:08 PM | | + + + +---+
--- OUTSIDE RECORDS SUMMARY | ~2020-05-27 | XMS | Encounter Summary ---
Demographics + + + | Address | [address] | | | [place] [address] | + + + | Home Phone | | + + + | Preferred Language | Unknown | + + + | Marital Status | Unknown | + + + | Lutheran Affiliation | Unknown | + + + | Race | White | + + + | Ethnic Group | Not or | + + + Author + + + | Author | [facility] | | | and [place]ufinoana | + + + | Organization | [facility] | | | and [place] | + + + | Address | Unknown | + + + | Phone | Unavailable | + + + Support + + + + + | Name | Relationship | Address | Phone | + + + + + | Taz ANGELO | [address] | | | | | [place] | | | | | [address] | | + + + + + Care Team Providers + +------+ + | Care Chauffeur Name | Role | Phone | + +------+ + | Brandy Barreto | PCP | | + +------+ + Encounter Details +--------+ + + + + | Date | Type | Department | Care Team | Description | +--------+ + + + + | 03/20/ | Abstract | [facility] | Provider, | | | 2020 | | [address] | [address] | | | | | [address] | [place] | | | | | [place], [place] | [place] [address] | | | | | [address] | | | | | | [phone] | | | +--------+ + + + + Social History + + + +--------+------+ | Tobacco Use | Types | Packs/Day | Years | Date | | | | | Used | | + + + +--------+------+ | Current Every Day | Cigarettes | 0.5 | 15 | | | Smoker | | | | | + + + +--------+------+ + +------+---+ + | Smokeless Tobacco: | Chew | | Quit: | | Former User | | | 06/23/20 | | | | | 18 | + +------+---+ + + + +---------+ + | Alcohol Use | Drinks/Week | oz/Week | Comments | + + +---------+ + | Yes | | | Rarely | + + +---------+ + + + + | Sex Assigned at | Date Recorded | | | | + + + | Not on file | | + + + documented as of this encounter Plan of Treatment Not on filedocumented as of this encounter Visit Diagnoses Not on filedocumented in this encounter"
--- OUTSIDE RECORDS SUMMARY | ~2020-05-27 | XMS | Encounter Summary ---
Demographics + + + | Address | [address] | | | [place] [address] | + + + | Home Phone | | + + + | Preferred Language | Unknown | + + + | Marital Status | | + + + | Denominational Affiliation | NOD | + + + | Race | White | + + + | Ethnic Group | Not or | + + + Author + + + | Author | [facility] | + + + | Organization | [facility] | + + + | Address | [...] Team Providers + +------+ + | Care Head Start Teacher Name | Role | Phone | [...] | | | | | | [facility] | | | | | | Hospital Admitting | | | | | | Desk Located on the | | | | | | 9th floor | | | | | | [place], [place] | | | | | | [address] | | | +--------+ + + + [...]
--- OUTSIDE RECORDS SUMMARY | ~2020-05-27 | XMS | Encounter Summary ---
Demographics + + + | Address | [address] | | | [place] [address] | + + + | Home Phone | | + + + | Preferred Language | Unknown | + + + | Marital Status | | + + + | Mu-Ism Affiliation | NOD | + + + | Race | White | + + + | Ethnic Group | Not or | + + + Author + + + | Author | [facility] | + + + | Organization | [facility] | + + + | Address [...] Providers + +------+ + | Care Head Usher Name | Role | Phone | + [...] Pharmacy | | | | | | [address] | | | | | | [place], [place] | | | | | | [address] | | | | | | [phone] | | | +--------+ + + + [...]
--- OUTSIDE RECORDS SUMMARY | ~2020-05-27 | XMS | Encounter Summary ---
Demographics + + + | Address | [address] | | | [place] [address] | + + + | Home Phone | | + + + | Preferred Language | Unknown | + + + | Marital Status | Unknown | + + + | Taoism Affiliation | Unknown | + + + | Race | White | + + + | Ethnic Group | Not or | + + + Author + + + | Author | [facility] | | | and [place] | + + + | Organization | [facility] | | | and [place] | + + + | Address | Unknown | + + + | Phone | Unavailable | + + + Support + + + + + | Name | Relationship | Address | Phone | + + + + + | Taz ANGELO | [address] | | | | | [place] | | | | | [address] | | + + + + + Care Team Providers + +------+ + | Care Print Color Operator Name | Role | Phone | + +------+ + | Brandy Barreto | PCP | | + +------+ + Encounter Details +--------+ + + + + | Date | Type | Department | Care Team | Description | +--------+ + + + + | 03/18/ | Orders Only | [facility] | Feliciano Mcmullen, | Lumbar spondylosis | | 2020 | | NEUROSURGERY [address] | PA-C [address] | (Primary Dx) | | | | [address] | [address] [place] | | | | | [place], [place] | [place] [address] | | | | | [address] | [phone] | | | | | [phone] | | | +--------+ + + + [...] as of this encounter Plan of Treatment + +---------+--------+ + + | Name | Type | Priori | Associated Diagnoses | Order Schedule | | | | ty | | | + +---------+--------+ + + | XR Lumbar Spine 2 or | Imaging | Routin | Lumbar spondylosis | Expected: | | 3 Vw | | e | | 03/25/2020, Expires: | | | | | | 03/18/2021 | + +---------+--------+ + + documented as of this encounter Visit Diagnoses + + | Diagnosis | + + | Lumbar spondylosis - Primary Lumbosacral spondylosis without myelopathy | + + documented in this encounter"
--- OUTSIDE RECORDS SUMMARY | ~2020-05-27 | XMS | Encounter Summary ---
Demographics + + + | Address | [address] | | | [place] [address] | + + + | Home Phone | | + + + | Preferred Language | Unknown | + + + | Marital Status | | + + + | Anabaptist Affiliation | NOD | + + + | Race | White | + + + | Ethnic Group | Not or | + + + Author + + + | Author | [facility] | + + + | Organization | [facility] | + + + | Address [...] Team Providers + +------+ + | Care Loader Semiconductor Dies Name | Role | Phone | + [...] Pharmacy | | | | | | [address] | | | | | | [address] [place], [place] | | | | | | [address] | | | | | | [phone] | | | +--------+ + + + [...]
--- OUTSIDE RECORDS SUMMARY | ~2020-05-27 | XMS | Encounter Summary ---
Demographics + + + | Address | [address] | | | [place] [address] | + + + | Home Phone | | + + + | Preferred Language | Unknown | + + + | Marital Status | Unknown | + + + | Jewish Affiliation | Unknown | + + + | Race | White | + + + | Ethnic Group | Not or | + + + Author + + + | Author | [facility] | | | and [place] | + + + | Organization | [facility] | | | and [place] | + + + | Address | Unknown | + + + | Phone | Unavailable | + + + Support + + + + + | Name | Relationship | Address | Phone | + + + + + | Taz ANGELO | [address] | | | | | [place], [place] | | | | | [address] | | + + + + + Care Team Providers + +------+ + | Care Cavity Pump Operator Name | Role | Phone | + +------+ + PCP | Unavailable | + +------+ + Encounter Details +--------+ + + + + | Date | Type | Department | Care Team | Description | +--------+ + + + + | 10/06/ | Hospital | [facility] | Conversion | Hydronephrosis, | | 2017 | Encounter | [facility] | Transaction, | unspecified | | | | ULTRASOUND [address] | Provider Unknown | hydronephrosis type | | | | [address] | [phone] | | | | | [place], [place] | | | | | | [address] | Campbell Garcia | | | | | [phone] | ERICK Benjamin [address] | | | | | | [facility] | | | | | | [place] [address] | | | | | | [phone] | | | | | | | [...] | + +--------+ + + + | US RENAL LIMITED | Routin | 10/06/2017 | | Results for this | | | e | 4:20 PM | | procedure are in the | | | | PST | | results section. | + +--------+ + + + documented in this encounter Results US Renal Limited (10/06/2017 4:20 PM PST) + + | Specimen | + + | | + + + + + | Impressions | Performed At | + + + | 1. No sonographic evidence of hydronephrosis. Electronically | | | signed by Robert Padilla MD on 10/06/2017 4:23 PM | | + + + + + + | Narrative | Performed At | + + + | KAREN MIRAMONTES 1990 US KIDNEYS AND BLADDER 10/06/2017 | | | 4:20 PM HISTORY: Right flank pain COMPARISON: None. | | | TECHNIQUE: Transabdominal ultrasound of the kidneys and bladder, | | | grayscale and color flow evaluation. FINDINGS: The right kidney | | | demonstrates a normal reniform contour. Normal cortical thickness and | | | echogenicity is noted measuring 10.1 x 4.3 x 5.3 cm. There is no | | | hydronephrosis. The left kidney measures 10.6 x 5.4 x 5.9 cm. | | | Normal vascularity is noted with no hydronephrosis present. The | | | bladder measures 11.4 x 7.0 x 9.9 cm with a prevoid volume of 416 mL. | | | Bilateral ureteral jets are documented. There is complete evacuation | | | of the bladder. | | + + + + + | Procedure Note | + + | Edgar, Rad Conversion - 05/25/2019 10:54 AM PDT KAREN LOMAXAgnes1990US KIDNEYS | | AND TSCOGZI8710/06/2017 4:20 PM HISTORY: Right flank pain COMPARISON: None. TECHNIQUE: | | Transabdominal ultrasound of the kidneys and bladder, grayscale and color flow | | evaluation. FINDINGS: The right kidney demonstrates a normal reniform contour. Normal | | cortical thickness and echogenicity is noted measuring 10.1 x 4.3 x 5.3 cm. There is no | | hydronephrosis. The left kidney measures 10.6 x 5.4 x 5.9 cm. Normal vascularity is | | noted with no hydronephrosis present. The bladder measures 11.4 x 7.0 x 9.9 cm with a | | prevoid volume of 416 mL. Bilateral ureteral jets are documented. There is complete | | evacuation of the bladder. IMPRESSION: 1. No sonographic evidence of hydronephrosis. | | | | | |FINDINGS: The right kidney demonstrates a normal reniform contour. Normal cortical thicknes s and echogenicity is noted measuring 10.1 x 4.3 x 5.3 cm. There is no hydronephrosis. | | | |The left kidney measures 10.6 x 5.4 x 5.9 cm. Normal vascularity is noted with no hydroneph rosis present. | | | |The bladder measures 11.4 x 7.0 x 9.9 cm with a prevoid volume of 416 mL. Bilateral uretera l jets are documented. There is complete evacuation of the bladder. | | | |IMPRESSION: | |1. No sonographic evidence of hydronephrosis. | | | | | + + documented in this encounter Visit Diagnoses + + | Diagnosis | + + | Hydronephrosis, unspecified hydronephrosis type | + + documented in this encounter"
--- OUTSIDE RECORDS SUMMARY | ~2020-05-27 | XMS | Encounter Summary ---
Demographics + + + | Address | [address] | | | [place] [address] | + + + | Home Phone | | + + + | Preferred Language | Unknown | + + + | Marital Status | Unknown | + + + | Nondenominational Affiliation | Unknown | + + + | Race | White | + + + | Ethnic Group | Not or | + + + Author + + + | Author | [facility] | | | and [place] | + + + | Organization | [facility] | | | and [place] | + + + | Address | Unknown | + + + | Phone | Unavailable | + + + Support + + + + + | Name | Relationship | Address | Phone | + + + + + | Taz ANGELO | [address] | | | | | [place] | | | | | [address] | | + + + + + Care Team Providers + +------+ + | Care Oil Well Services Superintendent Name | Role | Phone | + +------+ + | Brandy Barreto | PCP | | + +------+ + Encounter Details +--------+ + + + + | Date | Type | Department | Care Team | Description | +--------+ + + + + | 10/19/ | Orders Only | [facility] | Roni Gomez, | | | 2018 | | UROLOGY [address] | DO [address] | | | | | [address] | [place] [address] | | | | | [place], [place] | [phone] | | | | | [address] | | | | | | [phone] | | | +--------+ + + + [...]
--- OUTSIDE RECORDS SUMMARY | ~2020-05-27 | XMS | Encounter Summary ---
Demographics + + + | Address | [address] | | | [place] [address] | + + + | Home Phone | | + + + | Preferred Language | Unknown | + + + | Marital Status | | + + + | Islam Affiliation | NOD | + + + | Race | White | + + + | Ethnic Group | Not or | + + + Author + + + | Author | [facility] | + + + | Organization | [facility] | + + + | [...] Team Providers + +------+ + | Care Bobtail Driver Name | Role | Phone | + [...] | | | | | | Toby [facility] | | | | | | Hospital Admitting | | | | | | Desk Located on the | | | | | | 9th floor | | | | | | [place], [place] | | | | | | [address] | | | +--------+ + + + [...]
--- OUTSIDE RECORDS SUMMARY | ~2020-05-27 | XMS | Encounter Summary ---
Demographics + + + | Address | [address] | | | [place] [address] | + + + | Home Phone | | + + + | Preferred Language | Unknown | + + + | Marital Status | Unknown | + + + | Muslim Affiliation | Unknown | + + + | Race | White | + + + | Ethnic Group | Not or | + + + Author + + + | Author | [facility] | | | and [place] | + + + | Organization | [facility] | | | and [place] | + + + | Address | Unknown | + + + | Phone | Unavailable | + + + Support + + + + + | Name | Relationship | Address | Phone | + + + + + | Taz ANGELO | [address] | | | | | [place] | | | | | [address] | | + + + + + Care Team Providers + +------+ + | Care Gis Consultant Name | Role | Phone | + +------+ + | Brandy Barreto | PCP | | + +------+ + Encounter Details +--------+ + + + + | Date | Type | Department | Care Team | Description | +--------+ + + + + | 03/08/ | Imaging | [facility]A [facility]AUHAN | Provider, | | | 2019 | Exam | [facility] | MD [address] | | | | | IMAGING [address] | | | | | [address] | [place] [address] | | | | | [place] [address] | | | | | | [phone] | | | +--------+ + + + [...]
--- OUTSIDE RECORDS SUMMARY | ~2020-05-27 | XMS | Clinical Summary ---
Demographics + + + | Address | [address] | | | [place] [address] | + + + | Home Phone | | + + + | Preferred Language | Unknown | + + + | Marital Status | | + + + | Yarsanism Affiliation | NOD | + + + [...] Team Providers + +------+ + | Care Bridge Worker Apprentice Name | Role | Phone | + +------+ + | No Pcp Per Patient | PCP | Unavailable | + +------+ + Source Comments SHERYL is fully live on both [facility] and [facility] InPatient.[facility] Allergies + + + + [...] [facility]. Referred to [facility] for | | management. Patient 8wks by [...] [place] | [facility] | [phone] | | [phone] | [address] | [address] | | | PLUS | | [phone] | [phone] | id | | | OPEN | | esent | | [place], [place] | | | | CARD | | | | [address] | | + +--------+ +--------+ + +--------+ [...] | | al/Fam | | 1990 | [phone] | [place] [address] | | | kimmy | | | [...]
--- OUTSIDE RECORDS SUMMARY | ~2020-05-27 | XMS | Encounter Summary ---
Demographics + + + | Address | [address] | | | [place] [address] | + + + | Home Phone [...] + + + | Author | [facility] | + + + | Organization | [facility] | + + + | [...] Team Providers + +------+ + | Care Solar Electric/Photovoltaic Installer Name | Role | Phone | + [...] | [address] Atkins | MD Jeremy [address] | | | | | [address] [facility] | [facility] | | | | | Hospital Admitting | [place], [place] | | | | | Desk Located on the | [address] | | | | | 9th floor | [phone] | | | | | [place], [place] | | | | | | [address] | | | +--------+ + + + [...]
--- OUTSIDE RECORDS SUMMARY | ~2020-05-27 | XMS | Encounter Summary ---
Demographics + + + | Address | [address] | | | [place] [address] | + + + | Home Phone | | + + + | Preferred Language | Unknown | + + + | Marital Status | Unknown | + + + | Druze Affiliation | Unknown | + + + | Race | White | + + + | Ethnic Group | Not or | + + + Author + + + | Author | [facility] | | | and [place] | + + + | Organization | [facility] | | | and [place] | + + + | Address | Unknown | + + + | Phone | Unavailable | + + + Support + + + + + | Name | Relationship | Address | Phone | + + + + + | Taz ANGELO | [address] | | | | | [place] | | | | | [address] | | + + + + + Care Team Providers + +------+ + | Care Separator Operator Name | Role | Phone | + +------+ + | Brandy Barreto | PCP | | + +------+ + Reason for Visit + + + | Reason | Comments | + + + | Pain Management | inital encounter | + + + Encounter Details +--------+ + + + + | Date | Type | Department | Care Team | Description | +--------+ + + + + | 04/02/ | Documentati | [facility] | Feliciano Mcmullen, | Pain Management | | 2020 | on | NEUROSURGERY [address] | PA-C [address] | (inital encounter) | | | | [address] | [address] | | | | | [place], [place] | [facility] [place] [address] | | | | | [address] | [phone] | | | | | [phone] | | | +--------+ + + + [...] documented as of this encounter Progress Notes Nadine Irwin CMA - 04/02/2020 7:26 AM PDT The following information was obtained from https://secureaccess.[place].gov/myAccess/saw/select .do on 04/02/20. [facility] PROJECT DESIGN ENGINEER was checked on 04/02/20 and no pain medications have been dispens ed in the last 3 months. documented in this e ncounter Plan of Treatment Not on filedocumented as of this encounter Visit Diagnoses Not on filedocumented in this encounter"
--- OUTSIDE RECORDS SUMMARY | ~2020-05-27 | XMS | Encounter Summary ---
Demographics + + + | Address | [address] | | | [place] [address] | + + + | Home Phone | | + + + | Preferred Language | Unknown | + + + | Marital Status | | + + + | Anglican Affiliation | NOD | + + + | Race | White | + + + | Ethnic Group | Not or | + + + Author + + + | Author | [facility] | + + + | Organization | [facility] | + + + | Address [...] Providers + +------+ + | Care Industrial Sociologist Name | Role | Phone | + [...] | | | Toby Lyman | [place], [place] | [address] | | | | Hospital Admitting | [address] | | | | | Desk Located on the | [phone] | | | | | 9th floor | | | | | | [place], [place] | | | | | | [address] | | | +--------+---------+ + + + [...] a 28 y.o. 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 Her medical history was notab le for history of one prior CS and tobacco use. The patient was asymtomatic and hemodynamic ally stable with a benign exam upon presentation to [facility]. The patient was counseled on aurea [...] as surgical optimization given her distance from [facility] and complex case. On 08/23/2018, she [...] To contact your provider, please call the [facility] clinic at [phone] during daytime hours. During evening or weekend hours, please call the [facility] paging profiling machine setup operator at [phone] and ask for the Focused Factory Manager resident on-call. Reasons to call the doctor: [...] regular periods it can be heavier or faculty member, longer or shorter than normal. This will [...] the procedure During regular business hours, call [phone] to speak to a nurse or physician. For emergencies after hours or on the weekend, call [phone] ([facility] profiling machine setup operator) and ask to speak to the physician telephone solicitor for General Obstetrics and Gynecology. Patient Education Materials: oxycodone and ethinyl estradiol and norgestimate Additional Instructions: monitor for bleeding review of AVS, oxycodone and ethinyl estradio l and norgestimate Discharge Nurse: TAYLER CURIEL RN Date: 08/24/2018 Discharge Time: 9:37 PM AttachmentsThe following attachments cannot be sent through Care Everywhere.oxycodone ([facility])ethinyl estradiol and norgestimate (Arabic)documented in this encounter Medications at Time of [...] Resident Physician, Obstetrics and Gynecology, PGY4 Pager [phone] gustina Raygoza MD - 08/24/2018 7:24 AM [...] O2 Delivery Device: None (room air) (08/23/18 7949) 24 Hour Vital Min/Max: Systolic (24hrs), Av [...] on case scheduled in [facility]. Dr. English Focused Factory Manager 1 aware and will be the attending [...] Agustina Raygoza MD Obstetrics and Gynecology PGY-1 [id number] Associated attestation - Dale English MD - [...] SUKHWINDER | [address] | [place], [place] | | | MARGARITA STENIER OF J CARLOS | [address] | [address] | | | TESTS | | | [...] PathologistPathology, | | | | | | [facility] | | | | | | [facility] electronic | | | | | | [...] specimen. | | | | | | And Rescue Fire Fighter Crash Fire sections | | | | | | [...] | + + + + + | [facility] | [address] | [place] [address] | | | PATHOLOGY | [address] | | | + + + + + DILATION AND CURETTAGE (08/24/2018 1:11 PM PST) + + + | Narrative | Performed At | + + + | Dale English MD 08/30/2018 3:03 PM OPERATIVE REPORT | | | Procedure Date: 08/24/2018 Surgeon: Dale English MD Fellow: Lavern | | | MD Rubén Physical Laboratory Assistant: YANNI GARCIA MD,MPH R4 Prior to the [...] Surgical team, anesthesia | | | team, collection technician, circulating nurse. Preoperative Diagnosis: 1) | [...] by LMP who was admitted to the PRESS OPERATOR AUTOMATIC service | | | for management of [...] 5-6 weeks | | | 850 - 45026 6-7 weeks | | | 4000 - 059913 7-12 weeks | | | 14572 - 387276 12-16 weeks | | | 57573 - 294566 16-29 | | | weeks 1400 - 01915 | | | 29-41 weeks 940 - 30047 | | | This test has not been approved for use as a tumor marker in | | | males or females. | | + + + + + + + + | Performing | Address | City/State/Zipcode | Phone Number | | Organization | | | | + + + + + | [employer] | [address] | [place] [address] | | | [address] | ARASH [...] + + + + | PRODUCT | [id number] | | [facility] | | | UNIT [...] + + + + | EXPIRATION | [id number] | | [facility] | | | DATE [...] + + + + | BLOOD | [id number] | | [facility] | | | PRODUCT [...] [facility] | [address] | [place] [address] | | | SERVICES, | [address] [...] + + + + | PRODUCT | [id number] | | [facility] | | | UNIT [...] + + + + | EXPIRATION | [id number] | | [facility] | | | DATE [...] + + + + | BLOOD | [id number] | | [facility] | | | PRODUCT [...] [facility] | [address] | [place] [address] | | | SERVICES, | [address] [...] [facility] | [address] | [place] [address] | | | SERVICES, | [address] [...] [facility] | [address] | [place] [address] | | | SERVICES, | [address] [...] | + + + + + | [facility] | [address] | [place] [address] | | | SERVICES, CORE | ARASH [...] | + + + + + | [facility] | [address] | [place] [address] | | | SERVICES, CORE | ARASH [...] LABORATORY | [address] | [place] [address] | | | SERVICES, CORE | [address] [...] | + + + + + | [facility] [employer] | [address] | [place] [address] | | | SERVICES, | [address] [...] [facility] | [address] | [place] [address] | | | SERVICES, | [address] [...] 5-6 weeks | | | 850 - 69615 6-7 weeks | | | 4000 - 520000 7-12 weeks | | | 07469 - 779451 12-16 weeks | | | 77031 - 024902 16-29 | | | weeks 1400 - 66135 | | | 29-41 weeks 940 - 99219 | | | This test has not been approved for use as a tumor marker in | | | males or females. | | + + + + + + + + | Performing | Address | City/State/Zipcode | Phone Number | | Organization | | | | + + + + + | [facility] | [address] | [place] [address] | | | SERVICES, CORE | [address] [...] [facility] | [address] | [place] [address] | | | SERVICES, | [address] [...] [facility] | [address] | [place] [address] | | | SERVICES, | [address] [...] | + + + + + | [facility] | [address] | [place] [address] | | | SERVICES, CORE | [address] [...] | | | LABORATORY | | | NAURUAN | | | SERVICES, | | | [...] | + + + + + | [facility] | [address] | [place] [address] | | | SERVICES, HORACIO | ARASH [...]
--- OUTSIDE RECORDS SUMMARY | ~2020-05-27 | XMS | Encounter Summary ---
Demographics + + + | Address | [address] | | | [place] [address] | + + + | Home Phone | | + + + | Preferred Language | Unknown | + + + | Marital Status | | + + + | Orthodox Affiliation | NOD | + + + | Race | White | + + + | Ethnic Group | Not or | + + + Author + + + | Author | [facility] | + + + | Organization | [facility] | + + + | Address [...] Team Providers + +------+ + | Care Oracle Database Analyst Name | Role | Phone | [...] [address] | | | | | [address] [facility] | [facility] | | | | | Hospital Admitting | [place], [place] | | | | | Desk Located on the | [address] | | | | | 9th floor | [phone] | | | | | [place], [place] | | | | | | [address] | | | +--------+ + + + [...]
--- OUTSIDE RECORDS SUMMARY | ~2020-05-27 | XMS | Encounter Summary ---
Demographics + + + | Address | [address] | | | [place] [address] | + + + | Home Phone | | + + + | Preferred Language | Unknown | + + + | Marital Status | Unknown | + + + | Buddhist Affiliation | Unknown | + + + | Race | White | + + + | Ethnic Group | Not or | + + + Author + + + | Author | [facility] | | | and [place] | + + + | Organization | [facility] | | | and [place] | + + + | Address | Unknown | + + + | Phone | Unavailable | + + + Support + + + + + | Name | Relationship | Address | Phone | + + + + + | Taz ANGELO | [address] | | | | | [place] | | | | | [address] | | + + + + + Care Team Providers + +------+ + | Care Vocational Adviser Name | Role | Phone | + +------+ + PCP | Unavailable | + +------+ + Encounter Details +--------+ + + + + | Date | Type | Department | Care Team | Description | +--------+ + + + + | 10/19/ | Hospital | [facility] | Roni Gomez, | Nephrolithiasis; | | 2018 | Encounter | [facility] | DO [address] | Flank pain; | | | | [address] | [place] [address] | Tobacco abuse | | | | [place], [place] | [phone] | | | | | [address] | | | | | | [phone] | | | +--------+ + + + [...] Date of Service: 10/19/17 1000 Status: Signed Civil Manager: Ana Lilia Whitney RN (Registered Nurse) Discharge [...] 10/19/17718 Date of Service: 10/19/17718 Status: Signed Civil Manager: Roni Gomez DO (Physician) [facility] Service: Urology Pre-Operative History & Physical Interval [...] Physician Filed: 10/07/17 1222 Date of Service: 10/07/17 0815 Status: Signed Civil Manager: Roni Gomez DO (Physician) [facility] Primary Care Provider: SHERRI BRIZUELA History [...] normal. DATA IMAGING US kidneys and bladder [[id number]] 10/06/17 Status: Final result Study Result KAREN [...] of hydronephrosis. X-ray abdomen 1 View (KUB) [[id number]] Status: Final result Study Result KAREN MIRAMONTES [...] Management options typically include both short and meterman strategies. The short term options are directed [...] H&P (View-Only) by Roni Gomez DO at 10/07/1715 Author: Roni Gomez DO Service: (none) Author Type: Physician Filed: 10/07/17 1222 Date of Service: 10/07/17814 Status: Signed Civil Manager: Roni Gomez DO (Physician) [facility] Primary Care Provider: SHERRI BRIZUELA History [...] normal. DATA IMAGING US kidneys and bladder [[id number]] 10/06/17 Status: Final result Study Result KAREN Sanchez MIRAMONTES 1990 US KIDNEYS AND BLADDER 10/06/2017 [...] of hydronephrosis. X-ray abdomen 1 View (KUB) [[id number]] Status: Final result Study Result KAREN MIRAMONTES [...] Management options typically include both short and meterman strategies. The short term options are directed [...] nature of urinary tract infections with the [facility] of an obstructing stone. If these complications [...] with attempts to minimize tobacco exposure. (amita n 3-10 minutes spent counseling the patient regarding [...] DO Service: Urology Author Type: Physician Filed: 10/19/17 0835 Date of Service: 10/19/17833 Status: Signed Civil Manager: Roni Gomez DO (Physician) [facility] Service: Urology Operative Note Pre-operative Diagnosis: nephrolithiasis Post-operative Diagnosis: Same Procedure(s): Right ESWL Surgeon: Roni Gomez DO Jewelry Salesperson(s): TIARA Anesthesia: General LMA Estimated Blood Loss: [...]
--- OUTSIDE RECORDS SUMMARY | ~2020-05-27 | XMS | Encounter Summary ---
Demographics + + + | Address | [address] | | | [place] [address] | + + + | Home Phone | | + + + | Preferred Language | Unknown | + + + | Marital Status | Unknown | + + + | Episcopal Affiliation | Unknown | + + + | Race | White | + + + | Ethnic Group | Not or | + + + Author + + + | Author | [facility] | | | and [place] | + + + | Organization | [facility] | | | and [place] | + + + | Address | Unknown | + + + | Phone | Unavailable | + + + Support + + + + + | Name | Relationship | Address | Phone | + + + + + | Taz ANGELO | [address] | | | | | [place] | | | | | [address] | | + + + + + Care Team Providers + +------+ + | Care Hand Stripper Name | Role | Phone | + +------+ + PCP | Unavailable | + +------+ + Encounter Details +--------+ + + + + | Date | Type | Department | Care Team | Description | +--------+ + + + + | 06/02/ | Orders Only | [facility] | Conversion | | | 2016 | | [address] | Transaction, | | | | | [address] | Provider Unknown | | | | | [address] | [phone] | | | | | [phone] | | | +--------+ + + + [...]
--- OUTSIDE RECORDS SUMMARY | ~2020-05-27 | XMS | Clinical Summary ---
Demographics + + + | Address | [address] | | | [place] [address] | + + + | Home Phone | | + + + | Preferred Language | Unknown | + + + | Marital Status | Unknown | + + + | Mosque Affiliation | Unknown | + + + | Race | White | + + + | Ethnic Group | Not or | + + + Author + + + | Author | [facility] | | | and [place] | + + + | Organization | [facility] | | | and [place] | + + + | Address | Unknown | + + + | Phone | Unavailable | + + + Support + + + + + | Name | Relationship | Address | Phone | + + + + + | Taz ANGELO | [address] | | | | | [place] | | | | | [address] | | + + + + + Care Team Providers + +------+ + | Care Supervisor Benzene Refining Name | Role | Phone | + +------+ + | Brandy Barreto | PCP | | + +------+ + Allergies + + + + + + | Active Allergy | Reactions | Severity | Noted | Comments | | | | | Date | | + + + + + + | Amoxicillin | Other (See Comments) | | | Yeast Infection | + + + + + + | Latex | Anaphylaxis, Hives, | High | 01/10/20 | Angioedema (facial | | | Swelling, Rash | | 14 | swelling), Throat | | | | | | Swelling / Closing | + + + + + + | Sulfamethoxazole-Tri | Anaphylaxis, Hives | High | 01/10/20 | | | methoprim | | | 14 | | + + + + + + | Bupropion | Nausea Only | | | | + + + + + + Medications + + + +---------+------+------+-------+ | Medication | Sig | Dispensed | Refills | Star | End | Statu | | | | | | t | Date | s | | | | | | Date | | | + + + +---------+------+------+-------+ | | Take 10 mg by mouth | | 0 | 04/2 | | Activ | | amphetamine-dextroam | Daily. | | | 2/20 | | e | | phetamine (ADDERALL | | | | 20 | | | | XR) 10 mg 24 hr | | | | | | | | capsule | | | | | | | + + + +---------+------+------+-------+ | albuterol 90 | Inhale 2 puffs into | | 0 | 10/0 | | Activ | | mcg/puff inhaler | the lungs EVERY 4 TO | | | 1/20 | | e | | | 6 HOURS NEEDED. | | | 19 | | | + + + +---------+------+------+-------+ | busPIRone (BUSPAR) | Take 7.5 mg by mouth | | 0 | | | Activ | | 7.5 MG tablet | 2 times daily. | | | | | e | + + + +---------+------+------+-------+ | MV & Min | Chew and swallow 1 | | 0 | | | Activ | | w/FA-DHA ([facility] | tablet Daily. | | | | | e | | GUMMY) | | | | | | | | 0.4-25 MG CHEW | | | | | | | + + + +---------+------+------+-------+ | diclofenac | Take 50 mg by mouth | | 0 | 04/2 | | Activ | | (CATAFLAM) 50 MG | 3 times daily as | | | 2/20 | | e | | tablet | needed for Pain. | | | 20 | | | + + + +---------+------+------+-------+ | cyclobenzaprine | Take 10 mg by mouth | | 0 | 04/2 | | Activ | | (FLEXERIL) 10 mg | 3 times daily as | | | 2/20 | | e | | tablet | needed for Pain or | | | 20 | | | | | Muscle spasms. | | | | | | + + + +---------+------+------+-------+ Active Problems + + + | Problem | Noted Date | + + + | Nephrolithiasis | 10/07/2017 | + + + | Flank pain | 10/07/2017 | + + + | Tobacco abuse | 10/07/2017 | + + + Encounters +--------+ + + + + | Date | Type | Specialty | Care Team | Description | +--------+ + + + + | 04/02/ | Documentati | Neurosurgery | Feliciano Mcmullen, | Pain Management | | 2019 | on | | PA-C | (inital encounter) | +--------+ + + + + | 03/20/ | Abstract | Neurosurgery | Provider, | | | 2019 | | | MD Yue | | +--------+ + + + + | 03/18/ | Orders Only | Neurosurgery | Feliciano Mcmullen, | Lumbar spondylosis | | 2019 | | | PA-C | (Primary Dx) | +--------+ + + + + from Last 3 Months Family History + + +---------+ + | Medical History | Relation | Name | Comments | + + +---------+ + | No known problems | Daughter | Zahra | | + + +---------+ + | No known problems | Daughter | Peyten | | + + +---------+ + | Diabetes, NIDDM | Father | Hakeem | | | | | Elyssa | | + + +---------+ + | Kidney disease | Father | Hakeem | | | | | Elyssa | | + + +---------+ + | Alcohol abuse | Maternal | | | | | Grandfath | | | | | er | | | + + +---------+ + | Sudden | Maternal | | Suicide | | | Grandfath | | | | | er | | | + + +---------+ + | Ovarian cancer | Maternal | | | | | Grandmoth | | | | | er | | | + + +---------+ + | No known problems | Mother | Ivy | | | | | Elyssa | | + + +---------+ + | Esophageal cancer | Paternal | | Throat | | | Grandfath | | | | | er | | | + + +---------+ + | Tobacco Use | Paternal | | | | | Grandfath | | | | | er | | | + + +---------+ + | COPD | Paternal | | | | | Grandmoth | | | | | er | | | + + +---------+ + | Lung cancer | Paternal | | | | | Grandmoth | | | | | er | | | + + +---------+ + | Breast cancer | Neg Hx | | | + + +---------+ + | Malig hypertherm | Neg Hx | | | + + +---------+ + + +---------+--------+ + | Relation | Name | Status | Comments | + +---------+--------+ + | Daughter | Zahra | Alive | Twin | + +---------+--------+ + | Daughter | Peyten | Alive | Twin | + +---------+--------+ + | Father | Hakeem | | | | | Elyssa | | | + +---------+--------+ + | Maternal Grandfather | | | | + +---------+--------+ + | Maternal Grandmother | | | | + +---------+--------+ + | Mother | Ivy | Alive | | | | Elyssa | | | + +---------+--------+ + | Paternal Grandfather | | | | + +---------+--------+ + | Paternal Grandmother | | | | + +---------+--------+ + Social History + + + +--------+------+ [...] | Blood Pressure | 118/64 | 11/25/2017 3:16 PM | | | | | PST | | + + + + + | Pulse | 144 | 11/25/2017 3:16 PM | | | | | PST | | + + + + + | Temperature | 36.8 C (98.3 F) | 10/19/2017 10:06 AM | | | | | PST | | + + + + + | Respiratory Rate | 29 | 10/19/2017 10:06 AM | | | | | PST | | + + + + + | Oxygen Saturation | - | - | | + + + + + | Inhaled Oxygen | - | - | | | Concentration | | | | + + + + + | Weight | 70.8 kg (156 lb) | 11/25/2017 3:16 PM | | | | | PST | | + + + + + | Height | 157.5 cm (5' 2") | 11/25/2017 3:16 PM | | | | | PST | | + + + + + | Body Mass Index | 28.53 | 11/25/2017 3:16 PM | | | | | PST | | + + + + + Plan of Treatment + + + + + | Health Maintenance | Due Date | Last | Comments | | | | Done | | + + + + + | Vaccine: | | | | | Dtap/Tdap/Td (1 - | 9 | | | | Tdap) | | | | + + + + + | Cervical Cancer | | | | | Screening (Pap) | 0 | | | + + + + + | Vaccine: Influenza | | 08/09/20 | | | (#1) | 0 | 19 | | + + + + + Results Not on filefrom Last 3 Months Insurance + +--------+ +--------+ +---------+--------+ | Payer | Benefi | Subscriber | Effect | Phone | Address | Type | | | t Plan | ID | radha | | | | | | / | | Dates | | | | | | Group | | | | | | + +--------+ +--------+ +---------+--------+ | [employer] | [employer] | [id number] | | [phone] | | Medica | | MEDICAID HMO | HEALTH | | 020-Pr | 1 | | id | | | MDCD | | esent | | | | | [place] | | | | | | + +--------+ +--------+ +---------+--------+ + +--------+ +--------+ + + | Guarantor Name | Accoun | Relation to | Date | Phone | Billing Address | | | t Type | Patient | of | | | | | | | | | | + +--------+ +--------+ + + | Karen Miramontes | Person | Self | [birth year] | [address] | | [place] | al/Fam | | 1990 | [phone] | [place] [address] | | | kimmy | | | 6 (Home) | | + +--------+ +--------+ + + Advance Directives + + + + + | Type | Date Recorded | Patient | Explanation | | | | Milk And Cream Grader | | + + + + + | Power of | | | | | Research Test Engine Operator | | | | + + + + + | Advance | | | | | Directive | | | | + + + + +
--- OUTSIDE RECORDS SUMMARY | ~2020-05-27 | XMS | Encounter Summary ---
Demographics + + + | Address | [address] | | | [place] [address] | + + + | Home Phone | | + + + | Preferred Language | Unknown | + + + | Marital Status | | + + + | Congregational Affiliation | NOD | + + + [...] Providers + +------+ + | Care Manager Mall Name | Role | Phone | + [...] | | | [facility] | [place], [place] | [address] | | | | Hospital Admitting | [address] | | | | | Desk Located on the | [phone] | | | | | 9th floor | | | | | | [place], [place] | | | | | | [address] | | | +--------+---------+ + + + [...] a 28 y.o. 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 Her medical history was notab le for history of one prior CS and tobacco use. The patient was asymtomatic and hemodynamic ally stable with a benign exam upon presentation to [facility]. The patient was counseled on aurea [...] as surgical optimization given her distance from [facility] and complex case. On 08/23/2018, she [...] To contact your provider, please call the [facility] clinic at [phone] during daytime hours. During evening or weekend hours, please call the [facility] paging scrap drop crane operator at [phone] and ask for the Lieutenant Fire Fighter resident on-call. Reasons to call the doctor: [...] regular periods it can be heavier or professor of journalism, longer or shorter than normal. This will [...] the procedure During regular business hours, call [phone] to speak to a nurse or physician. For emergencies after hours or on the weekend, call [phone] ([facility] scrap drop crane operator) and ask to speak to the physician special education assistant for General Obstetrics and Gynecology. Patient Education Materials: oxycodone and ethinyl estradiol and norgestimate Additional Instructions: monitor for bleeding review of AVS, oxycodone and ethinyl estradio l and norgestimate Discharge Nurse: TAYLER CURIEL RN Date: 08/24/2018 Discharge Time: 9:37 PM AttachmentsThe following attachments cannot be sent through Care Everywhere.oxycodone ([facility])ethinyl estradiol and norgestimate (German)documented in this encounter Medications at Time of [...] Resident Physician, Obstetrics and Gynecology, PGY4 Pager [phone] gustina Raygoza MD - 08/24/2018 7:24 AM [...] O2 Delivery Device: None (room air) (08/23/18 1169) 24 Hour Vital Min/Max: Systolic (24hrs), Av [...] on case scheduled in [facility]. Dr. English Lieutenant Fire Fighter 1 aware and will be the attending [...] Agustina Raygoza MD Obstetrics and Gynecology PGY-1 [id number] Associated attestation - Dale English MD - [...] [facility] | [address] | [place], [place] | | | MARGARITA STEINER OF [facility] CAR[address] | [address] | [address] | | | TESTS | | | [...] | | [facility] Includes [facility] | | | | | | [facility] electronic | | | | [...] specimen. | | | | | | Wool Dyer sections | | | | | | [...] + + | Performing | Address | City/State/[facility] | Phone Number | | Organization | | | | + + + + + | [facility] | [address] | [place] [address] | | | PATHOLOGY | [address] | | | + + + + + DILATION AND CURETTAGE (08/24/2018 1:11 PM PST) + + + | Narrative | Performed At | + + + | Dale English MD 08/30/2018 3:03 PM OPERATIVE REPORT | | | Procedure Date: 08/24/2018 Surgeon: Dale English MD Fellow: Lavern | | | MD [employer] Top Helper: YANNI GARCIA MD,MPH R4 Prior to the [...] Surgical team, anesthesia | | | team, echocardiography tech, circulating nurse. Preoperative Diagnosis: 1) | [...] by LMP who was admitted to the CABIN MAN service | | | for management of [...] 5-6 weeks | | | 850 - 71852 6-7 weeks | | | 4000 - 226279 7-12 weeks | | | 73045 - 962955 12-16 weeks | | | 80514 - 333562 16-29 | | | weeks 1400 - 54551 | | | 29-41 weeks 940 - 41615 | | | This test has not been approved for use as a tumor marker in | | | males or females. | | + + + + + + + + | Performing | Address | City/State/Zipcode | Phone Number | | Organization | | | | + + + + + | [facility] | [address] | [place] [address] | | | [address] | [address] [...] + + + + | PRODUCT | [id number] | | [facility] | | | UNIT [...] + + + + | EXPIRATION | [id number] | | [facility] | | | DATE [...] + + + + | BLOOD | [id number] | | [facility] | | | PRODUCT [...] [facility] | [address] | [place] [address] | | | SERVICES, | [address] [...] + + + + | PRODUCT | [id number] | | [facility] | | | UNIT [...] + + + + | EXPIRATION | [id number] | | [facility] | | | DATE [...] + + + + | BLOOD | [id number] | | [facility] | | | PRODUCT [...] [facility] | [address] | [place] [address] | | | SERVICES, | [address] [...] [facility] | [address] | [place] [address] | | | SERVICES, | [address] [...] [facility] | [address] | [place] [address] | | | SERVICES, | [address] [...] | + + + + + | [facility] | [address] | [place] [address] | | | SERVICES, CORE | ARASH [...] | + + + + + | [facility] | [address] | [place] [address] | | | SERVICES, CORE | ARASH [...] LABORATORY | [address] | [place] [address] | | | SERVICES, CORE | [address] [...] | + + + + + | [facility] | [address] | [place] [address] | | | SERVICES, | [address] [...] [facility] | [address] | [place] [address] | | | SERVICES, | [address] [...] 5-6 weeks | | | 850 - 27748 6-7 weeks | | | 4000 - 252190 7-12 weeks | | | 67731 - 245227 12-16 weeks | | | 51608 - 564523 16-29 | | | weeks 1400 - 96653 | | | 29-41 weeks 940 - 52028 | | | This test has not been approved for use as a tumor marker in | | | males or females. | | + + + + + + + + | Performing | Address | City/State/Zipcode | Phone Number | | Organization | | | | + + + + + | [facility] | [address] | [place] [address] | | | SERVICES, CORE | [address] [...] [facility] | [address] | [place] [address] | | | SERVICES, | [address] [...] [facility] | [address] | [place] [address] | | | SERVICES, | [address] [...] | + + + + + | [facility] | [address] | [place] [address] | | | SERVICES, CORE | [address] [...] | | | LABORATORY | | | SYRIAN | | | SERVICES, | | | [...] | + + + + + | [facility] | [address] | [place] [address] | | | SERVICES, HORACIO | [address] [...]
--- OUTSIDE RECORDS SUMMARY | ~2020-05-27 | XMS | Encounter Summary ---
Demographics + + + | Address | [address] | | | [place] [address] | + + + | Home Phone | | + + + | Preferred Language | Unknown | + + + | Marital Status | Unknown | + + + | Rastafarian Affiliation | Unknown | + + + | Race | White | + + + | Ethnic Group | Not or | + + + Author + + + | Author | [facility] | | | and [place] | + + + | Organization | [facility] | | | and [place] | + + + | Address | Unknown | + + + | Phone | Unavailable | + + + Support + + + + + | Name | Relationship | Address | Phone | + + + + + | Taz ANGELO | [address] | | | | | [place] | | | | | [address] | | + + + + + Care Team Providers + +------+ + | Care Certified Pharmacy Tech Name | Role | Phone | + +------+ + PCP | Unavailable | + +------+ + Encounter Details +--------+ + + + + | Date | Type | Department | Care Team | Description | +--------+ + + + + | 10/13/ | Hospital | [facility] | Conversion | | | 2018 | Encounter | [facility] | Transaction, | | | | | CLINIC [address] | Provider Unknown | | | | | [place], [place] | [phone] | | | | | [address] | | | | | | [phone] | | | +--------+ + + + [...]
--- OUTSIDE RECORDS SUMMARY | ~2020-05-27 | XMS | Encounter Summary ---
Demographics + + + | Address | [address] | | | [place] [address] | + + + | Home Phone [...] Author | [facility] | + + + | Organization | [facility] | + + + | Address | [...] Team Providers + +------+ + | Care Adjunct Psychology Professor Name | Role | Phone | + [...] + + | 08/23/ | Emergency | [address] | Tommy Maier MD | | | 2018 - | | Aline [facility] | [address] | | | | | [facility] | [address] [place], | | | 08/25/ | | [place], [place] | [place] [address] | | | 2018 | | [address] | [phone] | | | | | [phone] | | | | | | | Lavern Montana MD | | | | | | [address] | | | | | | [place]ash [place], | | | | | | [place] [address] | | | | | | [phone] | | | | | | | [...] a 28 y.o. 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 Her medical history was notab le for history of one prior CS and tobacco use. The patient was asymtomatic and hemodynamic ally stable with a benign exam upon presentation to [facility]. The patient was counseled on aurea gement [...] as surgical optimization given her distance from [facility] and complex case. On 08/23/2018, she underwent [...] To contact your provider, please call the [facility] Center [facility] Women's [facility] clinic at [phone] during daytime hours. During evening or weekend hours, please call the [facility] paging wastewater treatment operator at [phone] and ask for the Dredge Deckhand resident on-call. Reasons to call the doctor: [...] regular periods it can be heavier or cinetechnician, longer or shorter than normal. This will [...] the procedure During regular business hours, call [phone] to speak to a nurse or physician. For emergencies after hours or on the weekend, call [phone] ([facility] wastewater treatment operator) and ask to speak to the physician production control expediter for General Obstetrics and Gynecology. Patient Education Materials: oxycodone and ethinyl estradiol and norgestimate Additional Instructions: monitor for bleeding review of AVS, oxycodone and ethinyl estradio l and norgestimate Discharge Nurse: TAYLER CURIEL RN Date: 08/24/2018 Discharge Time: 9:37 PM AttachmentsThe following attachments cannot be sent through Care Everywhere.oxycodone (Engl priscila)ethinyl estradiol and norgestimate ([place] Islander)documented in this encounter Medications at Time of [...] Resident Physician, Obstetrics and Gynecology, PGY4 Pager [phone] Agustina Faulkner MD - 08/24/2018 7:24 AM [...] on case scheduled in S[facility]. Dr. English Dredge Deckhand 1 aware and will be the attending [...] Agustina Raygoza MD Obstetrics and Gynecology PGY-1 [id number] Associated attestation - Dale English MD - [...] [facility] | [address] | [place], [place] | | | MARGARITA SETINER OF CARE | [address] | [address] | | | TESTS | | | [...] PathologistPathology, | | | | | | [facility] | | | | | | [place] My electronic | | | | | [...] specimen. | | | | | | Molding Machine Operator Helper sections | | | | | | [...] | | | | | determined by [facility] | | | | | | laboratories. [...] + + | Performing | Address | City/State/[facility] Cent[facility] | Phone Number | | Organization | | | | + + + + + | [facility] | [address] | [place] [address] | | | PATHOLOGY | [address] | | | + + + + + DILATION AND CURETTAGE (08/24/2018 1:11 PM PST) + + + | Narrative | Performed At | + + + | Dale English MD 08/30/2018 3:03 PM OPERATIVE REPORT | | | Procedure Date: 08/24/2018 Surgeon: Dale English MD Fellow: Lavern | | | MD Rubén Release Coordinator: YANNI GARCIA MD,MPH R4 Prior to the [...] Surgical team, anesthesia | | | team, cardio tech, circulating nurse. Preoperative Diagnosis: 1) | [...] by LMP who was admitted to the MACHINE BRUSHER service | | | for management of [...] 5-6 weeks | | | 850 - 29792 6-7 weeks | | | 4000 - 378933 7-12 weeks | | | 95239 - 731427 12-16 weeks | | | 69697 - 427916 16-29 | | | weeks 1400 - 80971 | | | 29-41 weeks 940 - 13929 | | | This test has not been approved for use as a tumor marker in | | | males or females. | | + + + + + + + + | Performing | Address | City/State/Zipcode | Phone Number | | Organization | | | | + + + + + | [facility] | [address] | [place] [address] | | | SERVICES, [facility] | [address] | | | + [...] + + + + | PRODUCT | [id number] | | [facility] | | | UNIT [...] + + + + | EXPIRATION | [id number] | | [facility] | | | DATE [...] + + + + | BLOOD | [id number] | | [facility] | | | PRODUCT [...] + | [facility] | [address] | [place] [address] | | | SERVICES, | [address] [...] + + + + | PRODUCT | [id number] | | [facility] | | | UNIT [...] + + + + | EXPIRATION | [id number] | | [facility] | | | DATE [...] + + + + | BLOOD | [id number] | | [facility] | | | PRODUCT [...] [facility] | [address] | [place] [address] | | | SERVICES, | [address] [...] | + + + + + | [facility] | [address] | [place] [address] | | | SERVICES, | [address] [...] [facility] | [address] | [place] [address] | | | SERVICES, | [address] [...] | + + + + + | [facility] | [address] | [place] [address] | | | SERVICES, CORE | ARASH [...] | + + + + + | [facility] | [address] | [place] [address] | | | SERVICES, CORE | ARASH [...] [facility] | [address] | [place] [address] | | | SERVICES, CORE | ARASH [...] | + + + + + | [facility] | [address] | [place] [address] | | | SERVICES, | [address] [...] [facility] | [address] | [place] [address] | | | SERVICES, | [address] [...] 5-6 weeks | | | 850 - 91231 6-7 weeks | | | 4000 - 039463 7-12 weeks | | | 50325 - 113906 12-16 weeks | | | 68391 - 535277 16-29 | | | weeks 1400 - 27200 | | | 29-41 weeks 940 - 53557 | | | This test has not been approved for use as a tumor marker in | | | males or females. | | + + + + + + + + | Performing | Address | City/State/Zipcode | Phone Number | | Organization | | | | + + + + + | [facility] | [address] | [place] [address] | | | SERVICES, CORE | [address] [...] [facility] | [address] | [place] [address] | | | SERVICES, | [address] [...] [facility] | [address] | [place] [address] | | | SERVICES, | [address] [...] [facility] | [address] | [place] [address] | | | SERVICES, CORE | ARASH [...] | | | LABORATORY | | | HONDURAN | | | SERVICES, | | | [...] | + + + + + | [facility] | [address] | [place] [address] | | | SERVICES, HORACIO | [address] [...]
--- OUTSIDE RECORDS SUMMARY | ~2020-05-27 | XMS | Encounter Summary ---
Demographics + + + | Address | [address] | | | [place] [address] | + + + | Home Phone | | + + + | Preferred Language | Unknown | + + + | Marital Status | | + + + | Holiness Affiliation | NOD | + + + [...] Team Providers + +------+ + | Care Floor Grinder Name | Role | Phone | [...] + + | 08/23/ | Emergency | [address] | Tommy Maier MD | | | 2018 - | | Aline Atkins | [address] | | | | | [facility] | [place], | | | 08/25/ | | [place], [place] | [place] [address] | | | 2018 | | [address] | [phone] | | | | | [phone] | | | | | | | Lavern Montana MD | | | | | | [address] | | | | | | Arash Luis [place], | | | | | | [place] [address] | | | | | | [phone] | | | | | | | [...] y.o. who was referred to 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 Her medical history was notab le for history of one prior CS and tobacco use. The patient was asymtomatic and hemodynamic ally stable with a benign exam upon presentation to [facility]. The patient was counseled on [...] optimization given her distance from [facility] and complex case. On 08/23/2018, [...] your provider, please call the [facility] clinic at [phone] during daytime hours. During evening or weekend hours, please call the [facility] paging paver operator at [phone] and ask for the Senior Sas Developer resident on-call. Reasons to call the doctor: [...] regular periods it can be heavier or sourcing manager, longer or shorter than normal. This will [...] the procedure During regular business hours, call [phone] to speak to a nurse or physician. For emergencies after hours or on the weekend, call [phone] ([facility] paver operator) and ask to speak to the physician stationary fireman for General Obstetrics and Gynecology. Patient Education Materials: oxycodone and ethinyl estradiol and norgestimate Additional Instructions: monitor for bleeding review of AVS, oxycodone and ethinyl estradio l and norgestimate Discharge Nurse: TAYLER CURIEL RN Date: 08/24/2018 Discharge Time: 9:37 PM AttachmentsThe following attachments cannot be sent through Care Everywhere.oxycodone (Engl priscila)ethinyl estradiol and norgestimate (South African)documented in this encounter Medications at Time of [...] Resident Physician, Obstetrics and Gynecology, PGY4 Pager [phone] Agustina Faulkner MD - 08/24/2018 7:24 AM [...] on case scheduled in [facility]. Dr. English Senior Sas Developer 1 aware and will be the attending [...] who agrees with the assessment and plan. Agustian Raygoza MD Obstetrics and Gynecology PGY-1 [id number] Associated attestation - Dale English MD - [...] [facility] | [address] | [place], [place] | | | MARGARITA STEINER OF CARE | [address] | [address] | | | TESTS | | | [...] | | | | | [facility] | | | | | | [place] My electronic | | | | | [...] specimen. | | | | | | Team Guide sections | | | | | | [...] | | | determined by [facility] | | | | | | laboratories. [...] + + | Performing | Address | City/State/[facility] | Phone Number | | Organization | | | | + + + + + | [facility] | [address] | [place] [address] | | | PATHOLOGY | [address] | | | + + + + + DILATION AND CURETTAGE (08/24/2018 1:11 PM PST) + + + | Narrative | Performed At | + + + | Dale English MD 08/30/2018 3:03 PM OPERATIVE REPORT | | | Procedure Date: 08/24/2018 Surgeon: Dale English MD Fellow: Lavern | | | MD Rubén Despatch Clerk: YANNI GARCIA MD,MPH R4 Prior to the [...] Surgical team, anesthesia | | | team, space technologist, circulating nurse. Preoperative Diagnosis: 1) | [...] by LMP who was admitted to the CHRONIC MANAGER service | | | for management of [...] 5-6 weeks | | | 850 - 83854 6-7 weeks | | | 4000 - 767657 7-12 weeks | | | 42119 - 843655 12-16 weeks | | | 29833 - 527099 16-29 | | | weeks 1400 - 63759 | | | 29-41 weeks 940 - 83764 | | | This test has not been approved for use as a tumor marker in | | | males or females. | | + + + + + + + + | Performing | Address | City/State/Zipcode | Phone Number | | Organization | | | | + + + + + | [facility] | [address] | [place] [address] | | | SERVICES, [facility] | [address] | [...] + + + + | PRODUCT | [id number] | | [facility] | | | UNIT [...] + + + + | EXPIRATION | [id number] | | [facility] | | | DATE [...] + + + + | BLOOD | [id number] | | [facility] | | | PRODUCT [...] | [facility] | [address] | [place] [address] | | | SERVICES, | [address] [...] + + + + | PRODUCT | [id number] | | [facility] | | | UNIT [...] + + + + | EXPIRATION | [id number] | | [facility] | | | DATE [...] + + + + | BLOOD | [id number] | | [facility] | | | PRODUCT [...] [facility] | [address] | [place] [address] | | | SERVICES, | [address] [...] | + + + + + | [facility] | [address] | [place] [address] | | | SERVICES, | [address] [...] [facility] | [address] | [place] [address] | | | SERVICES, | [address] [...] | + + + + + | [facility] | [address] | [place] [address] | | | SERVICES, CORE | AR[address] [...] | + + + + + | [facility] [employer] | [address] | [place] [address] | | | SERVICES, CORE | ARASH [...] [facility] | [address] | [place] [address] | | | SERVICES, CORE | ARASH [...] | + + + + + | [facility] | [address] | [place] [address] | | | SERVICES, | [address] [...] [facility] | [address] | [place] [address] | | | SERVICES, | [address] [...] 5-6 weeks | | | 850 - 34098 6-7 weeks | | | 4000 - 942608 7-12 weeks | | | 22031 - 461159 12-16 weeks | | | 80165 - 637952 16-29 | | | weeks 1400 - 33960 | | | 29-41 weeks 940 - 67124 | | | This test has not been approved for use as a tumor marker in | | | males or females. | | + + + + + + + + | Performing | Address | City/State/Zipcode | Phone Number | | Organization | | | | + + + + + | [facility] | [address] | [place] [address] | | | SERVICES, CORE | [address] [...] [facility] | [address] | [place] [address] | | | SERVICES, | [address] [...] [facility] | [address] | [place] [address] | | | SERVICES, | [address] [...] [facility] | [address] | [place] [address] | | | SERVICES, CORE | ARASH [...] | | | LABORATORY | | | [facility] | | | SERVICES, | | | [...] | + + + + + | [facility] | [address] | [place] [address] | | | SERVICES, HORACIO | [address] [...]
--- OUTSIDE RECORDS SUMMARY | ~2020-05-27 | XMS | Encounter Summary ---
Demographics + + + | Address | [address] | | | [place] [address] | + + + | Home Phone | | + + + | Preferred Language | Unknown | + + + | Marital Status | Unknown | + + + | Oriental Orthodox Affiliation | Unknown | + + + | Race | White | + + + | Ethnic Group | Not or | + + + Author + + + | Author | [facility] | | | and [place] | + + + | Organization | [facility] | | | and [place] | + + + | Address | Unknown | + + + | Phone | Unavailable | + + + Support + + + + + | Name | Relationship | Address | Phone | + + + + + | Taz ANGELO | [address] | | | | | [place], [place] | | | | | [address] | | + + + + + Care Team Providers + +------+ + | Care Manager Report Name | Role | Phone | + +------+ + PCP | Unavailable | + +------+ + Encounter Details +--------+ + + + + | Date | Type | Department | Care Team | Description | +--------+ + + + + | 11/15/ | Hospital | [facility] | Josh, | Mild or unspecified | | 2010 - | Encounter | [facility] | Yao Sequeira MD 6928 | pre-eclampsia, with | | | | AND DELIVERY [address] | [facility] | delivery | | 11/23/ | | [address] | [place] [address] | | | 2010 | | [place], [place] | [phone] | | | | | [address] | | | | | | [phone] | | | +--------+ + + + [...] Performed At | + + + | [facility] [address] Ph: | | | Patient Name: KAREN ALVARADO Date of : | | | 1990 Medical Record: [id number] Account: [id number] | | | Exam Date/Time: 11/15/2010 13:55 [...] scans were performed with | | | patient representative static images obtained. FINDINGS: Twin gestation [...] - 06/03/2019 5:06 PM PDT | | [facility] | | [facility] [address] | | | | | | Patient Name: KAREN ALVARADO | | Date of : 1990 | | Medical Record: [id number] | | Account: [id number] | | | | | | Exam [...] evaluation. Multiple realtime scans were performed with patient representative | | static images obtained. | [...]
--- OUTSIDE RECORDS SUMMARY | ~2020-05-27 | XMS | Encounter Summary ---
Demographics + + + | Address | [address] | | | [place] [address] | + + + | Home Phone | | + + + | Preferred Language | Unknown | + + + | Marital Status | | + + + | Spiritism Affiliation | NOD | + + + | Race | White | + + + | Ethnic Group | Not or | + + + Author + + + | Author | [facility] | + + + | Organization | [facility] | + + + | Address [...] Team Providers + +------+ + | Care Fabrication Specialist Name | Role | Phone | [...] Pharmacy | | | | | | [address] | | | | | | [place], [place] | | | | | | [address] | | | | | | [phone] | | | +--------+ + + + [...]
--- OUTSIDE RECORDS SUMMARY | ~2020-05-27 | XMS | Encounter Summary ---
Demographics + + + | Address | [address] | | | [place] [address] | + + + | Home Phone [...] Author + + + | Author | [facility] | | | and [place] | + + + | Organization | [facility] | | | and [place] | + + + | Address | Unknown | + + + | Phone | Unavailable | + + + Support + + + + + | Name | Relationship | Address | Phone | + + + + + | Taz ANGELO | [address] | | | | | [place] | | | | | [address] | | + + + + + Care Team Providers + +------+ + | Care Physician Office Nurse Name | Role | Phone | + +------+ + PCP | Unavailable | + +------+ + Encounter Details +--------+ + + + + | Date | Type | Department | Care Team | Description | +--------+ + + + + | 10/07/ | Hospital | [facility] | Conversion | Nephrolithiasis | | 2017 | Encounter | [facility] X[facility] | Transaction, | | | | | [address] | Provider Unknown | | | | | [address] [place], [place] | [phone] | | | | | [address] | | | | | | [phone] | Roni Gomez, DO | | | | | | [address] | | | | | | [place] [address] | | | | | | [phone] | | | | | | | [...] | Hunter Hernández - 05/25/2019 10:54 AM AMANDA MIRAMONTES1990XR ABDOMEN [...]
--- OUTSIDE RECORDS SUMMARY | ~2020-05-27 | XMS | Encounter Summary ---
Demographics + + + | Address | [address] | | | [place] [address] | + + + | Home Phone | | + + + | Preferred Language | Unknown | + + + | Marital Status | Unknown | + + + | Church Affiliation | Unknown | + + + | Race | White | + + + | Ethnic Group | Not or | + + + Author + + + | Author | [facility] | | | and [place] | + + + | Organization | [facility] | | | and [place] | + + + | Address | Unknown | + + + | Phone | Unavailable | + + + Support + + + + + | Name | Relationship | Address | Phone | + + + + + | Taz ANGELO | [address] | | | | | [place] | | | | | [address] | | + + + + + Care Team Providers + +------+ + | Care Caustic Pump Operator Name | Role | Phone [...] Transaction, | | | | | [address] | Provider Unknown | | | | | [place] | [phone] | | | | | [address] | | | | | | [phone] | | | +--------+ + + + [...]
--- OUTSIDE RECORDS SUMMARY | ~2020-05-27 | XMS | Encounter Summary ---
Demographics + + + | Address | [address] | | | [place] [address] | + + + | Home Phone | | + + + | Preferred Language | Unknown | + + + | Marital Status | | + + + | Hindu Affiliation | NOD | + + + | Race | White | + + + | Ethnic Group | Not or | + + + Author + + + | Author | [facility] | + + + | Organization | [facility] | + + + | Address [...] Team Providers + +------+ + | Care Jig Grinder Set Up Operator Name | Role | Phone | [...] Pharmacy | | | | | | [address] | | | | | | [place], [place] | | | | | | [address] | | | | | | [phone] | | | +--------+ + + + [...]
--- OUTSIDE RECORDS SUMMARY | ~2020-05-27 | XMS | Encounter Summary ---
Demographics + + + | Address | [address] | | | [place] [address] | + + + | Home Phone | | + + + | Preferred Language | Unknown | + + + | Marital Status | Unknown | + + + | Gnosticist Affiliation | Unknown | + + + | Race | White | + + + | Ethnic Group | Not or | + + + Author + + + | Author | [facility] | | | and [place] | + + + | Organization | [facility] | | | and [place] | + + + | Address | Unknown | + + + | Phone | Unavailable | + + + Support + + + + + | Name | Relationship | Address | Phone | + + + + + | Taz ANGELO | [address] | | | | | [place] | | | | | [address] | | + + + + + Care Team Providers + +------+ + | Care Software Project Engineer Name | Role | Phone | + +------+ + | Campbell Garcia | PCP | | + +------+ + Encounter Details +--------+ + + + + | Date | Type | Department | Care Team | Description | +--------+ + + + + | 11/20/ | Orders Only | [facility] | Josh, | | | 2010 | | MEDICAL CENTER | Abdelrahman Sequeira MD [address] | | | | | CLINICAL LABORATORY | [facility] | | | | | [address] | [place] [address] | | | | | [place], [place] | [phone] | | | | | [address] | | | | | | [phone] | | | +--------+ + + + [...] | Testing performed at | | | [facility] [place] [place];[address];[place] [address] CULTURE | | | NO GROUP B STREP ISOLATED | | | Testing performed at [facility], [address] [place] [address] | | | [place] [address] REPORT STATUS | | | 11/23/2010 FINAL [...]
--- OUTSIDE RECORDS SUMMARY | 2020-05-27 03:28 | XMS ---
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 Care History Medical/Surgical 03/27/2020 [facility] PATIENT HAS AN APT WITH DR MELODY LEBLANC- 04/01/2020 Deann VISIT COUNT (12 MO.) 8 [facility]. TOTAL 8 NOTE: Visits indicate total known visits. ED/UCC VISIT TRACKING (12 MO.) 05/27/2020 03:26 [facility] [place] TYPE: Emergency COMPLAINT: - SKIN PROBLEM/VOMITING/FEVER 04/19/2020 16:30 [facility] [place] TYPE: Emergency COMPLAINT: - CHEST PAIN DIAGNOSES: - 11 weeks gestation of - Other residential (current) drug therapy - Other specified diseases and conditions complicating pregnanc - Smoking (tobacco) complicating , first trimester - Latex allergy status - Epigastric pain - Allergy status to other drugs, medicaments and biological sub - Nicotine dependence, unspecified, uncomplicated - Allergy status to other antibiotic agents status - Epigastric pain 03/26/2020 21:29 [facility] [place] TYPE: Emergency [...] diseases and conditions complicating pregnanc - Other ocean transportation intermediary (current) drug therapy - Nicotine dependence, unspecified, uncomplicated - Latex allergy status - Allergy status to analgesic agent status - Less than 8 weeks gestation of - Allergy status to sulfonamides status - Smoking (tobacco) complicating , first trimester 10/30/2019 15:29 [facility] [place] TYPE: Emergency COMPLAINT: - R SHOULDER PAIN DIAGNOSES: - Other ocean transportation intermediary (current) drug therapy - Allergy status to [...] than 8 weeks gestation of - Other ocean transportation intermediary (current) drug therapy - Nicotine dependence, unspecified, [...] uterine and vaginal bleeding, unspecified - Other residential (current) drug therapy 07/03/2019 09:20 [facility] [place] TYPE: Emergency COMPLAINT: - CHEST PAIN, SOB DIAGNOSES: - Personal history of urinary calculi - Other chest pain - Latex allergy status - Acute bronchospasm - Allergy status to penicillin - Other ocean transportation intermediary (current) drug therapy - Allergy status to sulfonamides status - Allergy status to other antibiotic agents status - Nicotine dependence, unspecified, uncomplicated INPATIENT VISIT TRACKING (12 MO.) No inpatient visits to display in this time frame [email or web address]
[2020-05-27] MEDS ORDERED: ADULT LOW DOSE81 MG PO (03:43)
[2020-05-27] MEDS ORDERED: KEFLEX500 MG PO (03:55)
[2020-05-27] MEDS ORDERED: ZOFRAN4 MG PO (03:55)
== END 2020-05-27 04:08 | disposition home or self-care (01) ==
LOC: ED 03:25
DX: O99.712 Diseases of the skin and subcutaneous tissue complicating pregnancy, second trimester (principal); L02.211 Cutaneous abscess of abdominal wall; O21.9 Vomiting of pregnancy, unspecified; O99.332 Smoking (tobacco) complicating pregnancy, second trimester; F17.200 Nicotine dependence, unspecified, uncomplicated; Z91.040 Latex allergy status; Z88.2 Allergy status to sulfonamides; Z88.8 Allergy status to other drugs, medicaments and biological substances; Z88.0 Allergy status to penicillin; Z79.899 Other long term (current) drug therapy; Z79.82 Long term (current) use of aspirin; Z3A.15 15 weeks gestation of pregnancy
CPT/HCPCS: 99283

== ENCOUNTER 2020-10-30 08:23 | Inpatient (IN) | payer OTHER ==
[~2020-10-30 08:23] MED LIST changes: +ADULT LOW DOSE81 MG PO; +KEFLEX500 MG PO; +ZOFRAN4 MG PO
--- NOTE | 2020-10-31 08:40 | NUR ---
10/31/20 0840 Rosmery Reynolds 7777 PT ARRIVED TO PACU ON RA, FBC AT BEDSIDE WTH BABY AND . RESP EVEN AND UNLABORED. PT DENIES PAIN AND NAUSEA. SPINAL LEVEL T-7 PT DENIES SOB AND UNABLE TO MOVE FEET. VSS. IV INFUSING LR WITH 20 PIT SITE WNL.
--- NOTE | 2020-10-31 13:11 | OR ---
[facility] [address] [place], [place] [address] Signed DATE OF OPERATION: 10/31/2020 SURGEON: Shun Rodgers MD PREOPERATIVE DIAGNOSIS: Term , previous section. POSTOPERATIVE DIAGNOSIS: Term , previous section. PROCEDURE: Repeat low transverse segment section, delivery of live female infant. INBOUND SALES REPRESENTATIVE: Dr. Cleary. ANESTHESIA: Spinal. ESTIMATED BLOOD LOSS: 400 mL. COMPLICATIONS: None. DRAINS: Wisdom to bladder. FINDINGS: Live female infant, Apgars 9 and 9. Weight 6 pounds 7 ounces. Normal uterus, normal tubes and ovaries bilateral with small paratubal cyst of the left fallopian tube. DESCRIPTION OF PROCEDURE: The patient was brought to the operating room, placed in the supine position. After adequate spinal anesthesia was obtained, was prepped and draped in usual sterile fashion. Wisdom catheter placed in the bladder. A Pfannenstiel skin incision was made through previous surgical scar using a scalpel. Subcutaneous tissue was dissected with the Bovie. The fascia was nicked with scalpel and extended in transverse fashion using curved scissors. The underlying abdominal musculature was bluntly and sharply from the fascia above and below the incision. The abdominal musculature was bluntly and Electronically Signed By: SHUN RODGERS MD 10/31/20 1311 PATIENT NAME: LULÚ HERNANDEZN OPERATIVE REPORT DATE OF : [birth year] REPORT #: [id number] PHYSICIAN: SHUN RODGERS MD PCP: ALE LENNON PA-C REPORT IS CONFIDENTIAL AND NOT TO BE RELEASED WITHOUT AUTHORIZATION [facility] [address] [place], [place] [address] Signed sharply along the midline. The peritoneum was grasped with hemostats, elevated, nicked with a curved scissors and extended in a vertical fashion. The Freddie self-retaining retractor was inserted into the incision and tightened in place. The lower uterine segment was identified. Lower uterine segment was carefully nicked with scalpel and extended in a transverse fashion using finger dissection. Clear fluid came from the incision. The infant was noted to be in vertex ARELI presentation. head was easily delivered from the incision. The rest of the easily delivered from the incision. The cord was doubly clamped and cut. The infant passed off table in good condition to the awaiting nurse. The placenta was manually removed and uterine cavity explored a lap pad to remove any retained membranes. An angle stitch of 0 Monocryl was placed at one end of the incision and a running locking stitch of 0 Monocryl starting at the other end used to close the incision. A 2nd running stitch of 0 Monocryl was used to imbricate the 1st layer. Good hemostasis was noted. The entire pelvis was irrigated, suctioned, examined any superficial bleeding spots cauterized with the Bovie. The Freddie retractor was removed. Sheet of ACell placed over the lower uterine segment to help with healing. The anterior wall peritoneum was closed using running stitch of 2-0 Vicryl suture. The abdominal musculature was reapproximated using interrupted stitches of 0 Vicryl suture. The abdominal wall incision was irrigated, suctioned and examined, any bleeding spots cauterized with the Bovie. The fascia was then closed using two running stitches of 0 Vicryl suture meeting in the midline. Subcutaneous tissue was irrigated, suctioned and examined, any bleeding spots were cauterized with the Bovie. Subcutaneous tissue was closed using interrupted stitches of 3-0 Vicryl suture and the skin reapproximated using skin clips. The patient tolerated the procedure well, went to the recovery room in good condition. The sponge, needle, and instrument count were correct at the end of the procedure. Shun Rodgers MD MJB/MODL /[id number] Copies: ~ Electronically Signed By: SHUN RODGERS MD 10/31/20 1311 PATIENT NAME: LULÚ HERNANDEZ OPERATIVE REPORT DATE OF : [birth year] REPORT #: [id number] PHYSICIAN: SHUN RODGERS MD PCP: ALE LENNON PA-C REPORT IS CONFIDENTIAL AND NOT TO BE RELEASED WITHOUT AUTHORIZATION
--- NOTE | 2020-11-01 11:38 | PR ---
[facility] [address] [place] [address] Signed PP Progress Notes Datetime Report Generated by CPN: 11/01/2020 11:38 SUBJECTIVE: [id number] Pain: Within Normal Limits Nausea/Vomiting: Denies Vital Signs: [id number] Vital Signs: Reviewed; Within Normal Limits Notable Details: PP Hgb/Hct = 11.8/34.7 EXAM: Ongoing Abdomen/Uterus: Normal Lochia: Normal Extremities: Normal Incision: Normal IMPRESSION/PLAN/PROCEDURES: [id number] Impression: Normal Progression Plan: Continue Present Management Procedures: None Progress Notes: Doing well, without complaint, tolerating food well, up to shower without problem. Signing Physician: Dami Oliver MD Copies: ~ *Electronically Signed* 11/01/20 1138 DAMI OLIVER MD PATIENT NAME: LULÚ HERNANDEZ PROGRESS NOTE DATE OF : [birth year] PHYSICIAN: DAMI OLIVER MD RPT #: [id number] REPORT IS CONFIDENTIAL AND NOT TO BE RELEASED WITHOUT AUTHORIZATION
--- NOTE | 2020-11-02 13:11 | PR ---
[facility] [address] [place] [address] Signed PP Progress Notes Datetime Report Generated by CPN: 11/02/2020 13:11 SUBJECTIVE: [id number] Pain: Within Normal Limits Nausea/Vomiting: Denies Vital Signs: [id number] Vital Signs: Reviewed; Within Normal Limits Notable Details: PP Hgb/Hct = 11.8/34.7 EXAM: Ongoing Abdomen/Uterus: Normal Lochia: Normal Extremities: Normal Incision: Normal IMPRESSION/PLAN/PROCEDURES: [id number] Impression: Normal Progression Plan: Discharge Procedures: None Progress Notes: Doing well, without complaint, ready to go home. Signing Physician: Dami Oliver MD Copies: ~ *Electronically Signed* 11/02/20 1311 DAMI OLIVER MD PATIENT NAME: LULÚ HERNANDEZ PROGRESS NOTE DATE OF : [birth year] PHYSICIAN: DAMI OLIVER MD RPT #: [id number] REPORT IS CONFIDENTIAL AND NOT TO BE RELEASED WITHOUT AUTHORIZATION
== END 2020-11-02 13:20 | disposition home or self-care (01) | DRG 788 ==
LOC: FBC 10-31 05:05
PROVIDERS: ADMIT General Practice; ATTEND General Practice
PROC: 10D00Z1 Extraction of Products of Conception, Low, Open Approach (ICD-10-PCS; principal; 2020-10-31 06:45)
DX: O34.211 Maternal care for low transverse scar from previous cesarean delivery (principal); N85.8 Other specified noninflammatory disorders of uterus; Z37.0 Single live birth; Z3A.39 39 weeks gestation of pregnancy; O99.334 Smoking (tobacco) complicating childbirth; F17.210 Nicotine dependence, cigarettes, uncomplicated; O99.344 Other mental disorders complicating childbirth; F90.9 Attention-deficit hyperactivity disorder, unspecified type; Z79.899 Other long term (current) drug therapy; Z79.82 Long term (current) use of aspirin; Z88.0 Allergy status to penicillin; Z88.2 Allergy status to sulfonamides; Z88.8 Allergy status to other drugs, medicaments and biological substances; Z91.040 Latex allergy status; Z86.19 Personal history of other infectious and parasitic diseases
CPT/HCPCS: 01961; 36415; 85027; A9270; J0690; J2001; J2274; J2300; J2405; J2550; J2590; J3010; J7121

== ENCOUNTER 2021-09-22 11:59 | Emergency (ER) | payer OTHER ==
[~2021-09-22] VITALS: Ht 157.5 cm; Wt 79.4 kg
--- OUTSIDE RECORDS SUMMARY | 2021-09-22 12:06 | XMS ---
PreManage Notification: LULÚ HERNANDEZ Security Corrugated Box Machine Operator Events No recent Security Events currently on file CRITERIA MET - [facility] CARE PROVIDERS ALE LENNON Physician Cnc Lathe Machinist 12/26/2018-Current PHONE: [phone] KIMBERLY HALEYpractor 10/31/2019-Current PHONE: [phone] Radha has no Care Guidelines for this patient. Care History Medical/Surgical 03/27/2020 [facility] PATIENT HAS AN APT WITH DR MELODY LEBLANC- 04/01/2020 Deann VISIT COUNT (12 MO.) [address] [place] [address] TOTAL 1 NOTE: Visits indicate total known visits. ED/UCC VISIT TRACKING (12 MO.) 09/22/2021 12:01 [facility] [place] TYPE: Emergency COMPLAINT: - R EYE FOREIGN OBJECT/INJURY INPATIENT VISIT TRACKING (12 MO.) 10/31/2020 05:05 [facility] [place] TYPE[facility] COMPLAINT: - REPEAT DIAGNOSES: - Allergy status to sulfonamides - Smoking (tobacco) complicating childbirth - Allergy status to penicillin - 39 weeks gestation of - Allergy status to other drugs, medicaments and biological substances - Personal history of other infectious and parasitic diseases - intermediate manager (current) use of aspirin - Latex allergy status - Single live - Single live - Other intermediate manager (current) drug therapy - Other specified noninflammatory disorders of uterus - Nicotine dependence, cigarettes, uncomplicated - Other specified noninflammatory disorders of uterus - Other mental disorders complicating childbirth - Attention-deficit hyperactivity disorder, unspecified type - Maternal care for low transverse scar from previous delivery 10/01/2020 18:00 [facility] [place] TYPE: Observation COMPLAINT: - OB CHECK, GLF @ HOME DIAGNOSES: - Contact with and (suspected) exposure to other viral communicable diseases - labor without delivery, third trimester - Abnormality of forces of labor, unspecified - 34 weeks gestation of [email or web address]
[2021-09-22] MEDS ORDERED: OFLOXACIN5 M1 OP (17:54)
== END 2021-09-22 18:15 | disposition home or self-care (01) ==
LOC: ED 11:59
DX: T15.01XA Foreign body in cornea, right eye, initial encounter (principal); F17.200 Nicotine dependence, unspecified, uncomplicated; Z91.040 Latex allergy status; Z88.2 Allergy status to sulfonamides; Z88.1 Allergy status to other antibiotic agents; Z88.8 Allergy status to other drugs, medicaments and biological substances
CPT/HCPCS: 65222; 99283-25

== ENCOUNTER 2023-01-22 20:18 | Emergency (ER) | payer OTHER ==
[~2023-01-22] VITALS: Ht 157.5 cm; Wt 92.1 kg
[~2023-01-22 20:18] MED LIST changes: +DICLOFENAC POTA50 MG PO; +OFLOXACIN5 M1 OP; +PRENATA CHEWAB1 EACH PO
--- OUTSIDE RECORDS SUMMARY | 2023-01-22 20:22 | XMS ---
PreManage Notification: LULÚ HARRIS Security Solution Design And Analysis Manager Events No recent Security Events currently on file CRITERIA MET - [facility] CARE PROVIDERS -Ellie- Dentist: Car Dispatcher [facility] PHONE: [phone] ALE LENNON Physician Certified Flight Instructor 09/23/2021-Current PHONE: [phone] KIMBERLY HALEY Chiropractor 10/31/2019-Current PHONE: [phone] Radha has no Care Guidelines for this patient. Care History Medical/Surgical 03/27/2020 [facility] PATIENT HAS AN APT WITH DR MELODY LEBLANC- 04/01/2020 E.D. VISIT COUNT (12 MO.) 1 [facility] TOTAL 1 NOTE: Visits indicate total known visits. ED/UCC VISIT TRACKING (12 MO.) 01/22/2023 20:20 [facility] [place] TYPE: Emergency COMPLAINT: - BACK INJ INPATIENT VISIT TRACKING (12 MO.) No inpatient visits to display in this time frame [email or web address]
[2023-01-22] MEDS ORDERED: TIZANIDINE HCL2 M1 PO (22:11)
[2023-01-22] MEDS ORDERED: LIDODERM1 EACH TOP (22:11)
[2023-01-22] MEDS ORDERED: PREDNISONE20 MG PO (22:12)
[2023-01-22 22:32] VITALS: BP 121/71
== END 2023-01-22 22:37 | disposition home or self-care (01) ==
LOC: ED 20:18
DX: S39.012A Strain of muscle, fascia and tendon of lower back, initial encounter (principal); F17.200 Nicotine dependence, unspecified, uncomplicated; X50.0XXA Overexertion from strenuous movement or load, initial encounter; Z91.040 Latex allergy status; Z88.0 Allergy status to penicillin
CPT/HCPCS: 81001; 96372; 99283; A9270; J1885

== ENCOUNTER 2023-02-25 05:45 | Day surgery (SDC) | payer OTHER ==
[2023-02-17 15:24] VITALS: BP 120/76
[~2023-02-25] VITALS: Ht 157.5 cm; Wt 93.2 kg
--- NOTE | ~2023-02-25 | OR ---
[place] [id number] [place], [place] [address] Draft DATE OF OPERATION: 02/25/2023 SURGEON: Kimberly Madden DO PREOPERATIVE DIAGNOSES: 1. Abnormal uterine bleeding. 2. Dysmenorrhea. POSTOPERATIVE DIAGNOSES: 1. Abnormal uterine bleeding. 2. Dysmenorrhea. 3. History of bilateral salpingectomy. PROCEDURES PERFORMED: 1. Total laparoscopic hysterectomy. 2. Cystoscopy. MANDATE RETAIL SERVICE MERCHANDISER: Shun Rodgers M.D. ANESTHESIA: General. ESTIMATED BLOOD LOSS: 20 mL. SPECIMEN: Uterus and cervix. DRAINS: Wisdom to gravity. FINDINGS: Normal external genitalia with normal clitoris, urethral meatus, bilateral Imbery's and Bartholin's glands. Normal vagina and cervix. On laparoscopy, normal upper abdomen. Normal uterus and ovaries bilaterally. Fallopian tube surgically absent. Hemostasis an excellent apical support at the end of the procedures. Normal bladder with bilateral ureteral jets on cystoscopy. Benign peritoneal remnant/foreign body reaction of surgical product from prior . PATIENT NAME: KIMBERLYJELANILULÚ RAMU OPERATIVE REPORT DATE OF : [birth year] REPORT #: [id number] PHYSICIAN: KIMBERLY MADDEN) PCP: ALE LENNON PA-C REPORT IS CONFIDENTIAL AND NOT TO BE RELEASED WITHOUT AUTHORIZATION [address] [address] [place] COMPLICATIONS: None. INDICATIONS: Mrs. Harris is a very pleasant 33-year-old female with a history of abnormal uterine bleeding and dysmenorrhea that was not amenable to conservative therapy. The patient was consented for total laparoscopic hysterectomy, possible bilateral salpingectomy of any remaining fallopian tubes after history of tubal ligation and cystoscopy. Risks, benefits, and alternatives were discussed in detail with the patient. The patient understands and wishes to proceed with the procedure. DESCRIPTION OF PROCEDURE: The patient was taken to the operating room and time-out was performed to confirm correct patient and correct procedure. General anesthesia was adequately established. The patient was prepped and draped in the dorsal lithotomy position with feet in Yellofin stirrups. ICPs were on and running. The patient received Ancef 2 g preoperatively per SCIP protocol and heparin was not indicated. Wisdom catheter was inserted. A weighted speculum was placed in the vagina and the anterior lip of the cervix was grasped with an Allis clamp. The cervix was gently dilated using Hegar dilators and VCare uterine manipulator was placed without difficulty. The surgeon's gloves were changed and attention was turned to the umbilicus. Just inferior to the umbilicus, priors laparoscopy scar was infiltrated with 0.25% Marcaine with epinephrine and incised using an #11 blade. The fascia was grasped with hemostats, elevated and entered sharply with Metzenbaum scissors. Stay suture was placed in the superior and inferior edge of the fascial incision and the peritoneum was entered bluntly. A Cheryl operative port was placed and pneumoperitoneum was established without difficulty. Survey of the abdomen and pelvis was performed demonstrating normal uterus, bilateral ovaries, absent fallopian tubes, and otherwise normal abdomen and pelvis. A 5 mm regulatory affairs assistant port was placed in left lower quadrant under direct visualization without complication. An 8 mm expanding port was placed in the right lower quadrant under direct visualization without complication. The right utero-ovarian ligament was fulgurated and divided using LigaSure device. The right round ligament was divided in the midportion with excellent hemostasis appreciated. The process was repeated on the left without difficulty. The leaves of the broad ligament on the left were divided and the anterior leaf was divided from the midportion of the round ligament to the left edge of the vaginal cup. This was carefully dissected along the anterior portion and prior scar was taken down without difficulty. The inferior portion of the broad ligament was then divided from the midportion of the round ligament to the uterosacral ligament across the posterior edge of the vaginal cup. The uterine vessels were identified, fulgurated and divided with excellent hemostasis appreciated. The process was repeated on the right with division of the leaves of the broad ligament, completion of the bladder dissection and the bladder was pushed well below the vaginal cup. The PATIENT NAME: LULÚ HARRIS OPERATIVE REPORT DATE OF : [birth year] REPORT #: [id number] PHYSICIAN: KIMBERLY MADDEN (JULITA) PCP: ALE LENNON PA-C REPORT IS CONFIDENTIAL AND NOT TO BE RELEASED WITHOUT AUTHORIZATION [facility] [address] [place], [place] [address] Draft right uterine vessels were identified, fulgurated, and divided with excellent hemostasis. Colpotomy was then performed circumferentially, following the green edge of the vaginal cup using Sonicision device. The uterus and cervix were delivered through the vagina and sent to Pathology for further evaluation. The surgical planes were carefully viewed and irrigated with no oozing noted. The hysterotomy was then repaired using V-Loc suture with an Endostitch device with careful attention to incorporate the uterosacral ligaments bilaterally as well as the vaginal epithelium with each bite. Excellent hemostasis and apical support was appreciated. The pelvis was irrigated and again found to be hemostatic. Pneumoperitoneum was reduced. Trocars were removed and infraumbilical fascia was reapproximated using 0-Vicryl in a running nonlocked manner. Laparoscopic ports were reapproximated using 4-0 Monocryl in a subcuticular stitch with excellent hemostasis and cosmesis appreciated. Attention was then turned to cystoscopy. The Wisdom catheter was removed and a 70-degree cystoscope was placed in the urethral meatus and advanced under direct visualization into the bladder. Normal urethra and bladder was appreciated with normal bladder dome. Bilateral ureteral jets were appreciated. The bladder was drained. Wisdom catheter was reinserted and the patient was taken to PACU in good and stable condition. Sponge, needle, and instrument counts correct x2 at the end of procedure. Dr. Rodgers was present and participated in all portions of the procedure. DO MARIAN Negron/KALA /[id number] Copies: ~ PATIENT NAME: LULÚ HARRIS OPERATIVE REPORT DATE OF : [birth year] REPORT #: [id number] PHYSICIAN: KIMBERLY MADDEN) DO PCP: ALE LENNON PA-C REPORT IS CONFIDENTIAL AND NOT TO BE RELEASED WITHOUT AUTHORIZATION
[~2023-02-25 05:45] MED LIST changes: +ADDERALL XR 1515 MG PO; +LIDODERM1 EACH TOP; +PREDNISONE20 MG PO; +TIZANIDINE HCL2 M1 PO
[2023-02-25 06:02] VITALS: BP 124/78
--- NOTE | 2023-02-25 09:12 | NUR ---
02/25/23 0912 Geovanna Wilkins 0962-PATIENT ARRIVED TO PACU ON 6L MASK RR EVEN PATIENT SHAKING. REACTIVE TO VERBAL STIMULI OPENING EYES AND IMMEDIATELY DOZES BACK TO SLEEP. ST HR 100'S. LR INFUSING. WARM BLANKETS APPLIED. SANCHEZ CATHETER DRAINING YELLOW URINE. ABDOMINAL INCISIONS CDI.
[2023-02-25 09:55] VITALS: BP 128/77
--- NOTE | 2023-02-25 10:08 | NUR ---
PT BACK TO DS FROM PACU DROWSY, O2 ON 2L. WARM BLANKETS AND RAUL HUGGER PLACED ON PT. CALL LIGHT WITHIN REACH. PT RESTING COMFORTABLY WITH EYES CLOSED.
--- NOTE | 2023-02-25 10:12 | NUR ---
O2 TURNED OFF PT SATS REMAIN ABOVE 95%
--- NOTE | 2023-02-25 10:29 | NUR ---
PT SLEEPING COMFORTALY, HER MOM IS AT BEDSIDE.
[2023-02-25 10:52] VITALS: BP 133/71
--- NOTE | 2023-02-25 11:14 | NUR ---
1050 VS DONE PT WOKE DEMANDED SCD'S AND SOCKS BE TAKEN OFF, SHE REPORTS SHE DOESNT LIKE THE WAY THEY FEEL ON HER LEGS. PT REPORTS PAIN 7/10. DENIES NAUSEA PT EATING JELLO AND APPLE SAUCE. PERCOCET GIVEN.
--- NOTE | 2023-02-25 11:17 | NUR ---
1115 PT AMBULATED TO BATHROOM WITHOUT ASSIST SHE WAS ABLE TO VOID 150ML OF BRIGHT YELLOW URINE. PT AMBULATED BACK INTO BED. WARM BLANKETS AND RAUL HUGGER PLACED ON PT. CALL LIGHT WITHIN REACH. HER MOM IS AT BEDSIDE.
--- NOTE | 2023-02-25 11:24 | NUR ---
PT REPORTS SHE IS READY TO GO HOME AND IS ASKING TO GET DRESSED. DISCHARGE INSTRUCTIONS GIVEN TO PT AND MOM, BOTH VOICED UNDERSTANDING.
--- NOTE | 2023-03-10 09:12 | PATH ---
[facility] [address] [facility] [place], [place] [address] Signed THIS IS AN ADDENDUM REPORT SPECIMEN(S): A UTERUS, CERVIX SPECIMEN SOURCE: A. UTERUS, CERVIX CLINICAL HISTORY: Dysmenorrhea, irregular/abnormal bleeding. FINAL PATHOLOGIC DIAGNOSIS: Uterus and cervix, resection: - Cervix: - No pathologic diagnosis. - Negative for dysplasia. - Uterus: - Secretory endometrium. - Focal adenomyosis. - Negative for atypia or hyperplasia. NA:slc:C2NR MICROSCOPIC EXAMINATION: Histologic sections of all submitted blocks are examined by light microscopy. These findings, together with the gross examination, support the pathologic diagnosis. GROSS DESCRIPTION: The specimen, labeled and designated "Fabby Harris," and designated on the requisition "uterus, cervix," is received in formalin and consists of a uterus (6.4 cm superior to inferior, 6.2 cm cornu to cornu, 4.7 cm anterior to posterior), attached cervix (2.5 cm in length x 3.1 cm in diameter) with wood-pink ectocervical mucosa and slit-shaped os (1.0 x 0.2 cm). The cervix is sectioned to reveal a wood-pink, wrinkled endocervix (endocervical canal: 2.5 cm in length x 0.7 cm in diameter). The uterine serosa is wood to red-brown and smooth. The endometrial cavity (4.0 cm superior to inferior x 2.5 cm cornu to cornu) contains red-brown endometrial lining that measures up to 0.2 cm in thickness. The myometrium is wood-pink to subserosally red-brown and trabeculated with no masses, lesions, or nodules grossly identified. Supervisor Blasting sections are submitted. Cassette Summary: PATIENT NAME: LULÚ HARRIS PATHOLOGY DATE OF : [birth year] REPORT #: [id number] PHYSICIAN: ANA PATHOLOGY PCP: ALE LENNON PA-C REPORT IS CONFIDENTIAL AND NOT TO BE RELEASED WITHOUT AUTHORIZATION [facility] [address] [place], [place] [address] Signed (A1) Cervix (A2) Endomyometrium AC (under the direct supervision of a pathologist) The Gross Description was prepared using a voice recognition system. The report was reviewed for accuracy; however, sound-alike word errors, addition and/or deletions may occur. If there is any question about this report, please contact Client Services. PERFORMING LABORATORY: The technical component was performed by [facility], [address] [place] [address] (CLIA# [id number]). Professional interpretation was performed by [facility], [facility], [address] [place] [address] (CLIA#: [id number]) REASON FOR ADDENDUM: To add the weight to the Gross Description, which was inadvertently left off the original report. ADDENDUM GROSS DESCRIPTION: The specimen weight was 110 grams. JS:mario (under direct supervision of a pathologist). The technical component was performed by [facility], [address] [place] [address] (CLIA# [id number]). Diagnostician: Leopoldo Gonzalez MD Pathologist Electronically Signed 03/10/2023 Copies: ~ PATIENT NAME: LULÚ HARRIS PATHOLOGY DATE OF : [birth year] REPORT #: [id number] PHYSICIAN: ANA FLORES PCP: ALE LENNON PA-C REPORT IS CONFIDENTIAL AND NOT TO BE RELEASED WITHOUT AUTHORIZATION
== END 2023-02-25 11:35 | disposition home or self-care (01) ==
LOC: DS 05:45
PROVIDERS: ATTEND Obstetrics & Gynecology
PROC: 0UT9FZZ Resection of Uterus, Via Natural or Artificial Opening With Percutaneous Endoscopic Assistance (ICD-10-PCS; principal; 2023-02-25 07:30)
DX: N80.03 Adenomyosis of the uterus (principal); N94.6 Dysmenorrhea, unspecified; F90.9 Attention-deficit hyperactivity disorder, unspecified type; Z79.899 Other long term (current) drug therapy
CPT/HCPCS: 00840; 88307; J0131; J0690; J1100; J1885; J2250; J2300; J2405; J2704; J3490; J7121

== ENCOUNTER 2023-08-11 13:35 | Emergency (ER) | payer OTHER ==
[~2023-08-11] VITALS: Ht 157.5 cm; Wt 85.7 kg
--- OUTSIDE RECORDS SUMMARY | 2023-08-11 13:38 | XMS ---
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 Care History Medical/Surgical 03/27/2020 [facility] PATIENT HAS AN APT WITH DR MELODY LEBLANC- 04/01/2020 E.D. VISIT COUNT (12 MO.) [address] [facility] TOTAL 2 NOTE: Visits indicate total known visits. ED/UCC VISIT TRACKING (12 MO.) 08/11/2023 13:36 [facility] [place] TYPE: Emergency COMPLAINT: - POSSIBLE ALLERGIC REACTION 01/22/2023 20:20 [facility] [place] TYPE: Emergency COMPLAINT: - BACK INJ DIAGNOSES: - Allergy status to penicillin - Latex allergy status - Low back pain, unspecified - Nicotine dependence, unspecified, uncomplicated - Overexertion from strenuous movement or load, initial encounter - Strain of muscle, fascia and tendon of lower back, initial encounter INPATIENT VISIT TRACKING (12 MO.) No inpatient visits to display in this time frame [email or web address]
[2023-08-11] MEDS ORDERED: EPIPEN 2-P0.3 MG/0.3 IM (15:36)
[2023-08-11] MEDS ORDERED: PREDNISONE20 MG PO (15:36)
[2023-08-11 15:42] VITALS: BP 142/74
== END 2023-08-11 15:42 | disposition home or self-care (01) ==
LOC: ED 13:35
DX: T78.40XA Allergy, unspecified, initial encounter (principal); X58.XXXA Exposure to other specified factors, initial encounter; F17.200 Nicotine dependence, unspecified, uncomplicated; Z88.0 Allergy status to penicillin; Z88.2 Allergy status to sulfonamides; Z88.8 Allergy status to other drugs, medicaments and biological substances; Z91.040 Latex allergy status
CPT/HCPCS: 99283; J7512; Q0163

== ENCOUNTER 2023-11-10 19:23 | Emergency (ER) | payer OTHER ==
[~2023-11-10] VITALS: Ht 157.5 cm; Wt 79.6 kg
[~2023-11-10 19:23] MED LIST changes: +EPIPEN 2-P0.3 MG/0.3 IM; +MACROBID 100 M100 MG PO
--- OUTSIDE RECORDS SUMMARY | 2023-11-10 19:27 | XMS ---
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 Care History Medical/Surgical 03/27/2020 [facility] PATIENT HAS AN APT WITH DR MELODY LEBLANC- 04/01/2020 [facility] VISIT COUNT (12 MO.) [address] [place] [address] TOTAL 4 NOTE: Visits indicate total known visits. ED/UCC VISIT TRACKING (12 MO.) 11/10/2023 19:23 [facility] [place] TYPE: Emergency COMPLAINT: - ABDOMINAL PAIN 10/25/2023 12:49 [facility] TYPE: Emergency COMPLAINT: - UNABLE TO URINATE DIAGNOSES: - Allergy status to other antibiotic agents - Allergy status to other drugs, medicaments and biological substances - Allergy status to penicillin - Allergy status to sulfonamides - Hematuria, unspecified - Latex allergy status - Nicotine dependence, unspecified, uncomplicated - Urinary tract infection, site not specified 08/11/2023 13:36 [facility] [place] TYPE: Emergency COMPLAINT: - POSSIBLE ALLERGIC REACTION DIAGNOSES: - Allergy status to other drugs, medicaments and biological substances - Allergy status to penicillin - Allergy status to sulfonamides - Allergy, unspecified, initial encounter - Exposure to other specified factors, initial encounter - Latex allergy status - Nicotine dependence, unspecified, uncomplicated 01/22/2023 20:20 [facility] [place] TYPE: Emergency [...] visits to display in this time frame [email or web address]
[2023-11-10 19:46] LABS: HEMOGLOBIN 12.9 g/dL (12.0-18.0)
[2023-11-10 19:49] LABS: BASOPHILS 0.6 % (0-2); EOSINOPHILS 1.2 % (0-6); LYMPHOCYTES 38.5 % (24-44); MCH 29.7 (27-36); MCHC 33.9 g/dl (30-36); MCV 87.6 fl (81-99); MONOCYTES 11.2 % (0-12); NEUTROPHILS 48.5 % (39-80); PLATELET COUNT 316 K/uL (140-440); RBC 4.33 M/ul (4.3-5.7); RDW 12.7 (10.5-15.0)
[2023-11-10 20:00] LABS: ALBUMIN 3.5 g/dL (3.4-5.0); ANION GAP 12.4 (7-21); BILIRUBIN, TOTAL 0.8 ng/dL (0.2-1.0); BUN/CREATININE RATIO 15.11 (6.0-28.6); CALCIUM 8.7 mg/dL (8.5-10.1); CREATININE, SERUM 0.86 mg/dL (0.55-1.02); MAGNESIUM 1.9 mg/dL (1.8-2.4); POTASSIUM 3.4 mmol/L (3.5-5.1)
[2023-11-10 20:25] LABS: BILIRUBIN, URINE NEGATIVE (negative); BLOOD/HGB, URINE MODERATE (Negative); KETONE, URINE TRACE (Negative); LEUK ESTERASE, URINE NEGATIVE (negative); NITRITE, URINE NEGATIVE (negative)
[2023-11-10 20:31] LABS: BACTERIA, URINE RARE /hpf (negative); CASTS, URINE NONE SEEN \\lpf; COLLECTION TYPE, URINE CLEAN CATCH; CRYSTALS, URINE NONE SEEN (0-1+); EPITHELIAL CELLS, URINE SQUAMOUS 3+ /lpf (0-1+); REFLEX CULTURE, URINE No (No)
[2023-11-10] MEDS ORDERED: ONDANSETRON ODT8 MG PO (21:37)
[2023-11-10 22:08] VITALS: BP 106/74
== END 2023-11-10 22:08 | disposition home or self-care (01) ==
LOC: ED 19:23
PROVIDERS: Emergency Medicine
DX: K52.9 Noninfective gastroenteritis and colitis, unspecified (principal); N20.0 Calculus of kidney; F17.200 Nicotine dependence, unspecified, uncomplicated; Z91.040 Latex allergy status; Z88.0 Allergy status to penicillin; Z88.8 Allergy status to other drugs, medicaments and biological substances
CPT/HCPCS: 36415; 74177; 80053; 81001; 83690; 83735; 84703; 85025; 96361; 96375; 99284-25; A9270; J1885; J2405; J7030; Q9967

== ENCOUNTER 2025-01-08 14:07 | Emergency (ER) | payer OTHER ==
[~2025-01-08] VITALS: Ht 157.5 cm; Wt 83.3 kg
[~2025-01-08 14:07] MED LIST changes: +ONDANSETRON ODT8 MG PO
[2025-01-08] MEDS ORDERED: ADDERALL XR 2020 MG PO (21:05)
[2025-01-08] MEDS ORDERED: VITAMIN D21250 MCG PO (21:06)
[2025-01-08] MEDS ORDERED: ondansetron HCL 4 MG/2 ML VIAL IV ONE (21:15)
[2025-01-08 21:26] LABS: BILIRUBIN, URINE NEGATIVE (negative); BLOOD/HGB, URINE NEGATIVE (Negative); KETONE, URINE NEGATIVE (Negative); LEUK ESTERASE, URINE NEGATIVE (negative); NITRITE, URINE NEGATIVE (negative); PH, URINE 5.5 (5-7)
[2025-01-08 21:26] LABS: BASOPHILS 0.4 % (0-2); HEMATOCRIT 40.8 % (35.0-50.0); HEMOGLOBIN 14.2 g/dL (12.0-18.0); LYMPHOCYTES 28.5 % (24-44); MCH 29.9 (27-36); MCHC 34.8 g/dl (30-36); MONOCYTES 7.9 % (0-12); NEUTROPHILS 62.2 % (39-80); PLATELET COUNT 334 K/uL (140-440); RBC 4.75 M/ul (4.3-5.7); RDW 13.3 (10.5-15.0)
[2025-01-08 21:49] LABS: ALBUMIN 3.9 g/dL (3.4-5.0); ALBUMIN/GLOBULIN RATIO 1.22 (1.1-2.4); ANION GAP 10.3 (7-21); BILIRUBIN, TOTAL 0.8 mg/dL (0.2-1.0); BUN/CREATININE RATIO 8.86 (6.0-28.6); CALCIUM 8.8 mg/dL (8.5-10.1); CREATININE, SERUM 0.79 mg/dL (0.55-1.02); POTASSIUM 3.3 mmol/L (3.5-5.1); PROTEIN, TOTAL 7.1 g/dL (6.4-8.2)
[2025-01-08] MEDS ORDERED: SUCRALFATE 1 GM TAB PO ONE (22:45)
[2025-01-08] MEDS ORDERED: FAMOTIDINE 20 MG/ 2 ML VIAL IV ONE (22:45)
[2025-01-08] MEDS ORDERED: KETOROLAC TROMETHAMINE 30 MG/ML VIAL IV ONE (22:45)
[2025-01-08] MEDS ORDERED: CARAFATE1 GM PO (23:33)
[2025-01-08] MEDS ORDERED: OMEPRAZOLE20 MG PO (23:33)
[2025-01-08 23:54] VITALS: BP 103/70
== END 2025-01-08 23:55 | disposition home or self-care (01) ==
LOC: ED 14:07
PROVIDERS: Internal Medicine
DX: K21.9 Gastro-esophageal reflux disease without esophagitis (principal); F17.210 Nicotine dependence, cigarettes, uncomplicated; Z91.040 Latex allergy status; Z88.2 Allergy status to sulfonamides; Z88.1 Allergy status to other antibiotic agents; Z79.899 Other long term (current) drug therapy
CPT/HCPCS: 36415; 80053; 81003; 83690; 85025; 96374; 96375; 99284-25; J1885; J2405

== ENCOUNTER 2025-10-01 13:09 | Emergency (ER) | payer OTHER ==
[~2025-10-01] VITALS: Ht 157.5 cm; Wt 85.4 kg
[~2025-10-01 13:09] MED LIST changes: +ADDERALL XR 2020 MG PO; +CARAFATE1 GM PO; +OMEPRAZOLE20 MG PO; +VITAMIN D21250 MCG PO
[2025-10-01 19:11] VITALS: BP 114/89
== END 2025-10-01 19:12 | disposition home or self-care (01) ==
LOC: ED 13:09
DX: S63.502A Unspecified sprain of left wrist, initial encounter (principal); S40.012A Contusion of left shoulder, initial encounter; Z79.899 Other long term (current) drug therapy; Z91.040 Latex allergy status; Z88.1 Allergy status to other antibiotic agents; Z88.0 Allergy status to penicillin; Z88.8 Allergy status to other drugs, medicaments and biological substances; F17.200 Nicotine dependence, unspecified, uncomplicated; V69.9XXA Occupant (driver) (passenger) of heavy transport vehicle injured in unspecified traffic accident, initial encounter
CPT/HCPCS: 73030; 73110; 99284